=== PATIENT | female | born 1965 | race Caucasian/White ===

== ENCOUNTER 2017-03-22 11:29 | Emergency (ER) | payer SELFPAY ==
[2017-03-22 11:49] VITALS: BP 127/81; PULSE 86; RESP 20; TEMP 36.6; O2SAT 100; BMI 21.9
--- NOTE | 2017-03-22 12:11 | HMH.EDUTC ---
[facility] [place] Clinical Impression: Otitis media Qualifiers: Otitis media type: unspecified Laterality: left Qualified Code(s): H66.92 - Otitis media, unspecified, left ear Disposition: Home, Self-Care Condition on Discharge: Good Instructions: Middle Ear Infection, Ear Infections (Middle Ear) (Alternative Therapy), DI for Ear Pain-Adult Additional Instructions: Take over the counter Motrin and Tylenol as needed for pain and fever Take antibiotic as prescribed Follow up with family doctor if no improvement REturn if needed Prescriptions: Ibuprofen [Ibuprofen 800mg Tab] 800 mg PO Q6HP PRN #20 tab PRN Reason: Moderate Pain Cefdinir [Omnicef 300mg Capsule] 300 mg PO BID #20 cap Time of Disposition: 12:25 Medical Decision Making - Medical Records Medical records reviewed: Yes: I reviewed the patient's medical records. Vital Signs: 03/22/17 11:49 Temperature 97.8 F Temperature Source Temporal Artery Scan Pulse Rate [Right Brachial] 86 Respiratory Rate 20 Blood Pressure [Right Arm] 127/81 Blood Pressure Mean [Right Arm] 96 Blood Pressure Source [Right Arm] Automatic Cuff Blood Pressure Position [Right Arm] Sitting 02 Sat by Pulse Oximetry 100 Oxygen Delivery Method Room Air - Navi Inquiry Pt receiving controlled substance: No Navi was queried for this patient: No - Reevaluation(s) Time: 12:19 ( Patient state that she took Advil this morning at 9am State that she is allergic to Penicillin however able to take Cephasporins without reaction) [facility] [place] - General Stated complaint: left earache Mode of Arrival: Ambulatory Source of Information: Patient Limitations: No Limitations Description of Symptoms (Recalled from Triage Doc. by RN): C/O bilateral ear pain and decreased hearing HEENT Symptoms (Recalled from RN notes): Yes (Bilateral ear pain and decreased hearing) Resp Symptoms (Recalled from RN notes): No Skin Symptoms (Recalled from RN notes): No MS Symptoms (Recalled from RN notes): No Functional Status (Recalled from RN notes): N/A - History of Present Illness Provider Complaint: Patient state that she has been having pain in her left ear that has continued to get worse over the last week State that she saw the doctor last week and was given mucinex and nose spray but her left ear has continued to get worse State that this morning she woke up and was having more pain so she came in to get checked - Related Data Previous Rx's Medication Instructions Recorded Cefdinir [Omnicef 300mg Capsule] 300 mg PO BID #20 cap 03/22/17 Ibuprofen [Ibuprofen 800mg Tab] 800 mg PO Q6HP PRN #20 tab 03/22/17 Allergies Allergy/AdvReac Type Severity Reaction Status Date / Time No Known Allergies Allergy Verified 03/22/17 11:53 - Worker's Comp Is this a Worker's Comp case?: No H History I have reviewed the patient's past medical history: Yes Medical History: Denies:: Cancer, Diabetes Mellitus Type 1, Diabetes Mellitus Type 2, MRSA Laterality Cases: Bilateral: Myringotomy (Ear Tubes) Amputation: No Fractures: No - *Social History Smoking Status: Current every day smoker Tobacco Type: cigarettes Alcohol Intake: never - Psychiatric History Expresses thoughts of harming self/others: None Suicide Plan Description: No Plan ROS Obtained: Yes All systems reviewed & no additional complaints - ENT Ears, Nose, Mouth, and Throat: Reports otalgia Physical Exam - General General appearance: alert, in no apparent distress - Expanded ENT Exam TM/Canal exam: Left TM: erythema, bulging - Respiratory Respiratory exam: Present: normal lung sounds bilaterally. Absent: respiratory distress - Cardiovascular Cardiovascular exam: Present: regular rate, normal rhythm. Absent: JVD - Neurological Exam Neurological exam: Present: alert, oriented X3
--- NOTE | 2017-03-22 12:18 | ED_ITS ---
[facility] – [place] Disposition Clinical Impression: Otitis media Qualifiers: Otitis media type: unspecified Laterality: left Qualified Code(s): H66.92 - Otitis media, unspecified, left ear Disposition: Home, Self-Care Condition on Discharge: Good Instructions: Middle Ear Infection, Ear Infections (Middle Ear) (Alternative Therapy), DI for Ear Pain-Adult Additional Instructions: Take over the counter Motrin and Tylenol as needed for pain and fever Take antibiotic as prescribed Follow up with family doctor if no improvement REturn if needed Prescriptions: Ibuprofen [Ibuprofen 800mg Tab] 800 mg PO Q6HP PRN #20 tab PRN Reason: Moderate Pain Cefdinir [Omnicef 300mg Capsule] 300 mg PO BID #20 cap Time of Disposition: 12:25 Medical Decision Making - Medical Records Medical records reviewed: Yes: I reviewed the patient's medical records. Vital Signs: 03/22/17 11:49 Temperature 97.8 F Temperature Source Temporal Artery Scan Pulse Rate [Right Brachial] 86 Respiratory Rate 20 Blood Pressure [Right Arm] 127/81 Blood Pressure Mean [Right Arm] 96 Blood Pressure Source [Right Arm] Automatic Cuff Blood Pressure Position [Right Arm] Sitting 02 Sat by Pulse Oximetry 100 Oxygen Delivery Method Room Air - Navi Inquiry Pt receiving controlled substance: No Navi was queried for this patient: No - Reevaluation(s) Time: 12:19 ( Patient state that she took Advil this morning at 9am State that she is allergic to Penicillin however able to take Cephasporins without reaction ) [facility] – [place] HPI - General Stated complaint: left earache Mode of Arrival: Ambulatory Source of Information: Patient Limitations: No Limitations Description of Symptoms (Recalled from Triage Doc. by RN): C/O bilateral ear pain and decreased hearing HEENT Symptoms (Recalled from RN notes): Yes (Bilateral ear pain and decreased hearing) Resp Symptoms (Recalled from RN notes): No Skin Symptoms (Recalled from RN notes): No MS Symptoms (Recalled from RN notes): No Functional Status (Recalled from RN notes): N/A - History of Present Illness Provider Complaint: Patient state that she has been having pain in her left ear that has continued to get worse over the last week State that she saw the doctor last week and was given mucinex and nose spray but her left ear has continued to get worse State that this morning she woke up and was having more pain so she came in to get checked - Related Data Previous Rx's Medication Instructions Recorded Cefdinir [Omnicef 300mg Capsule] 300 mg PO BID #20 cap 03/22/17 Ibuprofen [Ibuprofen 800mg Tab] 800 mg PO Q6HP PRN #20 tab 03/22/17 Allergies Allergy/AdvReac Type Severity Reaction Status Date / Time No Known Allergies Allergy Verified 03/22/17 11:53 - Worker's Comp Is this a Worker's Comp case?: No H History I have reviewed the patient's past medical history: Yes Medical History: Denies:: Cancer, Diabetes Mellitus Type 1, Diabetes Mellitus Type 2, MRSA Laterality Cases: Bilateral: Myringotomy (Ear Tubes) Amputation: No Fractures: No - *Social History Smoking Status: Current every day smoker Tobacco Type: cigarettes Alcohol Intake: never - Psychiatric History Expresses thoughts of harming self/others: None Suicide Plan Description: No Plan ROS Obtained: Yes All systems reviewed & no additional complaints - ENT
--- NOTE | 2017-03-22 12:43 | PC.NURSE ---
Pt was wrongly placed on tracker. She appeared twice. The visit with this V# needed to be taken off.
[2017-03-22 13:01] VITALS: BP 127/81; PULSE 86; RESP 20; TEMP 36.6; O2SAT 100
== END 2017-03-22 13:01 | disposition home or self-care (01) ==
PROVIDERS: Emergency Provider Nurse Practitioner
DX: H66.92 Otitis media, unspecified, left ear (principal); F17.210 Nicotine dependence, cigarettes, uncomplicated
CPT/HCPCS: 99202

== ENCOUNTER 2018-01-06 11:05 | Inpatient (IN) ==
--- NOTE | 2018-01-06 11:48 | Emergency Department Note ---
ED Disposition Clinical Impression: Diverticulitis Disposition: Still a Patient Condition on Discharge: Fair Referrals: Provider,Referral, [Primary Care Provider] - - Critical Care Critical Care Time: No Attestation: On 01/06/18, the high probability of a clinically significant, sudden or life threatening deterioration of the following system(s) required my full and direct attention, intervention and personal management. The time I documented below is in addition to time spent performing reported procedures but includes the following listed in this critical care notation. Medical Decision Making - Navi Inquiry Pt receiving controlled substance: Yes Navi was queried for this patient: No Reason not queried -: Emergent pt cond-no time Risks and benefits of using a controlled substance: were not discussed with pt by me Vital Signs: 01/06/18 11:06 01/06/18 11:29 01/06/18 11:42 Temperature 97.9 F 97.9 F 97.9 F Temperature Source Oral Oral Oral Pulse Rate [Left Radial] 104 H 104 H 104 H Respiratory Rate 18 18 18 Blood Pressure [Right Arm] 117/73 117/73 117/73 Blood Pressure Mean [Right Arm] 87 87 87 Blood Pressure Source [Right Arm] Automatic Cuff Automatic Cuff Automatic Cuff Blood Pressure Position [Right Arm] Sitting Sitting Sitting 02 Sat by Pulse Oximetry 95 95 95 Oxygen Delivery Method Room Air Room Air Room Air 01/06/18 12:05 01/06/18 12:30 Temperature Temperature Source Pulse Rate [Left Radial] 87 78 Respiratory Rate 14 14 Blood Pressure [Right Arm] 123/71 123/77 Blood Pressure Mean [Right Arm] 88 92 Blood Pressure Source [Right Arm] Automatic Cuff Automatic Cuff Blood Pressure Position [Right Arm] Sitting Sitting 02 Sat by Pulse Oximetry 98 99 Oxygen Delivery Method Room Air Room Air - Lab Data Lab Results 01/06/18 11:29: Urine Color Yellow, Urine Appearance Clear, Urine pH 6.0, Ur Specific [place] 1.025, Urine Protein Trace, Urine Glucose (UA) Negative, Urine Ketones Negative, Urine Blood Negative, Urine Nitrate Negative, Urine Bilirubin 1+ A, Urine Urobilinogen 0.2, Ur Leukocyte Esterase Negative 01/06/18 11:50: WBC 10.8, RBC 5.52 H, Hgb 12.5, Hct 40.6, MCV 73.5 L, MCH 22.7 L , MCHC 30.9 L, RDW 17.4, Plt Count 490 H, MPV 7.4, Neut % (Auto) 69.9, Lymph % (Auto) 17.2, [place] % (Auto) 6.7, Eos % (Auto) 5.5, Baso % (Auto) 0.7, Neut # (Auto) 7.5, Lymph # (Auto) 1.9, [place] # (Auto) 0.7, Eos # (Auto) 0.6 H, Baso # (Auto) 0.1 01/06/18 11:50: Sodium 136, Potassium 4.0, Chloride 98, Carbon Dioxide 30, Anion Gap 12.0, BUN 13, Creatinine 1.06 H, Estimated Creat Clear 56, Estimated GFR 54 L, Est GFR ( Amer) 66, Glucose 114 H, Calcium 9.6, Total Bilirubin 0.2, AST 21, ALT 17, Alkaline Phosphatase 144 H, Total Protein 8.4 H, Albumin 3.3 L, Globulin 5.1 H, Albumin/Globulin Ratio 0.6 L 01/06/18 11:50: Lipase 85 Result diagrams: 01/06/18 11:50 01/06/18 11:50 Orders (Tests/Meds): ED MEDICATIONS Generic Name Dose Route Start Last Admin Trade Name Freq PRN Reason Stop Dose Admin Metronidazole 100 mls @ 100 mls/hr 01/06/18 14:00 01/06/18 14:02 Flagyl 500mg/100ml Ivpb IV 01/20/18 13:59 100 mls/hr Q8H [place] Administration Protocol Levofloxacin/Dextrose 750 mg in 150 mls @ 100 mls/hr 01/06/18 14:00 Levofloxacin 750mg/150ml Premix IV 01/20/18 13:59 Q24H [place] Protocol Discontinued Medications Generic Name Dose Route Start Last Admin Trade Name Freq PRN Reason Stop Dose Admin Iopamidol 75 ml 01/06/18 13:17 01/06/18 13:18 [id number]; 75ml Vial IV 01/06/18 13:18 75 ml ONCE ONE Administration Protocol Ketorolac Tromethamine 30 mg 01/06/18 11:54 01/06/18 12:12 Toradol 30mg/Ml Vial IV 01/06/18 11:55 30 mg ONCE ONE Administration Morphine Sulfate 4 mg 01/06/18 11:54 01/06/18 12:12 Morphine 4mg/Ml Syringe IV 01/06/18 11:55 4 mg ONCE ONE Administration Ondansetron HCl 4 mg 01/06/18 11:54 01/06/18 12:12 Zofran 4mg/2ml Vial IV 01/06/18 11:55 4 mg ONCE ONE Administration Sodium Chloride 1,000 ml 01/06/18 11:54 01/06/18 12:12 Sod Chlor 0.9% 1000ml Bag IV 01/06/18 11:55 1,000 ml BOLUS ONE Administration Sodium Chloride 10 ml 01/06/18 13:17 01/06/18 13:18 Rad-Saline Flush 10ml Syringe IV 01/06/18 13:18 10 ml ONCE ONE Administration ORDERS Category Date Time Status Urinalysis and Microscopic Stat Lab 01/06/18 11:48 Ordered Urine Culture Stat Micro 01/06/18 11:30 Received - CT Data CT Scan: Abdomen, Pelvis Time Received: 13:[address] Reviewed: Yes: I have viewed the radiologist's interpretation Findings Narrative: IMPRESSION: 1. Focal area of thickening involving the proximal aspect of the transverse colon with surrounding inflammatory changes with an area of isodensity along the lower aspect of this abnormality. This may be due to diverticulitis with a small abscess developing. Neoplasm is also a consideration. Recommend follow-up exam suggested following adequate treatment. 2. No intestinal obstruction or free air. Dictated By: Bhavesh Rodas MD Signed By: <Electronically signed by Bhavesh Rodas MD in OV> 01/06/18 1339 - Physician Consults Physician Consulted: Christopher Time: 14:10 Reason -: Admission Comment/Response: Agrees to admit the patient to the hospital. We discussed the patient's clinical information, including history, exam, laboratory and radiology results and ED course. Per hospital procedure, I will write temporary bridge inpatient orders on the patient. Specific orders requested by the admitting physician: Continue antibiotics, IV fluids, pain medication General Adult HPI - General Chief complaint: PAIN Stated complaint: lower back,fever Time Seen by Provider: 01/06/18 11:48 Mode of Arrival: Family Vehicle Limitations: No Limitations Description of Symptoms (Recalled from ER Triage Doc. by RN): C/O LOWER BACK AND RIGHT SIDE PAIN WITH DYSURIA - History of Present Illness HPI narrative: On Friday, 4 days ago, she developed a right lower quadrant abdominal pain. Over the weekend also developed low back pain. Last night developed a fever. She says it is hard for her to start her urinary stream, but no burning dysuria. Urine is very concentrated. Prior appendectomy and hysterectomy. - Related Data Allergies Allergy/AdvReac Type Severity Reaction Status Date / Time Penicillins Allergy Verified 05/14/17 14:05 [facility] History I have reviewed the patient's past medical history: Yes - Social History Smoking Status: Current every day smoker Tobacco Type: cigarettes Alcohol Intake: current - Psychiatric History Expresses thoughts of harming self/others: None Suicide Plan Description: No Plan ROS Obtained: Yes All systems reviewed & no additional complaints - Constitutional Constitutional: Reports fever(s) - Gastrointestinal Gastrointestingal: Reports: abdominal pain. Denies: diarrhea, vomiting - Genitourinary Female Genitourinary: Reports as per HPI - Musculoskeletal Musculoskeletal: Reports back pain Physical Exam - General General appearance: alert, in no apparent distress - Head Head exam: atraumatic, normocephalic - Eye Eye exam: Present: normal appearance, PERRL, EOMI - ENT ENT exam: Present: normal exam, mucous membranes moist - Neck Neck exam: Present: normal inspection - Chest Chest inspection: Present: normal inspection, symmetric chest wall rise - Respiratory Respiratory exam: Present: normal lung sounds bilaterally. Absent: respiratory distress - Cardiovascular Cardiovascular exam: Present: regular rate, normal rhythm, normal heart sounds - Abdominal Exam Abdominal exam: Present: soft, tenderness, guarding. Absent: distention, rebound Abdominal tenderness: Present: RUQ, RLQ Comment: Most tender in the right lower quadrant. Appendectomy scar. - Back Exam Back exam: Absent: CVA tenderness (R), CVA tenderness (L) - Neurological Exam Neurological exam: Present: alert, oriented X3 - Psychiatric Psychiatric exam: Present: normal affect, normal mood - Skin Skin exam: Present: warm, dry
[2018-01-06 12:00] LABS: Basophils # 0.1 K/mm3 (0-0.2); Basophils % 0.7 % (0.1-2.0); Eosinophils # 0.6 K/mm3 (0.0-0.4); Eosinophils % 5.5 % (0.1-12.0); Hematocrit 40.6 % (37.0-47.0); Hemoglobin 12.5 g/dL (12.2-16.2); Lymphocytes # 1.9 K/mm3 (0.7-4.5); Lymphocytes % 17.2 % (10-50); Mean Corpuscular HGB Conc 30.9 g/dL (31.8-35.4); Mean Corpuscular Hemoglobin 22.7 pg (27.0-31.2); Mean Corpuscular Volume 73.5 fl (81-99); Mean Platelet Volume 7.4 fl (7.4-10.4); Monocytes # 0.7 K/mm3 (0.1-1.0); Monocytes % 6.7 % (1.7-9.3); Neutrophils # 7.5 K/mm3 (1.8-7.8); Neutrophils % 69.9 % (37.0-80.0); Platelet Count 490 K/mm3 (142-424); Red Blood Count 5.52 M/mm3 (4.20-5.40); Red Cell Distribution Width 17.4 % (11.5-17.5); White Blood Count 10.8 K/mm3 (4.8-10.8)
[2018-01-06 12:14] LABS: Albumin Level 3.3 gm/dL (3.4-5.0); Albumin/Globulin Ratio 0.6 (1.1-1.8); Bilirubin,Total 0.2 mg/dL (0.2-1.0); Calcium 9.6 mg/dL (8.5-10.1); Globulin 5.1 gm/dl (1.3-3.2); Total Protein,Serum 8.4 gm/dL (6.4-8.2)
--- NOTE | 2018-01-06 16:33 | History & Physical Report ---
*Admission Date: 01/06/18 <Magdalena Arriaza 01/06/18 16:36> *Chief complaint: right lower abdominal pain <Magdalena Arriaza 01/06/18 16:36> *History of present illness: Ms Green is a 52 year old female, usually healthy, who began having abdominal pain on 01/02/18. The pain is in the right lower quadrant of the abdomen and has progressively worsened. She continued to work but was only able to work 1/2 day yesterday due to the pain. Her brought her to the ER due to the acute pain. She denies nausea and vomiting; Her bowels have not moved in 4 days, but she has not eaten in the past 2 days. She is drinking water and has continued to void. She denies fever. With evaluation in the ER the ABdominal CT revealed diverticulitis. She was started on Levaquin and Flagyl and given Morphine and Ketorlac for the pain, Zofran and a bolus of IVF. She was then admitted for further evauation and treatment. At this time of exam the pain has improved. She is hungry and would like to try liquids. <Magdalena Arriaza 01/06/18 17:21> [facility] History Medical History: Reports:: Asthma, Chronic Obstructive Pulmonary Disease (COPD) Denies:: Coronary Artery Disease <Magdalena Arriaza 01/06/18 17:21> Laterality Cases: Bilateral: Myringotomy (Ear Tubes) <Magdalena Arriaza 01/06/18 17:21> Other Surgeries: Yes: Hysterectomy-Total <Magdalena Arriaza 01/06/18 17:21> - *Social History Smoking Status: Current every day smoker <Magdalena Arriaza 01/06/18 16:36> Tobacco Type: cigarettes <Magdalena Arriaza 01/06/18 16:36> Alcohol Intake: current <ArriazaMagdalena 01/06/18 16:36> - Psychiatric History Expresses thoughts of harming self/others: None <ArriazaMagdalena 01/06/18 16:36> Suicide Plan Description: No Plan <ArriazaMagdalena 01/06/18 16:36> *Family Hx:: Cancer, Coronary Artery Disease <ArsalanMagdalena 01/06/18 17:21> Review of Systems - Constitutional Denies fever(s), Denies headache(s) <Magdalena Arriaza 01/06/18 17:21> - ENT Denies ear pain, Denies sore throat <Magdalena Arriaza 01/06/18 17:21> - *Cardiovascular Denies chest pain <Magdalena Arriaza 01/06/18 17:21> - *Respiratory Denies cough, Denies shortness of breath, Denies shortness of breath with activity <Magdalena Arriaza 01/06/18 17:21> - *Gastrointestinal Reports abdominal pain, Reports change in bowel habits, Reports constipation, Denies belching, Denies nausea, Denies vomiting <Magdalena Arriaza 01/06/18 17:21> - *Genitourinary Denies difficulty urinating <Magdalena Arriaza 01/06/18 17:21> Comments: decrease in UOP <Magdalena Arriaza 01/06/18 17:21> - *Musculoskeletal Denies abnormal walking, Denies joint pain <Magdalena Arriaza 01/06/18 17:21> Meds Home Medications Medication Instructions Recorded Confirmed Type No Known Home Medications 01/06/18 01/06/18 History <Julien White 01/06/18 17:53> Allergies Allergy/AdvReac Type Severity Reaction Status Date / Time Penicillins Allergy Verified 05/14/17 14:05 <Julien White - 01/06/18 17:53> Exam Vital signs and Labs for Last 24 Hours: Temp Pulse Resp BP Pulse Ox 98.1 F 74 18 156/89 H 98 01/06/18 15:24 01/06/18 15:29 01/06/18 15:29 01/06/18 15:29 01/06/18 15:29 Laboratory Results - last 24 hr 01/06/18 11:29: Urine Color Yellow, Urine Appearance Clear, Urine pH 6.0, Ur Specific [place] 1.025, Urine Protein Trace, Urine Glucose (UA) Negative, Urine Ketones Negative, Urine Blood Negative, Urine Nitrate Negative, Urine Bilirubin 1+ A, Urine Urobilinogen 0.2, Ur Leukocyte Esterase Negative 01/06/18 11:50: WBC 10.8, RBC 5.52 H, Hgb 12.5, Hct 40.6, MCV 73.5 L, MCH 22.7 L , MCHC 30.9 L, RDW 17.4, Plt Count 490 H, MPV 7.4, Neut % (Auto) 69.9, Lymph % (Auto) 17.2, [place] % (Auto) 6.7, Eos % (Auto) 5.5, Baso % (Auto) 0.7, Neut # (Auto) 7.5, Lymph # (Auto) 1.9, [place] # (Auto) 0.7, Eos # (Auto) 0.6 H, Baso # (Auto) 0.1 01/06/18 11:50: Sodium 136, Potassium 4.0, Chloride 98, Carbon Dioxide 30, Anion Gap 12.0, BUN 13, Creatinine 1.06 H, Estimated Creat Clear 56, Estimated GFR 54 L, Est GFR ( Amer) 66, Glucose 114 H, Calcium 9.6, Total Bilirubin 0.2, AST 21, ALT 17, Alkaline Phosphatase 144 H, Total Protein 8.4 H, Albumin 3.3 L, Globulin 5.1 H, Albumin/Globulin Ratio 0.6 L 01/06/18 11:50: Lipase 85 <Mccool,Julien - 01/06/18 17:53> Temp Pulse Resp BP Pulse Ox 98.1 F 74 18 156/89 H 98 01/06/18 15:24 01/06/18 15:29 01/06/18 15:29 01/06/18 15:29 01/06/18 15:29 Laboratory Results - last 24 hr 01/06/18 11:29: Urine Color Yellow, Urine Appearance Clear, Urine pH 6.0, Ur Specific [place] 1.025, Urine Protein Trace, Urine Glucose (UA) Negative, Urine Ketones Negative, Urine Blood Negative, Urine Nitrate Negative, Urine Bilirubin 1+ A, Urine Urobilinogen 0.2, Ur Leukocyte Esterase Negative 01/06/18 11:50: WBC 10.8, RBC 5.52 H, Hgb 12.5, Hct 40.6, MCV 73.5 L, MCH 22.7 L , MCHC 30.9 L, RDW 17.4, Plt Count 490 H, MPV 7.4, Neut % (Auto) 69.9, Lymph % (Auto) 17.2, [place] % (Auto) 6.7, Eos % (Auto) 5.5, Baso % (Auto) 0.7, Neut # (Auto) 7.5, Lymph # (Auto) 1.9, [place] # (Auto) 0.7, Eos # (Auto) 0.6 H, Baso # (Auto) 0.1 01/06/18 11:50: Sodium 136, Potassium 4.0, Chloride 98, Carbon Dioxide 30, Anion Gap 12.0, BUN 13, Creatinine 1.06 H, Estimated Creat Clear 56, Estimated GFR 54 L, Est GFR ( Amer) 66, Glucose 114 H, Calcium 9.6, Total Bilirubin 0.2, AST 21, ALT 17, Alkaline Phosphatase 144 H, Total Protein 8.4 H, Albumin 3.3 L, Globulin 5.1 H, Albumin/Globulin Ratio 0.6 L 01/06/18 11:50: Lipase 85 <Magdalena Arriaza - 01/06/18 16:36> I & O for Last 24 hours: Intake & Output 01/04/18 01/05/18 01/06/18 01/07/18 11:59 11:59 11:59 11:59 Weight 126 lb 120 lb 7 oz <Julien White - 01/06/18 17:53> Intake & Output 01/04/18 01/05/18 01/06/18 01/07/18 11:59 11:59 11:59 11:59 Weight 126 lb 120 lb 7 oz <Magdalena Arriaza - 01/06/18 16:36> Radiology Reports for the Last 24 Hours: 01/06/18 CT of abdomen/pelvis MPRESSION: 1. Focal area of thickening involving the proximal aspect of the transverse colon with surrounding inflammatory changes with an area of isodensity along the lower aspect of this abnormality. This may be due to diverticulitis with a small abscess developing. Neoplasm is also a consideration. Recommend follow-up exam suggested following adequate treatment. 2. No intestinal obstruction or free air. <Magdalena Arriaza - 01/06/18 17:21> - Constitutional no acute distress <Magdalena Arriaza 01/06/18 17:21> - *Routine HEENT Exam Head: Present: normocephalic, atraumatic <Magdalena Arriaza 01/06/18 17:21> Eye: Present: PERRL. Absent: conjunctival icterus, scleral injection <[facility] 01/06/18 17:21> ENT: Present: mucous membranes moist, oropharynx clear, nares patent <[facility] 01/06/18 17:21> - *Routine Neck Exam Present: supple. Absent: carotid bruit, lymphadenopathy, thyromegaly <[facility] 01/06/18 17:21> - *Routine Respiratory Exam Present: CTA bilaterally (A&P) <[facility] 01/06/18 17:21> - *Routine Abdominal Exam Present: soft, normoactive bowel sounds, tenderness (RLQ). Absent: distended <[facility] 01/06/18 17:21> - *Routine Extremities Exam Absent: edema, calf tenderness <[facility] 01/06/18 17:21> - *Routine Neurological Exam Present: alert, oriented X3 <[facility] 01/06/18 17:21> Assessment and Plan (1) Diverticulitis Current visit: Yes Status: Acute Category: Medical Code(s): K57.92 - Diverticulitis of intestine, part unspecified, without perforation or abscess without bleeding (2) Renal insufficiency Current visit: Yes Status: Acute Category: Medical Code(s): N28.9 - Disorder of kidney and ureter, unspecified (3) COPD (chronic obstructive pulmonary disease) Current visit: Yes Status: Acute Category: Medical Code(s): J44.9 - Chronic obstructive pulmonary disease, unspecified (4) Tobacco use disorder Current visit: Yes Status: Acute Category: Medical Code(s): F17.200 - Nicotine dependence, unspecified, uncomplicated <MccoolMartinJulien - 01/06/18 17:53> (1) Diverticulitis Current visit: Yes Status: Acute Category: Medical Code(s): K57.92 - Diverticulitis of intestine, part unspecified, without perforation or abscess without bleeding (2) Renal insufficiency Current visit: Yes Status: Acute Category: Medical Code(s): N28.9 - Disorder of kidney and ureter, unspecified <[facility] 01/06/18 17:02> - Assessment and plan all Dx Assessment and Plan for all problems:: Saw patient, agree with above note. OK for clear liquid diet, discussed smoking cessation. <Julien White - 01/06/18 17:53> Celi and Thalia; IVF <Magdalena Arriaza - 01/06/18 17:21>
--- NOTE | 2018-01-07 07:46 | Pharmacy Consult Notes ---
[facility] Pharmacy VTE Monitoring - Patient Demographics Admission date: 01/07/18 Report Date: 01/07/18 Time: 07:45 Allergies/Adverse Reactions: Patient Allergies Penicillins Allergy (Verified 05/14/17 14:05) Height: 1.63 m Weight: 54.63 kg Patient Problems: Current Active Problems Diverticulitis (Acute) Renal insufficiency (Acute) COPD (chronic obstructive pulmonary disease) (Acute) Tobacco use disorder (Acute) - VTE Risk Labs: VTE Related Lab Results Hgb 12.5 g/dL (12.2-16.2) 01/06/18 11:50 Hct 40.6 % (37.0-47.0) 01/06/18 11:50 Plt Count 490 K/mm3 (142-424) H 01/06/18 11:50 BUN 13 mg/dL (7-18) 01/06/18 11:50 Creatinine 1.06 mg/dL (0.55-1.02) H 01/06/18 11:50 Estimated Creat Clear 56 mL/min (50-200) 01/06/18 11:50 Was VTE Risk Assessment Performed: Yes VTE Score: 3 VTE Risk Level: Low Risk Clinical Trial Participant: No - Prophylaxis VTE Prophylaxis Ordered?: Yes Types of VTE Prophylaxis: TEDS Knee High
--- NOTE | 2018-01-07 07:56 | Progress Note ---
<Magdalena Arriaza - Last Filed: 01/07/18 07:53> Internal Medicine - PN: Subj *Date: 01/07/18 *Time: 07:53 Interval history: Patient slept about 3 hours last night. She continues to have abdominal pain acquired pain medicine. She does have a lot of gas. She has had no stools. She is voiding QS. She has had no nausea and no vomiting. She is hungry and would like some food. She denies chest pain and shortness of breath. Exam Vital signs and Labs for Last 24 Hours: Temp Pulse Resp BP Pulse Ox 98.2 F 66 14 117/66 98 01/07/18 04:00 01/07/18 04:00 01/07/18 04:00 01/07/18 04:00 01/07/18 04:00 Laboratory Results - last 24 hr 01/06/18 11:29: Urine Color Yellow, Urine Appearance Clear, Urine pH 6.0, Ur Specific [place] 1.025, Urine Protein Trace, Urine Glucose (UA) Negative, Urine Ketones Negative, Urine Blood Negative, Urine Nitrate Negative, Urine Bilirubin 1+ A, Urine Urobilinogen 0.2, Ur Leukocyte Esterase Negative 01/06/18 11:50: WBC 10.8, RBC 5.52 H, Hgb 12.5, Hct 40.6, MCV 73.5 L, MCH 22.7 L , MCHC 30.9 L, RDW 17.4, Plt Count 490 H, MPV 7.4, Neut % (Auto) 69.9, Lymph % (Auto) 17.2, [place] % (Auto) 6.7, Eos % (Auto) 5.5, Baso % (Auto) 0.7, Neut # (Auto) 7.5, Lymph # (Auto) 1.9, [place] # (Auto) 0.7, Eos # (Auto) 0.6 H, Baso # (Auto) 0.1 01/06/18 11:50: Sodium 136, Potassium 4.0, Chloride 98, Carbon Dioxide 30, Anion Gap 12.0, BUN 13, Creatinine 1.06 H, Estimated Creat Clear 56, Estimated GFR 54 L, Est GFR ( Amer) 66, Glucose 114 H, Calcium 9.6, Total Bilirubin 0.2, AST 21, ALT 17, Alkaline Phosphatase 144 H, Total Protein 8.4 H, Albumin 3.3 L, Globulin 5.1 H, Albumin/Globulin Ratio 0.6 L 01/06/18 11:50: Lipase 85 I & O for Last 24 hours: Intake & Output 01/04/18 01/05/18 01/06/18 01/07/18 11:59 11:59 11:59 11:59 Intake Total 1620 / 1620 Balance 1620 / 1620 Weight 126 lb 120 lb 7 oz Radiology Reports for the Last 24 Hours: 01/06/2018 CT of the abdomen/pelvis IMPRESSION: 1. Focal area of thickening involving the proximal aspect of the transverse colon with surrounding inflammatory changes with an area of isodensity along the lower aspect of this abnormality. This may be due to diverticulitis with a small abscess developing. Neoplasm is also a consideration. Recommend follow-up exam suggested following adequate treatment. 2. No intestinal obstruction or free air. - Constitutional no acute distress - *Routine Respiratory Exam Present: CTA bilaterally (Anteriorly and posteriorly) - *Routine Cardiovascular Exam Present: RRR - *Routine Abdominal Exam Present: soft, normoactive bowel sounds, tenderness (In all right quads) - *Routine Extremities Exam Absent: edema Assessment and Plan (1) Diverticulitis Current visit: Yes Status: Acute Category: Medical Code(s): K57.92 - Diverticulitis of intestine, part unspecified, without perforation or abscess without bleeding (2) Renal insufficiency Current visit: Yes Status: Acute Category: Medical Code(s): N28.9 - Disorder of kidney and ureter, unspecified (3) COPD (chronic obstructive pulmonary disease) Current visit: Yes Status: Acute Category: Medical Code(s): J44.9 - Chronic obstructive pulmonary disease, unspecified (4) Tobacco use disorder Current visit: Yes Status: Acute Category: Medical Code(s): F17.200 - Nicotine dependence, unspecified, uncomplicated - Assessment and plan all Dx Assessment and Plan for all problems:: Continue with IV antibiotics. We will try a bland diet since patient is hungry. <Julien White - Last Filed: 01/07/18 08:22> Exam Vital signs and Labs for Last 24 Hours: Temp Pulse Resp BP Pulse Ox 98.2 F 66 14 117/66 98 01/07/18 04:00 01/07/18 04:00 01/07/18 04:00 01/07/18 04:00 01/07/18 04:00 Laboratory Results - last 24 hr 01/06/18 11:29: Urine Color Yellow, Urine Appearance Clear, Urine pH 6.0, Ur Specific [place] 1.025, Urine Protein Trace, Urine Glucose (UA) Negative, Urine Ketones Negative, Urine Blood Negative, Urine Nitrate Negative, Urine Bilirubin 1+ A, Urine Urobilinogen 0.2, Ur Leukocyte Esterase Negative 01/06/18 11:50: WBC 10.8, RBC 5.52 H, Hgb 12.5, Hct 40.6, MCV 73.5 L, MCH 22.7 L , MCHC 30.9 L, RDW 17.4, Plt Count 490 H, MPV 7.4, Neut % (Auto) 69.9, Lymph % (Auto) 17.2, [place] % (Auto) 6.7, Eos % (Auto) 5.5, Baso % (Auto) 0.7, Neut # (Auto) 7.5, Lymph # (Auto) 1.9, [place] # (Auto) 0.7, Eos # (Auto) 0.6 H, Baso # (Auto) 0.1 01/06/18 11:50: Sodium 136, Potassium 4.0, Chloride 98, Carbon Dioxide 30, Anion Gap 12.0, BUN 13, Creatinine 1.06 H, Estimated Creat Clear 56, Estimated GFR 54 L, Est GFR ( Amer) 66, Glucose 114 H, Calcium 9.6, Total Bilirubin 0.2, AST 21, ALT 17, Alkaline Phosphatase 144 H, Total Protein 8.4 H, Albumin 3.3 L, Globulin 5.1 H, Albumin/Globulin Ratio 0.6 L 01/06/18 11:50: Lipase 85 I & O for Last 24 hours: Intake & Output 01/04/18 01/05/18 01/06/18 01/07/18 11:59 11:59 11:59 11:59 Intake Total 1620 / 1620 Balance 1620 / 1620 Weight 126 lb 120 lb 7 oz Assessment and Plan (1) Diverticulitis Current visit: Yes Status: Acute Category: Medical Code(s): K57.92 - Diverticulitis of intestine, part unspecified, without perforation or abscess without bleeding (2) Renal insufficiency Current visit: Yes Status: Acute Category: Medical Code(s): N28.9 - Disorder of kidney and ureter, unspecified (3) COPD (chronic obstructive pulmonary disease) Current visit: Yes Status: Acute Category: Medical Code(s): J44.9 - Chronic obstructive pulmonary disease, unspecified (4) Tobacco use disorder Current visit: Yes Status: Acute Category: Medical Code(s): F17.200 - Nicotine dependence, unspecified, uncomplicated - Assessment and plan all Dx Assessment and Plan for all problems:: Saw patient, agree with above note.
[2018-01-08 06:15] LABS: Basophils # 0.1 K/mm3 (0-0.2); Basophils % 0.5 % (0.1-2.0); Eosinophils # 0.5 K/mm3 (0.0-0.4); Eosinophils % 5.4 % (0.1-12.0); Hematocrit 33.6 % (37.0-47.0); Hemoglobin 10.2 g/dL (12.2-16.2); Lymphocytes # 1.8 K/mm3 (0.7-4.5); Mean Corpuscular HGB Conc 30.3 g/dL (31.8-35.4); Mean Corpuscular Hemoglobin 22.1 pg (27.0-31.2); Mean Platelet Volume 7.2 fl (7.4-10.4); Monocytes # 0.7 K/mm3 (0.1-1.0); Monocytes % 7.1 % (1.7-9.3); Neutrophils # 6.7 K/mm3 (1.8-7.8); Platelet Count 366 K/mm3 (142-424); Red Blood Count 4.61 M/mm3 (4.20-5.40); Red Cell Distribution Width 17.3 % (11.5-17.5); White Blood Count 9.7 K/mm3 (4.8-10.8)
[2018-01-08 06:18] LABS: Anion Gap 11.1 mEq/L (5-15); Potassium 4.1 mmoL/L (3.5-5.1)
--- NOTE | 2018-01-08 08:14 | Progress Note ---
<Racheal Yin - Last Filed: 01/08/18 08:11> Internal Medicine - PN: Subj *Date: 01/08/18 *Time: 08:11 Interval history: Patient states she is feeling a little bit better today. She is still having right lower quadrant abdominal pain. She has not had a bowel movement. She denies any vomiting or nausea. She is able to rest. Exam Vital signs and Labs for Last 24 Hours: Temp Pulse Resp BP Pulse Ox 98.7 F 64 16 137/79 98 01/08/18 04:00 01/08/18 04:00 01/08/18 04:00 01/08/18 04:00 01/08/18 04:00 Laboratory Results - last 24 hr 01/08/18 06:00: WBC 9.7, RBC 4.61, Hgb 10.2 L, Hct 33.6 L, MCV 73.0 L, MCH 22.1 L, MCHC 30.3 L, RDW 17.3, Plt Count 366 D, MPV 7.2 L, Neut % (Auto) 69.0, Lymph % (Auto) 18.0, [place] % (Auto) 7.1, Eos % (Auto) 5.4, Baso % (Auto) 0.5, Neut # (Auto) 6.7, Lymph # (Auto) 1.8, [place] # (Auto) 0.7, Eos # (Auto) 0.5 H, Baso # (Auto) 0.1 01/08/18 06:00: Sodium 139, Potassium 4.1, Chloride 102, Carbon Dioxide 30, Anion Gap 11.1, BUN 12, Creatinine 0.95, Estimated Creat Clear 60, Estimated GFR 62, Est GFR ( Amer) 75, Glucose 95, Calcium 9.0 I & O for Last 24 hours: Intake & Output 01/05/18 01/06/18 01/07/18 01/08/18 11:59 11:59 11:59 11:59 Intake Total 2079 2935 / 2935 Balance 2079 2935 / 2935 Weight 126 lb 120 lb 7 oz 120 lb 7.016 oz Microbiology Reports for the Last 24 Hours: Microbiology 01/06/18 11:30 Urethra Urine Culture - Final Multiple organisms, suggests contamination. - Constitutional no acute distress - *Routine Respiratory Exam Present: CTA bilaterally - *Routine Cardiovascular Exam Present: RRR - *Routine Abdominal Exam Present: soft, normoactive bowel sounds, tenderness (RLQ) - *Routine Extremities Exam Absent: cyanosis, clubbing, edema Assessment and Plan (1) Diverticulitis Current visit: Yes Status: Acute Category: Medical Code(s): K57.92 - Diverticulitis of intestine, part unspecified, without perforation or abscess without bleeding (2) Renal insufficiency Current visit: Yes Status: Acute Category: Medical Code(s): N28.9 - Disorder of kidney and ureter, unspecified (3) COPD (chronic obstructive pulmonary disease) Current visit: Yes Status: Acute Category: Medical Code(s): J44.9 - Chronic obstructive pulmonary disease, unspecified (4) Tobacco use disorder Current visit: Yes Status: Acute Category: Medical Code(s): F17.200 - Nicotine dependence, unspecified, uncomplicated - Assessment and plan all Dx Assessment and Plan for all problems:: Renal function has normalized. Patient's pain is improving. Will continue antibiotics. <Julien White - Last Filed: 01/08/18 08:29> Exam Vital signs and Labs for Last 24 Hours: Temp Pulse Resp BP Pulse Ox 98.7 F 64 16 137/79 98 01/08/18 04:00 01/08/18 04:00 01/08/18 04:00 01/08/18 04:00 01/08/18 04:00 Laboratory Results - last 24 hr 01/08/18 06:00: WBC 9.7, RBC 4.61, Hgb 10.2 L, Hct 33.6 L, MCV 73.0 L, MCH 22.1 L, MCHC 30.3 L, RDW 17.3, Plt Count 366 D, MPV 7.2 L, Neut % (Auto) 69.0, Lymph % (Auto) 18.0, [place] % (Auto) 7.1, Eos % (Auto) 5.4, Baso % (Auto) 0.5, Neut # (Auto) 6.7, Lymph # (Auto) 1.8, [place] # (Auto) 0.7, Eos # (Auto) 0.5 H, Baso # (Auto) 0.1 01/08/18 06:00: Sodium 139, Potassium 4.1, Chloride 102, Carbon Dioxide 30, Anion Gap 11.1, BUN 12, Creatinine 0.95, Estimated Creat Clear 60, Estimated GFR 62, Est GFR ( Amer) 75, Glucose 95, Calcium 9.0 I & O for Last 24 hours: Intake & Output 01/05/18 01/06/18 01/07/18 01/08/18 11:59 11:59 11:59 11:59 Intake Total 2079 2935 / 2935 Balance 2079 2935 / 2935 Weight 126 lb 120 lb 7 oz 120 lb 7.016 oz Microbiology Reports for the Last 24 Hours: Microbiology 01/06/18 11:30 Urethra Urine Culture - Final Multiple organisms, suggests contamination. Assessment and Plan (1) Diverticulitis Current visit: Yes Status: Acute Category: Medical Code(s): K57.92 - Diverticulitis of intestine, part unspecified, without perforation or abscess without bleeding (2) Renal insufficiency Current visit: Yes Status: Acute Category: Medical Code(s): N28.9 - Disorder of kidney and ureter, unspecified (3) COPD (chronic obstructive pulmonary disease) Current visit: Yes Status: Acute Category: Medical Code(s): J44.9 - Chronic obstructive pulmonary disease, unspecified (4) Tobacco use disorder Current visit: Yes Status: Acute Category: Medical Code(s): F17.200 - Nicotine dependence, unspecified, uncomplicated - Assessment and plan all Dx Assessment and Plan for all problems:: Saw patient, agree with above note.
--- NOTE | 2018-01-08 21:59 | Discharge Summary ---
General - General Admission date:: 01/06/18 Discharge date: 01/08/18 HPI HPI: Ms Green is a 52 year old female, usually healthy, who began having abdominal pain on 01/02/18. The pain is in the right lower quadrant of the abdomen and has progressively worsened. She continued to work but was only able to work 1/2 day yesterday due to the pain. Her brought her to the ER due to the acute pain. She denies nausea and vomiting; Her bowels have not moved in 4 days, but she has not eaten in the past 2 days. She is drinking water and has continued to void. She denies fever. With evaluation in the ER the ABdominal CT revealed diverticulitis. She was started on Levaquin and Flagyl and given Morphine and Ketorlac for the pain, Zofran and a bolus of IVF. She was then admitted for further evauation and treatment. At this time of exam the pain has improved. She is hungry and would like to try liquids. Hospital Course Hospital Course: The patient was continued on IV antibiotics and was started on a clear liquid diet. Her pain improved and her diet was advanced. She was able to tolerate a bland diet. Her renal function normalized and she was stable to be discharged home on oral Levaquin and Flagyl. She will follow-up in the office in 5 days. Objective Vital signs: Temp Pulse Resp BP Pulse Ox 97.6 F 74 18 135/77 96 01/08/18 16:00 01/08/18 16:00 01/08/18 16:00 01/08/18 16:00 01/08/18 16:00 Narrative: - Constitutional no acute distress - *Routine HEENT Exam Head: Present: normocephalic, atraumatic Eye: Present: PERRL. Absent: conjunctival icterus, scleral injection ENT: Present: mucous membranes moist, oropharynx clear, nares patent - *Routine Neck Exam Present: supple. Absent: carotid bruit, lymphadenopathy, thyromegaly - *Routine Respiratory Exam Present: CTA bilaterally (A&P) - *Routine Abdominal Exam Present: soft, normoactive bowel sounds, tenderness (RLQ). Absent: distended - *Routine Extremities Exam Absent: edema, calf tenderness - *Routine Neurological Exam Present: alert, oriented X3 Results Labs on day of discharge: Labs from last 24 hours 01/08/18 01/08/18 06:00 06:00 WBC 9.7 RBC 4.61 Hgb 10.2 L Hct 33.6 L MCV 73.0 L MCH 22.1 L MCHC 30.3 L RDW 17.3 Plt Count 366 D MPV 7.2 L Neut % (Auto) 69.0 Lymph % (Auto) 18.0 [place] % (Auto) 7.1 Eos % (Auto) 5.4 Baso % (Auto) 0.5 Neut # (Auto) 6.7 Lymph # (Auto) 1.8 [place] # (Auto) 0.7 Eos # (Auto) 0.5 H Baso # (Auto) 0.1 Sodium 139 Potassium 4.1 Chloride 102 Carbon Dioxide 30 Anion Gap 11.1 BUN 12 Creatinine 0.95 Estimated Creat Clear 60 Estimated GFR 62 Est GFR ( Amer) 75 Glucose 95 Calcium 9.0 DS: Diagnosis - Discharge Diagnosis (1) Diverticulitis Status: Acute (2) Renal insufficiency Status: Acute (3) COPD (chronic obstructive pulmonary disease) Status: Acute (4) Tobacco use disorder Status: Acute Discharge Plan - Patient Discharge Instructions ACTIVITY: Continue current activity DIET: continue same diet Patient Instructions: DI for Diverticulitis - Follow up Plan Follow up with: Julien White MD [Staff Physician] - 01/13/18 Disposition: Home, Self-Snf Medications: Home Medications Medication Instructions Recorded Confirmed Type No Known Home Medications 01/06/18 01/06/18 History Prescriptions/Medication Reconciliation: New Tramadol HCl [Ultram 50mg tablet] 50 mg PO Q4HP PRN #12 tab PRN Reason: Moderate To Severe Pain metroNIDAZOLE [Flagyl 500mg Tablet] 500 mg PO TID #21 tab levoFLOXacin [Levaquin 750mg tablet] 750 mg PO DAILY #7 tab No Action No Known Home Medications
== END 2018-01-08 19:02 | disposition home or self-care (01) ==
LOC: UTC 11:05 → 2ND 14:12
PROVIDERS: ADMIT Family Medicine; ATTEND Family Medicine
CPT/HCPCS: 36415; 74177; 80048; 80053; 81003; 83690; 85025; 87086; 96365; 96367; 96375; 99284; J1956; J2405; Q9967

== ENCOUNTER 2018-05-12 21:18 | Inpatient (IN) ==
[2018-05-12 21:38] LABS: Microscopic, Urine URINE MICROSCOPIC (MICROSCOPIC)
[2018-05-12 21:48] LABS: Appearance,Urine CLEAR (Clear); Bilirubin,Urine Negative (Negative); Blood, Urine Negative (Negative); Color,Urine YELLOW (Yellow); Glucose,Urine (UA) Negative (Negative); Ketones,Urine Negative (Negative); Leukocyte Esterase,Urine Negative (Negative); PH,Urine 6.5 (5.0-8.5); Protein,Urine Negative (Negative); Specific Gravity, Urine 1.015 (1.005-1.030); Urobilinogen,Urine 0.2 EU/dl (0.2)
[2018-05-12 21:57] LABS: Albumin Level 2.9 gm/dL (3.4-5.0); Albumin/Globulin Ratio 0.6 (1.1-1.8); Anion Gap 11.8 mEq/L (5-15); Bilirubin,Total 0.1 mg/dL (0.2-1.0); Calcium 9.1 mg/dL (8.5-10.1); Globulin 4.7 gm/dl (1.3-3.2); Potassium 3.8 mmoL/L (3.5-5.1); Total Protein,Serum 7.6 gm/dL (6.4-8.2)
[2018-05-12 22:00] LABS: Bacteria,Urine Trace /lpf; WBC,Urine Occasional #/hpf (0-3)
[2018-05-12 22:05] LABS: Basophils # 0.1 K/mm3 (0-0.2); Basophils % 0.9 % (0.1-2.0); Eosinophils % 8.1 % (0.1-12.0); Hematocrit 35.1 % (37.0-47.0); Hemoglobin 10.5 g/dL (12.2-16.2); Lymphocytes % 24.1 % (10-50); Mean Corpuscular HGB Conc 29.8 g/dL (31.8-35.4); Mean Corpuscular Hemoglobin 22.9 pg (27.0-31.2); Mean Corpuscular Volume 76.8 fl (81-99); Mean Platelet Volume 6.8 fl (7.4-10.4); Monocytes # 0.7 K/mm3 (0.1-1.0); Monocytes % 5.3 % (1.7-9.3); Neutrophils # 7.8 K/mm3 (1.8-7.8); Neutrophils % 61.5 % (37.0-80.0); Platelet Count 544 K/mm3 (142-424); Red Blood Count 4.57 M/mm3 (4.20-5.40); Red Cell Distribution Width 14.8 % (11.5-17.5); White Blood Count 12.6 K/mm3 (4.8-10.8)
--- NOTE | 2018-05-12 22:29 | Emergency Department Note ---
ED Disposition Clinical Impression: Diverticulitis Disposition: Admitted As Inpatient Condition on Discharge: Serious Referrals: Julien White MD [Primary Care Provider] - - Critical Care Critical Care Time: No Attestation: On 05/12/18, the high probability of a clinically significant, sudden or life threatening deterioration of the following system(s) required my full and direct attention, intervention and personal management. The time I documented below is in addition to time spent performing reported procedures but includes the following listed in this critical care notation. Medical Decision Making - Medical Records Medical records reviewed: Yes: I reviewed the patient's medical records. - Navi Inquiry Pt receiving controlled substance: No Vital Signs: 05/12/18 21:19 05/12/18 22:49 Temperature 97.7 F Temperature Source Oral Pulse Rate [Right Brachial] 92 H 80 Respiratory Rate 16 16 Blood Pressure [Right Arm] 160/83 H 144/86 H Blood Pressure Mean [Right Arm] 108 105 02 Sat by Pulse Oximetry 96 98 Oxygen Delivery Method Room Air - Lab Data Lab results reviewed: Yes: I reviewed the patient's lab results. Lab Results 05/12/18 21:30: Urine Color Yellow, Urine Appearance Clear, Urine pH 6.5, Ur Specific [place] 1.015, Urine Protein Negative, Urine Glucose (UA) Negative, Urine Ketones Negative, Urine Blood Negative, Urine Nitrate Negative, Urine Bilirubin Negative, Urine Urobilinogen 0.2, Ur Leukocyte Esterase Negative, Urine RBC None, Urine WBC Occasional, Ur Squamous Epith Cells 3-5, Urine Bacteria Trace 05/12/18 21:30: WBC 12.6 H, RBC 4.57, Hgb 10.5 L, Hct 35.1 L, MCV 76.8 L, MCH 22.9 L, MCHC 29.8 L, RDW 14.8, Plt Count 544 H, MPV 6.8 L, Neut % (Auto) 61.5, Lymph % (Auto) 24.1, [place] % (Auto) 5.3, Eos % (Auto) 8.1, Baso % (Auto) 0.9, Neut # (Auto) 7.8, Lymph # (Auto) 3.0, [place] # (Auto) 0.7, Eos # (Auto) 1.0 H, Baso # (Auto) 0.1, ESR 51 H 05/12/18 21:30: Urine HCG, Qual Negative 05/12/18 21:30: Sodium 137, Potassium 3.8, Chloride 99, Carbon Dioxide 30, Anion Gap 11.8, BUN 16, Creatinine 1.06 H, Estimated Creat Clear 53, Estimated GFR 54 L, Est GFR ( Amer) 66, Glucose 116 H, Calcium 9.1, Total Bilirubin 0.1 L, AST 14 L, ALT 18, Alkaline Phosphatase 135 H, C-Reactive Protein 7.0 H, Total Protein 7.6, Albumin 2.9 L, Globulin 4.7 H, Albumin/Globulin Ratio 0.6 L, Amylase 40, Lipase 126 Result diagrams: 05/12/18 21:30 05/12/18 21:30 Orders (Tests/Meds): ED MEDICATIONS Generic Name Dose Route Start Last Admin Trade Name Freq PRN Reason Stop Dose Admin Sodium Chloride 1,000 mls @ 999 mls/hr 05/12/18 21:45 05/12/18 21:45 Sod Chlor 0.9% 1000ml Bag IV 05/12/18 22:45 999 mls/hr .Q1H1M [place] Administration Levofloxacin/Dextrose 750 mg in 150 mls @ 100 mls/hr 05/12/18 23:30 05/12/18 23:20 Levofloxacin 750mg/150ml Premix IV 05/26/18 23:29 100 mls/hr Q24H [place] Administration Protocol Metronidazole 500 mg in 100 mls @ 100 mls/hr 05/12/18 23:30 05/12/18 23:20 Flagyl 500mg/100ml Ivpb IV 05/26/18 23:29 100 mls/hr Q8H [place] Administration Protocol Sodium Chloride 10 ml 05/12/18 21:33 Saline Flush 10ml Syringe IV 06/11/18 21:32 NEEDED PRN Maintain IV Site Discontinued Medications Generic Name Dose Route Start Last Admin Trade Name Freq PRN Reason Stop Dose Admin Hydromorphone HCl 1 mg 05/12/18 23:18 05/12/18 23:19 Dilaudid 2mg/Ml Syringe IV 05/12/18 23:19 1 mg ONCE ONE Administration Ketorolac Tromethamine 30 mg 05/12/18 21:34 05/12/18 21:45 Toradol 30mg/Ml Vial IV 05/12/18 21:35 30 mg ONCE ONE Administration ORDERS Category Date Time Status CT abdomen pelvis w con Stat Cat Scan 05/12/18 21:33 Ordered - CT Data CT Scan: Abdomen, Pelvis Time Received: 23:[address] Reviewed: Yes: I have viewed the radiologist's interpretation Preliminary Findings: Abnormal (see report ) - Physician Consults Physician Consulted: mani Reason -: Admission Nausea/Vomiting/Diarrhea HPI - General Chief complaint: Abdominal Pain Stated complaint: Abd pain Time Seen by Provider: 05/12/18 21:35 Mode of Arrival: Ambulatory Source of Information: Patient, Spouse, Medical Record Limitations: No Limitations Description of Symptoms (Recalled from ER Triage Doc. by RN): Pt having right lower quad pain, thinks it is diverticulitis, she states it feels the same. - History of Present Illness HPI Narrative: pt with 2 day hx of rt sided abd pain with nausea and had prev episode last fall wityh diverticulitis - no recent colonoscopy - MD complaint: nausea, abdominal pain Onset (ago): day(s) Associated Abdominal Pain: Yes Location of pain: RLQ Severity: moderate Associated symptoms: denies other symptoms - Related Data Previous Rx's Medication Instructions Recorded Tramadol HCl [Ultram 50mg 50 mg PO Q4HP PRN #12 tab 01/08/18 tablet] Allergies Allergy/AdvReac Type Severity Reaction Status Date / Time Penicillins Allergy Verified 05/14/17 14:05 [facility] History - Hepatitis A Screen Drug use history?: No High risk sexual behaviors?: No History of sexually transmitted infection?: No Currently employed?: No Childcare worker?: No Do you have indoor plumbing?: Yes Do you have electricity?: Yes Attestation statement:: This patient has been screened for Hepatitis A risk factors. I have reviewed the patient's past medical history: Yes Medical History: Reports:: Asthma, Chronic Obstructive Pulmonary Disease (COPD) Denies:: Cancer, Coronary Artery Disease, Diabetes Mellitus Type 1, Diabetes Mellitus Type 2, MRSA Laterality Cases: Bilateral: Myringotomy (Ear Tubes) Other Surgeries: Yes: Appendectomy, Hysterectomy-Total, Hysterectomy-Partial Amputation: No Fractures: No - Social History Smoking Status: Current every day smoker Tobacco Type: cigarettes # Packs/Day (cigarettes): 1 #Yrs smoked (if former smoker): 30 Alcohol Intake: never Alcohol Intake Frequency:: holidays/special occasions only Occupational Status: employed Housing: house Household Members: spouse - Psychiatric History Expresses thoughts of harming self/others: None Suicide Plan Description: No Plan Family Hx:: Cancer, Coronary Artery Disease ROS Obtained: Yes All systems reviewed & no additional complaints - Constitutional Constitutional: Denies fever(s) - Eyes Eyes: Denies change in vision - ENT Ears, Nose, Mouth, and Throat: Denies sore throat - Cardiovascular Cardiovascular: Denies chest pain - Respiratory Respiratory: No cough - Gastrointestinal Gastrointestingal: Reports: abdominal pain, nausea - Genitourinary Female Genitourinary: Denies hematuria - Musculoskeletal Musculoskeletal: Denies joint swelling - Integumentary/Breasts Skin/Breast: Denies rash - Neurologic Neurologic: Denies headache(s) Physical Exam - General General appearance: alert - Head Head exam: normocephalic - Eye Eye exam: Present: PERRL, EOMI. Absent: scleral icterus - ENT ENT exam: Present: mucous membranes dry - Neck Neck exam: Present: trachea midline - Respiratory Respiratory exam: Present: normal lung sounds bilaterally. Absent: respiratory distress - Cardiovascular Cardiovascular exam: Present: regular rate - Abdominal Exam Abdominal exam: Present: soft, tenderness Abdominal tenderness: Present: RLQ, moderate - Extremities Exam Extremities exam: Present: full ROM - Neurological Exam Neurological exam: Present: alert, oriented X3, CN II-XII intact - Psychiatric Psychiatric exam: Present: normal affect - Skin Skin exam: Absent: rash
[2018-05-12 22:49] LABS: Erythrocyte Sedimentation Rate 51 mm/hr (0-30)
[2018-05-13 06:29] LABS: Basophils % 0.4 % (0.1-2.0); Eosinophils # 0.8 K/mm3 (0.0-0.4); Hematocrit 30.9 % (37.0-47.0); Lymphocytes # 1.9 K/mm3 (0.7-4.5); Lymphocytes % 19.7 % (10-50); Mean Corpuscular HGB Conc 30.2 g/dL (31.8-35.4); Mean Corpuscular Hemoglobin 23.4 pg (27.0-31.2); Mean Corpuscular Volume 77.5 fl (81-99); Mean Platelet Volume 7.2 fl (7.4-10.4); Monocytes # 0.5 K/mm3 (0.1-1.0); Monocytes % 4.9 % (1.7-9.3); Neutrophils # 6.3 K/mm3 (1.8-7.8); Neutrophils % 66.9 % (37.0-80.0); Platelet Count 410 K/mm3 (142-424); Red Blood Count 3.99 M/mm3 (4.20-5.40); Red Cell Distribution Width 14.8 % (11.5-17.5); White Blood Count 9.5 K/mm3 (4.8-10.8)
[2018-05-13 06:32] LABS: Anion Gap 11.8 mEq/L (5-15); Calcium 8.6 mg/dL (8.5-10.1); Potassium 4.8 mmoL/L (3.5-5.1)
[2018-05-13 06:37] LABS: Hemoglobin 9.4 g/dL (12.2-16.2)
--- NOTE | 2018-05-13 07:38 | Pharmacy Consult Notes ---
[facility] Pharmacy VTE Monitoring - Patient Demographics Admission date: 05/12/18 Report Date: 05/13/18 Time: 07:38 Allergies/Adverse Reactions: Patient Allergies Penicillins Allergy (Verified 05/14/17 14:05) Height: 1.63 m Weight: 58.655 kg Patient Problems: Current Active Problems Diverticulitis (Acute) - VTE Risk Labs: VTE Related Lab Results Hgb 9.4 g/dL (12.2-16.2) L D 05/13/18 06:09 Hct 30.9 % (37.0-47.0) L 05/13/18 06:09 Plt Count 410 K/mm3 (142-424) 05/13/18 06:09 BUN 14 mg/dL (7-18) 05/13/18 06:09 Creatinine 0.88 mg/dL (0.55-1.02) 05/13/18 06:09 Estimated Creat Clear 69 mL/min (50-200) 05/13/18 06:09 Was VTE Risk Assessment Performed: Yes VTE Score: 4 VTE Risk Level: Low Risk - Prophylaxis VTE Prophylaxis Ordered?: Yes Types of VTE Prophylaxis: TEDS Knee High Location of Applied Device: Bilateral Lower Extremeties - VTE Diagnosis Confirmed Treatment or plan recommended: Continue Current Treatment
--- NOTE | 2018-05-13 08:20 | History & Physical Report ---
*Admission Date: 05/12/18 <Magdalena Arriaza 05/13/18 08:31> *Chief complaint: Abdominal pain <Magdalena Arriaza 05/13/18 08:31> *History of present illness: Ms. Green is a 52-year-old female with a history of previous diverticulitis, COPD, and asthma who presented to the [facility] emergency room after experiencing progressive worsening abdominal pain for the past week. She has had some nausea but no vomiting. She denies fever and states that her bowels have been moving normally. She denies melena hematochezia hematemesis. With evaluation in the emergency room CT of the abdomen revealed diverticulitis. She was thus admitted with IV fluids, GI rest, and antibiotics. Patient states since last seen in the office of [facility] she lost her job and has no health insurance now. She was supposed to have a colonoscopy but was unable to schedule due to no insurance. She continues to smoke about a half a pack a day. She states she tried to change her eating habits to improve the pain but this did not help. <Magdalena Arriaza 05/13/18 08:31> [facility] History Medical History: Reports:: Asthma, Chronic Obstructive Pulmonary Disease (COPD) Denies:: Cancer, Coronary Artery Disease, Diabetes Mellitus Type 1, Diabetes Mellitus Type 2, MRSA <Magdalena Arriaza 05/13/18 08:31> *Have you ever received a pneumonia vaccine?: Yes <Magdalena Arriaza 05/13/18 08:31> *Have you received a flu vaccine this season?: Yes <Magdalena Arriaza 05/13/18 08:31> Other Medical History: Reports: Anemia <Magdalena Arriaza 05/13/18 08:31> Laterality Cases: Bilateral: Myringotomy (Ear Tubes) <Magdalena Arriaza 05/13/18 08:31> Other Surgeries: Yes: Appendectomy, Colonoscopy, Hysterectomy-Total, Hysterectomy-Partial <Magdalena Arriaza 05/13/18 08:31> Amputation: No <Magdalena Arriaza 05/13/18 08:31> Fractures: No <Magdalena Arriaza 05/13/18 08:31> - *Social History Educational Level: Attended High School <Magdalena Arriaza 05/13/18 08:31> Smoking Status: Current every day smoker <Magdalena Arriaza 05/13/18 08:31> Tobacco Type: cigarettes <Magdalena Arriaza 05/13/18 08:31> # Packs/Day (cigarettes): 1 <Magdalena Arriaza 05/13/18 08:31> #Yrs smoked (if former smoker): 30 <Magdalena Arriaza 05/13/18 08:31> Alcohol Intake: current <ArsalanMagdalena Sanchez 05/13/18 08:31> Alcohol Intake Frequency:: holidays/special occasions only <Magdalena Arriaza 05/13/18 08:31> Housing: house <ArsalanMagdalena 05/13/18 08:31> Household Members: spouse <ArsalanMagdalena Sanchez 05/13/18 08:31> *Travel in the last 8 weeks: None <Arriaza,Magdalena 05/13/18 08:31> - Psychiatric History Expresses thoughts of harming self/others: None <ArsalanMagdalena - 05/13/18 08:31> Suicide Plan Description: No Plan <Magdalena Arriaza 05/13/18 08:31> Family Hx:: Asthma, Cancer, Coronary Artery Disease, Diabetes, Hyperlipidemia, Hypertension <Arriaza,Magdalena Sanchez 05/13/18 08:31> Review of Systems - Constitutional Denies body ache(s), Denies fever(s), Denies weakness <ArsalanMagdalena 05/13/18 08:31> - ENT Denies ear pain, Denies sore throat <Magdalena Arriaza 05/13/18 08:31> - *Cardiovascular Denies chest pain, Denies shortness of breath <Magdalena Arriaza 05/13/18 08:31> - *Respiratory Denies chest congestion, Denies cough, Denies shortness of breath <ArsalanMagdalena 05/13/18 08:31> - *Gastrointestinal Reports abdominal pain, Reports cramping, Reports nausea, Denies belching, Denies bloating, Denies change in bowel habits, Denies change in stools, Denies constipation, Denies loose stools, Denies heartburn, Denies excessive passing of gas, Denies vomiting blood, Denies vomiting <Magdalena Arriaza 05/13/18 08:31> - *Genitourinary Denies difficulty urinating <Magdalena Arriaza - 05/13/18 08:31> - *Musculoskeletal Denies abnormal walking, Denies joint pain <Magdalena Arriaza - 05/13/18 08:31> - *Neurologic Denies dizziness, Denies headache(s), Denies seizure-like activity <Magdalena Arriaza - 05/13/18 08:31> Meds Home Medications Medication Instructions Recorded Confirmed Type Tramadol HCl [Ultram 50mg 50 mg PO Q4HP PRN #12 tab 01/08/18 05/12/18 Rx tablet] Albuterol Sulfate [Albuterol 2.5 mg IH DAILY PRN 05/13/18 05/13/18 History Sulfate 2.5mg/0.5ml Neb] <ChristopherJulien - 05/13/18 08:54> Allergies Allergy/AdvReac Type Severity Reaction Status Date / Time Penicillins Allergy Verified 05/14/17 14:05 <Julien White - 05/13/18 08:54> Exam Vital signs and Labs for Last 24 Hours: Temp Pulse Resp BP Pulse Ox 98.6 F 73 18 120/79 97 05/13/18 08:00 05/13/18 08:00 05/13/18 08:00 05/13/18 08:00 05/13/18 08:00 Laboratory Results - last 24 hr 05/12/18 21:30: Urine Color Yellow, Urine Appearance Clear, Urine pH 6.5, Ur Specific [place] 1.015, Urine Protein Negative, Urine Glucose (UA) Negative, Urine Ketones Negative, Urine Blood Negative, Urine Nitrate Negative, Urine Bilirubin Negative, Urine Urobilinogen 0.2, Ur Leukocyte Esterase Negative, Urine RBC None, Urine WBC Occasional, Ur Squamous Epith Cells 3-5, Urine Bacteria Trace 05/12/18 21:30: WBC 12.6 H, RBC 4.57, Hgb 10.5 L, Hct 35.1 L, MCV 76.8 L, MCH 22.9 L, MCHC 29.8 L, RDW 14.8, Plt Count 544 H, MPV 6.8 L, Neut % (Auto) 61.5, Lymph % (Auto) 24.1, [place] % (Auto) 5.3, Eos % (Auto) 8.1, Baso % (Auto) 0.9, Neut # (Auto) 7.8, Lymph # (Auto) 3.0, [place] # (Auto) 0.7, Eos # (Auto) 1.0 H, Baso # (Auto) 0.1, ESR 51 H 05/12/18 21:30: Urine HCG, Qual Negative 05/12/18 21:30: Sodium 137, Potassium 3.8, Chloride 99, Carbon Dioxide 30, Anion Gap 11.8, BUN 16, Creatinine 1.06 H, Estimated Creat Clear 53, Estimated GFR 54 L, Est GFR ( Amer) 66, Glucose 116 H, Calcium 9.1, Total Bilirubin 0.1 L, AST 14 L, ALT 18, Alkaline Phosphatase 135 H, C-Reactive Protein 7.0 H, Total Protein 7.6, Albumin 2.9 L, Globulin 4.7 H, Albumin/Globulin Ratio 0.6 L, Amylase 40, Lipase 126 05/12/18 23:30: Lactate 0.9 05/13/18 06:09: WBC 9.5, RBC 3.99 L, Hgb 9.4 L D, Hct 30.9 L, MCV 77.5 L, MCH 23.4 L, MCHC 30.2 L, RDW 14.8, Plt Count 410, MPV 7.2 L, Neut % (Auto) 66.9, Lymph % (Auto) 19.7, [place] % (Auto) 4.9, Eos % (Auto) 8.0, Baso % (Auto) 0.4, Neut # (Auto) 6.3, Lymph # (Auto) 1.9, [place] # (Auto) 0.5, Eos # (Auto) 0.8 H, Baso # (Auto) 0.0 05/13/18 06:09: Sodium 139, Potassium 4.8 D, Chloride 105, Carbon Dioxide 27, Anion Gap 11.8, BUN 14, Creatinine 0.88, Estimated Creat Clear 69, Estimated GFR 67, Est GFR ( Amer) 82 D, Glucose 100, Calcium 8.6 <Bartow,Julien - 05/13/18 08:54> Temp Pulse Resp BP Pulse Ox 97.6 F 75 18 132/80 96 05/13/18 04:00 05/13/18 04:00 05/13/18 04:00 05/13/18 04:00 05/13/18 04:00 Laboratory Results - last 24 hr 05/12/18 21:30: Urine Color Yellow, Urine Appearance Clear, Urine pH 6.5, Ur Specific [place] 1.015, Urine Protein Negative, Urine Glucose (UA) Negative, Urine Ketones Negative, Urine Blood Negative, Urine Nitrate Negative, Urine Bilirubin Negative, Urine Urobilinogen 0.2, Ur Leukocyte Esterase Negative, Urine RBC None, Urine WBC Occasional, Ur Squamous Epith Cells 3-5, Urine Bacteria Trace 05/12/18 21:30: WBC 12.6 H, RBC 4.57, Hgb 10.5 L, Hct 35.1 L, MCV 76.8 L, MCH 22.9 L, MCHC 29.8 L, RDW 14.8, Plt Count 544 H, MPV 6.8 L, Neut % (Auto) 61.5, Lymph % (Auto) 24.1, [place] % (Auto) 5.3, Eos % (Auto) 8.1, Baso % (Auto) 0.9, Neut # (Auto) 7.8, Lymph # (Auto) 3.0, [place] # (Auto) 0.7, Eos # (Auto) 1.0 H, Baso # (Auto) 0.1, ESR 51 H 05/12/18 21:30: Urine HCG, Qual Negative 05/12/18 21:30: Sodium 137, Potassium 3.8, Chloride 99, Carbon Dioxide 30, Anion Gap 11.8, BUN 16, Creatinine 1.06 H, Estimated Creat Clear 53, Estimated GFR 54 L, Est GFR ( Amer) 66, Glucose 116 H, Calcium 9.1, Total Bilirubin 0.1 L, AST 14 L, ALT 18, Alkaline Phosphatase 135 H, C-Reactive Protein 7.0 H, Total Protein 7.6, Albumin 2.9 L, Globulin 4.7 H, Albumin/Globulin Ratio 0.6 L, Amylase 40, Lipase 126 05/12/18 23:30: Lactate 0.9 05/13/18 06:09: WBC 9.5, RBC 3.99 L, Hgb 9.4 L D, Hct 30.9 L, MCV 77.5 L, MCH 23.4 L, MCHC 30.2 L, RDW 14.8, Plt Count 410, MPV 7.2 L, Neut % (Auto) 66.9, Lymph % (Auto) 19.7, [place] % (Auto) 4.9, Eos % (Auto) 8.0, Baso % (Auto) 0.4, Neut # (Auto) 6.3, Lymph # (Auto) 1.9, [place] # (Auto) 0.5, Eos # (Auto) 0.8 H, Baso # (Auto) 0.0 05/13/18 06:09: Sodium 139, Potassium 4.8 D, Chloride 105, Carbon Dioxide 27, Anion Gap 11.8, BUN 14, Creatinine 0.88, Estimated Creat Clear 69, Estimated GFR 67, Est GFR ( Amer) 82 D, Glucose 100, Calcium 8.6 <Magdalena Arriaza - 05/13/18 08:31> I & O for Last 24 hours: Intake & Output 05/10/18 05/11/18 05/12/18 05/13/18 23:59 23:59 23:59 23:59 Intake Total 800 / 800 457 / 457 Balance 800 / 800 457 / 457 Weight 120 lb 129 lb 5 oz <Julien White - 05/13/18 08:54> Intake & Output 05/10/18 05/11/18 05/12/18 05/13/18 11:59 11:59 11:59 11:59 Intake Total 1257 / 1257 Balance 1257 / 1257 Weight 129 lb 5 oz <Magdalena Arriaza - 05/13/18 08:31> Radiology Reports for the Last 24 Hours: 05/12/2018 CT of the abdomen and pelvis IMPRESSION: 1. Persistent mucosal thickening involving the proximal transverse colon with mild stranding of the pericolic fat. Ulcerating neoplasm should be excluded. Recurrent or persistent inflammation from diverticulitis/colitis is also considered. Colonoscopy is suggested when acute inflammation resolves. <Magdalena Arriaza - 05/13/18 08:31> - Constitutional no acute distress <Magdalena Arriaza 05/13/18 08:31> - *Routine HEENT Exam Head: Present: normocephalic, atraumatic <Magdalena Arriaza - 05/13/18 08:31> Eye: Present: PERRL. Absent: conjunctival icterus, scleral injection < Magdalena Arriaza 05/13/18 08:31> ENT: Present: mucous membranes moist, oropharynx clear <Magdalena Arriaza 05/13/18 08:31> - *Routine Neck Exam Present: supple, full ROM. Absent: carotid bruit, lymphadenopathy, thyromegaly <Magdalena Arriaza 05/13/18 08:31> - *Routine Respiratory Exam Present: CTA bilaterally (Anteriorly and posteriorly) <Magdalena Arriaza 05/13/18 08:31> - *Routine Cardiovascular Exam Present: RRR <Magdalena Arriaza 05/13/18 08:31> - *Routine Abdominal Exam Present: soft <Magdalena Arriaza 05/13/18 08:31> Comments: Decreased breath sounds with tenderness in the right lower quadrant with guarding <Magdalena Arriaza 05/13/18 08:31> - *Routine Extremities Exam Present: pulses intact. Absent: edema, calf tenderness <Magdalena Arriaza 05/13/18 08:31> - *Routine Neurological Exam Present: alert, oriented X3 <[facility] 05/13/18 08:31> Assessment and Plan (1) Diverticulitis Current visit: Yes Status: Acute Category: Medical Code(s): K57.92 - Diverticulitis of intestine, part unspecified, without perforation or abscess without bleeding (2) COPD (chronic obstructive pulmonary disease) Current visit: No Status: Chronic Category: Medical Code(s): J44.9 - Chronic obstructive pulmonary disease, unspecified (3) Tobacco use disorder Current visit: No Status: Chronic Category: Medical Code(s): F17.200 - Nicotine dependence, unspecified, uncomplicated (4) Anemia Current visit: Yes Status: Acute Category: Medical Code(s): D64.9 - Anemia, unspecified <BartowMartinJulien - 05/13/18 08:54> (1) Diverticulitis Current visit: Yes Status: Acute Category: Medical Code(s): K57.92 - Diverticulitis of intestine, part unspecified, without perforation or abscess without bleeding (2) COPD (chronic obstructive pulmonary disease) Current visit: No Status: Chronic Category: Medical Code(s): J44.9 - Chronic obstructive pulmonary disease, unspecified (3) Tobacco use disorder Current visit: No Status: Chronic Category: Medical Code(s): F17.200 - Nicotine dependence, unspecified, uncomplicated (4) Anemia Current visit: Yes Status: Acute Category: Medical Code(s): D64.9 - Anemia, unspecified <Magdalena Arriaza - 05/13/18 08:52> - Assessment and plan all Dx Assessment and Plan for all problems:: Saw patient, agree with above note. Discussed the importance of having a colonoscopy in the near future for definitive diagnosis of this recurrent problem. <Julien White - 05/13/18 08:54> Continue with Flagyl, Levaquin, IV fluids, and GI rest. Currently she is n.p.o. White blood cell count has returned to normal. Electrolytes and kidney function are normal. CBC reveals anemia and will do stool for occult blood as well as anemia studies. <Magdalena Arriaza - 05/13/18 08:45>
--- NOTE | 2018-05-14 08:28 | Progress Note ---
<Racheal Yin - Last Filed: 05/14/18 08:25> Internal Medicine - PN: Subj *Date: 05/14/18 *Time: 08:26 Interval history: Patient states she is feeling a little bit better this morning. She still has some right lower quadrant pain but denies any nausea or vomiting. She is not having loose stools. She slept well last night. Exam Vital signs and Labs for Last 24 Hours: Temp Pulse Resp BP Pulse Ox 97.9 F 69 16 117/75 96 05/14/18 08:00 05/14/18 08:00 05/14/18 08:00 05/14/18 08:00 05/14/18 08:00 I & O for Last 24 hours: Intake & Output 05/11/18 05/12/18 05/13/18 05/14/18 11:59 11:59 11:59 11:59 Intake Total 1257 / 1257 3871 / 3871 Balance 1257 / 1257 3871 / 3871 Weight 129 lb 5 oz 129 lb 4.994 oz - Constitutional no acute distress - *Routine Respiratory Exam Present: CTA bilaterally - *Routine Cardiovascular Exam Present: RRR - *Routine Abdominal Exam Present: soft, normoactive bowel sounds, tenderness (RLQ) - *Routine Extremities Exam Absent: cyanosis, clubbing, edema Assessment and Plan (1) Diverticulitis Current visit: Yes Status: Acute Category: Medical Code(s): K57.92 - Diverticulitis of intestine, part unspecified, without perforation or abscess without bleeding (2) COPD (chronic obstructive pulmonary disease) Current visit: No Status: Chronic Category: Medical Code(s): J44.9 - Chronic obstructive pulmonary disease, unspecified (3) Tobacco use disorder Current visit: No Status: Chronic Category: Medical Code(s): F17.200 - Nicotine dependence, unspecified, uncomplicated (4) Anemia Current visit: Yes Status: Acute Category: Medical Code(s): D64.9 - Anemia, unspecified - Assessment and plan all Dx Assessment and Plan for all problems:: She is tolerating a clear liquid diet. Will advance diet and possibly discharge if she tolerates this. Will discuss with Dr. White. <Julien White - Last Filed: 05/14/18 11:13> Exam Vital signs and Labs for Last 24 Hours: Temp Pulse Resp BP Pulse Ox 97.9 F 69 16 117/75 96 05/14/18 08:00 05/14/18 08:00 05/14/18 08:00 05/14/18 08:00 05/14/18 08:00 Laboratory Results - last 24 hr 05/13/18 06:09: Vitamin B12 407 05/13/18 06:09: Iron 18 L, TIBC 321, Iron Saturation 6 L, Unsaturated IBC 303, Folate 6.9 I & O for Last 24 hours: Intake & Output 05/11/18 05/12/18 05/13/18 05/14/18 23:59 23:59 23:59 23:59 Intake Total 800 / 800 2838 / 2838 1490 / 1490 Balance 800 / 800 2838 / 2838 1490 / 1490 Weight 120 lb 129 lb 4.994 oz Assessment and Plan (1) Diverticulitis Current visit: Yes Status: Acute Category: Medical Code(s): K57.92 - Diverticulitis of intestine, part unspecified, without perforation or abscess without bleeding (2) COPD (chronic obstructive pulmonary disease) Current visit: No Status: Chronic Category: Medical Code(s): J44.9 - Chronic obstructive pulmonary disease, unspecified (3) Tobacco use disorder Current visit: No Status: Chronic Category: Medical Code(s): F17.200 - Nicotine dependence, unspecified, uncomplicated (4) Anemia Current visit: Yes Status: Acute Category: Medical Code(s): D64.9 - Anemia, unspecified - Assessment and plan all Dx Assessment and Plan for all problems:: Saw patient, agree with above note.
[2018-05-14 08:57] LABS: Folate 6.9 ng/mL (>3.0)
--- NOTE | 2018-05-15 08:27 | Progress Note ---
Internal Medicine - PN: Subj *Date: 05/15/18 *Time: 08:25 Interval history: Patient states she is feeling much better this morning. She tolerated her diet and has minimal pain. She only had one dose of pain medication last night. She is anxious to go home. Exam Vital signs and Labs for Last 24 Hours: Temp Pulse Resp BP Pulse Ox 97.8 F 73 15 128/72 94 L 05/15/18 08:00 05/15/18 08:00 05/15/18 08:00 05/15/18 08:00 05/15/18 08:00 Laboratory Results - last 24 hr 05/13/18 06:09: Vitamin B12 407 05/13/18 06:09: Iron 18 L, TIBC 321, Iron Saturation 6 L, Unsaturated IBC 303, Folate 6.9 I & O for Last 24 hours: Intake & Output 05/12/18 05/13/18 05/14/18 05/15/18 11:59 11:59 11:59 11:59 Intake Total 1257 / 1257 4121 / 4121 3451 / 3451 Balance 1257 / 1257 4121 / 4121 3451 / 3451 Weight 129 lb 5 oz 129 lb 4.994 oz 130 lb 2 oz Microbiology Reports for the Last 24 Hours: Microbiology 05/12/18 23:30 Blood Blood Culture - Preliminary NO GROWTH AFTER 48 HOURS 05/12/18 23:30 Blood Blood Culture - Preliminary NO GROWTH AFTER 48 HOURS - Constitutional no acute distress - *Routine Respiratory Exam Present: CTA bilaterally - *Routine Cardiovascular Exam Present: RRR - *Routine Abdominal Exam Present: soft, normoactive bowel sounds, tenderness (RLQ) - *Routine Extremities Exam Absent: cyanosis, clubbing, edema Assessment and Plan (1) Diverticulitis Current visit: Yes Status: Acute Category: Medical Code(s): K57.92 - Diverticulitis of intestine, part unspecified, without perforation or abscess without bleeding (2) COPD (chronic obstructive pulmonary disease) Current visit: No Status: Chronic Category: Medical Code(s): J44.9 - Chronic obstructive pulmonary disease, unspecified (3) Tobacco use disorder Current visit: No Status: Chronic Category: Medical Code(s): F17.200 - Nicotine dependence, unspecified, uncomplicated (4) Anemia Current visit: Yes Status: Acute Category: Medical Code(s): D64.9 - Anemia, unspecified - Assessment and plan all Dx Assessment and Plan for all problems:: Patient is stable to be discharged home today on Flagyl, Levaquin, and tramadol. She will follow-up with Dr. White in the office in 1 week.
--- NOTE | 2018-05-18 10:58 | Discharge Summary ---
General - General Admission date:: 05/13/18 Discharge date: 05/15/18 HPI HPI: Ms. Green is a 52-year-old female with a history of previous diverticulitis, COPD, and asthma who presented to the [facility] emergency room after experiencing progressive worsening abdominal pain for the past week. She has had some nausea but no vomiting. She denies fever and states that her bowels have been moving normally. She denies melena, hematochezia, and hematemesis. With evaluation in the emergency room, CT of the abdomen revealed diverticulitis. She was thus admitted with IV fluids, GI rest, and antibiotics. Patient states since last seen in the office of [facility] she lost her job and has no health insurance now. She was supposed to have a colonoscopy but was unable to schedule due to no insurance. She continues to smoke about a half a pack a day. She states she tried to change her eating habits to improve the pain but this did not help. Hospital Course Hospital Course: The patient's abdominal CT showed persistent mucosal thickening involving the proximal transverse colon with mild stranding of the pericolic fat. Recurrent or persistent inflammation from diverticulitis/colitis versus a neoplasm was considered. Radiology recommended a colonoscopy once inflammation resolved. The patient was started on Flagyl, Levaquin, IV fluids, and GI rest. She was initially kept n.p.o. Her white blood cell count did normalize. She was anemic and her sed rate was elevated. On anemia studies, her iron was low. Her C- reactive protein was elevated as well. The patient's symptoms did improve. She continued with some right lower quadrant pain but denied any nausea or vomiting. She was able to tolerate a clear liquid diet and this was advanced. She continued to tolerate her advanced diet. Her pain did improve and she was stable to be discharged home on Flagyl, Levaquin, and tramadol. She will follow-up with Dr. White in 1 week. Objective Vital signs: Temp Pulse Resp BP Pulse Ox 97.8 F 73 15 128/72 94 L 05/15/18 08:00 05/15/18 08:00 05/15/18 08:00 05/15/18 08:00 05/15/18 08:00 Narrative: - Constitutional no acute distress - *Routine HEENT Exam Head: Present: normocephalic, atraumatic Eye: Present: PERRL. Absent: conjunctival icterus, scleral injection ENT: Present: mucous membranes moist, oropharynx clear - *Routine Neck Exam Present: supple, full ROM. Absent: carotid bruit, lymphadenopathy, thyromegaly - *Routine Respiratory Exam Present: CTA bilaterally (Anteriorly and posteriorly) - *Routine Cardiovascular Exam Present: RRR - *Routine Abdominal Exam Present: soft Comments: Decreased breath sounds with tenderness in the right lower quadrant with guarding - *Routine Extremities Exam Present: pulses intact. Absent: edema, calf tenderness - *Routine Neurological Exam Present: alert, oriented X3 DS: Diagnosis - Discharge Diagnosis (1) Diverticulitis Status: Acute (2) COPD (chronic obstructive pulmonary disease) Status: Chronic (3) Tobacco use disorder Status: Chronic (4) Anemia Status: Acute Discharge Plan - Patient Discharge Instructions ACTIVITY: Continue current activity DIET: continue same diet Patient Instructions: Diverticulitis, Anemia, DI for Diverticulitis, DI for Abdominal Pain-Adult, DI for Acute Abdomen - Follow up Plan Follow up with: Julien White MD [Primary Care Provider] - 1 week Disposition: Home, Self-Usp Medications: Home Medications Medication Instructions Recorded Confirmed Type Albuterol Sulfate [Albuterol 2.5 mg IH DAILY PRN 05/13/18 05/13/18 History Sulfate 2.5mg/0.5ml Neb] Tramadol HCl [Ultram 50mg 50 mg PO Q4HP PRN #12 tab 05/15/18 Rx tablet] levoFLOXacin [Levaquin 500mg 500 mg PO DAILY #7 tab 05/15/18 Rx tab] metroNIDAZOLE [metroNIDAZOLE 500mg 500 mg PO TID #21 tab 05/15/18 Rx Tablet] Prescriptions/Medication Reconciliation: New metroNIDAZOLE [metroNIDAZOLE 500mg Tablet] 500 mg PO TID #21 tab levoFLOXacin [Levaquin 500mg tab] 500 mg PO DAILY #7 tab Continue Albuterol Sulfate [Albuterol Sulfate 2.5mg/0.5ml Neb] 2.5 mg IH DAILY PRN PRN Reason: Shortness Of Breath Or Wheezing Tramadol HCl [Ultram 50mg tablet] 50 mg PO Q4HP PRN #12 tab PRN Reason: Moderate To Severe Pain
== END 2018-05-15 11:05 | disposition home or self-care (01) | DRG 392 ==
LOC: ER 21:18 → 2ND 23:32
PROVIDERS: ADMIT Family Medicine; ATTEND Family Medicine
CPT/HCPCS: 36415; 74177; 80048; 80053; 81001; 81025; 82150; 82607; 82746; 83540; 83550; 83605; 83690; 85025; 85651; 86140; 87040; 96365; 96367; 96375; 99285; J1956; J2405; Q9967

== ENCOUNTER → 2018-06-24 09:02 | Outpatient (CLI) | payer MEDICAID, SELFPAY ==
--- NOTE | 2018-06-24 09:13 | CT_ITS ---
CT abdomen pelvis wo/w con CLINICAL INDICATION: Diverticulitis, right-sided abdominal pain, constipation, ITS.REASON: DIVERTICULITIS,RT ABD PAIN ORDERING PHYSICIAN: Julien White MD PATIENT AGE: 52 years COMPARISON: None TECHNIQUE: Axial images obtained without and with contrast with sagittal and coronal reformats. All are less than 30-30 matched to indication, i.e. head), or iterative reconstruction technique. PROCEDURE: Oral Contrast: Redicat IV Contrast: 75 mL's Optiray 350. FINDINGS: Lower thorax: No acute finding The liver, spleen, adrenal glands, pancreas, and kidneys have an unremarkable appearance. There is minimal cortical scarring of the upper pole the right kidney. Increasing wall thickening is present within the hepatic flexure and proximal aspect of the transverse colon with stranding of the pericolic fat as previously described. Lobular soft tissue thickening is present along the inferior aspect of the proximal transverse colon. This extends to and involves a loop of the adjacent small bowel. There are low-density changes involving the thickened bowel wall. These findings may represent colon cancer with involvement of the adjacent small bowel and infiltration into the mesenteric fat. Colonoscopy is recommended. Sequela from colitis/diverticulitis included in the differential diagnosis. The findings however are progressing when compared to the previous exam. No bowel obstruction. There are few small lymph nodes in the mesentery is mildly prominent node is present in the right upper quadrant at the x 11 mm. Unremarkable appendix. Small right ovarian cyst is present at centimeters. There are post hysterectomy changes. IMPRESSION: 1. Increasing bowel wall thickness involving the hepatic flexure/proximal transverse colon with lobular masslike thickening inferiorly extending to a loop of jejunum. Neoplasm is considered. Fulminant colitis with phlegmonous change also a consideration. The findings have progressed the previous exam. No abscess or free air. Colonoscopy recommended 2. Mild peritoneal adenopathy
== END ==
PROVIDERS: PCP Family Medicine; Visit Provider Family Medicine
DX: K57.32 Diverticulitis of large intestine without perforation or abscess without bleeding (principal); R10.9 Unspecified abdominal pain
CPT/HCPCS: 74178; Q9967

== ENCOUNTER → 2018-07-05 13:28 | Outpatient (CLI) | payer MEDICAID, SELFPAY ==
[2018-07-05 14:34] LABS: Basophils # 0.1 K/mm3 (0-0.2); Basophils % 0.9 % (0.1-2.0); Eosinophils % 8.9 % (0.1-12.0); Hematocrit 35.6 % (37.0-47.0); Lymphocytes # 1.7 K/mm3 (0.7-4.5); Lymphocytes % 15.4 % (10-50); Mean Corpuscular Hemoglobin 22.5 pg (27.0-31.2); Mean Corpuscular Volume 72.6 fl (81-99); Mean Platelet Volume 7.4 fl (7.4-10.4); Monocytes # 0.5 K/mm3 (0.1-1.0); Monocytes % 4.8 % (1.7-9.3); Neutrophils # 7.9 K/mm3 (1.8-7.8); Platelet Count 491 K/mm3 (142-424); Red Cell Distribution Width 15.6 % (11.5-17.5); White Blood Count 11.3 K/mm3 (4.8-10.8)
[2018-07-05 15:39] LABS: Anion Gap 12.6 mEq/L (5-15); Blood Urea Nitrogen 16 mg/dL (7-18); Calcium 9.5 mg/dL (8.5-10.1); Carbon Dioxide 29 mmol/L (21.0-32.0); Chloride 100 mmol/L (98-107); Creatinine,Serum 1.12 mg/dL (0.55-1.02); Estimated Glomerular Filt Rate 51 ml/min (>60); GFR (African American) 62 ML/MIN (>60); Glucose 85 mg/dL (74-106); Potassium 4.6 mmoL/L (3.5-5.1); Sodium 137 mmol/L (136-145)
== END ==
PROVIDERS: PCP Family Medicine; Visit Provider Surgery
DX: C18.9 Malignant neoplasm of colon, unspecified (principal)
CPT/HCPCS: 36415; 80048; 85025; 86850

== ENCOUNTER 2018-07-06 06:08 | Inpatient (IN) ==
--- NOTE | 2018-07-06 11:03 | Operative Note ---
Date of procedure: 07/06/18 Pre-op Diagnosis:: Colon cancer Post-op Diagnosis:: Same Procedure performed:: Extended right hemicolectomy with ileocolic anastomosis with en bloc resection of small bowel and portion of the abdominal wall Surgeon:: Raffaele Mcrae MD LAB ANIMAL TECHNICIAN:: Mann Romero Anesthesia: GETA Estimated blood loss (mL): 100 Clinical Note:: Patient is a very pleasant 52-year-old white female who underwent colonoscopy last week for work-up of abdominal pain. She was found to have a circumferential lesion consistent with adenocarcinoma in the proximal transverse colon with some necrosis. Pathology revealed adenocarcinoma with necrosis. She did have CT scan performed the week prior which revealed evidence of possible lesion with no obvious distant metastases. She was seen back in the office several days after her colonoscopy to review the pathology results. The options were discussed with the patient and plan was made for resection. Operative findings:: Patient had a large locally advanced adenocarcinoma in the proximal transverse colon which appeared to be invading into the right lower lateral abdominal wall and a portion of small bowel. She had generous palpable mesenteric lymph nodes. There is no obvious liver metastases. Operative note:: Consent was obtained and patient was taken to the operating room. Please note that she had undergone mechanical and antibiotic bowel preparation the day before as an outpatient. She was given preoperative intravenous antibiotics and taken to the operating room. General anesthesia was induced via endotracheal tube. [place] catheter was placed. Abdomen was prepped and draped in the standard surgical fashion. Midline laparotomy incision was made and dissection was carried down through subcutaneous tissues and fascia. Peritoneal cavity was entered. Palpation was carried out which revealed a large palpable mass in the right lower quadrant. Exposure was achieved. The mass appeared to be adherent to and possibly invading the abdominal wall. The posterior fascia was therefore incised with electrocautery resecting a portion of the abdominal wall so as to perform en bloc resection. There was noted to be a portion, small loop, small bowel adherent to the tumor as well. This was divided several centimeters proximally and distally so as to perform en bloc resection such that the small bowel would be included with the specimen. The small bowel mesentery was clamped divided and ligated with Vicryl ties. The greater omentum was then divided with the Enseal device down to the mid transverse colon. The lesser omentum was divided as well with the Enseal device. Mass was in the proximal transverse colon. Right colon was mobilized by incising the peritoneum along the white line of [place]t. Hepatic flexure was taken down using the Enseal device. The terminal ileum was divided just proximal to the ileocecal valve with a ASIA-75 stapling device. Mid transverse colon, a generous distance from the distal margin of the tumor, was divided with a ASIA-75 type stapling device. Wide mesenteric resection was performed dividing the mesentery with the Enseal device. Larger vessels including the ileocolic, right colic, middle colic arteries were multiply clamped, divided, and multiply ligated with 0 Surgilon t ies. She had prominent mesenteric lymph nodes. There was some minor oozing from the anterior pancreaticoduodenal vessel location and a couple of hemoclips were applied. The specimen including right colon, portion of transverse colon, portion of omentum, portion of small bowel, and posterior fascia of the right lower lateral abdominal wall, was sent off as a specimen. Ileocolic anastomosis was performed in a [id number], functional end-to-end anastomosis with a ASIA-75 stapling device. The enterotomy defects were closed with the TX 60 be stapling device. The staple line was oversewn with a Vicryl followed by 3 oh Surgilon seromuscular sutures to ensure integrity and hemostasis. A few 3 oh Surgilon seromuscular sutures were placed at the staple line angle. The mesenteric defect was closed with 2-0 Vicryl. The small bowel anastomosis from the resectesmall bowel was then performed using a ASIA-75 type stapling device creating a [id number], functional end-to-end, anastomosis. Small bowel enterotomy was closed with a TX 60 B stapling device. Several sutures were placed at the confluence of staple lines using 3 oh Surgilon and at the staple line angle. Limited mesenteric defect was closed with 2-0 Vicryl. Both anastomoses appeared widely patent and intact with good integrity and hemostasis. Enteric contents were returned to the abdominal cavity. Palpation was performed for good placement of nasogastric tube. Palpation of the liver was performed which revealed no evidence of any obvious metastases. Peritoneal cavity was thoroughly irrigated with saline. There appeared to be good hemostasis. Fascia was closed with a running #2 Novafil x2. Subcutaneous tissues were irrigated. Skin was closed with mis. Clean dry sterile dressings were applied. Condition: stable Disposition: PACU Specimens:: Extended right colon with portion of small bowel and abdominal wall posterior fascia Complications:: None immediately apparent
--- NOTE | 2018-07-06 11:13 | Progress Note ---
[facility] Anesthesia Checklist - Patient Identification Patient Identification: Arm Band - Structural Data Admitted From: Home Planned Operative Procedure/s: colon resection Consent for Planned Operative Procedure(s) Verified: Yes Verified Documents: Surgical Consent, History and Physical - NPO Status Verified Time NPO: 00:00 - Additional verifications Anesthesia Reactions: No - Airway Assessment C-Spine Mobility Assessed: Yes (mp2) TMJ Mobility Assessed: Yes Dentition: Good Dentition - Neurological Assessment Level of Consciousness: Awake, Alert - Anesthesia Plan Anesthesia Risk discussed: Yes Anesthesia Plan: Verified ASA Class: II Anesthesia Type: General [facility] History I have reviewed the patient's past medical history: Yes Medical History: Reports:: Asthma, Cancer (colon), Chronic Obstructive Pulmonary Disease (COPD), Lung Disease Denies:: Coronary Artery Disease, Diabetes Mellitus Type 1, Diabetes Mellitus Type 2, Internal Pacemaker, MRSA, Seizures *Have you ever received a pneumonia vaccine?: No *Have you received a flu vaccine this season?: Yes Other Medical History: Reports: Anemia. Denies: Blood Transfusion Reaction Laterality Cases: Bilateral: Myringotomy (Ear Tubes), Tonsillectomy Other Surgeries: Yes: Appendectomy, Colonoscopy, Hysterectomy-Total, Hysterectomy-Partial. No: Pacemaker Amputation: No Fractures: No - *Social History Educational Level: Attended High School Smoking Status: Current every day smoker Tobacco Type: cigarettes # Packs/Day (cigarettes): 1 #Yrs smoked (if former smoker): 30 Alcohol Intake: never Alcohol Intake Frequency:: holidays/special occasions only Substance Use Type: denies use *Occupational Status:: employed Housing: house Household Members: spouse *Travel in the last 8 weeks: None - Psychiatric History Expresses thoughts of harming self/others: None Suicide Plan Description: No Plan Family Hx:: Asthma, Cancer, Coronary Artery Disease, Diabetes, Hyperlipidemia, Hypertension
--- NOTE | 2018-07-06 11:15 | Progress Note ---
[facility] Anesthesia Record Part II Discharge Time: 11:25 Destination: 2nd floor PACU nurse assessment reviewed?: Yes Patient Condition:: Good Anesthesia Complications:: None Swallowing reflex intact?: Yes Cyanosis?: No
--- NOTE | 2018-07-06 11:15 | Progress Note ---
[facility] Anesthesia Record Part I Intake, IV Amount: 2,400 Estimated blood loss (mL): 100 Urine output (mL): 150 Blood Pressure: 137/73 SaO2: 95 Pulse Rate: 105 Respiratory Rate: 16 Temperature: 98.9 F Patient is:: Drowsy, Stable Stable to PACU at:: 10:55
--- NOTE | 2018-07-06 15:18 | Progress Note ---
Internal Medicine - PN: Subj *Date: 07/06/18 *Time: 12:45 Interval history: Asked by Dr. Mcrae to see patient after colon cancer surgery for medical management. She has a history of COPD, and uses an albuterol inhaler occasionally. She also has a history of chronic back pain and has been treated with narcotics in the past. 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 Significant other is at the bedside. Exam Vital signs and Labs for Last 24 Hours: Temp Pulse Resp BP Pulse Ox 98.4 F 79 12 140/92 H 100 07/06/18 12:00 07/06/18 14:45 07/06/18 14:45 07/06/18 14:45 07/06/18 14:45 Laboratory Results - last 24 hr 07/06/18 07:40: Urine Color Yellow, Urine Appearance Clear, Urine pH 6.0, Ur Specific [place] 1.020, Urine Protein Negative, Urine Glucose (UA) Negative, Ur ine Ketones Negative, Urine Blood Negative, Urine Nitrate Positive, Urine Bilirubin Negative, Urine Urobilinogen 0.2, Ur Leukocyte Esterase Negative, Urine WBC Occasional, Ur Squamous Epith Cells 3-5, Urine Bacteria 2+ A I & O for Last 24 hours: Intake & Output 07/03/18 07/04/18 07/05/18 07/06/18 23:59 23:59 23:59 23:59 Intake Total 2520 / 2520 Balance 2520 / 2520 Weight 129 lb - Constitutional no acute distress Comments: uncomfortable due to pain, NG tube in place and draining. Assessment and Plan (1) Colon cancer Current visit: Yes Status: Acute Category: Medical Code(s): C18.9 - Malignant neoplasm of colon, unspecified (2) COPD (chronic obstructive pulmonary disease) Current visit: No Status: Chronic Category: Medical Code(s): J44.9 - Chronic obstructive pulmonary disease, unspecified (3) Tobacco use disorder Current visit: No Status: Chronic Category: Medical Code(s): F17.200 - Nicotine dependence, unspecified, uncomplicated - Assessment and plan all Dx Assessment and Plan for all problems:: Will follow patient.
[2018-07-07 06:11] LABS: Anion Gap 9.7 mEq/L (5-15); Potassium 4.7 mmoL/L (3.5-5.1)
[2018-07-07 06:33] LABS: Calcium 8.2 mg/dL (8.5-10.1)
--- NOTE | 2018-07-07 06:58 | Progress Note ---
Subjective Narrative: Patient had a lot of pain post-operatively. Toradol added. Seems more comfortable this morning. Complaint of right eye discomfort. Exam Vital signs and Labs for Last 24 Hours: Temp Pulse Resp BP Pulse Ox 98.3 F 83 17 113/57 L 100 07/06/18 15:45 07/07/18 06:00 07/06/18 20:00 07/07/18 06:00 07/07/18 06:00 Laboratory Results - last 24 hr 07/06/18 07:40: Urine Color Yellow, Urine Appearance Clear, Urine pH 6.0, Ur Specific [place] 1.020, Urine Protein Negative, Urine Glucose (UA) Negative, Urine Ketones Negative, Urine Blood Negative, Urine Nitrate Positive, Urine Bilirubin Negative, Urine Urobilinogen 0.2, Ur Leukocyte Esterase Negative, Urine WBC Occasional, Ur Squamous Epith Cells 3-5, Urine Bacteria 2+ A 07/07/18 05:55: Sodium 138, Potassium 4.7, Chloride 104, Carbon Dioxide 29, Anion Gap 9.7, BUN 13, Creatinine 0.88 D, Estimated Creat Clear 69, Estimated GFR 67, Est GFR ( Amer) 82 D, Glucose 114 H, Calcium 8.2 L D I & O for Last 24 hours: Intake & Output 07/04/18 07/05/18 07/06/18 07/07/18 11:59 11:59 11:59 11:59 Intake Total 2400 / 2400 3112 / 3112 Output Total 950 / 950 Balance 2400 / 2400 2162 / 2162 Weight 129 lb - *Routine Abdominal Exam Present: soft Progress Note: A&P (1) Colon cancer Status: Acute Current Visit: Yes (2) COPD (chronic obstructive pulmonary disease) Status: Chronic Current Visit: No (3) Tobacco use disorder Status: Chronic Current Visit: No Assessment and Plan for All Diagnoses:: LO rosas.
[2018-07-07 07:37] LABS: Eosinophils # 0.1 K/mm3 (0.0-0.4); Eosinophils % 0.7 % (0.1-12.0); Hematocrit 25.5 % (37.0-47.0); Lymphocytes # 1.2 K/mm3 (0.7-4.5); Lymphocytes % 6.9 % (10-50); Mean Corpuscular HGB Conc 30.3 g/dL (31.8-35.4); Mean Corpuscular Hemoglobin 21.9 pg (27.0-31.2); Mean Corpuscular Volume 72.3 fl (81-99); Mean Platelet Volume 7.1 fl (7.4-10.4); Monocytes # 0.6 K/mm3 (0.1-1.0); Monocytes % 3.5 % (1.7-9.3); Neutrophils # 15.4 K/mm3 (1.8-7.8); Neutrophils % 88.9 % (37.0-80.0); Platelet Count 402 K/mm3 (142-424); Red Blood Count 3.53 M/mm3 (4.20-5.40); Red Cell Distribution Width 15.7 % (11.5-17.5); White Blood Count 17.3 K/mm3 (4.8-10.8)
[2018-07-07 07:51] LABS: Hemoglobin 7.7 g/dL (12.2-16.2)
--- NOTE | 2018-07-07 08:06 | Pharmacy Consult Notes ---
[facility] Pharmacy VTE Monitoring - Patient Demographics Admission date: 07/07/18 Report Date: 07/07/18 Time: 08:06 Allergies/Adverse Reactions: Patient Allergies Penicillins Allergy (Verified 07/03/18 14:34) Height: 1.63 m Weight: 56.654 kg Patient Problems: Current Active Problems (Updated 07/06/18 @ 15:19 by Julien White MD) Colon cancer (Acute) - VTE Risk Labs: VTE Related Lab Results Hgb 7.7 g/dL (12.2-16.2) L* 07/07/18 07:27 Hct 25.5 % (37.0-47.0) L 07/07/18 07:27 Plt Count 402 K/mm3 (142-424) 07/07/18 07:27 BUN 13 mg/dL (7-18) 07/07/18 05:55 Creatinine 0.88 mg/dL (0.55-1.02) D 07/07/18 05:55 Estimated Creat Clear 69 mL/min (50-200) 07/07/18 05:55 Was VTE Risk Assessment Performed: Yes VTE Score: 6 VTE Risk Level: Low Risk Clinical Trial Participant: No - Prophylaxis VTE Prophylaxis Ordered?: Yes Types of VTE Prophylaxis: IPCS Knee High Location of Applied Device: Bilateral Lower Extremeties
[2018-07-07 08:28] LABS: Lymphocytes % 3 % (10-50); Monocytes % 8 % (2-9); Neutrophils % 89 % (42-76); Total Cells Counted 100
[2018-07-07 08:29] LABS: Hypochromasia 2+
--- NOTE | 2018-07-07 09:02 | Progress Note ---
Internal Medicine - PN: Noe *Date: 07/07/18 *Time: 08:59 Interval history: Pt has had a lot of abd pain overnight, she has discomfort in her eye, some drops have been ordered. Exam Vital signs and Labs for Last 24 Hours: Temp Pulse Resp BP Pulse Ox 98.1 F 82 20 105/55 L 100 07/07/18 08:00 07/07/18 08:28 07/07/18 08:28 07/07/18 08:00 07/07/18 08:28 Laboratory Results - last 24 hr 07/06/18 07:40: Urine Color Yellow, Urine Appearance Clear, Urine pH 6.0, Ur Specific [place] 1.020, Urine Protein Negative, Urine Glucose (UA) Negative, Urine Ketones Negative, Urine Blood Negative, Urine Nitrate Positive, Urine Bilirubin Negative, Urine Urobilinogen 0.2, Ur Leukocyte Esterase Negative, Urine WBC Occasional, Ur Squamous Epith Cells 3-5, Urine Bacteria 2+ A 07/07/18 05:55: Sodium 138, Potassium 4.7, Chloride 104, Carbon Dioxide 29, Anion Gap 9.7, BUN 13, Creatinine 0.88 D, Estimated Creat Clear 69, Estimated GFR 67, Est GFR ( Amer) 82 D, Glucose 114 H, Calcium 8.2 L D 07/07/18 07:27: WBC 17.3 H D, RBC 3.53 L D, Hgb 7.7 L*, Hct 25.5 L, MCV 72.3 L, MCH 21.9 L, MCHC 30.3 L, RDW 15.7, Plt Count 402, MPV 7.1 L, Neut % (Auto) 88.9 H, Lymph % (Auto) 6.9 L, [place] % (Auto) 3.5, Eos % (Auto) 0.7, Baso % (Auto) 0.0 L, Neut # (Auto) 15.4 H, Lymph # (Auto) 1.2, [place] # (Auto) 0.6, Eos # (Auto) 0.1, Baso # (Auto) 0.0, Total Counted 100, Neutrophils % (Manual) 89 H, Lymphocytes % (Manual) 3 L, Monocytes % (Manual) 8, Platelet Estimate Normal, Hypochromasia 2+ Vital Signs - 24 hr 07/06/18 10:55 07/06/18 11:05 07/06/18 11:14 Temperature 98.9 F 98.7 F 98.9 F Pulse Rate 105 H Pulse Rate [Apical] Pulse Rate [Right Brachial] 105 H 103 H Pulse Rate [Right Radial] Respiratory Rate 16 24 16 Blood Pressure 137/73 Blood Pressure [Left Arm] 137/73 137/68 02 Sat by Pulse Oximetry 95 98 07/06/18 11:15 07/06/18 11:21 07/06/18 11:26 Temperature 98.5 F 98.5 F 98.3 F Pulse Rate Pulse Rate [Apical] Pulse Rate [Right Brachial] 107 H 100 H 102 H Pulse Rate [Right Radial] Respiratory Rate 25 H 26 H 21 Blood Pressure Blood Pressure [Left Arm] 131/70 146/79 H 139/83 02 Sat by Pulse Oximetry 100 100 100 07/06/18 11:28 07/06/18 11:31 07/06/18 11:36 Temperature 98.3 F 98.1 F Pulse Rate Pulse Rate [Apical] Pulse Rate [Right Brachial] 104 H 104 H Pulse Rate [Right Radial] Respiratory Rate 16 14 28 H Blood Pressure Blood Pressure [Left Arm] 140/70 129/73 02 Sat by Pulse Oximetry 100 100 07/06/18 11:45 07/06/18 11:51 07/06/18 12:00 Temperature 97.9 F 97.9 F 98.4 F Pulse Rate Pulse Rate [Apical] Pulse Rate [Right Brachial] 104 H 104 H 100 H Pulse Rate [Right Radial] Respiratory Rate 14 16 14 Blood Pressure Blood Pressure [Left Arm] 122/70 132/76 141/60 H 02 Sat by Pulse Oximetry 100 100 100 07/06/18 12:15 07/06/18 12:30 07/06/18 12:35 Temperature Pulse Rate Pulse Rate [Apical] Pulse Rate [Right Brachial] 96 H 94 H Pulse Rate [Right Radial] Respiratory Rate 15 14 Blood Pressure Blood Pressure [Left Arm] 132/74 129/77 02 Sat by Pulse Oximetry 100 100 100 07/06/18 12:45 07/06/18 13:15 07/06/18 13:45 Temperature Pulse Rate Pulse Rate [Apical] Pulse Rate [Right Brachial] 90 81 83 Pulse Rate [Right Radial] Respiratory Rate 13 14 12 Blood Pressure Blood Pressure [Left Arm] 152/81 H 148/89 H 147/86 H 02 Sat by Pulse Oximetry 100 100 100 07/06/18 14:15 07/06/18 14:45 07/06/18 15:45 Temperature 98.3 F Pulse Rate Pulse Rate [Apical] Pulse Rate [Right Brachial] 82 79 77 Pulse Rate [Right Radial] Respiratory Rate 14 12 16 Blood Pressure Blood Pressure [Left Arm] 151/69 H 140/92 H 136/87 02 Sat by Pulse Oximetry 100 100 100 07/06/18 16:00 07/06/18 16:45 07/06/18 17:45 Temperature Pulse Rate 74 Pulse Rate [Apical] Pulse Rate [Right Brachial] Pulse Rate [Right Radial] 78 78 Respiratory Rate 14 18 Blood Pressure Blood Pressure [Left Arm] 135/68 140/80 02 Sat by Pulse Oximetry 100 100 07/06/18 18:45 07/06/18 18:50 07/06/18 20:00 Temperature Pulse Rate 80 Pulse Rate [Apical] Pulse Rate [Right Brachial] Pulse Rate [Right Radial] 82 88 Respiratory Rate 14 12 17 Blood Pressure Blood Pressure [Left Arm] 149/76 H 146/88 H 02 Sat by Pulse Oximetry 100 100 07/06/18 20:42 07/06/18 22:00 07/07/18 00:00 Temperature Pulse Rate 70 Pulse Rate [Apical] Pulse Rate [Right Brachial] Pulse Rate [Right Radial] 79 74 Respiratory Rate Blood Pressure Blood Pressure [Left Arm] 127/69 122/68 02 Sat by Pulse Oximetry 100 100 100 07/07/18 02:00 07/07/18 04:00 07/07/18 06:00 Temperature Pulse Rate 80 Pulse Rate [Apical] Pulse Rate [Right Brachial] Pulse Rate [Right Radial] 75 84 83 Respiratory Rate Blood Pressure Blood Pressure [Left Arm] 134/78 104/62 L 113/57 L 02 Sat by Pulse Oximetry 100 99 100 07/07/18 08:00 07/07/18 08:28 Temperature 98.1 F Pulse Rate Pulse Rate [Apical] 85 82 Pulse Rate [Right Brachial] Pulse Rate [Right Radial] Respiratory Rate 20 20 Blood Pressure Blood Pressure [Left Arm] 105/55 L 02 Sat by Pulse Oximetry 100 100 I & O for Last 24 hours: Intake & Output 07/04/18 07/05/18 07/06/18 07/07/18 23:59 23:59 23:59 23:59 Intake Total 4092 / 4092 1420 / 1420 Output Total 950 / 950 1200 / 1200 Balance 3142 / 3142 220 / 220 Weight 129 lb 124 lb 14.4 oz - Constitutional no acute distress - *Routine HEENT Exam Head: Present: normocephalic Eye: Present: EOMI ENT: Present: mucous membranes moist - *Routine Neck Exam Present: supple. Absent: lymphadenopathy - *Routine Respiratory Exam Present: CTA bilaterally - *Routine Cardiovascular Exam Present: RRR - *Routine Extremities Exam Absent: cyanosis, clubbing, edema - *Routine Skin Exam Present: warm. Absent: rash - *Routine Neurological Exam Present: alert Assessment and Plan (1) Colon cancer Current visit: Yes Status: Acute Category: Medical Code(s): C18.9 - Malignant neoplasm of colon, unspecified (2) COPD (chronic obstructive pulmonary disease) Current visit: No Status: Chronic Category: Medical Code(s): J44.9 - Chronic obstructive pulmonary disease, unspecified (3) Tobacco use disorder Current visit: No Status: Chronic Category: Medical Code(s): F17.200 - Nicotine dependence, unspecified, uncomplicated (4) Anemia Current visit: No Status: Acute Category: Medical Code(s): D64.9 - Anemia, unspecified - Assessment and plan all Dx Assessment and Plan for all problems:: POD #1, patient will need a transfusion of PRBC's today. Dr. Mcrae notified.
[2018-07-07 13:02] LABS: Hemoglobin 8.1 g/dL (12.2-16.2)
[2018-07-08 06:05] LABS: Anion Gap 8.6 mEq/L (5-15); Calcium 8.2 mg/dL (8.5-10.1); Potassium 3.6 mmoL/L (3.5-5.1)
[2018-07-08 06:07] LABS: Basophils % 0.3 % (0.1-2.0); Eosinophils # 0.1 K/mm3 (0.0-0.4); Eosinophils % 0.5 % (0.1-12.0); Hematocrit 25.9 % (37.0-47.0); Lymphocytes # 2.2 K/mm3 (0.7-4.5); Lymphocytes % 17.7 % (10-50); Mean Corpuscular HGB Conc 29.8 g/dL (31.8-35.4); Mean Corpuscular Hemoglobin 22.1 pg (27.0-31.2); Mean Platelet Volume 6.9 fl (7.4-10.4); Monocytes # 0.6 K/mm3 (0.1-1.0); Monocytes % 4.9 % (1.7-9.3); Neutrophils # 9.5 K/mm3 (1.8-7.8); Neutrophils % 76.7 % (37.0-80.0); Platelet Count 398 K/mm3 (142-424); Red Blood Count 3.51 M/mm3 (4.20-5.40); Red Cell Distribution Width 15.8 % (11.5-17.5); White Blood Count 12.4 K/mm3 (4.8-10.8)
[2018-07-08 06:13] LABS: Hemoglobin 7.7 g/dL (12.2-16.2)
--- NOTE | 2018-07-08 06:50 | Progress Note ---
Subjective Patient reports: feels better Narrative: Feels much better. Passing gas and had liquid bowel movement. Had to have NG replaced since it became inadvertently fell out. Functioning well. Exam Vital signs and Labs for Last 24 Hours: Temp Pulse Resp BP Pulse Ox 98 F 83 16 127/65 94 L 07/08/18 04:00 07/08/18 06:00 07/08/18 06:00 07/08/18 06:00 07/08/18 06:00 Laboratory Results - last 24 hr 07/07/18 07:27: WBC 17.3 H D, RBC 3.53 L D, Hgb 7.7 L*, Hct 25.5 L, MCV 72.3 L, MCH 21.9 L, MCHC 30.3 L, RDW 15.7, Plt Count 402, MPV 7.1 L, Neut % (Auto) 88.9 H, Lymph % (Auto) 6.9 L, [place] % (Auto) 3.5, Eos % (Auto) 0.7, Baso % (Auto) 0.0 L, Neut # (Auto) 15.4 H, Lymph # (Auto) 1.2, [place] # (Auto) 0.6, Eos # (Auto) 0.1, Baso # (Auto) 0.0, Total Counted 100, Neutrophils % (Manual) 89 H, Lymphocytes % (Manual) 3 L, Monocytes % (Manual) 8, Platelet Estimate Normal, Hypochromasia 2+ 07/07/18 12:48: Hgb 8.1 L, Hct 26.0 L 07/08/18 05:42: WBC 12.4 H D, RBC 3.51 L, Hgb 7.7 L*, Hct 25.9 L, MCV 74.0 L, MCH 22.1 L, MCHC 29.8 L, RDW 15.8, Plt Count 398, MPV 6.9 L, Neut % (Auto) 76.7, Lymph % (Auto) 17.7, [place] % (Auto) 4.9, Eos % (Auto) 0.5, Baso % (Auto) 0.3, Neut # (Auto) 9.5 H, Lymph # (Auto) 2.2, [place] # (Auto) 0.6, Eos # (Auto) 0.1, Baso # (Auto) 0.0 07/08/18 05:42: Sodium 139, Potassium 3.6 D, Chloride 103, Carbon Dioxide 31, Anion Gap 8.6, BUN 14, Creatinine 0.99, Estimated Creat Clear 59, Estimated GFR 59, Est GFR ( Amer) 71, Glucose 77 D, Calcium 8.2 L I & O for Last 24 hours: Intake & Output 07/05/18 07/06/18 07/07/18 07/08/18 11:59 11:59 11:59 11:59 Intake Total 2400 / 2400 3112 / 3112 2958 / 2958 Output Total 2150 / 2150 850 / 850 Balance 2400 / 2400 962 / 962 2108 / 2108 Weight 129 lb 124 lb 14.4 oz 124 lb 6.4 oz Microbiology Reports for the Last 24 Hours: Microbiology 07/06/18 07:40 Urine,[place] Urine Culture - Preliminary NO GROWTH AFTER 24 HOURS - *Routine Abdominal Exam Present: soft Progress Note: A&P (1) Colon cancer Status: Acute Current Visit: Yes (2) COPD (chronic obstructive pulmonary disease) Status: Chronic Current Visit: No (3) Tobacco use disorder Status: Chronic Current Visit: No (4) Anemia Status: Acute Current Visit: No Assessment and Plan for All Diagnoses:: Continue nasogastric tube decompression due to small bowel as well as ileocolic anastomoses. If continues with current bowel function may be reasonable to discontinue tomorrow. Encourage ambulation and gum chewing. Hemoglobin/hematocrit stable, continue to monitor.
--- NOTE | 2018-07-08 10:21 | Progress Note ---
Internal Medicine - PN: Subj *Date: 07/08/18 *Time: 10:18 Interval history: Patient states she feels better today, had NG tube replaced overnight, had 2 bowel movements overnight. Exam Vital signs and Labs for Last 24 Hours: Temp Pulse Resp BP Pulse Ox 98.0 F 79 17 116/67 98 07/08/18 09:38 07/08/18 09:38 07/08/18 09:38 07/08/18 09:38 07/08/18 09:38 Laboratory Results - last 24 hr 07/07/18 12:48: Hgb 8.1 L, Hct 26.0 L 07/08/18 05:42: WBC 12.4 H D, RBC 3.51 L, Hgb 7.7 L*, Hct 25.9 L, MCV 74.0 L, MCH 22.1 L, MCHC 29.8 L, RDW 15.8, Plt Count 398, MPV 6.9 L, Neut % (Auto) 76.7, Lymph % (Auto) 17.7, [place] % (Auto) 4.9, Eos % (Auto) 0.5, Baso % (Auto) 0.3, Neut # (Auto) 9.5 H, Lymph # (Auto) 2.2, [place] # (Auto) 0.6, Eos # (Auto) 0.1, Baso # (Auto) 0.0 07/08/18 05:42: Sodium 139, Potassium 3.6 D, Chloride 103, Carbon Dioxide 31, Anion Gap 8.6, BUN 14, Creatinine 0.99, Estimated Creat Clear 59, Estimated GFR 59, Est GFR ( Amer) 71, Glucose 77 D, Calcium 8.2 L I & O for Last 24 hours: Intake & Output 07/05/18 07/06/18 07/07/18 07/08/18 23:59 23:59 23:59 23:59 Intake Total 4092 / 4092 3131 / 3131 1247 / 1247 Output Total 950 / 950 1550 / 1550 500 / 500 Balance 3142 / 3142 1581 / 1581 747 / 747 Weight 129 lb 124 lb 14.4 oz 124 lb 6.4 oz Microbiology Reports for the Last 24 Hours: Microbiology 07/06/18 07:40 Urine,[place] Urine Culture - Preliminary NO GROWTH AFTER 24 HOURS - Constitutional no acute distress - *Routine HEENT Exam Head: Present: normocephalic Eye: Present: EOMI ENT: Present: mucous membranes moist, nares patent (NG tube in place) - *Routine Neck Exam Present: supple. Absent: lymphadenopathy - *Routine Respiratory Exam Present: CTA bilaterally - *Routine Cardiovascular Exam Present: RRR - *Routine Extremities Exam Absent: cyanosis, clubbing, edema - *Routine Skin Exam Present: warm. Absent: rash - *Routine Neurological Exam Present: alert, oriented X3 Assessment and Plan (1) Colon cancer Current visit: Yes Status: Acute Category: Medical Code(s): C18.9 - Malignant neoplasm of colon, unspecified (2) COPD (chronic obstructive pulmonary disease) Current visit: No Status: Chronic Category: Medical Code(s): J44.9 - Chronic obstructive pulmonary disease, unspecified (3) Tobacco use disorder Current visit: No Status: Chronic Category: Medical Code(s): F17.200 - Nicotine dependence, unspecified, uncomplicated (4) Anemia Current visit: No Status: Acute Category: Medical Code(s): D64.9 - Anemia, unspecified - Assessment and plan all Dx Assessment and Plan for all problems:: POD#2 and patient is doing well, continue routine post op care. H/H is unchanged.
--- NOTE | 2018-07-09 08:03 | Progress Note ---
Subjective Patient reports: feels better Narrative: Patient feels very well. She has been passing gas and has had several bowel movements. She is taking a large amount of ice chips. She states that she feels better than she has in weeks. Exam Vital signs and Labs for Last 24 Hours: Temp Pulse Resp BP Pulse Ox 97.9 F 75 18 133/68 97 07/09/18 06:00 07/09/18 06:00 07/09/18 06:00 07/09/18 06:00 07/09/18 06:00 I & O for Last 24 hours: Intake & Output 07/06/18 07/07/18 07/08/18 07/09/18 11:59 11:59 11:59 11:59 Intake Total 2400 / 2400 3112 / 3112 2958 / 2958 3189 / 3189 Output Total 2150 / 2150 850 / 850 2400 / 2400 Balance 2400 / 2400 962 / 962 2108 / 2108 789 / 789 Weight 129 lb 124 lb 14.4 oz 124 lb 6.4 oz 110 lb 7 oz Microbiology Reports for the Last 24 Hours: Microbiology 07/06/18 07:40 Urine,[place] Urine Culture - Final NO GROWTH AFTER 48 HOURS - *Routine Abdominal Exam Present: soft, normoactive bowel sounds Progress Note: A&P (1) Colon cancer Status: Acute Current Visit: Yes (2) COPD (chronic obstructive pulmonary disease) Status: Chronic Current Visit: No (3) Tobacco use disorder Status: Chronic Current Visit: No (4) Anemia Status: Acute Current Visit: No Assessment and Plan for All Diagnoses:: Discontinue nasogastric tube today. However continue n.p.o. except for ice chips. Check hemoglobin and hematocrit
--- NOTE | 2018-07-09 08:45 | Progress Note ---
Internal Medicine - PN: Subj *Date: 07/09/18 *Time: 08:43 Interval history: Pt is doing well, NG tube to be removed today. Exam Vital signs and Labs for Last 24 Hours: Temp Pulse Resp BP Pulse Ox 97.7 F 75 17 133/69 96 07/09/18 08:00 07/09/18 08:00 07/09/18 08:00 07/09/18 08:00 07/09/18 08:00 Vital Signs - 24 hr 07/08/18 09:38 07/08/18 11:23 07/08/18 12:00 Temperature 98.0 F 98.6 F Pulse Rate 70 Pulse Rate [Apical] 79 85 Pulse Rate [Right Radial] Respiratory Rate 17 16 Blood Pressure [Left Arm] 116/67 130/70 02 Sat by Pulse Oximetry 98 99 07/08/18 13:36 07/08/18 15:42 07/08/18 16:00 Temperature 98.6 F 97.7 F Pulse Rate 70 Pulse Rate [Apical] 82 76 Pulse Rate [Right Radial] Respiratory Rate 18 17 Blood Pressure [Left Arm] 132/68 110/64 02 Sat by Pulse Oximetry 99 98 07/08/18 17:27 07/08/18 20:00 07/09/18 00:00 Temperature 97.7 F 97.9 F 98.1 F Pulse Rate 74 85 Pulse Rate [Apical] 78 Pulse Rate [Right Radial] 78 72 Respiratory Rate 17 16 14 Blood Pressure [Left Arm] 108/70 L 114/60 124/81 02 Sat by Pulse Oximetry 98 98 97 07/09/18 02:00 07/09/18 04:00 07/09/18 06:00 Temperature 98.3 F 97.9 F Pulse Rate 70 Pulse Rate [Apical] Pulse Rate [Right Radial] 86 75 75 Respiratory Rate 16 17 18 Blood Pressure [Left Arm] 131/64 135/51 L 133/68 02 Sat by Pulse Oximetry 95 96 97 07/09/18 08:00 Temperature 97.7 F Pulse Rate Pulse Rate [Apical] 75 Pulse Rate [Right Radial] Respiratory Rate 17 Blood Pressure [Left Arm] 133/69 02 Sat by Pulse Oximetry 96 I & O for Last 24 hours: Intake & Output 07/06/18 07/07/18 07/08/18 07/09/18 23:59 23:59 23:59 23:59 Intake Total 4092 / 4092 3131 / 3131 1247 / 1247 3189 / 3189 Output Total 950 / 950 1550 / 1550 1800 / 1800 1100 / 1100 Balance 3142 / 3142 1581 / 1581 -553 / -553 2088 / 2088 Weight 129 lb 124 lb 14.4 oz 124 lb 6.404 oz 110 lb 7 oz Microbiology Reports for the Last 24 Hours: Microbiology 07/06/18 07:40 Urine,[place] Urine Culture - Final NO GROWTH AFTER 48 HOURS - Constitutional no acute distress Assessment and Plan (1) Colon cancer Current visit: Yes Status: Acute Category: Medical Code(s): C18.9 - Malignant neoplasm of colon, unspecified (2) COPD (chronic obstructive pulmonary disease) Current visit: No Status: Chronic Category: Medical Code(s): J44.9 - 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
[2018-07-09 09:40] LABS: Basophils % 0.4 % (0.1-2.0); Eosinophils # 0.3 K/mm3 (0.0-0.4); Eosinophils % 3.3 % (0.1-12.0); Hematocrit 25.1 % (37.0-47.0); Lymphocytes # 1.3 K/mm3 (0.7-4.5); Lymphocytes % 13.5 % (10-50); Mean Corpuscular HGB Conc 30.4 g/dL (31.8-35.4); Mean Corpuscular Hemoglobin 22.1 pg (27.0-31.2); Mean Corpuscular Volume 72.6 fl (81-99); Mean Platelet Volume 6.8 fl (7.4-10.4); Monocytes # 0.4 K/mm3 (0.1-1.0); Monocytes % 4.5 % (1.7-9.3); Neutrophils # 7.3 K/mm3 (1.8-7.8); Neutrophils % 78.3 % (37.0-80.0); Platelet Count 406 K/mm3 (142-424); Red Blood Count 3.46 M/mm3 (4.20-5.40); Red Cell Distribution Width 15.7 % (11.5-17.5); White Blood Count 9.3 K/mm3 (4.8-10.8)
[2018-07-09 10:05] LABS: Hemoglobin 7.6 g/dL (12.2-16.2)
--- NOTE | 2018-07-10 07:03 | Progress Note ---
Subjective Patient reports: feels better Narrative: Patient has tolerated NG tube out. No nausea. Still with some small bowel movements. Exam Vital signs and Labs for Last 24 Hours: Temp Pulse Resp BP Pulse Ox 98.3 F 81 16 118/72 98 07/10/18 04:00 07/10/18 04:00 07/10/18 04:00 07/10/18 04:00 07/10/18 04:00 Laboratory Results - last 24 hr 07/09/18 09:31: WBC 9.3, RBC 3.46 L, Hgb 7.6 L*, Hct 25.1 L, MCV 72.6 L, MCH 22.1 L, MCHC 30.4 L, RDW 15.7, Plt Count 406, MPV 6.8 L, Neut % (Auto) 78.3, Lymph % (Auto) 13.5, [place] % (Auto) 4.5, Eos % (Auto) 3.3, Baso % (Auto) 0.4, Neut # (Auto) 7.3, Lymph # (Auto) 1.3, [place] # (Auto) 0.4, Eos # (Auto) 0.3, Baso # (Auto) 0.0 I & O for Last 24 hours: Intake & Output 07/07/18 07/08/18 07/09/18 07/10/18 11:59 11:59 11:59 11:59 Intake Total 3112 / 3112 2958 / 2958 3189 / 3189 2941 / 2941 Output Total 2150 / 2150 850 / 850 2400 / 2400 Balance 962 / 962 2108 / 2108 789 / 789 2941 / 2941 Weight 124 lb 14.4 oz 124 lb 6.4 oz 110 lb 7 oz 111 lb 2 oz - *Routine Abdominal Exam Present: soft - *Routine Rectal Exam Patient deferred: visual exam Progress Note: A&P (1) Colon cancer Status: Acute Current Visit: Yes (2) COPD (chronic obstructive pulmonary disease) Status: Chronic Current Visit: No (3) Tobacco use disorder Status: Chronic Current Visit: No (4) Anemia Status: Acute Current Visit: No Assessment and Plan for All Diagnoses:: Clear liquid diet. [employer].
--- NOTE | 2018-07-10 08:34 | Progress Note ---
Internal Medicine - PN: Subj *Date: 07/10/18 *Time: 08:34 Interval history: Pt feels better today, had clear liquids for breakfast. Nurse reports patient needs a stool softener. Exam Vital signs and Labs for Last 24 Hours: Temp Pulse Resp BP Pulse Ox 98.0 F 79 18 150/76 H 95 07/10/18 07:34 07/10/18 07:34 07/10/18 07:34 07/10/18 07:34 07/10/18 07:34 Laboratory Results - last 24 hr 07/09/18 09:31: WBC 9.3, RBC 3.46 L, Hgb 7.6 L*, Hct 25.1 L, MCV 72.6 L, MCH 22.1 L, MCHC 30.4 L, RDW 15.7, Plt Count 406, MPV 6.8 L, Neut % (Auto) 78.3, Lymph % (Auto) 13.5, [place] % (Auto) 4.5, Eos % (Auto) 3.3, Baso % (Auto) 0.4, Neut # (Auto) 7.3, Lymph # (Auto) 1.3, [place] # (Auto) 0.4, Eos # (Auto) 0.3, Baso # (Auto) 0.0 Vital Signs - 24 hr 07/09/18 09:23 07/09/18 11:23 07/09/18 13:24 Temperature 97.8 F 97.9 F 97.8 F Pulse Rate [Apical] 75 78 75 Pulse Rate [Right Radial] Respiratory Rate 18 17 17 Blood Pressure [Left Arm] 128/66 128/72 130/76 02 Sat by Pulse Oximetry 96 100 100 07/09/18 16:00 07/09/18 18:00 07/09/18 20:00 Temperature 98.1 F 98.0 F 98.5 F Pulse Rate [Apical] 87 78 83 Pulse Rate [Right Radial] Respiratory Rate 16 18 18 Blood Pressure [Left Arm] 132/66 127/60 125/65 02 Sat by Pulse Oximetry 95 96 99 07/09/18 22:00 07/10/18 00:00 07/10/18 02:00 Temperature 98.2 F 98.0 F 98.2 F Pulse Rate [Apical] Pulse Rate [Right Radial] 80 69 70 Respiratory Rate 17 17 16 Blood Pressure [Left Arm] 110/59 L 121/62 132/84 02 Sat by Pulse Oximetry 99 98 96 07/10/18 04:00 07/10/18 07:34 Temperature 98.3 F 98.0 F Pulse Rate [Apical] Pulse Rate [Right Radial] 81 79 Respiratory Rate 16 18 Blood Pressure [Left Arm] 118/72 150/76 H 02 Sat by Pulse Oximetry 98 95 I & O for Last 24 hours: Intake & Output 07/07/18 07/08/18 07/09/18 07/10/18 23:59 23:59 23:59 23:59 Intake Total 3131 / 3131 1247 / 1247 4826 / 4826 1304 / 1304 Output Total 1550 / 1550 1800 / 1800 1100 / 1100 Balance 1581 / 1581 -553 / -553 3726 / 3726 1304 / 1304 Weight 124 lb 14.4 oz 124 lb 6.404 oz 110 lb 7 oz 111 lb 2 oz - Constitutional no acute distress (conversant) Assessment and Plan (1) Colon cancer Current visit: Yes Status: Acute Category: Medical Code(s): C18.9 - Malignant neoplasm of colon, unspecified (2) COPD (chronic obstructive pulmonary disease) Current visit: No Status: Chronic Category: Medical Code(s): J44.9 - Chronic obstructive pulmonary disease, unspecified (3) Tobacco use disorder Current visit: No Status: Chronic Category: Medical Code(s): F17.200 - Nicotine dependence, unspecified, uncomplicated (4) Anemia Current visit: No Status: Acute Category: Medical Code(s): D64.9 - Anemia, unspecified - Assessment and plan all Dx Assessment and Plan for all problems:: POD #4, doing well, continue routine care.
--- NOTE | 2018-07-10 16:03 | Progress Note ---
Subjective Patient reports: feels better Narrative: Patient has taken clear liquids today without any difficulty. She states that she is hungry. She still moving her bowels. She has not had much lower pain medicine requirements. Exam Vital signs and Labs for Last 24 Hours: Temp Pulse Resp BP Pulse Ox 97.8 F 81 16 137/61 98 07/10/18 15:44 07/10/18 15:44 07/10/18 15:44 07/10/18 15:44 07/10/18 15:44 I & O for Last 24 hours: Intake & Output 07/08/18 07/09/18 07/10/18 07/11/18 11:59 11:59 11:59 11:59 Intake Total 2958 / 2958 3189 / 3189 2941 / 2941 360 / 360 Output Total 850 / 850 2400 / 2400 Balance 2108 / 2108 789 / 789 2941 / 2941 360 / 360 Weight 124 lb 6.4 oz 110 lb 7 oz 111 lb 2 oz - *Routine Abdominal Exam Present: soft Progress Note: A&P (1) Colon cancer Status: Acute Current Visit: Yes (2) COPD (chronic obstructive pulmonary disease) Status: Chronic Current Visit: No (3) Tobacco use disorder Status: Chronic Current Visit: No (4) Anemia Status: Acute Current Visit: No Assessment and Plan for All Diagnoses:: Advance to full liquid diet. Anticipate discharge home in a day or 2. Recheck labs tomorrow morning.
[2018-07-11 05:55] LABS: Basophils % 0.3 % (0.1-2.0); Eosinophils # 0.8 K/mm3 (0.0-0.4); Eosinophils % 11.1 % (0.1-12.0); Lymphocytes # 1.5 K/mm3 (0.7-4.5); Lymphocytes % 20.4 % (10-50); Mean Corpuscular HGB Conc 32.8 g/dL (31.8-35.4); Mean Corpuscular Hemoglobin 23.2 pg (27.0-31.2); Mean Corpuscular Volume 70.8 fl (81-99); Mean Platelet Volume 7.3 fl (7.4-10.4); Monocytes # 0.4 K/mm3 (0.1-1.0); Monocytes % 5.1 % (1.7-9.3); Neutrophils # 4.7 K/mm3 (1.8-7.8); Neutrophils % 63.1 % (37.0-80.0); Platelet Count 412 K/mm3 (142-424); Red Blood Count 3.26 M/mm3 (4.20-5.40); Red Cell Distribution Width 15.9 % (11.5-17.5); White Blood Count 7.5 K/mm3 (4.8-10.8)
[2018-07-11 06:00] LABS: Hematocrit 23.1 % (37.0-47.0); Hemoglobin 7.6 g/dL (12.2-16.2)
[2018-07-11 06:14] LABS: Anion Gap 12.9 mEq/L (5-15); Calcium 8.2 mg/dL (8.5-10.1); Potassium 3.9 mmoL/L (3.5-5.1)
--- NOTE | 2018-07-11 08:37 | Progress Note ---
Internal Medicine - PN: Subj *Date: 07/11/18 *Time: 08:35 Interval history: Patient feels well, tolerating diet, has had some vivid dreams since using nicotine patches. Exam Vital signs and Labs for Last 24 Hours: Temp Pulse Resp BP Pulse Ox 98.4 F 82 16 124/68 97 07/11/18 07:34 07/11/18 07:34 07/11/18 07:34 07/11/18 07:34 07/11/18 07:34 Laboratory Results - last 24 hr 07/11/18 05:15: WBC 7.5, RBC 3.26 L, Hgb 7.6 L*, Hct 23.1 L*, MCV 70.8 L, MCH 23.2 L, MCHC 32.8, RDW 15.9, Plt Count 412, MPV 7.3 L, Neut % (Auto) 63.1, Lymph % (Auto) 20.4, [place] % (Auto) 5.1, Eos % (Auto) 11.1, Baso % (Auto) 0.3, Neut # (Auto) 4.7, Lymph # (Auto) 1.5, [place] # (Auto) 0.4, Eos # (Auto) 0.8 H, Baso # (Auto) 0.0 07/11/18 05:15: Sodium 140, Potassium 3.9, Chloride 104, Carbon Dioxide 27, Anion Gap 12.9, BUN 4 L D, Creatinine 0.81, Estimated Creat Clear 65, Estimated GFR 74, Est GFR ( Amer) 90 D, Glucose 91, Calcium 8.2 L I & O for Last 24 hours: Intake & Output 07/08/18 07/09/18 07/10/18 07/11/18 23:59 23:59 23:59 23:59 Intake Total 1247 / 1247 4826 / 4826 4498 / 4498 500 / 500 Output Total 1800 / 1800 1100 / 1100 Balance -553 / -553 3726 / 3726 4498 / 4498 500 / 500 Weight 124 lb 6.404 oz 110 lb 7 oz 111 lb 2 oz 111 lb 2 oz - Constitutional no acute distress (conversant) - *Routine HEENT Exam Head: Present: normocephalic Eye: Present: EOMI ENT: Present: mucous membranes moist Assessment and Plan (1) Colon cancer Current visit: Yes Status: Acute Category: Medical Code(s): C18.9 - Malignant neoplasm of colon, unspecified (2) COPD (chronic obstructive pulmonary disease) Current visit: No Status: Chronic Category: Medical Code(s): J44.9 - Chronic obstructive pulmonary disease, unspecified (3) Tobacco use disorder Current visit: No Status: Chronic Category: Medical Code(s): F17.200 - Nicotine dependence, unspecified, uncomplicated (4) Anemia Current visit: No Status: Acute Category: Medical Code(s): D64.9 - Anemia, unspecified - Assessment and plan all Dx Assessment and Plan for all problems:: POD #5, doing well, continue routine post op care.
--- NOTE | 2018-07-11 14:49 | Progress Note ---
Subjective Patient reports: no new complaints Narrative: Ms. Green is a 52-year-old female status post stent to right colectomy for locally advanced colon cancer. En bloc resection with small bowel and anterior abdominal wall. Today is postoperative day 5. Tolerating a diet. Pain well controlled. Flatus and bowel movement over the past 24 hours. Ready for discharge. Exam Vital signs and Labs for Last 24 Hours: Temp Pulse Resp BP Pulse Ox 97.8 F 65 16 152/78 H 98 07/11/18 12:00 07/11/18 12:00 07/11/18 12:00 07/11/18 12:00 07/11/18 12:00 Laboratory Results - last 24 hr 07/11/18 05:15: WBC 7.5, RBC 3.26 L, Hgb 7.6 L*, Hct 23.1 L*, MCV 70.8 L, MCH 23.2 L, MCHC 32.8, RDW 15.9, Plt Count 412, MPV 7.3 L, Neut % (Auto) 63.1, Lymph % (Auto) 20.4, [place] % (Auto) 5.1, Eos % (Auto) 11.1, Baso % (Auto) 0.3, Neut # (Auto) 4.7, Lymph # (Auto) 1.5, [place] # (Auto) 0.4, Eos # (Auto) 0.8 H, Baso # (Auto) 0.0 07/11/18 05:15: Sodium 140, Potassium 3.9, Chloride 104, Carbon Dioxide 27, Anion Gap 12.9, BUN 4 L D, Creatinine 0.81, Estimated Creat Clear 65, Estimated GFR 74, Est GFR ( Amer) 90 D, Glucose 91, Calcium 8.2 L I & O for Last 24 hours: Intake & Output 07/09/18 07/10/18 07/11/18 07/12/18 11:59 11:59 11:59 11:59 Intake Total 3189 / 3189 2941 / 2941 3694 / 3694 480 / 480 Output Total 2400 / 2400 Balance 789 / 789 2941 / 2941 3694 / 3694 480 / 480 Weight 50.094 kg 50.405 kg 50.405 kg - *Routine Abdominal Exam Present: soft Comments: Soft. Nondistended. Minimally tender. Appropriate. Progress Note: A&P (1) Colon cancer Status: Acute Current Visit: Yes (2) COPD (chronic obstructive pulmonary disease) Status: Chronic Current Visit: No (3) Tobacco use disorder Status: Chronic Current Visit: No (4) Anemia Status: Acute Current Visit: No Assessment and Plan for All Diagnoses:: Right colon cancer. Status post right colectomy. Bowel function has returned. Pain well controlled. Tolerating diet. Ready for discharge. Discharge today with subsequent follow-up with Dr. Mcrae.
--- NOTE | 2018-07-11 14:51 | Discharge Summary ---
General - General Admission date:: 07/06/18 Discharge date: 07/11/18 HPI HPI: Ms. Green is a 52-year-old female with right colon cancer. Status post extended right colectomy. En bloc resection performed. Postoperative course remarkable for quick recovery of bowel function. Pain adequately controlled. At the time of discharge patient noted that she was tolerating diet well with bowel function. Hospital Course Hospital Course: Uncomplicated postoperative course. Objective Vital signs: Temp Pulse Resp BP Pulse Ox 97.8 F 65 16 152/78 H 98 07/11/18 12:00 07/11/18 12:00 07/11/18 12:00 07/11/18 12:00 07/11/18 12:00 - *Routine Respiratory Exam Present: CTA bilaterally - *Routine Cardiovascular Exam Present: RRR - *Routine Abdominal Exam Present: soft Results Labs on day of discharge: Labs from last 24 hours 07/11/18 07/11/18 05:15 05:15 WBC 7.5 RBC 3.26 L Hgb 7.6 L* Hct 23.1 L* MCV 70.8 L MCH 23.2 L MCHC 32.8 RDW 15.9 Plt Count 412 MPV 7.3 L Neut % (Auto) 63.1 Lymph % (Auto) 20.4 [place] % (Auto) 5.1 Eos % (Auto) 11.1 Baso % (Auto) 0.3 Neut # (Auto) 4.7 Lymph # (Auto) 1.5 [place] # (Auto) 0.4 Eos # (Auto) 0.8 H Baso # (Auto) 0.0 Sodium 140 Potassium 3.9 Chloride 104 Carbon Dioxide 27 Anion Gap 12.9 BUN 4 L D Creatinine 0.81 Estimated Creat Clear 65 Estimated GFR 74 Est GFR ( Amer) 90 D Glucose 91 Calcium 8.2 L DS: Diagnosis - Discharge Diagnosis (1) Colon cancer Status: Acute (2) COPD (chronic obstructive pulmonary disease) Status: Chronic (3) Tobacco use disorder Status: Chronic (4) Anemia Status: Acute Discharge Plan - Patient Discharge Instructions ACTIVITY: No heavy lifting DIET: advance to your usual diet Patient Instructions: Colon Cancer, DI for Colorectal Cancer, DI for Surgical Site Infection - Follow up Plan Follow up with: Raffaele Mcrae MD [Staff Physician] - Disposition: Home, Self-Custodial Medications: Home Medications Medication Instructions Recorded Confirmed Type Albuterol Sulfate [Albuterol 2.5 mg IH DAILY PRN 05/13/18 07/06/18 History Sulfate 2.5mg/0.5ml Neb] Buprenorphine HCl/Naloxone HCl 1 each SL DAILY 07/07/18 07/07/18 History [Suboxone 8 mg-2 mg Sl Film] Hydrocod/Acet 5/325 mg [Exline 1 - 2 tab PO Q6HP PRN #21 tab 07/10/18 Rx 5/325mg tablet] Prescriptions/Medication Reconciliation: New Hydrocod/Acet 5/325 mg [Exline 5/325mg tablet] 1 - 2 tab PO Q6HP PRN #21 tab PRN Reason: Moderate Pain Continued Albuterol Sulfate [Albuterol Sulfate 2.5mg/0.5ml Neb] 2.5 mg IH DAILY PRN PRN Reason: Shortness Of Breath Or Wheezing Buprenorphine HCl/Naloxone HCl [Suboxone 8 mg-2 mg Sl Film] 1 each SL DAILY
== END 2018-07-11 16:20 | disposition home or self-care (01) | DRG 330 ==
LOC: OR 06:08 → 2ND 10:59
PROVIDERS: ADMIT Surgery; ATTEND Surgery
CPT/HCPCS: 36415; 80048; 81001; 85007; 85014; 85018; 85025; 86850; 87086; 93005; 94761; 96374; J0131; J1335; J2405; J2710

== ENCOUNTER → 2018-07-31 10:51 | Outpatient (CLI) | payer MEDICAID, SELFPAY ==
[2018-07-31 11:28] LABS: Basophils # 0.1 K/mm3 (0-0.2); Basophils % 1.2 % (0.1-2.0); Eosinophils # 0.8 K/mm3 (0.0-0.4); Eosinophils % 10.3 % (0.1-12.0); Hematocrit 30.8 % (37.0-47.0); Hemoglobin 8.7 g/dL (12.2-16.2); Lymphocytes # 1.9 K/mm3 (0.7-4.5); Lymphocytes % 23.6 % (10-50); Mean Corpuscular HGB Conc 28.4 g/dL (31.8-35.4); Mean Corpuscular Hemoglobin 20.7 pg (27.0-31.2); Mean Platelet Volume 7.4 fl (7.4-10.4); Monocytes # 0.4 K/mm3 (0.1-1.0); Neutrophils # 4.7 K/mm3 (1.8-7.8); Platelet Count 607 K/mm3 (142-424); Red Blood Count 4.22 M/mm3 (4.20-5.40); Red Cell Distribution Width 15.9 % (11.5-17.5); White Blood Count 7.8 K/mm3 (4.8-10.8)
[2018-07-31 16:25] LABS: Alanine Aminotransferase 27 U/L (12-78); Albumin Level 3.2 gm/dL (3.4-5.0); Alkaline Phosphatase 105 U/L (46-116); Anion Gap 16.6 mEq/L (5-15); Aspartate Amino Transferase 27 U/L (15-37); Bilirubin,Total 0.2 mg/dL (0.2-1.0); Blood Urea Nitrogen 14 mg/dL (7-18); Calcium 8.9 mg/dL (8.5-10.1); Carbon Dioxide 26 mmol/L (21.0-32.0); Chloride 103 mmol/L (98-107); Creatinine,Serum 0.89 mg/dL (0.55-1.02); Estimated Glomerular Filt Rate 67 ml/min (>60); Ferritin 10 ng/mL (8-388); GFR (African American) 81 ML/MIN (>60); Globulin 3.3 gm/dl (1.3-3.2); Glucose 106 mg/dL (74-106); Potassium 4.6 mmoL/L (3.5-5.1); Sodium 141 mmol/L (136-145); Total Protein,Serum 6.5 gm/dL (6.4-8.2)
[2018-08-01 08:19] LABS: Iron 15 ug/dL (27-159); Iron Saturation 4 % (15-55); UIBC 402 ug/dL (131-425)
[2018-08-01 20:51] LABS: CEA 4.6 ng/mL (0.0-4.7)
== END ==
PROVIDERS: Visit Provider Internal Medicine Medical Oncology
DX: C18.9 Malignant neoplasm of colon, unspecified (principal)
CPT/HCPCS: 36415; 80053; 82378; 82728; 83540; 83550; 85025

== ENCOUNTER → 2018-08-05 09:31 | Outpatient (CLI) | payer MEDICAID, SELFPAY ==
--- NOTE | 2018-08-05 | CT_ITS ---
CT chest w con HISTORY: Colon cancer, evaluate for metastatic disease, smoker ITS.REASON: COLON CA ORDERING PHYSICIAN: Lisette Hudson MD PATIENT AGE: 52 years COMPARISON: None TECHNIQUE: Axial images obtained following the administration of 75 mL of Optiray 350 . Sagittal, and coronal reformatted images are also generated and reviewed. All CT scans at the facility use one or more dose reduction, viz: automated exposure control, ma/kV adjustment per patient size (including targeted exams where dose is matched to indication, i.e. head), or iterative reconstruction technique. FINDINGS: No mediastinal or hilar mass or adenopathy. There is mild biapical fibrotic change with a subpleural opacity in the right apex posteriorly at 3 mm. A small parenchymal opacity is present in the left apex at 4 mm. There is mild coarsening of the bronchovascular markings with mild hyperinflation consistent with COPD. There is some patchy groundglass density in the right upper lobe medially nonspecific. Calcified granuloma is present in the left upper lobe posteriorly and medially. No effusions. No lobar consolidation. No central obstructing lesion. No evidence of aortic aneurysm, dissection, or central pulmonary embolus. IMPRESSION: 1. No convincing evidence of metastatic disease. 2. There is a 3 mm nodular opacity in the right apex on a 4 mm nodular opacity in the left apex. These are nonspecific to small to categorize. 36 month follow-up is suggested to confirm stability. 3. COPD
--- NOTE | 2018-08-05 09:36 | CT_ITS ---
CT abdomen pelvis w con CLINICAL INDICATION: Follow-up colon cancer ITS.REASON: COLON CA ORDERING PHYSICIAN: Lisette Hudson MD PATIENT AGE: 52 years COMPARISON: 06/24/2018 TECHNIQUE: Axial images obtained with sagittal and coronal reformats. All CT scans at the facility use one or more dose reduction, viz: automated exposure control, ma/kV adjustment per patient size (including targeted exams where dose is matched to indication, i.e. head), or iterative reconstruction technique. PROCEDURE: Oral Contrast: Redicat IV Contrast: 75 mL's Optiray 350 performed in conjunction with chest CT. FINDINGS: There is a subtle area of decreased attenuation in the right hepatic lobe posteriorly at 4 mm.. This may have been present on previous studies is somewhat less apparent which may be due to the scanning technique. There is an additional subtle area of decreased attenuation in the right hepatic lobe posteriorly more superiorly on image #26. This is at the level of the right portal vein not related. On the previous study. This measures approximately 5 mm and is of questionable significance. A small metastatic lesion is not excluded. Follow-up recommended. There is decreased attenuation in the left hepatic lobe at the falciform ligament consistent with focal fatty liver replacement. Spleen, adrenal glands, pancreas, and kidneys have an unremarkable appearance aside from some cortical renal scarring on the right superiorly. There has been interval resection of the ascending and proximal transverse colon. There is some minimal stranding of the fat in the right upper quadrant consistent with postsurgical change. No residual soft tissue mass evident. There are surgical clips in the right upper quadrant anterior to the descending portion of the duodenum. There are few small lymph nodes in this region. The nodes are present along the mesenteric axis measuring up to 17 x 9 mm. Postsurgical changes are present involving the anterior abdominal wall. There has been a prior hysterectomy. There is a small amount of fluid in the pelvis. There is a 3 cm right ovarian cyst. No acute bony anomalies are apparent. IMPRESSION: 1. There are 2 small isodensity's of the liver in the right hepatic lobe. These are too small to categorize. One cannot exclude the possibility of very early metastatic foci. Continued follow-up is recommended. 2. Interval resection of colonic mass in right upper quadrant with no residual soft tissue mass apparent. There are few small lymph nodes in the mid abdominal region which are nonspecific. 3. 3 cm right ovarian cyst with small amount of fluid in the pelvis
== END ==
PROVIDERS: PCP Family Medicine; Visit Provider Internal Medicine Medical Oncology
DX: C18.9 Malignant neoplasm of colon, unspecified (principal)
CPT/HCPCS: 71260; 74177; Q9967

== ENCOUNTER 2018-08-25 10:38 | Outpatient (CLI) | payer MEDICAID, SELFPAY ==
[2018-08-25] VITALS (8 sets, daily range): BP systolic 114–136; BP diastolic 74; PULSE 68–84; RESP 20; TEMP 36.9; O2SAT 95; BMI 21.1
[2018-08-25 11:16] LABS: Basophils # 0.1 K/mm3 (0-0.2); Basophils % 0.9 % (0.1-2.0); Eosinophils # 0.8 K/mm3 (0.0-0.4); Hematocrit 29.8 % (37.0-47.0); Hemoglobin 8.4 g/dL (12.2-16.2); Lymphocytes # 1.9 K/mm3 (0.7-4.5); Lymphocytes % 24.2 % (10-50); Mean Corpuscular Hemoglobin 19.8 pg (27.0-31.2); Mean Corpuscular Volume 70.8 fl (81-99); Mean Platelet Volume 7.7 fl (7.4-10.4); Monocytes # 0.3 K/mm3 (0.1-1.0); Monocytes % 4.1 % (1.7-9.3); Neutrophils # 4.8 K/mm3 (1.8-7.8); Neutrophils % 60.7 % (37.0-80.0); Platelet Count 366 K/mm3 (142-424); Red Blood Count 4.22 M/mm3 (4.20-5.40); Red Cell Distribution Width 16.9 % (11.5-17.5); White Blood Count 7.9 K/mm3 (4.8-10.8)
[2018-08-25 11:18] LABS: Alanine Aminotransferase 43 U/L (12-78); Albumin Level 3.1 gm/dL (3.4-5.0); Albumin/Globulin Ratio 0.8 (1.1-1.8); Alkaline Phosphatase 139 U/L (46-116); Anion Gap 12.5 mEq/L (5-15); Aspartate Amino Transferase 28 U/L (15-37); Bilirubin,Total 0.2 mg/dL (0.2-1.0); Blood Urea Nitrogen 16 mg/dL (7-18); Calcium 8.7 mg/dL (8.5-10.1); Carbon Dioxide 28 mmol/L (21.0-32.0); Chloride 102 mmol/L (98-107); Creatinine Clearance Estimated 57 mL/min (50-200); Creatinine,Serum 1.01 mg/dL (0.55-1.02); Estimated Glomerular Filt Rate 58 ml/min (>60); GFR (African American) 70 ML/MIN (>60); Globulin 3.7 gm/dl (1.3-3.2); Glucose 141 mg/dL (74-106); Potassium 3.5 mmoL/L (3.5-5.1); Sodium 139 mmol/L (136-145); Total Protein,Serum 6.8 gm/dL (6.4-8.2)
== END 2018-08-25 15:45 | disposition home or self-care (01) ==
LOC: INF 10:38
PROVIDERS: Visit Provider Internal Medicine Medical Oncology
DX: Z51.11 Encounter for antineoplastic chemotherapy (principal); C18.9 Malignant neoplasm of colon, unspecified; D50.9 Iron deficiency anemia, unspecified
CPT/HCPCS: 80053; 85025; 96367; 96413; 96415; J1439; J1642; J7060; J9263; Q0166

== ENCOUNTER 2018-09-02 14:30 | Inpatient (IN) ==
--- NOTE | 2018-09-02 15:03 | Emergency Department Note ---
ED Disposition Clinical Impression: Vomiting and diarrhea, Chemotherapy adverse reaction, Hypokalemia Disposition: Admitted as Observation Condition on Discharge: Fair Referrals: Julien White MD [Primary Care Provider] - Time of Disposition: 16:05 - Critical Care Critical Care Time: No Attestation: On , the high probability of a clinically significant, sudden or life thre atening deterioration of the following system(s) required my full and direct attention, intervention and personal management. The time I documented below is in addition to time spent performing reported procedures but includes the following listed in this critical care notation. Medical Decision Making - Medical Records Medical records reviewed: Yes: I reviewed the patient's medical records. - Navi Inquiry Pt receiving controlled substance: No Navi was queried for this patient: No Vital Signs: 09/02/18 14:42 09/02/18 15:56 Temperature 98.2 F Temperature Source Oral Pulse Rate [Left Radial] 101 H 90 Respiratory Rate 20 Blood Pressure [Right Arm] 118/96 H 97/73 L Blood Pressure Mean [Right Arm] 103 81 Blood Pressure Source [Right Arm] Automatic Cuff Automatic Cuff Blood Pressure Position [Right Arm] Sitting 02 Sat by Pulse Oximetry 98 99 Oxygen Delivery Method Room Air Room Air - Lab Data Lab results reviewed: Yes: I reviewed the patient's lab results. Lab Results 09/02/18 15:25: WBC 6.4, RBC 5.05, Hgb 10.4 L, Hct 34.7 L, MCV 68.6 L, MCH 20.6 L, MCHC 30.1 L, RDW 17.9 H, Plt Count 377, MPV 8.2, Neut % (Auto) 60.5, Lymph % (Auto) 23.2, [place] % (Auto) 15.2 H, Eos % (Auto) 0.6, Baso % (Auto) 0.7, Neut # (Auto) 3.9, Lymph # (Auto) 1.5, [place] # (Auto) 1.0, Eos # (Auto) 0.0, Baso # (Auto) 0.0 09/02/18 15:25: Sodium 130 L, Potassium 2.8 L*, Chloride 92 L, Carbon Dioxide 24, Anion Gap 16.8 H, BUN 21 H, Creatinine 1.18 H, Estimated Creat Clear 48, Estimated GFR 48 L, Est GFR ( Amer) 58 L, Glucose 113 H, Calcium 9.2, Tot al Bilirubin 0.5, AST 21, ALT 28, Alkaline Phosphatase 106, Total Protein 7.1, Albumin 3.1 L, Globulin 4.0 H, Albumin/Globulin Ratio 0.8 L 09/02/18 15:25: Lactate 1.4 Result diagrams: 09/02/18 15:25 09/02/18 15:25 Orders (Tests/Meds): ED MEDICATIONS Generic Name Dose Route Start Last Admin Trade Name Freq PRN Reason Stop Dose Admin Sodium Chloride 1,000 mls @ 999 mls/hr 09/02/18 15:00 09/02/18 15:52 Sod Chlor 0.9% 1000ml Bag IV 09/02/18 17:00 999 mls/hr .[id number] [place] Administration Discontinued Medications Generic Name Dose Route Start Last Admin Trade Name Freq PRN Reason Stop Dose Admin Diphenoxylate HCl/Atropine 5 mg 09/02/18 14:48 09/02/18 15:51 Lomotil 2.5mg Tablet PO 09/02/18 14:49 5 mg ONCE ONE Administration Ondansetron HCl 4 mg 09/02/18 14:47 09/02/18 15:51 Zofran 4mg/2ml Vial IV 09/02/18 14:48 4 mg ONCE ONE Administration ORDERS Category Date Time Status UA [Urinalysis and Microscopic] Stat Lab 09/02/18 14:47 Ordered - Physician Consults Physician Consulted: franki Time: 16:04 Reason -: Admission, Pt condition Comment/Response: consult Dr. Hudson to see General Adult HPI - General Stated complaint: vomiting,diarrhea,CA patient Time Seen by Provider: 09/02/18 15:03 Source of Information: Patient, Spouse Limitations: No Limitations - History of Present Illness HPI narrative: patient of specialty clinic, Dr. Hudson, of oncology. On chemo, diagnosed with colon CA with resection here by Dr. Mcrae one month ago. All her docs are based out of [facility]. Patient non-compliant with oral chemo secondary to n/v/watery diarrhea - Related Data Home Medications Medication Instructions Recorded Confirmed Albuterol Sulfate [Albuterol 2.5 mg IH DAILY PRN 05/13/18 08/20/18 Sulfate 2.5mg/0.5ml Neb] Buprenorphine HCl/Naloxone HCl 1 each SL DAILY 07/07/18 08/20/18 [Suboxone 8 mg-2 mg Sl Film] Allergies Allergy/AdvReac Type Severity Reaction Status Date / Time Penicillins Allergy Verified 08/20/18 09:34 [facility] History - Hepatitis A Screen Attestation statement:: This patient has been screened for Hepatitis A risk factors. I have reviewed the patient's past medical history: Yes Medical History: Reports:: Asthma, Cancer, Chronic Obstructive Pulmonary Disease (COPD), Hyperlipidemia, Hypertension, Lung Disease, MRSA, Myocardial Infarction Denies:: Coronary Artery Disease, Diabetes Mellitus Type 1, Diabetes Mellitus Type 2, Internal Pacemaker, Seizures Other Medical History: Reports: Anemia. Denies: Blood Transfusion Reaction Laterality Cases: Other Surgeries: Yes: Appendectomy, Cancer Surgery, Colonoscopy, Colon Resection, Hysterectomy-Total, Hysterectomy-Partial, Other. No: Pacemaker Amputation: No Fractures: No - Social History Smoking Status: Current every day smoker Tobacco Type: cigarettes # Packs/Day (cigarettes): 1 #Yrs smoked (if former smoker): 30 Alcohol Intake: never Alcohol Intake Frequency:: other Substance Use Type: painkillers Occupational Status: unemployed Housing: house Household Members: spouse Family Hx:: Asthma, Cancer, Coronary Artery Disease, Diabetes, Hyperlipidemia, Hypertension ROS Obtained: Yes All systems reviewed & no additional complaints - Constitutional Constitutional: Denies fever(s), Reports lethargy, Reports weakness - Eyes Eyes: Denies blurry vision, Denies change in vision - ENT Ears, Nose, Mouth, and Throat: Denies throat swelling - Cardiovascular Cardiovascular: Denies chest pain, Denies chest pain at rest - Respiratory Respiratory: No chest congestion, No cough - Gastrointestinal Gastrointestingal: Reports: abdominal pain, diarrhea, nausea, vomiting - Genitourinary Female Genitourinary: Denies flank pain - Musculoskeletal Musculoskeletal: Denies joint swelling, Denies limited range of motion - Integumentary/Breasts Skin/Breast: Denies rash, Denies skin pain - Neurologic Neurologic: Denies headache(s) - Hematologic/Lymphatic Henatologic/Lymphatic: Denies easy bleeding, Denies easy bruising Physical Exam - General General appearance: alert, in distress, other (appears nauseated) - Head Head exam: atraumatic, normocephalic, normal inspection - Eye Eye exam: Present: normal appearance, PERRL, EOMI - Neck Neck exam: Present: normal inspection, full ROM, trachea midline. Absent: meningismus, lymphadenopathy - Chest Chest inspection: Present: normal inspection, symmetric chest wall rise. Abs ent: tenderness - Respiratory Respiratory exam: Present: normal lung sounds bilaterally. Absent: respiratory distress - Cardiovascular Cardiovascular exam: Present: regular rate, normal rhythm. Absent: JVD - Abdominal Exam Abdominal exam: Present: soft, tenderness. Absent: guarding, rebound Abdominal tenderness: Present: LLQ, mild - Extremities Exam Extremities exam: Present: normal inspection, full ROM, normal capillary refill. Absent: calf tenderness - Neurological Exam Neurological exam: Present: alert, oriented X3 - Skin Skin exam: Present: warm, dry, intact, normal color - Lymphatic Lymphatic Findings: no adenopathy
[2018-09-02 15:41] LABS: Basophils % 0.7 % (0.1-2.0); Eosinophils % 0.6 % (0.1-12.0); Hematocrit 34.7 % (37.0-47.0); Hemoglobin 10.4 g/dL (12.2-16.2); Lymphocytes # 1.5 K/mm3 (0.7-4.5); Lymphocytes % 23.2 % (10-50); Mean Corpuscular HGB Conc 30.1 g/dL (31.8-35.4); Mean Corpuscular Volume 68.6 fl (81-99); Mean Platelet Volume 8.2 fl (7.4-10.4); Monocytes % 15.2 % (1.7-9.3); Neutrophils # 3.9 K/mm3 (1.8-7.8); Neutrophils % 60.5 % (37.0-80.0); Platelet Count 377 K/mm3 (142-424); Red Blood Count 5.05 M/mm3 (4.20-5.40); Red Cell Distribution Width 17.9 % (11.5-17.5); White Blood Count 6.4 K/mm3 (4.8-10.8)
[2018-09-02 15:50] LABS: Albumin Level 3.1 gm/dL (3.4-5.0); Albumin/Globulin Ratio 0.8 (1.1-1.8); Anion Gap 16.8 mEq/L (5-15); Bilirubin,Total 0.5 mg/dL (0.2-1.0); Calcium 9.2 mg/dL (8.5-10.1); Total Protein,Serum 7.1 gm/dL (6.4-8.2)
--- NOTE | 2018-09-02 17:17 | Progress Note ---
Internal Medicine - PN: Subj *Date: 09/02/18 *Time: 17:14 Interval history: Pt came to ER today with a 1 week history of N/V/D. Symptoms began after patient started her chemotherapy oral treatment. Exam Vital signs and Labs for Last 24 Hours: Temp Pulse Resp BP Pulse Ox 98.2 F 90 20 97/73 L 100 09/02/18 16:39 09/02/18 16:39 09/02/18 16:39 09/02/18 16:39 09/02/18 16:19 Laboratory Results - last 24 hr 09/02/18 15:25: WBC 6.4, RBC 5.05, Hgb 10.4 L, Hct 34.7 L, MCV 68.6 L, MCH 20.6 L, MCHC 30.1 L, RDW 17.9 H, Plt Count 377, MPV 8.2, Neut % (Auto) 60.5, Lymph % (Auto) 23.2, [place] % (Auto) 15.2 H, Eos % (Auto) 0.6, Baso % (Auto) 0.7, Neut # (Auto) 3.9, Lymph # (Auto) 1.5, [place] # (Auto) 1.0, Eos # (Auto) 0.0, Baso # (Auto) 0.0 09/02/18 15:25: Sodium 130 L, Potassium 2.8 L*, Chloride 92 L, Carbon Dioxide 24, Anion Gap 16.8 H, BUN 21 H, Creatinine 1.18 H, Estimated Creat Clear 48, Estimated GFR 48 L, Est GFR ( Amer) 58 L, Glucose 113 H, Calcium 9.2, Total Bilirubin 0.5, AST 21, ALT 28, Alkaline Phosphatase 106, Total Protein 7.1, Albumin 3.1 L, Globulin 4.0 H, Albumin/Globulin Ratio 0.8 L 09/02/18 15:25: Lactate 1.4 I & O for Last 24 hours: Intake & Output 08/30/18 08/31/18 09/01/18 09/02/18 23:59 23:59 23:59 23:59 Weight 124 lb 4 oz - Constitutional no acute distress - *Routine HEENT Exam Head: Present: normocephalic Eye: Present: EOMI, PERRL ENT: Present: mucous membranes moist - *Routine Neck Exam Present: supple. Absent: lymphadenopathy - *Routine Respiratory Exam Present: CTA bilaterally - *Routine Cardiovascular Exam Present: RRR - *Routine Abdominal Exam Present: soft, normoactive bowel sounds, tenderness (periumbilical) - *Routine Extremities Exam Absent: cyanosis, clubbing, edema - *Routine Skin Exam Present: warm. Absent: rash - *Routine Neurological Exam Present: alert, oriented X3 Assessment and Plan (1) Chemotherapy adverse reaction Current visit: Yes Status: Acute Category: Medical Code(s): T45.1X5A - Adverse effect of antineoplastic and immunosuppressive drugs, initial encounter (2) Hypokalemia Current visit: Yes Status: Acute Category: Medical Code(s): E87.6 - Hypokalemia (3) Vomiting and diarrhea Current visit: Yes Status: Acute Category: Medical Code(s): R11.10 - Vomiting, unspecified; R19.7 - Diarrhea, unspecified - Assessment and plan all Dx Assessment and Plan for all problems:: Pt needs bowel rest, stool studies, IVF and potassium replacement.
--- NOTE | 2018-09-02 17:18 | History & Physical Report ---
*Admission Date: 09/02/18 <Magdalena Arriaza 09/02/18 17:18> *Chief complaint: nausea, vomiting, diarrhea <Magdalena Arriaza 09/02/18 17:18> *History of present illness: Ms. Hilario is a 52-year-old female who recently had a colonoscopy which showed colon cancer. She then had a colon resection by Dr. Clementina berg 1 month ago. She has been seeing Dr. Hudson and was started on a chemotherapy pill. She states every time she takes the pill it makes her sick. She presented to the emergency room today with a one-week history of nausea, vomiting, and diarrhea. The symptoms began after taking her chemotherapy oral treatment. She was evaluated in the emergency room and felt to be dehydrated and hypokalemic. She was admitted for antiemetics and IV fluids as well as potassium supplementation. <Magdalena Arriaza 09/02/18 17:25> [facility] History I have reviewed the patient's past medical history: Yes <Magdalena Arriaza 09/02/18 17:18> Medical History: Reports:: Asthma, Cancer (colon), Chronic Obstructive Pulmonary Disease (COPD), Hyperlipidemia, Hypertension, Lung Disease, MRSA, Myocardial Infarction Denies:: Coronary Artery Disease, Diabetes Mellitus Type 1, Diabetes Mellitus Type 2, Internal Pacemaker, Seizures <Magdalena Arriaza 09/02/18 17:18> *Have you ever received a pneumonia vaccine?: No <Magdalena Arriaza 09/02/18 17:18> *Have you received a flu vaccine this season?: No <Magdalena Arriaza 09/02/18 17:18> Other Medical History: Reports: Anemia, Other (Diverticulitis, Chronic back pain). Denies: Blood Transfusion Reaction <Magdalena Arriaza 09/02/18 17:18> Laterality Cases: Bilateral: Myringotomy (Ear Tubes), Tonsillectomy <Magdalena Arriaza 09/02/18 17:18> Other Surgeries: Yes: Appendectomy, Cancer Surgery, Colonoscopy, Colon Resection, Hysterectomy-Total, Hysterectomy-Partial, Other. No: Pacemaker <Magdalena Arriaza 09/02/18 17:18> Amputation: No <Magdalena Arriaza 09/02/18 17:18> Fractures: No <Magdalena Arriaza 09/02/18 17:18> - *Social History Smoking Status: Current every day smoker <ArsalanMagdalena 09/02/18 17:18> Tobacco Type: cigarettes <ArsalanMagdalena 09/02/18 17:18> # Packs/Day (cigarettes): 1 <ArsalanMagdalena 09/02/18 17:18> #Yrs smoked (if former smoker): 30 <ArriazaMagdalena 09/02/18 17:18> Alcohol Intake: never <ArsalanMagdalena 09/02/18 17:18> Alcohol Intake Frequency:: other <ArriazaMagdalena 09/02/18 17:18> Substance Use Type: painkillers <ArriazaMagdalena 09/02/18 17:18> *Occupational Status:: unemployed <ArriazaMagdalena 09/02/18 17:18> Housing: house <ArriazaMagdalena 09/02/18 17:18> Household Members: spouse <ArriazaMagdalena 09/02/18 17:18> *Travel in the last 8 weeks: None <ArriazaMagdalena 09/02/18 17:18> Family Hx:: Asthma, Cancer, Coronary Artery Disease, Diabetes, Hyperlipidemia, Hypertension <ArriazaMagdalena 09/02/18 17:18> Review of Systems - Constitutional Reports weakness, Denies headache(s) <ArriazaMagdalena 09/02/18 17:33> - Eyes Denies change in vision <ArsalanMagdalena 09/02/18 17:33> - ENT Reports dizziness, Reports ringing in the ears, Denies ear pain, Denies sore throat <Arriaza,Magdalena 09/02/18 17:33> - *Cardiovascular Denies chest pain, Denies shortness of breath <ArsalanMagdalena 09/02/18 17:33> - *Respiratory Denies cough, Denies shortness of breath <Arriaza,Magdalena 09/02/18 17:33> - *Gastrointestinal Reports nausea, Reports vomiting, Denies vomiting blood, Denies bright, red blood in stools <Magdalena Arriaza 09/02/18 17:33> Comments: frequent watery stools <Magdalena Arriaza 09/02/18 17:33> - *Genitourinary Denies difficulty urinating <Magdalena Arriaza - 09/02/18 17:33> - *Musculoskeletal Reports muscle weakness <Magdalena Arriaza - 09/02/18 17:33> - *Neurologic Reports dizziness, Reports weakness, Denies headache(s) <Magdalena Arriaza - 09/02/18 17:33> Meds Home Medications Medication Instructions Recorded Confirmed Type Albuterol Sulfate [Albuterol 2.5 mg IH DAILY PRN 05/13/18 09/02/18 History Sulfate 2.5mg/0.5ml Neb] Buprenorphine HCl/Naloxone HCl 1 each SL DAILY 07/07/18 09/02/18 History [Suboxone 8 mg-2 mg Sl Film] Capecitabine 1,500 mg PO BID 09/02/18 09/02/18 History Prochlorperazine Maleate 10 mg PO DAILY 09/02/18 09/02/18 History <Julien White - 09/03/18 08:10> Allergies Allergy/AdvReac Type Severity Reaction Status Date / Time Penicillins Allergy Verified 08/20/18 09:34 <Julien White - 09/03/18 08:10> Exam Vital signs and Labs for Last 24 Hours: Temp Pulse Resp BP Pulse Ox 97.3 F L 79 18 124/68 100 09/03/18 08:00 09/03/18 08:00 09/03/18 08:00 09/03/18 08:00 09/03/18 08:00 Laboratory Results - last 24 hr 09/02/18 15:25: WBC 6.4, RBC 5.05, Hgb 10.4 L, Hct 34.7 L, MCV 68.6 L, MCH 20.6 L, MCHC 30.1 L, RDW 17.9 H, Plt Count 377, MPV 8.2, Neut % (Auto) 60.5, Lymph % (Auto) 23.2, [place] % (Auto) 15.2 H, Eos % (Auto) 0.6, Baso % (Auto) 0.7, Neut # (Auto) 3.9, Lymph # (Auto) 1.5, [place] # (Auto) 1.0, Eos # (Auto) 0.0, Baso # (Auto) 0.0 09/02/18 15:25: Sodium 130 L, Potassium 2.8 L*, Chloride 92 L, Carbon Dioxide 24, Anion Gap 16.8 H, BUN 21 H, Creatinine 1.18 H, Estimated Creat Clear 48, Estimated GFR 48 L, Est GFR ( Amer) 58 L, Glucose 113 H, Calcium 9.2, Total Bilirubin 0.5, AST 21, ALT 28, Alkaline Phosphatase 106, Total Protein 7.1, Albumin 3.1 L, Globulin 4.0 H, Albumin/Globulin Ratio 0.8 L 09/02/18 15:25: Lactate 1.4 09/02/18 20:10: Stl Aeromonas (PCR) Not detected, Stl C. cayetanensis PCR Not detected, Stool Rotavirus (PCR) Not detected, Stl Adenov F 40/41 PCR Not detected, Stool Astrovirus (PCR) Not detected, Stool Campylobacter PCR Not detected, Stl C.difficile Tox PCR Not detected, Stool Cryptosporidium PCR Not detected, Stl E.coli Shiga Tox PCR Not detected, Stool E coli O157 PCR Not detected, Stl Enterotoxigenic E PCR Not detected, Stool EPEC (PCR) Not detected, Stool EAEC (PCR) Not detected, Stl E. histolytica PCR Not detected, Stool Giardia Lamblia PCR Not detected, Stool Salmonella PCR Not detected, Stool Sapovirus (PCR) Not detected, Stl P. shigelloides PCR Not detected, Stl Shigella/EIEC PCR Not detected, St Y.enterocolitica PCR Not detected, Stool Vibrio (PCR) Not detected, Stl Vibrio cholerae PCR Not detected, Stl Norovirus GI/GII PCR Not detected 09/03/18 03:52: Urine Color Yellow, Urine Appearance Clear, Urine pH 6.5, Ur Specific [place] <= 1.005, Urine Protein Negative, Urine Glucose (UA) Negative, Urine Ketones Negative, Urine Blood Negative, Urine Nitrate Negative, Urine Bilirubin Negative, Urine Urobilinogen 0.2, Ur Leukocyte Esterase Negative, Urine WBC Occasional, Urine Bacteria Trace 09/03/18 06:10: Sodium 135 L, Potassium 2.7 L*, Chloride 101, Carbon Dioxide 26, Anion Gap 10.7, BUN 14 D, Creatinine 0.86 D, Estimated Creat Clear 70, Estimated GFR 69, Est GFR ( Amer) 84 D, Glucose 82 D, Calcium 8.6 <Julien White - 09/03/18 08:10> Temp Pulse Resp BP Pulse Ox 98.2 F 90 20 97/73 L 100 09/02/18 16:39 09/02/18 16:39 09/02/18 16:39 09/02/18 16:39 09/02/18 16:19 Laboratory Results - last 24 hr 09/02/18 15:25: WBC 6.4, RBC 5.05, Hgb 10.4 L, Hct 34.7 L, MCV 68.6 L, MCH 20.6 L, MCHC 30.1 L, RDW 17.9 H, Plt Count 377, MPV 8.2, Neut % (Auto) 60.5, Lymph % (Auto) 23.2, [place] % (Auto) 15.2 H, Eos % (Auto) 0.6, Baso % (Auto) 0.7, Neut # (Auto) 3.9, Lymph # (Auto) 1.5, [place] # (Auto) 1.0, Eos # (Auto) 0.0, Baso # (Auto) 0.0 09/02/18 15:25: Sodium 130 L, Potassium 2.8 L*, Chloride 92 L, Carbon Dioxide 24, Anion Gap 16.8 H, BUN 21 H, Creatinine 1.18 H, Estimated Creat Clear 48, Estimated GFR 48 L, Est GFR ( Amer) 58 L, Glucose 113 H, Calcium 9.2, Total Bilirubin 0.5, AST 21, ALT 28, Alkaline Phosphatase 106, Total Protein 7.1, Albumin 3.1 L, Globulin 4.0 H, Albumin/Globulin Ratio 0.8 L 09/02/18 15:25: Lactate 1.4 <ArsalanMagdalena - 09/02/18 17:25> I & O for Last 24 hours: Intake & Output 08/31/18 09/01/18 09/02/18 09/03/18 23:59 23:59 23:59 23:59 Intake Total 2437 243 Balance 2437 / 2437 Weight 124 lb 4 oz 127 lb 7 oz <Julien White - 09/03/18 08:10> Intake & Output 08/31/18 09/01/18 09/02/18 09/03/18 11:59 11:59 11:59 11:59 Weight 124 lb 4 oz <Magdalena Arriaza 09/02/18 17:18> Radiology Reports for the Last 24 Hours: 09/02/18 CXR IMPRESSION: No change with no acute finding <Magdalena Arriaza 09/02/18 17:33> - Constitutional no acute distress <Magdalena Arriaza 09/02/18 17:25> - *Routine HEENT Exam Head: Present: normocephalic <Magdalena Arriaza 09/02/18 17:25> Eye: Present: EOMI, PERRL <Magdalena Arriaza 09/02/18 17:25> ENT: Present: mucous membranes moist <Magdalena Arriaza 09/02/18 17:25> - *Routine Neck Exam Present: supple. Absent: lymphadenopathy <Magdalena Arriaza 09/02/18 17:25> - *Routine Respiratory Exam Present: CTA bilaterally <Magdalena Arriaza 09/02/18 17:25> Comments: A&P <Magdalena Arriaza 09/02/18 17:33> - *Routine Cardiovascular Exam Present: RRR <[facility]ie [facility] 09/02/18 17:25> - *Routine Abdominal Exam Present: soft, normoactive bowel sounds, tenderness (periumbilical) <Magdalena Arriaza 09/02/18 17:25> - *Routine Extremities Exam Absent: cyanosis, clubbing, edema, calf tenderness <Magdalena Arriaza 09/02/18 17:33> - *Routine Skin Exam Present: warm. Absent: rash <Magdalena Arriaza 09/02/18 17:25> - *Routine Neurological Exam Present: alert, oriented X3 <Catie [facility] 09/02/18 17:25> H&P: Result - Impressions CXR - No change with no acute finding <Magdalena Arriaza 09/02/18 17:18> Assessment and Plan (1) Chemotherapy adverse reaction Current visit: Yes Status: Acute Category: Medical Code(s): T45.1X5A - Adverse effect of antineoplastic and immunosuppressive drugs, initial encounter (2) Hypokalemia Current visit: Yes Status: Acute Category: Medical Code(s): E87.6 - Hypokalemia (3) Vomiting and diarrhea Current visit: Yes Status: Acute Category: Medical Code(s): R11.10 - Vomiting, unspecified; R19.7 - Diarrhea, unspecified (4) Colon cancer Current visit: No Status: Chronic Category: Medical Code(s): C18.9 - Malignant neoplasm of colon, unspecified (5) Renal insufficiency Current visit: Yes Status: Acute Category: Medical Code(s): N28.9 - Disorder of kidney and ureter, unspecified (6) Renal insufficiency Current visit: No Status: Acute Category: Medical Code(s): N28.9 - Disorder of kidney and ureter, unspecified <Julien White - 09/03/18 08:10> (1) Chemotherapy adverse reaction Current visit: Yes Status: Acute Category: Medical Code(s): T45.1X5A - Adverse effect of antineoplastic and immunosuppressive drugs, initial encounter (2) Hypokalemia Current visit: Yes Status: Acute Category: Medical Code(s): E87.6 - Hypokalemia (3) Vomiting and diarrhea Current visit: Yes Status: Acute Category: Medical Code(s): R11.10 - Vomiting, unspecified; R19.7 - Diarrhea, unspecified (4) Colon cancer Current visit: No Status: Chronic Category: Medical Code(s): C18.9 - Malignant neoplasm of colon, unspecified (5) Renal insufficiency Current visit: Yes Status: Acute Category: Medical Code(s): N28.9 - Disorder of kidney and ureter, unspecified (6) Renal insufficiency Current visit: No Status: Acute Category: Medical Code(s): N28.9 - Disorder of kidney and ureter, unspecified <Magdalena Arriaza - 09/02/18 17:29> - Assessment and plan all Dx Assessment and Plan for all problems:: Saw patient, agree with above note. <Julien White - 09/03/18 08:10> Pt needs bowel rest, stool studies, IVF and potassium replacement. Dr. Hudson will see her in consultation tomorrow. <Magdalena Arriaza - 09/02/18 17:33>
[2018-09-03 03:59] LABS: Microscopic, Urine URINE MICROSCOPIC (MICROSCOPIC)
[2018-09-03 04:01] LABS: Appearance,Urine CLEAR (Clear); Bilirubin,Urine Negative (Negative); Blood, Urine Negative (Negative); Color,Urine YELLOW (Yellow); Glucose,Urine (UA) Negative (Negative); Ketones,Urine Negative (Negative); Leukocyte Esterase,Urine Negative (Negative); PH,Urine 6.5 (5.0-8.5); Protein,Urine Negative (Negative); Specific Gravity, Urine <= 1.005 (1.005-1.030); Urobilinogen,Urine 0.2 EU/dl (0.2)
[2018-09-03 04:11] LABS: Bacteria,Urine Trace /lpf; WBC,Urine Occasional #/hpf (0-3)
[2018-09-03 07:01] LABS: Anion Gap 10.7 mEq/L (5-15); Calcium 8.6 mg/dL (8.5-10.1)
[2018-09-03 08:12] LABS: Basophils % 0.5 % (0.1-2.0); Eosinophils # 0.2 K/mm3 (0.0-0.4); Eosinophils % 4.6 % (0.1-12.0); Lymphocytes # 1.6 K/mm3 (0.7-4.5); Lymphocytes % 32.8 % (10-50); Mean Corpuscular HGB Conc 29.7 g/dL (31.8-35.4); Mean Corpuscular Volume 69.2 fl (81-99); Mean Platelet Volume 8.3 fl (7.4-10.4); Monocytes # 0.6 K/mm3 (0.1-1.0); Monocytes % 11.3 % (1.7-9.3); Neutrophils # 2.5 K/mm3 (1.8-7.8); Neutrophils % 50.8 % (37.0-80.0); Platelet Count 288 K/mm3 (142-424); Red Blood Count 4.05 M/mm3 (4.20-5.40); Red Cell Distribution Width 18.7 % (11.5-17.5)
--- NOTE | 2018-09-03 08:13 | Progress Note ---
<Racheal Yin - Last Filed: 09/03/18 08:11> Internal Medicine - PN: Subj *Date: 09/03/18 *Time: 08:11 Interval history: Patient states her vomiting has subsided but she is still having abdominal pain and diarrhea. She has been unable to tolerate a clear liquid diet. She is requesting a bland diet today. She did not rest well last night due to the nausea and diarrhea. Exam Vital signs and Labs for Last 24 Hours: Temp Pulse Resp BP Pulse Ox 97.3 F L 79 18 124/68 100 09/03/18 08:00 09/03/18 08:00 09/03/18 08:00 09/03/18 08:00 09/03/18 08:00 Laboratory Results - last 24 hr 09/02/18 15:25: WBC 6.4, RBC 5.05, Hgb 10.4 L, Hct 34.7 L, MCV 68.6 L, MCH 20.6 L, MCHC 30.1 L, RDW 17.9 H, Plt Count 377, MPV 8.2, Neut % (Auto) 60.5, Lymph % (Auto) 23.2, [place] % (Auto) 15.2 H, Eos % (Auto) 0.6, Baso % (Auto) 0.7, Neut # (Auto) 3.9, Lymph # (Auto) 1.5, [place] # (Auto) 1.0, Eos # (Auto) 0.0, Baso # (Auto) 0.0 09/02/18 15:25: Sodium 130 L, Potassium 2.8 L*, Chloride 92 L, Carbon Dioxide 24, Anion Gap 16.8 H, BUN 21 H, Creatinine 1.18 H, Estimated Creat Clear 48, Estimated GFR 48 L, Est GFR ( Amer) 58 L, Glucose 113 H, Calcium 9.2, Total Bilirubin 0.5, AST 21, ALT 28, Alkaline Phosphatase 106, Total Protein 7.1, Albumin 3.1 L, Globulin 4.0 H, Albumin/Globulin Ratio 0.8 L 09/02/18 15:25: Lactate 1.4 09/02/18 20:10: Stl Aeromonas (PCR) Not detected, Stl C. cayetanensis PCR Not detected, Stool Rotavirus (PCR) Not detected, Stl Adenov F 40/41 PCR Not detected, Stool Astrovirus (PCR) Not detected, Stool Campylobacter PCR Not detected, Stl C.difficile Tox PCR Not detected, Stool Cryptosporidium PCR Not detected, Stl E.coli Shiga Tox PCR Not detected, Stool E coli O157 PCR Not detected, Stl Enterotoxigenic E PCR Not detected, Stool EPEC (PCR) Not detected, Stool EAEC (PCR) Not detected, Stl E. histolytica PCR Not detected, Stool Giardia Lamblia PCR Not detected, Stool Salmonella PCR Not detected, Stool Sapovirus (PCR) Not detected, Stl P. shigelloides PCR Not detected, Stl Shigella/EIEC PCR Not detected, St Y.enterocolitica PCR Not detected, Stool Vibrio (PCR) Not detected, Stl Vibrio cholerae PCR Not detected, Stl Norovirus GI/GII PCR Not detected 09/03/18 03:52: Urine Color Yellow, Urine Appearance Clear, Urine pH 6.5, Ur Specific [place] <= 1.005, Urine Protein Negative, Urine Glucose (UA) Negative, Urine Ketones Negative, Urine Blood Negative, Urine Nitrate Negative, Urine Bilirubin Negative, Urine Urobilinogen 0.2, Ur Leukocyte Esterase Negative, Urine WBC Occasional, Urine Bacteria Trace 09/03/18 06:10: Sodium 135 L, Potassium 2.7 L*, Chloride 101, Carbon Dioxide 26, Anion Gap 10.7, BUN 14 D, Creatinine 0.86 D, Estimated Creat Clear 70, Estimated GFR 69, Est GFR ( Amer) 84 D, Glucose 82 D, Calcium 8.6 I & O for Last 24 hours: Intake & Output 08/31/18 09/01/18 09/02/18 09/03/18 11:59 11:59 11:59 11:59 Intake Total 2438 / 2438 Balance 2438 / 2438 Weight 127 lb 7 oz - Constitutional no acute distress - *Routine Respiratory Exam Present: CTA bilaterally - *Routine Cardiovascular Exam Present: RRR - *Routine Abdominal Exam Present: soft, normoactive bowel sounds, tenderness (diffusely ttp, worse in the epigastric area) - *Routine Extremities Exam Absent: cyanosis, clubbing, edema - *Routine Skin Exam Present: warm. Absent: rash - *Routine Neurological Exam Present: alert, oriented X3 Assessment and Plan (1) Chemotherapy adverse reaction Current visit: Yes Status: Acute Category: Medical Code(s): T45.1X5A - Adverse effect of antineoplastic and immunosuppressive drugs, initial encounter (2) Hypokalemia Current visit: Yes Status: Acute Category: Medical Code(s): E87.6 - Hypokalemia (3) Vomiting and diarrhea Current visit: Yes Status: Acute Category: Medical Code(s): R11.10 - Vomiting, unspecified; R19.7 - Diarrhea, unspecified (4) Colon cancer Current visit: No Status: Chronic Category: Medical Code(s): C18.9 - Malignant neoplasm of colon, unspecified (5) Renal insufficiency Current visit: Yes Status: Acute Category: Medical Code(s): N28.9 - Disord er of kidney and ureter, unspecified (6) Renal insufficiency Current visit: No Status: Acute Category: Medical Code(s): N28.9 - Disorder of kidney and ureter, unspecified - Assessment and plan all Dx Assessment and Plan for all problems:: Renal function has improved but potassium is still low. We will give more runs of potassium today. Diarrhea panel is negative. <Julien White - Last Filed: 09/03/18 08:19> Internal Medicine - PN: Subj *Date: 09/03/18 *Time: 08:18 Exam Vital signs and Labs for Last 24 Hours: Temp Pulse Resp BP Pulse Ox 97.3 F L 79 18 124/68 100 09/03/18 08:00 09/03/18 08:00 09/03/18 08:00 09/03/18 08:00 09/03/18 08:00 Laboratory Results - last 24 hr 09/02/18 15:25: WBC 6.4, RBC 5.05, Hgb 10.4 L, Hct 34.7 L, MCV 68.6 L, MCH 20.6 L, MCHC 30.1 L, RDW 17.9 H, Plt Count 377, MPV 8.2, Neut % (Auto) 60.5, Lymph % (Auto) 23.2, [place] % (Auto) 15.2 H, Eos % (Auto) 0.6, Baso % (Auto) 0.7, Neut # (Auto) 3.9, Lymph # (Auto) 1.5, [place] # (Auto) 1.0, Eos # (Auto) 0.0, Baso # (Auto) 0.0 09/02/18 15:25: Sodium 130 L, Potassium 2.8 L*, Chloride 92 L, Carbon Dioxide 24, Anion Gap 16.8 H, BUN 21 H, Creatinine 1.18 H, Estimated Creat Clear 48, Estimated GFR 48 L, Est GFR ( Amer) 58 L, Glucose 113 H, Calcium 9.2, Total Bilirubin 0.5, AST 21, ALT 28, Alkaline Phosphatase 106, Total Protein 7.1, Albumin 3.1 L, Globulin 4.0 H, Albumin/Globulin Ratio 0.8 L 09/02/18 15:25: Lactate 1.4 09/02/18 20:10: Stl Aeromonas (PCR) Not detected, Stl C. cayetanensis PCR Not detected, Stool Rotavirus (PCR) Not detected, Stl Adenov F 40/41 PCR Not detected, Stool Astrovirus (PCR) Not detected, Stool Campylobacter PCR Not detected, Stl C.difficile Tox PCR Not detected, Stool Cryptosporidium PCR Not detected, Stl E.coli Shiga Tox PCR Not detected, Stool E coli O157 PCR Not detected, Stl Enterotoxigenic E PCR Not detected, Stool EPEC (PCR) Not detected, Stool EAEC (PCR) Not detected, Stl E. histolytica PCR Not detected, Stool Giardia Lamblia PCR Not detected, Stool Salmonella PCR Not detected, Stool Sapovirus (PCR) Not detected, Stl P. shigelloides PCR Not detected, Stl Shigella/EIEC PCR Not detected, St Y.enterocolitica PCR Not detected, Stool Vibrio (PCR) Not detected, Stl Vibrio cholerae PCR Not detected, Stl Norovirus GI/GII PCR Not detected 09/03/18 03:52: Urine Color Yellow, Urine Appearance Clear, Urine pH 6.5, Ur Specific [place] <= 1.005, Urine Protein Negative, Urine Glucose (UA) Negative, Urine Ketones Negative, Urine Blood Negative, Urine Nitrate Negative, Urine Bilirubin Negative, Urine Urobilinogen 0.2, Ur Leukocyte Esterase Negative, Urine WBC Occasional, Urine Bacteria Trace 09/03/18 06:10: WBC 5.0, RBC 4.05 L, Hgb 8.2 L D, Hct 28.0 L, MCV 69.2 L, MCH 20.5 L, MCHC 29.7 L, RDW 18.7 H, Plt Count 288, MPV 8.3, Neut % (Auto) 50.8, Lymph % (Auto) 32.8, [place] % (Auto) 11.3 H, Eos % (Auto) 4.6, Baso % (Auto) 0.5, Neut # (Auto) 2.5, Lymph # (Auto) 1.6, [place] # (Auto) 0.6, Eos # (Auto) 0.2, Baso # (Auto) 0.0 09/03/18 06:10: Sodium 135 L, Potassium 2.7 L*, Chloride 101, Carbon Dioxide 26, Anion Gap 10.7, BUN 14 D, Creatinine 0.86 D, Estimated Creat Clear 70, Estimated GFR 69, Est GFR ( Amer) 84 D, Glucose 82 D, Calcium 8.6 I & O for Last 24 hours: Intake & Output 08/31/18 09/01/18 09/02/18 09/03/18 23:59 23:59 23:59 23:59 Intake Total 3038 / 3038 Balance 3038 / 3038 Weight 124 lb 4 oz 127 lb 7 oz Assessment and Plan (1) Chemotherapy adverse reaction Current visit: Yes Status: Acute Category: Medical Code(s): T45.1X5A - Adverse effect of antineoplastic and immunosuppressive drugs, initial encounter (2) Hypokalemia Current visit: Yes Status: Acute Category: Medical Code(s): E87.6 - Hypokalemia (3) Vomiting and diarrhea Current visit: Yes Status: Acute Category: Medical Code(s): R11.10 - Vomiting, unspecified; R19.7 - Diarrhea, unspecified (4) Colon cancer Current visit: No Status: Chronic Category: Medical Code(s): C18.9 - Malignant neoplasm of colon, unspecified (5) Renal insufficiency Current visit: Yes Status: Acute Category: Medical Code(s): N28.9 - Disorder of kidney and ureter, unspecified (6) Renal insufficiency Current visit: No Status: Acute Category: Medical Code(s): N28.9 - Disorder of kidney and ureter, unspecified - Assessment and plan all Dx Assessment and Plan for all problems:: Saw patient, agree with above note. Heme/Onc consult today.
[2018-09-03 08:16] LABS: Hemoglobin 8.2 g/dL (12.2-16.2)
--- NOTE | 2018-09-03 08:40 | Pharmacy Consult Notes ---
[facility] Pharmacy VTE Monitoring - Patient Demographics Admission date: 09/02/18 Report Date: 09/03/18 Time: 08:40 Allergies/Adverse Reactions: Patient Allergies Penicillins Allergy (Verified 08/20/18 09:34) Height: 1.63 m Weight: 57.805 kg Patient Problems: Current Active Problems (Updated 09/02/18 @ 17:33 by Magdalena Arriaza APRN) Vomiting and diarrhea (Acute) Chemotherapy adverse reaction (Acute) Hypokalemia (Acute) Renal insufficiency (Acute) - VTE Risk Labs: VTE Related Lab Results Hgb 8.2 g/dL (12.2-16.2) L D 09/03/18 06:10 Hct 28.0 % (37.0-47.0) L 09/03/18 06:10 Plt Count 288 K/mm3 (142-424) 09/03/18 06:10 BUN 14 mg/dL (7-18) D 09/03/18 06:10 Creatinine 0.86 mg/dL (0.55-1.02) D 09/03/18 06:10 Estimated Creat Clear 70 mL/min (50-200) 09/03/18 06:10 Was VTE Risk Assessment Performed: Yes VTE Score: 4 VTE Risk Level: Low Risk Clinical Trial Participant: No - Prophylaxis VTE Prophylaxis Ordered?: Yes Types of VTE Prophylaxis: TEDS Knee High Location of Applied Device: Refused
--- NOTE | 2018-09-03 17:10 | Consult Report ---
*Admission Date: 09/02/18 *Reason for consult:: chemo induced n/v/diarrhea *History of present illness: 52 yo with recent dx of high risk stage II colon cancer. she is s/p resection and received her first cycle of adjuvant chemo xelox on august 25. she had reaction immediately after chemo that affected her vision and mouth. a few days later she started having diarrhea, n/v. seen in ed and noted to be dehydrated and to have low potassium. c diff reported as negative. she states today she feels some better and starting to eat a little. vomitting has subsided. she is still having diarrhea and has not received immodium yet. [facility] History Medical History: Reports:: Asthma, Cancer (colon), Chronic Obstructive Pulmonary Disease (COPD), Hyperlipidemia, Hypertension, Lung Disease, MRSA, Myocardial Infarction Denies:: Coronary Artery Disease, Diabetes Mellitus Type 1, Diabetes Mellitus Type 2, Internal Pacemaker, Seizures *Have you ever received a pneumonia vaccine?: Yes *Have you received a flu vaccine this season?: Yes Other Medical History: Reports: Anemia, Other (Diverticulitis, Chronic back pain). Denies: Blood Transfusion Reaction Laterality Cases: Bilateral: Myringotomy (Ear Tubes), Tonsillectomy Other Surgeries: Yes: Appendectomy, Cancer Surgery, Colonoscopy, Colon Resection, Hysterectomy-Total, Hysterectomy-Partial, Other. No: Pacemaker Amputation: No Fractures: No - *Social History Smoking Status: Current every day smoker Tobacco Type: cigarettes # Packs/Day (cigarettes): 1 #Yrs smoked (if former smoker): 30 Alcohol Intake: never Alcohol Intake Frequency:: other Substance Use Type: painkillers *Occupational Status:: unemployed Housing: house Household Members: spouse *Travel in the last 8 weeks: None Family Hx:: No significant family history Review of Systems - Review of Systems Review of systems:: unable to obtain - Constitutional Reports fatigue, Reports lack of energy - *Gastrointestinal Reports abdominal pain, Reports loose stools, Reports vomiting - *Neurologic Reports dizziness, Reports weakness, Denies headache(s) - Endocrine Reports cold intolerance Meds Home Medications Medication Instructions Recorded Confirmed Type Albuterol Sulfate [Albuterol 2.5 mg IH DAILY PRN 05/13/18 09/02/18 History Sulfate 2.5mg/0.5ml Neb] Buprenorphine HCl/Naloxone HCl 1 each SL DAILY 07/07/18 09/02/18 History [Suboxone 8 mg-2 mg Sl Film] Capecitabine 1,500 mg PO BID 09/02/18 09/03/18 History Prochlorperazine Maleate 10 mg PO Q8HP PRN 09/02/18 09/03/18 History Allergies Allergy/AdvReac Type Severity Reaction Status Date / Time Penicillins Allergy Verified 08/20/18 09:34 Exam Vital signs and Labs for Last 24 Hours: Temp Pulse Resp BP Pulse Ox 98.0 F 84 16 125/63 100 09/03/18 15:51 09/03/18 15:51 09/03/18 15:51 09/03/18 15:51 09/03/18 15:51 Laboratory Results - last 24 hr 09/02/18 20:10: Stl Aeromonas (PCR) Not detected, Stl C. cayetanensis PCR Not detected, Stool Rotavirus (PCR) Not detected, Stl Adenov F 40/41 PCR Not detected, Stool Astrovirus (PCR) Not detected, Stool Campylobacter PCR Not detected, Stl C.difficile Tox PCR Not detected, Stool Cryptosporidium PCR Not detected, Stl E.coli Shiga Tox PCR Not detected, Stool E coli O157 PCR Not detected, Stl Enterotoxigenic E PCR Not detected, Stool EPEC (PCR) Not detected, Stool EAEC (PCR) Not detected, Stl E. histolytica PCR Not detected, Stool Giardia Lamblia PCR Not detected, Stool Salmonella PCR Not detected, Stool Sapovirus (PCR) Not detected, Stl P. shigelloides PCR Not detected, Stl Shigella/EIEC PCR Not detected, St Y.enterocolitica PCR Not detected, Stool Vibrio (PCR) Not detected, Stl Vibrio cholerae PCR Not detected, Stl Norovirus GI/GII PCR Not detected 09/03/18 03:52: Urine Color Yellow, Urine Appearance Clear, Urine pH 6.5, Ur Specific [place] <= 1.005, Urine Protein Negative, Urine Glucose (UA) Negative, Urine Ketones Negative, Urine Blood Negative, Urine Nitrate Negative, Urine Bilirubin Negative, Urine Urobilinogen 0.2, Ur Leukocyte Esterase Negative, Ur ine WBC Occasional, Urine Bacteria Trace 09/03/18 06:10: WBC 5.0, RBC 4.05 L, Hgb 8.2 L D, Hct 28.0 L, MCV 69.2 L, MCH 20.5 L, MCHC 29.7 L, RDW 18.7 H, Plt Count 288, MPV 8.3, Neut % (Auto) 50.8, Lymph % (Auto) 32.8, [place] % (Auto) 11.3 H, Eos % (Auto) 4.6, Baso % (Auto) 0.5, Neut # (Auto) 2.5, Lymph # (Auto) 1.6, [place] # (Auto) 0.6, Eos # (Auto) 0.2, Baso # (Auto) 0.0 09/03/18 06:10: Sodium 135 L, Potassium 2.7 L*, Chloride 101, Carbon Dioxide 26, Anion Gap 10.7, BUN 14 D, Creatinine 0.86 D, Estimated Creat Clear 70, Estimated GFR 69, Est GFR ( Amer) 84 D, Glucose 82 D, Calcium 8.6 I & O for Last 24 hours: Intake & Output 09/01/18 09/02/18 09/03/18 09/04/18 11:59 11:59 11:59 11:59 Intake Total 3712 / 3712 562 / 562 Balance 3712 / 3712 562 / 562 Weight 127 lb 7 oz Internal Medicine - CN: Reslt - Labs CBC & Chem 7: 09/03/18 06:10 09/03/18 06:10 Labs: Short CBC 09/03/18 Range/Units 06:10 WBC 5.0 (4.8-10.8) K/mm3 Hgb 8.2 L D (12.2-16.2) g/dL Hct 28.0 L (37.0-47.0) % Plt Count 288 (142-424) K/mm3 BMP 09/03/18 06:10 Sodium 135 L Potassium 2.7 L* Chloride 101 Carbon Dioxide 26 BUN 14 D Creatinine 0.86 D Glucose 82 D Calcium 8.6 Urine 09/03/18 Range/Units 03:52 Urine Color Yellow (Yellow) Urine Appearance Clear (Clear) Urine pH 6.5 (5.0-8.5) Ur Specific [place] <= 1.005 (1.005-1.030) Urine Protein Negative (Negative) Urine Glucose (UA) Negative (Negative) Assessment and Plan (1) Chemotherapy adverse reaction Current visit: Yes Status: Acute Category: Medical Code(s): T45.1X5A - Adverse effect of antineoplastic and immunosuppressive drugs, initial encounter (2) Hypokalemia Current visit: Yes Status: Acute Category: Medical Code(s): E87.6 - Hypokalemia (3) Vomiting and diarrhea Current visit: Yes Status: Acute Category: Medical Code(s): R11.10 - Vomiting, unspecified; R19.7 - Diarrhea, unspecified (4) Colon cancer Current visit: No Status: Chronic Category: Medical Code(s): C18.9 - Malignant neoplasm of colon, unspecified (5) Renal insufficiency Current visit: Yes Status: Acute Category: Medical Code(s): N28.9 - Disorder of kidney and ureter, unspecified (6) Renal insufficiency Current visit: No Status: Acute Category: Medical Code(s): N28.9 - Disorder of kidney and ureter, unspecified - Assessment and plan all Dx Assessment and Plan for all problems:: pt admitted for chemo induced n/v/diarrhea. n/v improving. recommned immodium prn for diarrhea. agree with fluids and potassium replacement. also recommend stopping xeloda pills until she follows up with me in the clinic in 2-3 weeks. she is agreeable.
[2018-09-04 07:55] LABS: Basophils % 0.3 % (0.1-2.0); Eosinophils # 0.2 K/mm3 (0.0-0.4); Eosinophils % 3.3 % (0.1-12.0); Lymphocytes # 1.9 K/mm3 (0.7-4.5); Lymphocytes % 33.2 % (10-50); Mean Corpuscular HGB Conc 28.1 g/dL (31.8-35.4); Mean Corpuscular Volume 70.3 fl (81-99); Mean Platelet Volume 7.4 fl (7.4-10.4); Neutrophils # 2.6 K/mm3 (1.8-7.8); Neutrophils % 46.3 % (37.0-80.0); Platelet Count 309 K/mm3 (142-424); Red Blood Count 3.83 M/mm3 (4.20-5.40); Red Cell Distribution Width 21.1 % (11.5-17.5); White Blood Count 5.6 K/mm3 (4.8-10.8)
[2018-09-04 07:56] LABS: Anion Gap 11.4 mEq/L (5-15); Calcium 8.5 mg/dL (8.5-10.1)
[2018-09-04 08:11] LABS: Hematocrit 26.7 % (37.0-47.0)
[2018-09-04 08:13] LABS: Hemoglobin 7.5 g/dL (12.2-16.2)
--- NOTE | 2018-09-04 08:13 | Progress Note ---
<Racheal Yin - Last Filed: 09/04/18 08:10> Internal Medicine - PN: Subj *Date: 09/04/18 *Time: 08:10 Interval history: Patient states she does not feel well this morning. She continues with nausea but no further vomiting. She still has diffuse abdominal pain and diarrhea, however her stools are starting to form slightly. She is only able to eat small amounts at a time. She is concerned with getting her home Suboxone as she has an appointment at the Suboxone clinic today and she states the person who sees her is only there once a month. Exam Vital signs and Labs for Last 24 Hours: Temp Pulse Resp BP Pulse Ox 98.3 F 80 16 110/67 99 09/04/18 04:16 09/04/18 04:16 09/04/18 04:16 09/04/18 04:16 09/04/18 04:16 Laboratory Results - last 24 hr 09/03/18 06:10: WBC 5.0, RBC 4.05 L, Hgb 8.2 L D, Hct 28.0 L, MCV 69.2 L, MCH 20.5 L, MCHC 29.7 L, RDW 18.7 H, Plt Count 288, MPV 8.3, Neut % (Auto) 50.8, Lymph % (Auto) 32.8, [place] % (Auto) 11.3 H, Eos % (Auto) 4.6, Baso % (Auto) 0.5, Neut # (Auto) 2.5, Lymph # (Auto) 1.6, [place] # (Auto) 0.6, Eos # (Auto) 0.2, Baso # (Auto) 0.0 I & O for Last 24 hours: Intake & Output 09/01/18 09/02/18 09/03/18 09/04/18 11:59 11:59 11:59 11:59 Intake Total 3712 / 3712 3281 / 3281 Balance 3712 / 3712 3281 / 3281 Weight 127 lb 7 oz 130 lb 8 oz - Constitutional no acute distress - *Routine Respiratory Exam Present: CTA bilaterally - *Routine Cardiovascular Exam Present: RRR - *Routine Abdominal Exam Present: soft, normoactive bowel sounds, tenderness (diffuse) - *Routine Extremities Exam Absent: cyanosis, clubbing, edema - *Routine Skin Exam Present: warm. Absent: rash - *Routine Neurological Exam Present: alert, oriented X3 Assessment and Plan (1) Chemotherapy adverse reaction Current visit: Yes Status: Acute Category: Medical Code(s): T45.1X5A - Adverse effect of antineoplastic and immunosuppressive drugs, initial encounter (2) Hypokalemia Current visit: Yes Status: Acute Category: Medical Code(s): E87.6 - Hypokalemia (3) Vomiting and diarrhea Current visit: Yes Status: Acute Category: Medical Code(s): R11.10 - Vomiting, unspecified; R19.7 - Diarrhea, unspecified (4) Colon cancer Current visit: No Status: Chronic Category: Medical Code(s): C18.9 - Malignant neoplasm of colon, unspecified (5) Renal insufficiency Current visit: Yes Status: Acute Category: Medical Code(s): N28.9 - Disorder of kidney and ureter, unspecified (6) Renal insufficiency Current visit: No Status: Acute Category: Medical Code(s): N28.9 - Disorder of kidney and ureter, unspecified - Assessment and plan all Dx Assessment and Plan for all problems:: Awaiting labs this morning. Will discuss Suboxone with Dr. White. <Julien White - Last Filed: 09/04/18 08:45> Internal Medicine - PN: Subj *Date: 09/04/18 *Time: 08:41 Exam Vital signs and Labs for Last 24 Hours: Temp Pulse Resp BP Pulse Ox 98.9 F 77 15 111/58 L 98 09/04/18 08:00 09/04/18 08:00 09/04/18 08:00 09/04/18 08:00 09/04/18 08:00 Laboratory Results - last 24 hr 09/04/18 06:45: WBC 5.6, RBC 3.83 L, Hgb 7.5 L*, Hct 26.7 L, MCV 70.3 L, MCH 19.8 L, MCHC 28.1 L, RDW 21.1 H, Plt Count 309, MPV 7.4, Neut % (Auto) 46.3, Lymph % (Auto) 33.2, [place] % (Auto) 17.0 H, Eos % (Auto) 3.3, Baso % (Auto) 0.3, Neut # (Auto) 2.6, Lymph # (Auto) 1.9, [place] # (Auto) 1.0, Eos # (Auto) 0.2, Baso # (Auto) 0.0 09/04/18 06:45: Sodium 136, Potassium 3.4 L D, Chloride 105, Carbon Dioxide 23, BUN 5 L D, Creatinine 0.71, Estimated Creat Clear 87, Estimated GFR 86, Est GFR ( Amer) 105 D, Glucose 90, Calcium 8.5 I & O for Last 24 hours: Intake & Output 09/01/18 09/02/18 09/03/18 09/04/18 23:59 23:59 23:59 23:59 Intake Total 6002 / 6002 991 / 991 Balance 6002 / 6002 991 / 991 Weight 124 lb 4 oz 127 lb 7 oz 130 lb 8 oz Assessment and Plan (1) Chemotherapy adverse reaction Current visit: Yes Status: Acute Category: Medical Code(s): T45.1X5A - Adverse effect of antineoplastic and immunosuppressive drugs, initial encounter (2) Hypokalemia Current visit: Yes Status: Acute Category: Medical Code(s): E87.6 - Hypokalemia (3) Vomiting and diarrhea Current visit: Yes Status: Acute Category: Medical Code(s): R11.10 - Vomiting, unspecified; R19.7 - Diarrhea, unspecified (4) Colon cancer Current visit: No Status: Chronic Category: Medical Code(s): C18.9 - Malignant neoplasm of colon, unspecified (5) Renal insufficiency Current visit: Yes Status: Acute Category: Medical Code(s): N28.9 - Disorder of kidney and ureter, unspecified (6) Anemia Current visit: No Status: Acute Category: Medical Code(s): D64.9 - Anemia, unspecified (7) Opiate dependence Current visit: Yes Status: Acute Category: Medical Code(s): F11.20 - Opioid dependence, uncomplicated - Assessment and plan all Dx Assessment and Plan for all problems:: Plan transfusion of 1 unit of PRBC today. Pt will need to coordinate suboxone prescription with her MAT provider. Continue Imodium for diarrhea.
[2018-09-04 18:21] LABS: Hematocrit 31.3 % (37.0-47.0)
[2018-09-04 18:28] LABS: Hemoglobin 9.2 g/dL (12.2-16.2)
[2018-09-05 06:35] LABS: Basophils % 0.3 % (0.1-2.0); Eosinophils # 0.1 K/mm3 (0.0-0.4); Eosinophils % 1.6 % (0.1-12.0); Hematocrit 31.2 % (37.0-47.0); Hemoglobin 9.2 g/dL (12.2-16.2); Lymphocytes # 1.4 K/mm3 (0.7-4.5); Lymphocytes % 21.1 % (10-50); Mean Corpuscular HGB Conc 29.5 g/dL (31.8-35.4); Mean Corpuscular Volume 73.5 fl (81-99); Mean Platelet Volume 7.4 fl (7.4-10.4); Monocytes % 14.4 % (1.7-9.3); Neutrophils # 4.2 K/mm3 (1.8-7.8); Neutrophils % 62.5 % (37.0-80.0); Platelet Count 282 K/mm3 (142-424); Red Blood Count 4.25 M/mm3 (4.20-5.40); Red Cell Distribution Width 22.7 % (11.5-17.5); White Blood Count 6.6 K/mm3 (4.8-10.8)
[2018-09-05 06:36] LABS: Anion Gap 15.1 mEq/L (5-15); Calcium 8.2 mg/dL (8.5-10.1)
--- NOTE | 2018-09-05 08:36 | Progress Note ---
Internal Medicine - PN: Subj *Date: 09/05/18 *Time: 08:30 Interval history: She is still not feeling well. He persists with nausea although has been able to eat a little bit. The diarrhea has slowed with the Imodium but still has a lot of low abdominal cramping. She did have a temperature to 103 during the night but is down now. Denies cough, congestion, or urinary complaints. Exam Vital signs and Labs for Last 24 Hours: Temp Pulse Resp BP Pulse Ox 98.0 F 98 H 16 124/80 99 09/05/18 07:40 09/05/18 07:40 09/05/18 07:40 09/05/18 07:40 09/05/18 07:40 Laboratory Results - last 24 hr 09/04/18 06:45: Anion Gap 11.4 09/04/18 09:32: Blood Type O Positive, Antibody Screen Negative, Crossmatch (AHG) See Detail 09/04/18 17:50: Hgb 9.2 L D, Hct 31.3 L 09/05/18 06:23: WBC 6.6, RBC 4.25, Hgb 9.2 L, Hct 31.2 L, MCV 73.5 L, MCH 21.7 L , MCHC 29.5 L, RDW 22.7 H, Plt Count 282, MPV 7.4, Neut % (Auto) 62.5, Lymph % (Auto) 21.1, [place] % (Auto) 14.4 H, Eos % (Auto) 1.6, Baso % (Auto) 0.3, Neut # (Auto) 4.2, Lymph # (Auto) 1.4, [place] # (Auto) 1.0, Eos # (Auto) 0.1, Baso # (Auto) 0.0 09/05/18 06:23: Sodium 134 L, Potassium 3.1 L, Chloride 102, Carbon Dioxide 20 L , Anion Gap 15.1 H, BUN 4 L, Creatinine 0.86 D, Estimated Creat Clear 72, Estimated GFR 69, Est GFR ( Amer) 84, Glucose 106, Calcium 8.2 L I & O for Last 24 hours: Intake & Output 09/02/18 09/03/18 09/04/18 09/05/18 11:59 11:59 11:59 11:59 Intake Total 3712 / 3712 3641 / 3641 234 / 2342 Output Total 300 / 300 Balance 3712 / 3712 3341 / 3341 234 / 2341 Weight 127 lb 7 oz 130 lb 8 oz 130 lb 8.007 oz Microbiology Reports for the Last 24 Hours: Microbiology 09/02/18 15:25 Blood Blood Culture - Preliminary NO GROWTH AFTER 48 HOURS 09/02/18 15:25 Blood Blood Culture - Preliminary NO GROWTH AFTER 48 HOURS Narrative: She is awakened from sleep. She appears not to feel well but no acute distress. Color is normal. Lungs are clear to auscultation. Heart is regular. Abdomen is slightly distended with mild diffuse abdominal tenderness. Bowel sounds are hyperactive. Assessment and Plan (1) Chemotherapy adverse reaction Current visit: Yes Status: Acute Category: Medical Code(s): T45.1X5A - Adverse effect of antineoplastic and immunosuppressive drugs, initial encounter (2) Hypokalemia Current visit: Yes Status: Acute Category: Medical Code(s): E87.6 - Hypokalemia (3) Vomiting and diarrhea Current visit: Yes Status: Acute Category: Medical Code(s): R11.10 - Vomiting, unspecified; R19.7 - Diarrhea, unspecified (4) Colon cancer Current visit: No Status: Chronic Category: Medical Code(s): C18.9 - Malignant neoplasm of colon, unspecified (5) Renal insufficiency Current visit: Yes Status: Acute Category: Medical Code(s): N28.9 - Disorder of kidney and ureter, unspecified (6) Anemia Current visit: No Status: Acute Category: Medical Code(s): D64.9 - Anemia, unspecified (7) Opiate dependence Current visit: Yes Status: Acute Category: Medical Code(s): F11.20 - Opioid dependence, uncomplicated - Assessment and plan all Dx Assessment and Plan for all problems:: Check urinalysis because of her fever. Review of labs shows her potassium down to 3.1. We will add oral supplement. Continue symptomatic treatment of nausea and diarrhea. Continue IV fluids.
[2018-09-05 09:05] LABS: Microscopic, Urine URINE MICROSCOPIC (MICROSCOPIC)
[2018-09-05 14:05] LABS: Appearance,Urine CLEAR (Clear); Bilirubin,Urine Negative (Negative); Blood, Urine Negative (Negative); Color,Urine YELLOW (Yellow); Glucose,Urine (UA) Negative (Negative); Ketones,Urine Negative (Negative); Leukocyte Esterase,Urine Negative (Negative); Protein,Urine Negative (Negative); Urobilinogen,Urine 0.2 EU/dl (0.2)
[2018-09-05 14:10] LABS: Bacteria,Urine Trace /lpf; Squamous Epithelial Cell,Urine Occasional #/hpf (0-5); WBC,Urine Occasional #/hpf (0-3)
[2018-09-06 07:46] LABS: Basophils % 0.3 % (0.1-2.0); Eosinophils # 0.2 K/mm3 (0.0-0.4); Eosinophils % 2.7 % (0.1-12.0); Hematocrit 31.9 % (37.0-47.0); Hemoglobin 9.4 g/dL (12.2-16.2); Lymphocytes % 26.9 % (10-50); Mean Corpuscular HGB Conc 29.4 g/dL (31.8-35.4); Mean Corpuscular Volume 73.7 fl (81-99); Mean Platelet Volume 7.9 fl (7.4-10.4); Monocytes # 0.9 K/mm3 (0.1-1.0); Neutrophils # 4.3 K/mm3 (1.8-7.8); Neutrophils % 58.2 % (37.0-80.0); Platelet Count 280 K/mm3 (142-424); Red Blood Count 4.34 M/mm3 (4.20-5.40); White Blood Count 7.4 K/mm3 (4.8-10.8)
[2018-09-06 07:57] LABS: Calcium 8.6 mg/dL (8.5-10.1)
--- NOTE | 2018-09-06 08:21 | Progress Note ---
Internal Medicine - PN: Subj *Date: 09/06/18 *Time: 08:21 Interval history: Continues to complain of watery diarrhea and stomach cramping. She persists with nausea but no vomiting. Appetite remains poor. Fever was only low-grade through the night. Exam Vital signs and Labs for Last 24 Hours: Temp Pulse Resp BP Pulse Ox 97.4 F L 83 16 122/66 100 09/06/18 08:00 09/06/18 08:00 09/06/18 08:00 09/06/18 08:00 09/06/18 08:00 Laboratory Results - last 24 hr 09/05/18 12:21: Urine Color Yellow, Urine Appearance Clear, Urine pH 6.0, Ur Specific [place] 1.020, Urine Protein Negative, Urine Glucose (UA) Negative, Urine Ketones Negative, Urine Blood Negative, Urine Nitrate Negative, Urine Bilirubin Negative, Urine Urobilinogen 0.2, Ur Leukocyte Esterase Negative, Urine WBC Occasional, Ur Squamous Epith Cells Occasional, Urine Bacteria Trace 09/06/18 06:55: WBC 7.4, RBC 4.34, Hgb 9.4 L, Hct 31.9 L, MCV 73.7 L, MCH 21.7 L , MCHC 29.4 L, RDW 23.0 H, Plt Count 280, MPV 7.9, Neut % (Auto) 58.2, Lymph % (Auto) 26.9, [place] % (Auto) 12.0 H, Eos % (Auto) 2.7, Baso % (Auto) 0.3, Neut # (Auto) 4.3, Lymph # (Auto) 2.0, [place] # (Auto) 0.9, Eos # (Auto) 0.2, Baso # (Auto) 0.0 09/06/18 06:55: Sodium 135 L, Potassium 4.0 D, Chloride 102, Carbon Dioxide 24, Anion Gap 13.0, BUN 5 L, Creatinine 0.93, Estimated Creat Clear 63, Estimated GFR 63, Est GFR ( Amer) 77, Glucose 91, Calcium 8.6 I & O for Last 24 hours: Intake & Output 09/03/18 09/04/18 09/05/18 09/06/18 11:59 11:59 11:59 11:59 Intake Total 3712 / 3712 3641 / 3641 2342 / 2342 2379 / 2379 Output Total 300 / 300 Balance 3712 / 3712 3341 / 3341 2341 / 2341 237 / 237 Weight 127 lb 7 oz 130 lb 8 oz 130 lb 8.007 oz 124 lb 1 oz Narrative: She appears in no distress. Color is normal. Lungs are clear. Heart is regular. Abdomen soft and slightly distended. Mild diffuse tenderness. Bowel sounds are present. No rebound or guarding. Assessment and Plan (1) Chemotherapy adverse reaction Current visit: Yes Status: Acute Category: Medical Code(s): T45.1X5A - Adverse effect of antineoplastic and immunosuppressive drugs, initial encounter (2) Hypokalemia Current visit: Yes Status: Acute Category: Medical Code(s): E87.6 - Hypokalemia (3) Vomiting and diarrhea Current visit: Yes Status: Acute Category: Medical Code(s): R11.10 - Vomiting, unspecified; R19.7 - Diarrhea, unspecified (4) Colon cancer Current visit: No Status: Chronic Category: Medical Code(s): C18.9 - Malignant neoplasm of colon, unspecified (5) Renal insufficiency Current visit: Yes Status: Acute Category: Medical Code(s): N28.9 - Disorder of kidney and ureter, unspecified (6) Anemia Current visit: No Status: Acute Category: Medical Code(s): D64.9 - Anemia, unspecified (7) Opiate dependence Current visit: Yes Status: Acute Category: Medical Code(s): F11.20 - Opioid dependence, uncomplicated - Assessment and plan all Dx Assessment and Plan for all problems:: Hypokalemia has resolved. Oral intake remains poor. She needs continued IV fluids and symptomatic treatment.
--- NOTE | 2018-09-07 08:31 | Progress Note ---
<Radha Carballo - Last Filed: 09/07/18 08:28> Internal Medicine - PN: Subj *Date: 09/07/18 *Time: 07:45 Interval history: Pt is resting quietly in bed. She continues with watery diarrhea and crampy abdominal pain. She reports her nausea is well-controlled with phenergan, h owever, she has not yet eaten breakfast. She denies any SOB or CP, notes she rested well overnight. Exam Vital signs and Labs for Last 24 Hours: Temp Pulse Resp BP Pulse Ox 99.3 F 92 H 16 115/70 98 09/07/18 07:45 09/07/18 07:45 09/07/18 07:45 09/07/18 07:45 09/07/18 07:45 I & O for Last 24 hours: Intake & Output 09/04/18 09/05/18 09/06/18 09/07/18 11:59 11:59 11:59 11:59 Intake Total 3641 / 3641 2342 / 2342 2379 / 2379 2115 / 2115 Output Total 300 / 300 3 / Balance 3341 / 3341 2341 / 2341 2379 / 2379 2112 / 2112 Weight 130 lb 8 oz 130 lb 8.007 oz 124 lb 1 oz 125 lb 8 oz - Constitutional no acute distress - *Routine HEENT Exam Head: Present: normocephalic ENT: Present: mucous membranes moist - *Routine Respiratory Exam Comments: CTAB A&P - *Routine Cardiovascular Exam Present: RRR - *Routine Abdominal Exam Comments: BS x 4, soft, not distended, mildly and diffusely ttp throughout - *Routine Extremities Exam Present: full ROM, pulses intact. Absent: edema, calf tenderness - *Routine Neurological Exam Present: alert, oriented X3, moving all extremities, normal speech Assessment and Plan (1) Chemotherapy adverse reaction Current visit: Yes Status: Acute Category: Medical Code(s): T45.1X5A - Adverse effect of antineoplastic and immunosuppressive drugs, initial encounter (2) Hypokalemia Current visit: Yes Status: Acute Category: Medical Code(s): E87.6 - Hypokalemia (3) Vomiting and diarrhea Current visit: Yes Status: Acute Category: Medical Code(s): R11.10 - Vomiting, unspecified; R19.7 - Diarrhea, unspecified (4) Colon cancer Current visit: No Status: Chronic Category: Medical Code(s): C18.9 - Malignant neoplasm of colon, unspecified (5) Renal insufficiency Current visit: Yes Status: Acute Category: Medical Code(s): N28.9 - Disorder of kidney and ureter, unspecified (6) Anemia Current visit: No Status: Acute Category: Medical Code(s): D64.9 - Anemia, unspecified (7) Opiate dependence Current visit: Yes Status: Acute Category: Medical Code(s): F11.20 - Opioid dependence, uncomplicated - Assessment and plan all Dx Assessment and Plan for all problems:: Continue current care. Further per Dr. White and Dr. Hudson. <Julien White - Last Filed: 09/07/18 08:55> Internal Medicine - PN: Subj *Date: 09/07/18 *Time: 08:54 Exam Vital signs and Labs for Last 24 Hours: Temp Pulse Resp BP Pulse Ox 99.3 F 92 H 16 115/70 98 09/07/18 07:45 09/07/18 07:45 09/07/18 07:45 09/07/18 07:45 09/07/18 08:00 I & O for Last 24 hours: Intake & Output 09/04/18 09/05/18 09/06/18 09/07/18 23:59 23:59 23:59 23:59 Intake Total 1591 / 1591 2342 / 2342 2379 / 2379 187 / 1876 Output Total 301 / 301 3 / 3 Balance 1290 / 1290 2342 / 2342 2376 / 2376 187 / 1876 Weight 130 lb 8.007 oz 130 lb 8.007 oz 124 lb 1 oz 125 lb 8 oz Assessment and Plan (1) Chemotherapy adverse reaction Current visit: Yes Status: Acute Category: Medical Code(s): T45.1X5A - Adverse effect of antineoplastic and immunosuppressive drugs, initial encounter (2) Hypokalemia Current visit: Yes Status: Acute Category: Medical Code(s): E87.6 - Hypokalemia (3) Vomiting and diarrhea Current visit: Yes Status: Acute Category: Medical Code(s): R11.10 - Vomiting, unspecified; R19.7 - Diarrhea, unspecified (4) Colon cancer Current visit: No Status: Chronic Category: Medical Code(s): C18.9 - Malignant neoplasm of colon, unspecified (5) Renal insufficiency Current visit: Yes Status: Acute Category: Medical Code(s): N28.9 - Disorder of kidney and ureter, unspecified (6) Anemia Current visit: No Status: Acute Category: Medical Code(s): D64.9 - Anemia, unspecified (7) Opiate dependence Current visit: Yes Status: Acute Category: Medical Code(s): F11.20 - Opioid dependence, uncomplicated - Assessment and plan all Dx Assessment and Plan for all problems:: Saw patient, agree with above note. Plan to increase Imodium dosing to every 4 hours today.
--- NOTE | 2018-09-08 08:26 | Progress Note ---
<Radha Carballo - Last Filed: 09/08/18 08:28> Internal Medicine - PN: Subj *Date: 09/08/18 *Time: 08:28 Interval history: Pt is feeling much better this morning. She describes her abdominal pain as less frequent and she was able to eat some breakfast without nausea, although she is still experiencing nausea intermittently. Exam Vital signs and Labs for Last 24 Hours: Temp Pulse Resp BP Pulse Ox 98.7 F 91 H 19 112/66 100 09/08/18 07:30 09/08/18 07:30 09/08/18 07:30 09/08/18 07:30 09/08/18 07:30 I & O for Last 24 hours: Intake & Output 09/05/18 09/06/18 09/07/18 09/08/18 11:59 11:59 11:59 11:59 Intake Total 2342 / 2342 2379 / 2379 211 / 6 214 / 214 Output Total Balance 2341 / 2341 2379 / 2379 211 / 2112 2144 / 2144 Weight 130 lb 8.007 oz 124 lb 1 oz 125 lb 8 oz 125 lb 2 oz Microbiology Reports for the Last 24 Hours: Microbiology 09/02/18 15:25 Blood Blood Culture - Final NO GROWTH AFTER 5 DAYS 09/02/18 15:25 Blood Blood Culture - Final NO GROWTH AFTER 5 DAYS - Constitutional no acute distress - *Routine HEENT Exam Head: Present: normocephalic ENT: Present: mucous membranes moist - *Routine Respiratory Exam Present: CTA bilaterally - *Routine Cardiovascular Exam Present: RRR - *Routine Abdominal Exam Comments: BS present x 4, soft, not distended, ttp bilateral lower quads without guarding or rigidity - *Routine Extremities Exam Present: full ROM, pulses intact. Absent: edema, calf tenderness - *Routine Neurological Exam Present: alert, oriented X3, moving all extremities, normal speech Assessment and Plan (1) Chemotherapy adverse reaction Current visit: Yes Status: Acute Category: Medical Code(s): T45.1X5A - Adverse effect of antineoplastic and immunosuppressive drugs, initial encounter (2) Hypokalemia Current visit: Yes Status: Acute Category: Medical Code(s): E87.6 - Hypokalemia (3) Vomiting and diarrhea Current visit: Yes Status: Acute Category: Medical Code(s): R11.10 - Vomiting, unspecified; R19.7 - Diarrhea, unspecified (4) Colon cancer Current visit: No Status: Chronic Category: Medical Code(s): C18.9 - Malignant neoplasm of colon, unspecified (5) Renal insufficiency Current visit: Yes Status: Acute Category: Medical Code(s): N28.9 - Disorder of kidney and ureter, unspecified (6) Anemia Current visit: No Status: Acute Category: Medical Code(s): D64.9 - Anemia, unspecified (7) Opiate dependence Current visit: Yes Status: Acute Category: Medical Code(s): F11.20 - Opioid dependence, uncomplicated - Assessment and plan all Dx Assessment and Plan for all problems:: Pt with some improvement today. Continue current care. Further per Dr. White. <Julien White - Last Filed: 09/08/18 08:31> Internal Medicine - PN: Subj *Date: 09/08/18 *Time: 08:30 Exam Vital signs and Labs for Last 24 Hours: Temp Pulse Resp BP Pulse Ox 98.7 F 91 H 19 112/66 100 09/08/18 07:30 09/08/18 07:30 09/08/18 07:30 09/08/18 07:30 09/08/18 07:30 I & O for Last 24 hours: Intake & Output 09/05/18 09/06/18 09/07/18 09/08/18 23:59 23:59 23:59 23:59 Intake Total 2342 / 2342 2379 / 2379 3661 / 3661 360 / 360 Output Total Balance 2342 / 2342 2376 / 2376 3660 / 3660 360 / 360 Weight 130 lb 8.007 oz 124 lb 1 oz 125 lb 8 oz 125 lb 2 oz Microbiology Reports for the Last 24 Hours: Microbiology 09/02/18 15:25 Blood Blood Culture - Final NO GROWTH AFTER 5 DAYS 09/02/18 15:25 Blood Blood Culture - Final NO GROWTH AFTER 5 DAYS Assessment and Plan (1) Chemotherapy adverse reaction Current visit: Yes Status: Acute Category: Medical Code(s): T45.1X5A - Adverse effect of antineoplastic and immunosuppressive drugs, initial encounter (2) Hypokalemia Current visit: Yes Status: Acute Category: Medical Code(s): E87.6 - Hypokalemia (3) Vomiting and diarrhea Current visit: Yes Status: Acute Category: Medical Code(s): R11.10 - Vomiting, unspecified; R19.7 - Diarrhea, unspecified (4) Colon cancer Current visit: No Status: Chronic Category: Medical Code(s): C18.9 - Malignant neoplasm of colon, unspecified (5) Renal insufficiency Current visit: Yes Status: Acute Category: Medical Code(s): N28.9 - Disorder of kidney and ureter, unspecified (6) Anemia Current visit: No Status: Acute Category: Medical Code(s): D64.9 - Anemia, unspecified (7) Opiate dependence Current visit: Yes Status: Acute Category: Medical Code(s): F11.20 - Opioid dependence, uncomplicated - Assessment and plan all Dx Assessment and Plan for all problems:: Saw patient, agree with above note. OK for discharge today.
--- NOTE | 2018-09-09 22:51 | Discharge Summary ---
General - General Admission date:: 09/02/18 Discharge date: 09/08/18 HPI HPI: Ms. Hilario is a 52-year-old female who recently had a colonoscopy which showed colon cancer. She then had a colon resection by Dr. Mcrae approx 1 month ago. She has been seeing Dr. Hudson and was started on a chemotherapy pill. She states every time she takes the pill it makes her sick. She presented to the emergency room today with a one-week history of nausea, vomiting, and diarrhea. The symptoms began after taking her chemotherapy oral treatment. She was evaluated in the emergency room and felt to be dehydrated and hypokalemic. She was admitted for antiemetics and IV fluids as well as potassium supplementation. Hospital Course Hospital Course: The patient's chest x-ray showed nothing acute. It was felt she was having symptoms related to her chemotherapy, therefore she was started on bowel rest, stool studies were ordered, IV fluids were ordered as was potassium replacement due to hypokalemia. Dr. Hudson was consulted to see the patient. She continued with the abdominal pain and diarrhea. Her diarrhea panel was negative. Her potassium remained low, therefore she was given IV potassium. Her renal function did improve with hydration. She was seen by Dr. Hudson who recommended Imodium as needed for her diarrhea. She did feel she would need continued fluids and potassium replacement. She also recommended stopping the Xeloda pills until she follows up in her office in 2 to 3 weeks. Her H&H did decrease and she was given 1 unit of packed red blood cells. The patient's diarrhea slowed with Imodium but she began having abdominal cramping. She also began running a fever. Her blood culture did show no growth. A urinalysis was therefore ordered due to fever. Her fever did improve and her urinalysis was relatively unremarkable. Her potassium normalized. Her nausea was controlled with Phenergan, however she continued with watery diarrhea and crampy abdominal pain. Her Imodium dose was increased. By 09/08/2018, she was feeling much better. Her abdominal pain was less frequent and she was able to tolerate some breakfast without nausea. She was stable to be discharged home and will follow up with Dr. White and Dr. Hudson. Objective Vital signs: Temp Pulse Resp BP Pulse Ox 98.7 F 91 H 19 112/66 100 09/08/18 07:30 09/08/18 07:30 07/16/19 07:30 09/08/18 07:30 09/08/18 07:30 Narrative: - Constitutional no acute distress - *Routine HEENT Exam Head: Present: normocephalic Eye: Present: EOMI, PERRL ENT: Present: mucous membranes moist - *Routine Neck Exam Present: supple. Absent: lymphadenopathy - *Routine Respiratory Exam Present: CTA bilaterally Comments: A&P - *Routine Cardiovascular Exam Present: RRR - *Routine Abdominal Exam Present: soft, normoactive bowel sounds, tenderness (periumbilical) - *Routine Extremities Exam Absent: cyanosis, clubbing, edema, calf tenderness - *Routine Skin Exam Present: warm. Absent: rash - *Routine Neurological Exam Present: alert, oriented X3 DS: Diagnosis - Discharge Diagnosis (1) Chemotherapy adverse reaction Status: Acute (2) Hypokalemia Status: Acute (3) Vomiting and diarrhea Status: Acute (4) Colon cancer Status: Chronic (5) Renal insufficiency Status: Acute (6) Anemia Status: Acute (7) Opiate dependence Status: Acute Discharge Plan - Patient Discharge Instructions ACTIVITY: Continue current activity DIET: continue same diet Patient Instructions: Diarrhea, DI for Hypokalemia, Nausea and Vomiting-Adult - Follow up Plan Follow up with: Julien White MD [Primary Care Provider] - 09/15/18 11:15 am Lisette Hudson MD [Staff Physician] - 09/17/18 10:30 am Disposition: Home, Self-Half-Way Medications: Home Medications Medication Instructions Recorded Confirmed Type Albuterol Sulfate [Albuterol 2.5 mg IH DAILY PRN 05/13/18 09/02/18 History Sulfate 2.5mg/0.5ml Neb] Buprenorphine HCl/Naloxone HCl 1 each SL DAILY 07/07/18 09/02/18 History [Suboxone 8 mg-2 mg Sl Film] Prochlorperazine Maleate 10 mg PO Q8HP PRN 09/02/18 09/03/18 History Hyoscyamine Sulfate [Levsin] 0.125 mg PO Q6HP PRN #30 tab 09/08/18 Rx Loperamide HCl [Imodium 2 mg 2 mg PO Q4HP PRN #30 cap 09/08/18 Rx capsule] Promethazine HCl [Phenergan 25mg 25 mg PO Q6H PRN #20 tab 09/08/18 Rx tab] Prescriptions/Medication Reconciliation: New Loperamide HCl [Imodium 2 mg capsule] 2 mg PO Q4HP PRN #30 cap PRN Reason: Diarrhea Hyoscyamine Sulfate [Levsin] 0.125 mg PO Q6HP PRN #30 tab PRN Reason: Cramping Promethazine HCl [Phenergan 25mg tab] 25 mg PO Q6H PRN #20 tab PRN Reason: Nausea And Vomiting Continued Albuterol Sulfate [Albuterol Sulfate 2.5mg/0.5ml Neb] 2.5 mg IH DAILY PRN PRN Reason: Shortness Of Breath Or Wheezing Buprenorphine HCl/Naloxone HCl [Suboxone 8 mg-2 mg Sl Film] 1 each SL DAILY Prochlorperazine Maleate 10 mg PO Q8HP PRN PRN Reason: Nausea And Vomiting Discontinued Capecitabine 1,500 mg PO BID
== END 2018-09-08 09:55 | disposition home or self-care (01) | DRG 641 ==
LOC: ER 14:30 → 2ND 14:30 → OBSVTOIN 16:39 → 2ND 16:41
PROVIDERS: ADMIT Family Medicine; ATTEND Family Medicine
CPT/HCPCS: 71010; 71045; 80048; 80053; 81001; 83605; 85014; 85018; 85025; 86850; 87040; 87507; 96365; 96375; 99284; J0571; J2405; P9016

== ENCOUNTER 2018-09-24 11:17 | Outpatient (CLI) | payer MEDICAID, SELFPAY ==
[2018-09-24 11:35] VITALS: BMI 21.1
[2018-09-24 11:50] LABS: Basophils # 0.1 K/mm3 (0-0.2); Basophils % 1.5 % (0.1-2.0); Eosinophils # 0.5 K/mm3 (0.0-0.4); Eosinophils % 7.8 % (0.1-12.0); Hematocrit 42.4 % (37.0-47.0); Hemoglobin 12.5 g/dL (12.2-16.2); Lymphocytes # 1.6 K/mm3 (0.7-4.5); Lymphocytes % 27.6 % (10-50); Mean Corpuscular HGB Conc 29.5 g/dL (31.8-35.4); Mean Corpuscular Volume 81.2 fl (81-99); Mean Platelet Volume 7.9 fl (7.4-10.4); Monocytes # 0.5 K/mm3 (0.1-1.0); Monocytes % 7.8 % (1.7-9.3); Neutrophils # 3.2 K/mm3 (1.8-7.8); Neutrophils % 55.3 % (37.0-80.0); Platelet Count 266 K/mm3 (142-424); Red Blood Count 5.23 M/mm3 (4.20-5.40); White Blood Count 5.7 K/mm3 (4.8-10.8)
[2018-09-24 11:58] LABS: Alanine Aminotransferase 37 U/L (12-78); Albumin Level 3.1 gm/dL (3.4-5.0); Albumin/Globulin Ratio 0.8 (1.1-1.8); Alkaline Phosphatase 133 U/L (46-116); Aspartate Amino Transferase 21 U/L (15-37); Bilirubin,Total 0.3 mg/dL (0.2-1.0); Blood Urea Nitrogen 16 mg/dL (7-18); Calcium 9.5 mg/dL (8.5-10.1); Carbon Dioxide 28 mmol/L (21.0-32.0); Chloride 102 mmol/L (98-107); Creatinine Clearance Estimated 68 mL/min (50-200); Creatinine,Serum 0.85 mg/dL (0.55-1.02); Estimated Glomerular Filt Rate 70 ml/min (>60); GFR (African American) 85 ML/MIN (>60); Globulin 4.1 gm/dl (1.3-3.2); Glucose 101 mg/dL (74-106); Sodium 140 mmol/L (136-145); Total Protein,Serum 7.2 gm/dL (6.4-8.2)
== END 2018-09-24 11:40 | disposition home or self-care (01) ==
LOC: INF 11:18
PROVIDERS: Visit Provider Internal Medicine Medical Oncology
DX: C18.9 Malignant neoplasm of colon, unspecified (principal); T45.1X5A Adverse effect of antineoplastic and immunosuppressive drugs, initial encounter
CPT/HCPCS: 80053; 85025; J1642

== ENCOUNTER 2018-10-08 13:12 | Outpatient (CLI) | payer MEDICAID, SELFPAY ==
[2018-10-08 13:12] VITALS: BMI 21.1
[2018-10-08 13:31] LABS: Basophils # 0.1 K/mm3 (0-0.2); Eosinophils # 0.4 K/mm3 (0.0-0.4); Eosinophils % 6.4 % (0.1-12.0); Hematocrit 43.9 % (37.0-47.0); Hemoglobin 13.5 g/dL (12.2-16.2); Lymphocytes # 2.3 K/mm3 (0.7-4.5); Mean Corpuscular HGB Conc 30.7 g/dL (31.8-35.4); Mean Corpuscular Hemoglobin 25.4 pg (27.0-31.2); Mean Corpuscular Volume 82.6 fl (81-99); Mean Platelet Volume 7.1 fl (7.4-10.4); Monocytes # 0.4 K/mm3 (0.1-1.0); Monocytes % 6.1 % (1.7-9.3); Neutrophils # 2.9 K/mm3 (1.8-7.8); Neutrophils % 48.5 % (37.0-80.0); Platelet Count 423 K/mm3 (142-424); Red Blood Count 5.32 M/mm3 (4.20-5.40)
[2018-10-08 13:55] LABS: Alanine Aminotransferase 27 U/L (12-78); Albumin Level 3.6 gm/dL (3.4-5.0); Albumin/Globulin Ratio 0.9 (1.1-1.8); Alkaline Phosphatase 107 U/L (46-116); Anion Gap 13.8 mEq/L (5-15); Aspartate Amino Transferase 17 U/L (15-37); Bilirubin,Total 0.3 mg/dL (0.2-1.0); Blood Urea Nitrogen 14 mg/dL (7-18); Calcium 9.7 mg/dL (8.5-10.1); Carbon Dioxide 28 mmol/L (21.0-32.0); Chloride 102 mmol/L (98-107); Creatinine Clearance Estimated 55 mL/min (50-200); Creatinine,Serum 1.06 mg/dL (0.55-1.02); Estimated Glomerular Filt Rate 54 ml/min (>60); GFR (African American) 66 ML/MIN (>60); Globulin 3.9 gm/dl (1.3-3.2); Glucose 93 mg/dL (74-106); Potassium 3.8 mmoL/L (3.5-5.1); Sodium 140 mmol/L (136-145); Total Protein,Serum 7.5 gm/dL (6.4-8.2)
[2018-10-08 14:02] LABS: Red Cell Distribution Width 25.1 % (11.5-17.5)
== END 2018-10-08 13:20 | disposition home or self-care (01) ==
LOC: INF 13:12
PROVIDERS: Visit Provider Internal Medicine Medical Oncology
DX: Z45.2 Encounter for adjustment and management of vascular access device (principal); C18.9 Malignant neoplasm of colon, unspecified
CPT/HCPCS: 80053; 85025; J1642

== ENCOUNTER 2018-11-05 13:39 | Outpatient (CLI) | payer MEDICAID, SELFPAY ==
[2018-11-05 13:41] VITALS: BMI 21.2
[2018-11-05 14:00] LABS: Basophils # 0.1 K/mm3 (0-0.2); Basophils % 0.9 % (0.1-2.0); Eosinophils # 0.8 K/mm3 (0.0-0.4); Eosinophils % 10.8 % (0.1-12.0); Hematocrit 41.7 % (37.0-47.0); Hemoglobin 13.4 g/dL (12.2-16.2); Lymphocytes # 2.1 K/mm3 (0.7-4.5); Lymphocytes % 27.7 % (10-50); Mean Corpuscular HGB Conc 32.1 g/dL (31.8-35.4); Mean Corpuscular Hemoglobin 27.9 pg (27.0-31.2); Mean Platelet Volume 7.2 fl (7.4-10.4); Monocytes # 0.5 K/mm3 (0.1-1.0); Monocytes % 6.7 % (1.7-9.3); Platelet Count 263 K/mm3 (142-424); White Blood Count 7.4 K/mm3 (4.8-10.8)
[2018-11-05 14:02] LABS: Red Cell Distribution Width 26.2 % (11.5-17.5)
[2018-11-05 15:07] LABS: Alanine Aminotransferase 47 U/L (12-78); Albumin Level 3.7 gm/dL (3.4-5.0); Alkaline Phosphatase 118 U/L (46-116); Aspartate Amino Transferase 31 U/L (15-37); Bilirubin,Total 0.5 mg/dL (0.2-1.0); Blood Urea Nitrogen 21 mg/dL (7-18); Calcium 9.9 mg/dL (8.5-10.1); Carbon Dioxide 28 mmol/L (21.0-32.0); Chloride 101 mmol/L (98-107); Creatinine Clearance Estimated 58 mL/min (50-200); Estimated Glomerular Filt Rate 58 ml/min (>60); GFR (African American) 70 ML/MIN (>60); Globulin 3.7 gm/dl (1.3-3.2); Glucose 110 mg/dL (74-106); Sodium 139 mmol/L (136-145); Total Protein,Serum 7.4 gm/dL (6.4-8.2)
== END 2018-11-05 13:50 | disposition home or self-care (01) ==
LOC: INF 13:39
PROVIDERS: Visit Provider Internal Medicine Medical Oncology
DX: C18.9 Malignant neoplasm of colon, unspecified (principal)
CPT/HCPCS: 80053; 85025; J1642

== ENCOUNTER 2018-11-16 16:43 | Outpatient (CLI) | payer MEDICAID, SELFPAY ==
[2018-11-16 16:46] VITALS: BMI 22.1
[2018-11-16 16:55] LABS: Basophils % 0.7 % (0.1-2.0); Eosinophils # 0.6 K/mm3 (0.0-0.4); Eosinophils % 9.2 % (0.1-12.0); Hematocrit 43.2 % (37.0-47.0); Hemoglobin 13.7 g/dL (12.2-16.2); Lymphocytes # 1.5 K/mm3 (0.7-4.5); Lymphocytes % 23.5 % (10-50); Mean Corpuscular HGB Conc 31.8 g/dL (31.8-35.4); Mean Corpuscular Hemoglobin 27.7 pg (27.0-31.2); Mean Corpuscular Volume 87.3 fl (81-99); Mean Platelet Volume 7.3 fl (7.4-10.4); Monocytes # 0.9 K/mm3 (0.1-1.0); Monocytes % 13.8 % (1.7-9.3); Neutrophils # 3.5 K/mm3 (1.8-7.8); Neutrophils % 52.9 % (37.0-80.0); Platelet Count 278 K/mm3 (142-424); Red Blood Count 4.95 M/mm3 (4.20-5.40); White Blood Count 6.6 K/mm3 (4.8-10.8)
[2018-11-16 17:03] LABS: Red Cell Distribution Width 25.1 % (11.5-17.5)
[2018-11-16 17:06] LABS: Alanine Aminotransferase 28 U/L (12-78); Albumin Level 3.5 gm/dL (3.4-5.0); Alkaline Phosphatase 111 U/L (46-116); Aspartate Amino Transferase 23 U/L (15-37); Bilirubin,Total 0.3 mg/dL (0.2-1.0); Blood Urea Nitrogen 11 mg/dL (7-18); Calcium 9.4 mg/dL (8.5-10.1); Carbon Dioxide 27 mmol/L (21.0-32.0); Chloride 98 mmol/L (98-107); Creatinine Clearance Estimated 57 mL/min (50-200); Creatinine,Serum 1.06 mg/dL (0.55-1.02); Estimated Glomerular Filt Rate 54 ml/min (>60); GFR (African American) 66 ML/MIN (>60); Globulin 3.6 gm/dl (1.3-3.2); Glucose 103 mg/dL (74-106); Sodium 136 mmol/L (136-145); Total Protein,Serum 7.1 gm/dL (6.4-8.2)
[2018-11-16 17:25] VITALS: BP 112/74; PULSE 68; RESP 20; TEMP 36.9
== END 2018-11-16 17:25 | disposition home or self-care (01) ==
LOC: INF 16:43
PROVIDERS: Visit Provider Internal Medicine Medical Oncology
DX: C18.9 Malignant neoplasm of colon, unspecified (principal); R11.0 Nausea; R19.7 Diarrhea, unspecified; Z45.2 Encounter for adjustment and management of vascular access device
CPT/HCPCS: 80053; 85025; J1642

== ENCOUNTER 2018-12-18 13:15 | Outpatient (CLI) | payer OTHER, SELFPAY ==
[2018-12-18 13:32] VITALS: BMI 22.3
[2018-12-18 13:59] LABS: Basophils # 0.1 K/mm3 (0-0.2); Basophils % 1.6 % (0.1-2.0); Eosinophils # 0.6 K/mm3 (0.0-0.4); Eosinophils % 11.3 % (0.1-12.0); Hematocrit 42.7 % (37.0-47.0); Hemoglobin 13.6 g/dL (12.2-16.2); Lymphocytes # 1.9 K/mm3 (0.7-4.5); Lymphocytes % 35.9 % (10-50); Mean Corpuscular HGB Conc 31.9 g/dL (31.8-35.4); Mean Corpuscular Hemoglobin 30.8 pg (27.0-31.2); Mean Corpuscular Volume 96.6 fl (81-99); Monocytes # 0.4 K/mm3 (0.1-1.0); Monocytes % 8.1 % (1.7-9.3); Neutrophils # 2.2 K/mm3 (1.8-7.8); Platelet Count 214 K/mm3 (142-424); Red Blood Count 4.43 M/mm3 (4.20-5.40); Red Cell Distribution Width 20.6 % (11.5-17.5); White Blood Count 5.2 K/mm3 (4.8-10.8)
[2018-12-18 14:14] LABS: Alanine Aminotransferase 33 U/L (12-78); Albumin Level 3.5 gm/dL (3.4-5.0); Alkaline Phosphatase 102 U/L (46-116); Anion Gap 9.2 mEq/L (5-15); Aspartate Amino Transferase 21 U/L (15-37); Bilirubin,Total 0.3 mg/dL (0.2-1.0); Blood Urea Nitrogen 12 mg/dL (7-18); Calcium 9.6 mg/dL (8.5-10.1); Carbon Dioxide 29 mmol/L (21.0-32.0); Chloride 104 mmol/L (98-107); Creatinine Clearance Estimated 71 mL/min (50-200); Creatinine,Serum 0.85 mg/dL (0.55-1.02); Estimated Glomerular Filt Rate 70 ml/min (>60); GFR (African American) 85 ML/MIN (>60); Globulin 3.4 gm/dl (1.3-3.2); Glucose 98 mg/dL (74-106); Potassium 4.2 mmoL/L (3.5-5.1); Sodium 138 mmol/L (136-145); Total Protein,Serum 6.9 gm/dL (6.4-8.2)
== END 2018-12-18 13:45 | disposition home or self-care (01) ==
PROVIDERS: Visit Provider Internal Medicine Medical Oncology
DX: C18.9 Malignant neoplasm of colon, unspecified (principal)
CPT/HCPCS: 80053; 85025; J1642

== ENCOUNTER 2019-02-22 11:25 | Outpatient (CLI) | payer OTHER, SELFPAY ==
[2019-02-22 11:42] VITALS: BMI 25.3
--- NOTE | 2019-02-22 11:49 | CT_ITS ---
PROCEDURE: CT ABDOMEN PELVIS WO/W CON CLINICAL INDICATION: COLON CA follow[facility] TECHNIQUE: IV Contrast: 75ML OPTIRAY 350 Oral Contrast 20ml Gastroview Axial images obtained with sagittal and coronal reformats. All CT scans at the facility use one or more dose reduction, viz: automated exposure control, ma/kV adjustment per patient size (including targeted exams where dose is matched to indication, i.e. head), or iterative reconstruction technique. Precontrast scans were performed through the abdomen and pelvis followed by repeat scans after injection of IV contrast, oral contrast was given previously. FINDINGS: Lower thorax: No acute finding, there are no suspicious pulmonary nodules and there is no pleural fluid. ABDOMEN: Liver: No masses or biliary dilatation. Gallbladder: Nondistended. No radio opaque stones. Pancreas: No masses or peripancreatic fluid collections. Spleen: unremarkable Adrenals: unremarkable Kidneys/ureters: The kidneys are normal size and show symmetrical function both appearing normal. ABDOMEN & PELVIS: Stomach bowel: The stomach is moderately distended with ingested food particles and fluid and oral contrast and appears grossly normal. The duodenal sweep and small bowel appear normal. There has been a previous appendectomy. There has been previous resection of the ascending and proximal transverse colon. There is an ileocolic anastomosis in the proximal transverse colon with surgical sutures seen and no evidence of local tumor recurrence. There is a large amount stool in the distal transverse colon splenic flexure and descending and sigmoid colon and upper rectum. Peritoneum: No abnormal fluid collections. No obvious inflammatory changes. No free air. Lymph nodes: No enlarged lymph nodes apparent. Vasculature: No evidence of abdominal aortic aneurysm. No retroperitoneal hemorrhage evident. Bones: No acute fracture PELVIS: Reproductive: Post hysterectomy, there is a stable right ovarian cyst Bladder: The bladder is partially decompressed. Appendix: Post appendectomy IMPRESSION: Findings consistent with constipation, grossly normal appearing ileocolic anastomosis with no evidence of local tumor recurrence. There is no definite evidence of metastatic disease in the abdomen or pelvis Dictated by: Dr. Dio Bright MD 02/22/2019 13:[address] Dio Bright MD in [place] 02/22/2019 13:26
--- NOTE | 2019-02-22 11:49 | CT_ITS ---
PROCEDURE: CT CHEST WO/W CON CLINCAL INDICATION: COLON CA COMPARISON: CHESTW CT chest w con from 08/05/2018 TECHNIQUE: IV Contrast: 75ml Optiray 350 Axial images obtained with sagittal and coronal reformats. All CT scans at the facility use one or more dose reduction, viz: automated exposure control, ma/kV adjustment per patient size (including targeted exams where dose is matched to indication, i.e. head), or iterative reconstruction technique. Precontrast scans with obtained through the chest followed by repeat scanned after injection of IV contrast. FINDINGS: HEART,AORTA,PULMONARY ARTERIES Unremarkable except from mild arteriosclerotic calcification of the aortic arch. There is a left subclavian central line noted with the tip in the SVC above the right atrium. MEDIASTINAL AND HILAR STRUCTURES: No mediastinal or hilar mass evident. No dominant adenopathy. LUNGS: Minimal apical pleural scarring seen bilaterally. There is a stable subpleural noncalcified 3 mm nodule right apex posteriorly. There is a calcified granuloma left upper lobe. There are no other pulmonary nodules. There is no pneumonic infiltrate. PLEURAL SPACES: No significant effusion. No evidence of pneumothorax. BONY STRUCTURES: No acute bony abnormalities apparent. No lytic or blastic lesions are seen in the bony thorax. LYMPH NODES: No enlarged lymph nodes evident. UPPER ABDOMEN: Unremarkable. ADDITIONAL FINDINGS: No other significant abnormalities. IMPRESSION: Mild bilateral apical pleural scarring, stable tiny noncalcified subpleural nodule right apex, no definite evidence of metastatic disease Dictated by: Dr. Dio Bright MD 02/22/2019 13:[address] Dio Bright MD in [place] 02/22/2019 13:48
[2019-02-22 11:51] LABS: Basophils # 0.1 K/mm3 (0-0.2); Eosinophils # 0.7 K/mm3 (0.0-0.4); Eosinophils % 8.7 % (0.1-12.0); Hematocrit 44.2 % (37.0-47.0); Hemoglobin 13.6 g/dL (12.2-16.2); Lymphocytes # 1.9 K/mm3 (0.7-4.5); Mean Corpuscular HGB Conc 30.8 g/dL (31.8-35.4); Mean Corpuscular Volume 103.9 fl (81-99); Mean Platelet Volume 8.3 fl (7.4-10.4); Monocytes # 0.7 K/mm3 (0.1-1.0); Monocytes % 8.6 % (1.7-9.3); Neutrophils # 4.3 K/mm3 (1.8-7.8); Neutrophils % 56.7 % (37.0-80.0); Platelet Count 219 K/mm3 (142-424); Red Blood Count 4.26 M/mm3 (4.20-5.40); Red Cell Distribution Width 19.3 % (11.5-17.5); White Blood Count 7.6 K/mm3 (4.8-10.8)
[2019-02-22 11:58] LABS: Alanine Aminotransferase 44 U/L (12-78); Albumin Level 3.6 gm/dL (3.4-5.0); Albumin/Globulin Ratio 1.1 (1.1-1.8); Alkaline Phosphatase 121 U/L (46-116); Anion Gap 11.8 mEq/L (5-15); Aspartate Amino Transferase 28 U/L (15-37); Bilirubin,Total 0.3 mg/dL (0.2-1.0); Blood Urea Nitrogen 17 mg/dL (7-18); Carbon Dioxide 28 mmol/L (21.0-32.0); Chloride 101 mmol/L (98-107); Creatinine Clearance Estimated 77 mL/min (50-200); Creatinine,Serum 0.86 mg/dL (0.55-1.02); Estimated Glomerular Filt Rate 69 ml/min (>60); GFR (African American) 84 ML/MIN (>60); Globulin 3.4 gm/dl (1.3-3.2); Glucose 84 mg/dL (74-106); Potassium 3.8 mmoL/L (3.5-5.1); Sodium 137 mmol/L (136-145)
== END 2019-02-22 13:08 | disposition home or self-care (01) ==
LOC: RAD 11:25
PROVIDERS: PCP Family Medicine; Visit Provider Internal Medicine Medical Oncology
DX: C18.9 Malignant neoplasm of colon, unspecified (principal)
CPT/HCPCS: 71270; 74178; 80053; 85025; J1642; Q9967

== ENCOUNTER 2019-04-01 13:59 | Outpatient (CLI) | payer OTHER, SELFPAY ==
[2019-04-01 14:01] VITALS: BMI 26.0
[2019-04-01 14:23] LABS: Basophils # 0.1 K/mm3 (0-0.2); Basophils % 0.7 % (0.1-2.0); Eosinophils # 0.4 K/mm3 (0.0-0.4); Eosinophils % 4.9 % (0.1-12.0); Hematocrit 41.5 % (37.0-47.0); Hemoglobin 13.8 g/dL (12.2-16.2); Lymphocytes # 1.4 K/mm3 (0.7-4.5); Lymphocytes % 15.9 % (10-50); Mean Corpuscular HGB Conc 33.3 g/dL (31.8-35.4); Mean Corpuscular Hemoglobin 33.4 pg (27.0-31.2); Mean Corpuscular Volume 100.3 fl (81-99); Mean Platelet Volume 7.7 fl (7.4-10.4); Monocytes # 0.3 K/mm3 (0.1-1.0); Neutrophils # 6.7 K/mm3 (1.8-7.8); Neutrophils % 75.5 % (37.0-80.0); Platelet Count 186 K/mm3 (142-424); Red Blood Count 4.14 M/mm3 (4.20-5.40); Red Cell Distribution Width 16.5 % (11.5-17.5); White Blood Count 8.9 K/mm3 (4.8-10.8)
[2019-04-01 14:43] LABS: Alanine Aminotransferase 32 U/L (12-78); Albumin Level 3.6 gm/dL (3.4-5.0); Albumin/Globulin Ratio 1.1 (1.1-1.8); Alkaline Phosphatase 121 U/L (46-116); Anion Gap 13.7 mEq/L (5-15); Aspartate Amino Transferase 19 U/L (15-37); Bilirubin,Total 0.4 mg/dL (0.2-1.0); Blood Urea Nitrogen 17 mg/dL (7-18); Carbon Dioxide 26 mmol/L (21.0-32.0); Chloride 103 mmol/L (98-107); Creatinine Clearance Estimated 66 mL/min (50-200); Creatinine,Serum 1.03 mg/dL (0.55-1.02); Estimated Glomerular Filt Rate 56 ml/min (>60); GFR (African American) 68 ML/MIN (>60); Globulin 3.4 gm/dl (1.3-3.2); Glucose 139 mg/dL (74-106); Potassium 3.7 mmoL/L (3.5-5.1); Sodium 139 mmol/L (136-145)
== END 2019-04-01 14:25 | disposition home or self-care (01) ==
LOC: INF 13:59
PROVIDERS: Visit Provider Internal Medicine Medical Oncology
DX: C18.9 Malignant neoplasm of colon, unspecified (principal); Z45.2 Encounter for adjustment and management of vascular access device
CPT/HCPCS: 80053; 85025; J1642

== ENCOUNTER 2019-07-08 08:00 | Outpatient (CLI) | payer OTHER, SELFPAY ==
[2019-07-08 08:12] VITALS: BMI 28.1
[2019-07-08 08:35] LABS: Basophils # 0.1 K/mm3 (0-0.2); Basophils % 1.7 % (0.1-2.0); Eosinophils # 0.7 K/mm3 (0.0-0.4); Eosinophils % 10.6 % (0.1-12.0); Hematocrit 41.2 % (37.0-47.0); Hemoglobin 13.4 g/dL (12.2-16.2); Lymphocytes # 2.1 K/mm3 (0.7-4.5); Lymphocytes % 33.2 % (10-50); Mean Corpuscular HGB Conc 32.4 g/dL (31.8-35.4); Mean Corpuscular Hemoglobin 29.3 pg (27.0-31.2); Mean Corpuscular Volume 90.3 fl (81-99); Mean Platelet Volume 7.9 fl (7.4-10.4); Monocytes # 0.5 K/mm3 (0.1-1.0); Monocytes % 7.7 % (1.7-9.3); Neutrophils % 46.8 % (37.0-80.0); Platelet Count 260 K/mm3 (142-424); Red Blood Count 4.56 M/mm3 (4.20-5.40); Red Cell Distribution Width 13.9 % (11.5-17.5); White Blood Count 6.3 K/mm3 (4.8-10.8)
[2019-07-08 08:41] LABS: Alanine Aminotransferase 32 U/L (12-78); Albumin Level 4.4 g/dl (3.5-5.0); Albumin/Globulin Ratio 1.5 (1.1-1.8); Alkaline Phosphatase 90 U/L (38-126); Anion Gap 8.5 mEq/L (5-15); Aspartate Amino Transferase 33 U/L (14-36); Bilirubin,Total 0.2 mg/dl (0.2-1.3); Blood Urea Nitrogen 14 mg/dl (7-17); Calcium 9.4 mg/dl (8.4-10.2); Carbon Dioxide 30 mmol/L (22.0-30.0); Chloride 102 mmol/L (98-107); Creatinine Clearance Estimated 96 mL/min (50-200); Estimated Glomerular Filt Rate 75 ml/min (>60); GFR (African American) 91 ML/MIN (>60); Glucose 100 mg/dl (74-100); Potassium 3.5 mmoL/L (3.5-5.1); Sodium 137 mmol/L (136-145); Total Protein,Serum 7.4 g/dl (6.3-8.2)
== END 2019-07-08 08:25 | disposition home or self-care (01) ==
PROVIDERS: Visit Provider Internal Medicine Medical Oncology
DX: Z45.2 Encounter for adjustment and management of vascular access device (principal); C18.9 Malignant neoplasm of colon, unspecified
CPT/HCPCS: 80053; 85025; J1642

== ENCOUNTER → 2019-07-26 09:01 | Outpatient (CLI) | payer OTHER, SELFPAY ==
--- NOTE | 2019-07-26 09:08 | CT_ITS ---
PROCEDURE: CT ABDOMEN PELVIS W CON CLINICAL INDICATION: MALIGNANT NEOPLASM OF COLON Follow-up colon cancer COMPARISON: ABDPELW CT abdomen pelvis w con from 01/06/2018 CT ABDOMEN PELVIS WO/W CON from 02/22/2019 TECHNIQUE: IV Contrast: 75ML OPTIRAY 350 Oral Contrast 20ml Gastroview Axial images obtained with sagittal and coronal reformats. All CT scans at the facility use one or more dose reduction, viz: automated exposure control, ma/kV adjustment per patient size (including targeted exams where dose is matched to indication, i.e. head), or iterative reconstruction technique. FINDINGS: LOWER THORAX: No acute finding ABDOMEN & PELVIS: There is a small area of ill-defined contrast enhancement noted in the right hepatic lobe laterally image number 37 at approximately 1 cm with an additional area of enhancement in the right hepatic lobe posterior laterally image number 33 at approximately 1.5 cm. These areas are nonspecific and not readily apparent on the previous exam. No hypodense lesions are evident. The gallbladder is contracted. The spleen, adrenal glands, and pancreas are unremarkable. Surgical clips are present along the head of the pancreas. There is some cortical scarring of the upper pole of the right kidney. No renal mass, renal or ureteral calculus, or hydronephrosis is evident. There is a small umbilical hernia which contains fat. There is a cystic lesion in the right adnexa which measures 4.7 x 3.4 cm containing a septation consistent with an ovarian cyst and may be slightly larger compared to the previous exam. There are post hysterectomy changes. There has been prior right-sided colectomy with enterocolonic anastomosis in the right mid abdominal region. There is a small node in the mid abdominal region not significantly changed measuring approximately 1.5 cm. No acute bony findings are evident. IMPRESSION: 1. There are 2 small areas of ill-defined contrast enhancement in the right hepatic lobe. These are of questionable clinical significance and could even be related to differential perfusion. Continued follow-up is suggested. On the next follow-up exam, would recommend performing without and with contrast with hemangioma protocol 2. Cystic adnexal lesion on the right at 4.7 x 3.4 cm containing a central septation. Ultrasound may provide further evaluation. 3. Otherwise negative Dictated by: Bhavesh Rodas MD 07/27/2019 11:25 Electronically signed by Bhavesh Rodas MD in [facility] 07/27/2019 11:25
--- NOTE | 2019-07-26 09:08 | CT_ITS ---
PROCEDURE: CT CHEST W CON CLINCAL INDICATION: MALIGNANT NEOPLASM OF COLON Colon cancer, lung nodule follow-up COMPARISON: CT CHEST WO/W CON from 02/22/2019 CT ABDOMEN PELVIS W CON from 07/26/2019 TECHNIQUE: IV Contrast: 75ml Optiray 350 Axial images obtained with sagittal and coronal reformats. All CT scans at the facility use one or more dose reduction, viz: automated exposure control, ma/kV adjustment per patient size (including targeted exams where dose is matched to indication, i.e. head), or iterative reconstruction technique. FINDINGS: HEART AND MEDIASTINAL STRUCTURES: The LUNGS AND PLEURAL SPACES: Biapical scarring once again noted. Small subpleural nodular opacity right apex posteriorly and laterally unchanged. Calcified granuloma left upper lobe posteriorly. No new nodules evident. BONY STRUCTURES: No acute bony abnormalities apparent. UPPER ABDOMEN: Please see abdomen report of the same day ADDITIONAL FINDINGS: MediPort catheter is present from left subclavian approach IMPRESSION: No change. No convincing evidence of malignancy Dictated by: Bhavesh Rodas MD 07/27/2019 10:57 Electronically signed by Bhavesh Rodas MD in [place] 07/27/2019 10:57
[2019-07-26 12:19] LABS: Coronavirus 19 IgG Antibody Positive (Negative); Coronavirus 19 IgM Antibody Negative (Negative)
== END ==
PROVIDERS: PCP Family Medicine; Visit Provider Internal Medicine Medical Oncology
DX: Z01.818 Encounter for other preprocedural examination (principal); C18.9 Malignant neoplasm of colon, unspecified
CPT/HCPCS: 36415; 71260; 74177; 86328; Q9967

== ENCOUNTER 2019-07-27 09:23 | Day surgery (SDC) | payer OTHER, SELFPAY ==
--- NOTE | 2019-07-23 14:43 | SUR.PREOP ---
07/23/2019 @ 6153--PHONE CALL MADE TO PATIENT. PATIENT UNDERSTANDS THAT LAB WORK AND COVID TESTING NEEDS TO BE COMPLETED @ 12PM ON 07/26/2019. PATIENT UNDERSTANDS IF LAB WORK AND COVID-19 TESTS ARE NOT COMPLETED BY 12PM ON THAT DATE, THE SURGERY SCHEDULED WILL BE CANCELLED AND RESCHEDULED FOR ANOTHER TIME.
[2019-07-27 09:47] VITALS: BP 111/64; PULSE 78; RESP 18; TEMP 36.3; O2SAT 95; BMI 27.3
--- NOTE | 2019-07-27 10:12 | HMH.GSHP ---
HPI HPI: Patient had been seen the office regarding concerns for rectal bleeding. She is a very pleasant 53-year-old female whom I had performed extended right hemicolectomy with en bloc resection of small bowel and abdominal wall on 07/06/2018. 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 She did have a port placed. She had adverse reaction to chemotherapy, cycle 1, and had significant diarrhea and facial numbness. She has been on Xeloda. She is cared for by Dr. Lisette Hudson. Plan was for a follow-up colonoscopy 1 year after her surgery. However, the patient states that last week she had noticed some gross blood in the stool. She states that it started out fresh and then she noted blood within the stool itself. She has had some left lower quadrant discomfort. She was scheduled for colonoscopy. However this had to be postponed due to COVID-19 outbreak. [facility] History I have reviewed the patient's past medical history: Yes Medical History: Reports:: Asthma, Cancer (colon), Chronic Obstructive Pulmonary Disease (COPD), Hyperlipidemia, Hypertension, Lung Disease, Myocardial Infarction Denies:: Coronary Artery Disease, Diabetes Mellitus Type 1, Diabetes Mellitus Type 2, Internal Pacemaker, MRSA, Seizures *Have you ever received a pneumonia vaccine?: No *Have you received a flu vaccine this season?: No Other Medical History: Reports: Anemia, Other. Denies: Blood Transfusion Reaction Laterality Cases: Bilateral: Myringotomy (Ear Tubes), Tonsillectomy Other Surgeries: Yes: Appendectomy, Cancer Surgery, Colonoscopy, Colon Resection, Hysterectomy-Total, Hysterectomy-Partial, Other. No: Pacemaker Amputation: No Fractures: No - *Social History Smoking Status: Current every day smoker Tobacco Type: cigarettes # Packs/Day (cigarettes): 1 #Yrs smoked (if former smoker): 30 Alcohol Intake: never Alcohol Intake Frequency:: other Substance Use Type: painkillers *Occupational Status:: unemployed Housing: house Household Members: spouse *Travel in the last 8 weeks: None Family Hx:: No significant family history Review of Systems - Review of Systems Review of systems:: pertinent systems reviewed and negative unless documented below Meds Home Medications Medication Instructions Recorded Confirmed Type Albuterol Sulfate [Albuterol 2.5 mg IH DAILY PRN 05/13/18 07/27/19 History Sulfate 2.5mg/0.5ml Neb] Buprenorphine HCl/Naloxone HCl 1 each SL DAILY 07/07/18 07/27/19 History [Suboxone 8 mg-2 mg Sl Film] Allergies Allergy/AdvReac Type Severity Reaction Status Date / Time Penicillins Allergy Verified 07/15/19 08:52 Exam Vital signs and Labs for Last 24 Hours: Temp Pulse Resp BP Pulse Ox 97.4 F L 78 18 111/64 95 07/27/19 09:47 07/27/19 09:47 07/27/19 09:47 07/27/19 09:47 07/27/19 09:47 I & O for Last 24 hours: Intake & Output 07/24/19 07/25/19 07/26/19 07/27/19 11:59 11:59 11:59 11:59 Weight 154 lb - *Routine HEENT Exam Head: Present: normocephalic Eye: Present: EOMI, PERRL ENT: Present: mucous membranes moist - *Routine Neck Exam Present: supple. Absent: lymphadenopathy - *Routine Respiratory Exam Present: CTA bilaterally - *Routine Cardiovascular Exam Present: RRR - *Routine Abdominal Exam Present: soft, normoactive bowel sounds. Absent: tenderness - *Routine Extremities Exam Absent: cyanosis, clubbing, edema - *Routine Skin Exam Present: warm. Absent: rash - *Routine Neurological Exam Present: alert, oriented X3 Assessment and Plan - Assessment and plan all Dx Assessment and Plan for all problems:: Proceed with colonoscopy
--- NOTE | 2019-07-27 10:15 | HMH.ANESCL ---
[facility] Anesthesia Checklist - Patient Identification Patient Identification: Arm Band - Structural Data Admitted From: Home Planned Operative Procedure/s: colonoscopy Consent for Planned Operative Procedure(s) Verified: Yes Verified Documents: Surgical Consent, History and Physical - NPO Status Verified Time NPO: 00:00 - Additional verifications Anesthesia Reactions: No Hx Blood Transfusions: No Blood Transfusion Reaction: No - Airway Assessment C-Spine Mobility Assessed: Yes (mp2) TMJ Mobility Assessed: Yes Dentition: Good Dentition - Neurological Assessment Level of Consciousness: Awake, Alert - Anesthesia Plan Anesthesia Risk discussed: Yes Anesthesia Plan: Verified ASA Class: III Anesthesia Type: [facility] History I have reviewed the patient's past medical history: Yes Medical History: Reports:: Asthma, Cancer (colon), Chronic Obstructive Pulmonary Disease (COPD), Lung Disease, Myocardial Infarction Denies:: Coronary Artery Disease, Diabetes Mellitus Type 1, Diabetes Mellitus Type 2, Internal Pacemaker, MRSA, Seizures *Have you ever received a pneumonia vaccine?: No *Have you received a flu vaccine this season?: No Other Medical History: Reports: Anemia, Other. Denies: Blood Transfusion Reaction Anesthesia experience/problems:: nac Laterality Cases: Bilateral: Myringotomy (Ear Tubes), Tonsillectomy Other Surgeries: Yes: Appendectomy, Cancer Surgery, Colonoscopy, Colon Resection, Hysterectomy-Total, Hysterectomy-Partial, Other. No: Pacemaker Amputation: No Fractures: No - *Social History Smoking Status: Current every day smoker Tobacco Type: cigarettes # Packs/Day (cigarettes): 1 #Yrs smoked (if former smoker): 30 Alcohol Intake: never Alcohol Intake Frequency:: other Substance Use Type: painkillers *Occupational Status:: unemployed Housing: house Household Members: spouse *Travel in the last 8 weeks: None Family Hx:: No significant family history
[2019-07-27 10:25] VITALS: O2SAT 95
[2019-07-27 11:20] VITALS: BP 105/56; PULSE 71; RESP 18; TEMP 36.5; O2SAT 93
--- NOTE | 2019-07-27 11:21 | HMH.SCOPE ---
- Procedure: Date: 07/27/19 Procedure Performed:: Total colonoscopy with biopsies Indications:: Patient had recently contacted the office regarding concerns for rectal bleeding. She is a very pleasant 53-year-old female whom I had performed extended right hemicolectomy with en bloc resection of small bowel and abdominal wall on 07/06/2018. 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 She did have a port placed. She had adverse reaction to chemotherapy, cycle 1, and had significant diarrhea and facial numbness. She has been on Xeloda. She is cared for by Dr. Lisette Hudson. Plan was for a follow-up colonoscopy 1 year after her surgery. However, the patient states that last week she had noticed some gross blood in the stool. She states that it started out fresh and then she noted blood within the stool itself. She has had some left lower quadrant discomfort. Performing Provider:: Raffaele Mcrae MD Referring Provider:: Julien White MD Sedation:: Propofol Procedure:: Patient was taken to endoscopy procedure room. She was positioned in a lateral decubitus position. Adequate intravenous sedation was achieved with anesthesia titration of propofol. Variable stiffness Olympus colonoscope was inserted via the anus. With some minimal difficulty due to floppiness and redundancy of the sigmoid colon it was advanced to the ileocecal colonic anastomosis. Anastomosis was widely patent with no mass lesion. Within the terminal ileum limb of the anastomosis there were a few punctate ulcerations consistent with mild ileitis. Biopsies were obtained. Biopsy was obtained of the anastomosis. Colonoscope was withdrawn through the colon with careful surveillance. Colonic preparation was poor as there was chalky liquid stool throughout the colon. She also had some atonic nature of the colon which made insufflation difficult. Overall visualization was fair to poor. There was a possible polyp in the descending colon and biopsy was obtained of that this appeared to be more consistent with mucosal fold. Colonoscope was withdrawn to the rectum. Retroflexion was performed which revealed no evidence of any pathologic internal hemorrhoids. Colonoscope was withdrawn. Findings:: Poor colonic preparation Ileitis Possible descending colon polyp Recommendations:: Pending the pathology tentatively plan for a repeat colonoscopy in approximately 6 months given the difficulty with visualization due to poor preparation with more aggressive bowel regimen. Complications:: None immediately apparent Estimated blood obtained (mL): 3
[2019-07-27 11:30] VITALS: BP 119/72; PULSE 74; RESP 18; O2SAT 93
[2019-07-27 11:40] VITALS: BP 117/69; PULSE 70; RESP 18; O2SAT 94
[2019-07-27 11:50] VITALS: BP 116/82; PULSE 79; RESP 18; O2SAT 95
== END 2019-07-27 11:50 | disposition home or self-care (01) ==
LOC: OUTP 09:24
PROVIDERS: PCP Family Medicine; Visit Provider Surgery
PROC: 0DJD8ZZ Inspection of Lower Intestinal Tract, Via Natural or Artificial Opening Endoscopic (ICD-10-PCS; CPT 45380; principal; 2019-07-27 10:30)
DX: K92.1 Melena (principal); K52.9 Noninfective gastroenteritis and colitis, unspecified; K63.89 Other specified diseases of intestine; Z85.038 Personal history of other malignant neoplasm of large intestine; I25.2 Old myocardial infarction; J44.9 Chronic obstructive pulmonary disease, unspecified; J45.909 Unspecified asthma, uncomplicated; I10 Essential (primary) hypertension; E78.5 Hyperlipidemia, unspecified; D64.9 Anemia, unspecified; Z90.89 Acquired absence of other organs; Z79.899 Other long term (current) drug therapy
CPT/HCPCS: 45380

== ENCOUNTER → 2019-08-20 14:28 | Outpatient (CLI) | payer OTHER, SELFPAY ==
--- NOTE | 2019-08-20 14:48 | US_ITS ---
PROCEDURE: US TRANSVAGINAL CLINICAL INDICATION: RT OVARIAN CYST COMPARISON: No exams were available for comparison FINDINGS: UTERUS: Status post hysterectomy LEFT OVARY: Surgically resected RIGHT OVARY: 5cmx [id number] with a volume of 43.7ml. Septated left ovarian cystic lesion measuring 45 millimeters x 20 millimeters X 30 millimeters. There is no free fluid. IMPRESSION: Status posthysterectomy and left oophorectomy, septated right ovarian cyst Dictated by: Raphael Hernandez 08/20/2019 16:18 Electronically signed by Raphael Hernandez in [place] 08/20/2019 16:18
== END ==
PROVIDERS: PCP Family Medicine; Visit Provider Internal Medicine Medical Oncology
DX: N83.201 Unspecified ovarian cyst, right side (principal)
CPT/HCPCS: 76830

== ENCOUNTER 2019-09-11 15:35 | Emergency (ER) | payer OTHER, SELFPAY ==
[2019-09-11 16:04] VITALS: BP 105/72; PULSE 86; RESP 20; TEMP 36.8; O2SAT 95; BMI 28.1
--- NOTE | 2019-09-11 16:15 | HMH.EDUTC ---
[facility] [place] Impression: Viral syndrome, Bronchitis Disposition: Home, Self-Care Condition on Discharge: Good Instructions: DI for Viral Syndrome Additional Instructions: Drink plenty of fluids. Take tylenol or ibuprofen for pain or fever. Take the medications as directed. Follow up with your regular doctor. GO TO THE ER FOR ANY WORSENING SYMPTOMS FOLLOW THE DIRECTIONS ON THE COVID-19 HAND OUT THAT WE GAVE YOU REGARDING SELF-ISOLATION UNTIL YOU KNOW YOUR COVID-19 RESULTS Prescriptions: Benzonatate [Tessalon Perle 100mg Cap] 100 mg PO TIDP PRN #30 cap PRN Reason: Cough Transmission Status: Received by [facility] # Azithromycin [Z-Nolberto 250mg Tab*] 250 mg PO UD DOSE PK #6 tab Transmission Status: Received by [facility] # Referrals: Julien White MD [Primary Care Provider] - Time of Disposition: 16:33 Medical Decision Making - Medical Records Medical records reviewed: No: I reviewed the patient's medical records. - Navi Inquiry Pt receiving controlled substance: No Vital Signs: 09/11/19 16:04 09/11/19 16:37 Temperature 98.3 F 98.3 F Temperature Source Oral Pulse Rate 86 Pulse Rate [Right Brachial] 86 Respiratory Rate 20 20 Blood Pressure 105/72 L Blood Pressure [Left Arm] 105/72 L Blood Pressure Mean [Left Arm] 83 Blood Pressure Source [Left Arm] Automatic Cuff Blood Pressure Position [Left Arm] Sitting 02 Sat by Pulse Oximetry 95 Oxygen Delivery Method Room Air - Lab Data Lab results reviewed: Yes: I reviewed the patient's lab results. Lab Results 09/11/19 16:08: Influenza Type A Ag Negative, Influenza Type B Ag Negative 09/11/19 16:08: Strep Scn Rapid Clinic Negative Orders (Tests/Meds): ORDERS Category Date Time Status SARS-CoV-2, JULEE ([place]) Stat Lab 09/11/19 16:25 Received Strep Screen Confirmation Stat Micro 09/11/19 16:08 [place] [facility] [place] - General Stated complaint: Wants COVI test Time Seen by Provider: 09/11/19 16:15 Mode of Arrival: Ambulatory Source of Information: Patient Limitations: No Limitations Description of Symptoms (Recalled from Triage Doc. by RN): PATIENT C/O HEADACHE, FEVER (103 AT HOME), AND BODY ACHES SINCE YESTERDAY HEENT Symptoms (Recalled from RN notes): Yes Resp Symptoms (Recalled from RN notes): No Skin Symptoms (Recalled from RN notes): No MS Symptoms (Recalled from RN notes): Yes Functional Status (Recalled from RN notes): WNL - History of Present Illness Provider Complaint: She c/o body aches, chilling and fever up to 101.4 since yesterday. She denies any known contact with anyone with COVID-19. She also c/o a dry cough. - Related Data Home Medications Medication Instructions Recorded Confirmed Albuterol Sulfate [Albuterol 2.5 mg IH DAILY PRN 05/13/18 08/20/19 Sulfate 2.5mg/0.5ml Neb] Buprenorphine HCl/Naloxone HCl 1 each SL DAILY 07/07/18 08/20/19 [Suboxone 8 mg-2 mg Sl Film] Previous Rx's Medication Instructions Recorded Azithromycin [Z-Nolberto 250mg Tab*] 250 mg PO UD DOSE PK #6 tab 09/11/19 Benzonatate [Tessalon Perle 100mg 100 mg PO TIDP PRN #30 cap 09/11/19 Cap] Allergies Allergy/AdvReac Type Severity Reaction Status Date / Time Penicillins Allergy Verified 08/20/19 14:03 - Worker's Comp Is this a Worker's Comp case?: No [facility] History - Hepatitis A Screen Drug use history?: No High risk sexual behaviors?: No History of sexually transmitted infection?: No Currently employed?: No Childcare worker?: No Do you have indoor plumbing?: Yes Do you have electricity?: Yes Attestation statement:: This patient has been screened for Hepatitis A risk factors. I have reviewed the patient's past medical history: Yes Medical History: Reports:: Asthma, Cancer, Chronic Obstructive Pulmonary Disease (COPD), Hyperlipidemia, Hypertension, Lung Disease, Myocardial Infarction Denies:: Coronary Artery Disease, Diabetes Mellitus Type 1, Diabetes
[2019-09-11 16:37] VITALS: BP 105/72; PULSE 86; RESP 20; TEMP 36.8; O2SAT 95
[2019-09-11 16:41] LABS: UTC Influenza A Antigen Negative (Negative); UTC Strep Screen (Rapid) Negative (Negative)
[2019-09-11 16:42] LABS: UTC Influenza B Antigen Negative (Negative)
[2019-09-13 08:28] LABS: Covid-19 Nasal PCR Sendout UK NOT DETECTED
== END 2019-09-11 16:43 | disposition home or self-care (01) ==
PROVIDERS: Emergency Provider Nurse Practitioner Family; PCP Family Medicine
DX: B34.9 Viral infection, unspecified (principal); J20.9 Acute bronchitis, unspecified; Z03.818 Encounter for observation for suspected exposure to other biological agents ruled out; J44.9 Chronic obstructive pulmonary disease, unspecified; E78.5 Hyperlipidemia, unspecified; I10 Essential (primary) hypertension; I25.2 Old myocardial infarction; F17.210 Nicotine dependence, cigarettes, uncomplicated; Z88.0 Allergy status to penicillin; Z79.899 Other long term (current) drug therapy
CPT/HCPCS: 87804; 87880; 99202; U0003

== ENCOUNTER → 2019-10-25 12:44 | Outpatient (CLI) | payer OTHER, SELFPAY ==
--- NOTE | 2019-10-25 12:49 | US_ITS ---
PROCEDURE: US TRANSVAGINAL CLINICAL INDICATION: Follow up to Rt. ovarian cyst COMPARISON: CT CT ABDOMEN PELVIS W CON from 07/26/2019 US US TRANSVAGINAL from 08/20/2019 FINDINGS: Prior hysterectomy. Complex right ovarian cyst once again noted measuring 5 x 3 cm not significantly changed. The cyst does contain some internal septations. What appears to represent a left ovary is also noted measuring 3.6 x 2 cm. The right ovary measures 5 4 cm. No cul-de-sac fluid. IMPRESSION: Overall no change in the complex right ovarian cyst at 5 x 3 cm Dictated by: Bhavesh Rodas MD 10/26/2019 13:17 Bhavesh Rodas MD in [place] 10/26/2019 13:17
== END ==
PROVIDERS: PCP Family Medicine; Visit Provider Nurse Practitioner Obstetrics & Gynecology
DX: N83.209 Unspecified ovarian cyst, unspecified side (principal)
CPT/HCPCS: 76830

== ENCOUNTER 2019-10-28 09:20 | Outpatient (CLI) | payer OTHER, SELFPAY ==
--- NOTE | 2019-10-28 | CT_ITS ---
PROCEDURE: CT CHEST WO/W CON CLINCAL INDICATION: COLON CANCER FOLLOW UP, COLON CA LUNG NODULE RLQ PAIN RIGHT OVARIAN CYST SEEN ON US, 10/25/19 NO TREATMENTS AT THIS TIME 75ML OPTIRAY 350, REDICAT PRIOR 07/26/19 COMPARISON: CT CT CHEST W CON from 07/26/2019 TECHNIQUE: IV Contrast: 75ml Optiray 350 Axial images obtained with sagittal and coronal reformats. All CT scans at the facility use one or more dose reduction, viz: automated exposure control, ma/kV adjustment per patient size (including targeted exams where dose is matched to indication, i.e. head), or iterative reconstruction technique. FINDINGS: HEART AND MEDIASTINAL STRUCTURES: Or catheter is present from left subclavian approach. No mediastinal or hilar mass or adenopathy. LUNGS AND PLEURAL SPACES: No suspicious pulmonary nodules are evident. There is evidence of old granulomatous disease BONY STRUCTURES: No acute bony abnormalities apparent. UPPER ABDOMEN: Unremarkable. ADDITIONAL FINDINGS: No other significant abnormalities. IMPRESSION: Stable CT appearance of the chest. No convincing evidence of metastatic disease. Dictated by: Bhavesh Rodas MD 10/29/2019 08:28 Bhavesh Rodas MD in [place] 10/29/2019 08:28
--- NOTE | 2019-10-28 | CT_ITS ---
PROCEDURE: CT ABDOMEN PELVIS WO/W CON CLINICAL INDICATION: COLON CANCER FOLLOW UP, COLON CA LUNG NODULE RLQ PAIN RIGHT OVARIAN CYST SEEN ON US, 10/25/19 NO TREATMENTS AT THIS TIME 75ML OPTIRAY 350, REDICAT PRIOR 07/26/19 COMPARISON: CT ABDPELW CT abdomen pelvis w con from 01/06/[address] abdomen pelvis w con from 08/05/[address] CHEST WO/W CON from 02/22/[address] ABDOMEN PELVIS W CON from 07/26/[address] CHEST WO/W CON from 10/28/2019 TECHNIQUE: IV Contrast: 75ML OPTIRAY 350 Oral Contrast None Axial images obtained with sagittal and coronal reformats. All CT scans at the facility use one or more dose reduction, viz: automated exposure control, ma/kV adjustment per patient size (including targeted exams where dose is matched to indication, i.e. head), or iterative reconstruction technique. FINDINGS: LOWER THORAX: No acute finding ABDOMEN & PELVIS: Fatty liver noted. There are 2 small areas of nonspecific enhancement in the right hepatic lobe in segment 6 not significantly changed. These are of questionable clinical significance. The spleen, adrenal glands, pancreas, and kidneys have an unremarkable appearance. Unremarkable appearing gallbladder. There is a moderate amount of retained colonic feces. There has been a prior right hemicolectomy with patent anastomosis. There are few scattered small mesenteric lymph nodes. A septated cystic mass is present in the right adnexa unchanged at 4.6 cm. There has been a prior hysterectomy. No acute bony findings. There is a small sclerotic focus in the proximal femoral shaft on the left. There is a small umbilical hernia containing fat. IMPRESSION: 1. Stable CT appearance of the abdomen and pelvis. 2. No change 2 small areas of ill-defined contrast enhancement in segment 6 right hepatic lobe. Continued follow-up suggested. 3. No change complex cystic right adnexal mass Dictated by: Bhavesh Rodas MD 10/29/2019 08:45 Bhavesh Rodas MD in [facility] 10/29/2019 08:45
[2019-10-28 09:43] VITALS: BMI 27.8
== END 2019-10-28 12:40 | disposition home or self-care (01) ==
LOC: RAD 09:21 → INF 09:32
PROVIDERS: PCP Family Medicine; Visit Provider Internal Medicine Medical Oncology
DX: C18.9 Malignant neoplasm of colon, unspecified (principal); R06.02 Shortness of breath
CPT/HCPCS: 71270; 74178; 96374; J1642; Q9967

== ENCOUNTER 2019-12-13 11:25 | Outpatient (CLI) | payer OTHER, SELFPAY | END 2019-12-13 11:50 | disposition home or self-care (01) | LOC: INF 11:36 | PROVIDERS: PCP Family Medicine; Visit Provider Surgery | DX: C18.9 Malignant neoplasm of colon, unspecified (principal); Z45.2 Encounter for adjustment and management of vascular access device | CPT/HCPCS: J1642 ==

== ENCOUNTER 2019-12-14 08:35 | Day surgery (SDC) | payer OTHER, SELFPAY ==
[2019-12-13 10:06] VITALS: BMI 27.6
[2019-12-14 08:54] VITALS: BP 143/85; PULSE 82; RESP 16; TEMP 36.1; O2SAT 100
--- NOTE | 2019-12-14 08:57 | HMH.ANESCL ---
[facility] Anesthesia Checklist - Patient Identification Patient Identification: Arm Band, Verbal (Name & ) - Structural Data Admitted From: Home Planned Operative Procedure/s: colon Consent for Planned Operative Procedure(s) Verified: Yes Verified Documents: History and Physical - NPO Status Verified Time NPO: 00:00 - Additional verifications Patient : No Anesthesia Reactions: No Hx Blood Transfusions: No Blood Transfusion Reaction: No Cephalosporin Allergy: No Previous Colonoscopy: No - Cardiovascular Assessment Heart Sounds: S1 & S2 Pulse Strength: Baseline Pulse Rhythm: Regular Peripheral Edema: No - Airway Assessment C-Spine Mobility Assessed: Yes TMJ Mobility Assessed: Yes Dentition: Good Dentition - Neurological Assessment Level of Consciousness: Awake, Alert, Appropriate Hx Seizures: No Numbness or tingling in extremities: No - Anesthesia Plan Anesthesia Risk discussed: Yes Anesthesia Plan: Verified ASA Class: III Anesthesia Type: MAC [facility] History I have reviewed the patient's past medical history: Yes Medical History: Reports:: Asthma, Cancer (colon), Chronic Obstructive Pulmonary Disease (COPD), Hyperlipidemia, Hypertension, Lung Disease, MRSA, Myocardial Infarction Denies:: Coronary Artery Disease, Diabetes Mellitus Type 1, Diabetes Mellitus Type 2, Internal Pacemaker, Seizures *Have you ever received a pneumonia vaccine?: No *Have you received a flu vaccine this season?: No Other Medical History: Reports: Anemia, Other. Denies: Blood Transfusion Reaction Anesthesia experience/problems:: none Laterality Cases: Bilateral: Myringotomy (Ear Tubes), Tonsillectomy Other Surgeries: Yes: Appendectomy, Cancer Surgery, Colonoscopy, Colon Resection, Hysterectomy-Total, Hysterectomy-Partial, Other. No: Pacemaker Amputation: No Fractures: No - *Social History Last grade of school completed: 11th or 12th Smoking Status: Former smoker Tobacco Type: cigarettes # Packs/Day (cigarettes): 1 #Yrs smoked (if former smoker): 30 Alcohol Intake: never Alcohol Intake Frequency:: other Substance Use Type: painkillers *Occupational Status:: unemployed Housing: house Household Members: spouse, family *Travel in the last 8 weeks: None Family Hx:: No significant family history
[2019-12-14 09:05] VITALS: O2SAT 100
--- NOTE | 2019-12-14 09:52 | HMH.SCOPE ---
- Procedure: Date: 12/14/19 Patient Date of :: 1965 Procedure Performed:: Total colonoscopy with biopsies and polypectomy Indications:: Presents for follow-up colonoscopy. She is a very pleasant 53-year-old female whom I had performed extended right hemicolectomy with en bloc resection of small bowel and abdominal wall on 07/06/2018. 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 She did have a port placed. She had adverse reaction to chemotherapy, cycle 1, and had significant diarrhea and facial numbness. She has been on Xeloda. She is cared for by Dr. Lisette Hudson. Plan was for a follow-up colonoscopy 1 year after her surgery. However, the patient states that she had noticed some gross blood in the stool. She states that it started out fresh and then she noted blood within the stool itself. She has had some left lower quadrant discomfort. Therefore plan was for expedited colonoscopy although this had to be delayed for the COVID pandemic. Colonoscopy was performed 07/27/19 and there were no obvious masses or lesions but she had a very poor preparation. It turns out that she had a CT scan of the chest abdomen and pelvis the day before with oral contrast and was told that this would be acceptable to do the day before her bowel prep and colonoscopy. I therefore recommended repeat colonoscopy in several months. She denies any rectal bleeding. Does state that she has had nausea. She does have chronic constipation and is on Suboxone. Performing Provider:: Raffaele Mcrae MD Referring Provider:: Julien White MD Sedation:: MAC sedation Procedure:: Patient was taken to endoscopy procedure room. She was positioned in lateral decubitus position. Adequate intravenous sedation was achieved. Digital examination was performed which revealed normal sphincter tone. Variable stiffness Olympus colonoscope was inserted via the anus. She was found to have very poor colonic preparation. Colonoscope was ultimately able to be advanced to the ileocolic anastomosis. Colonic preparation was poor to fair. There is some minor inflamed mucosa at the anastomosis and this was biopsied with cold biopsy forceps. There was a focal area of prominent mucosa in the ileum and this was biopsied with cold biopsy forceps. Colonoscope was withdrawn through the colon. Thorough irrigation and suctioning was performed which allowed for fair visualization. Within the rectum there was a hyperplastic appearing polyp. This was removed with cold biopsy forceps. Colonoscope was withdrawn. Findings:: Fair to poor colonic preparation Minimal inflammation at the anastomosis Focal area of prominent mucosa in the ileum Probable hyperplastic rectal polyp Recommendations:: Repeat colonoscopy 1 year given the markedly suboptimal colonic preparation Complications:: None immediately apparent Estimated blood obtained (mL): 2
[2019-12-14 09:55] VITALS: BP 110/54; PULSE 75; RESP 16; TEMP 36.2; O2SAT 97
[2019-12-14 10:05] VITALS: BP 132/94; PULSE 73; RESP 16; TEMP 36.2; O2SAT 97
[2019-12-14 10:15] VITALS: BP 134/79; PULSE 64; RESP 18; TEMP 36.2; O2SAT 97
[2019-12-14 10:32] VITALS: BP 121/82; PULSE 66; RESP 18; TEMP 36.2; O2SAT 97
== END 2019-12-14 10:32 | disposition home or self-care (01) ==
LOC: OUTP 08:36
PROVIDERS: PCP Family Medicine; Visit Provider Surgery
PROC: 0DJD8ZZ Inspection of Lower Intestinal Tract, Via Natural or Artificial Opening Endoscopic (ICD-10-PCS; CPT 45380; principal; 2019-12-14 09:30)
DX: Z12.11 Encounter for screening for malignant neoplasm of colon (principal); K63.89 Other specified diseases of intestine; Z90.49 Acquired absence of other specified parts of digestive tract; Z85.038 Personal history of other malignant neoplasm of large intestine; J44.9 Chronic obstructive pulmonary disease, unspecified; E78.5 Hyperlipidemia, unspecified; I10 Essential (primary) hypertension; I25.2 Old myocardial infarction; Z86.14 Personal history of Methicillin resistant Staphylococcus aureus infection; D64.9 Anemia, unspecified; Z90.89 Acquired absence of other organs; Z96.22 Myringotomy tube(s) status
CPT/HCPCS: 45380; J1642

== ENCOUNTER → 2020-01-07 10:18 | Outpatient (CLI) | payer OTHER, SELFPAY ==
[2020-01-07 11:46] LABS: Basophils # 0.1 K/mm3 (0-0.2); Basophils % 1.1 % (0.1-2.0); Eosinophils # 0.6 K/mm3 (0.0-0.4); Hematocrit 44.3 % (37.0-47.0); Hemoglobin 14.5 g/dL (12.2-16.2); Lymphocytes # 1.9 K/mm3 (0.7-4.5); Lymphocytes % 27.2 % (10-50); Mean Corpuscular HGB Conc 32.6 g/dL (31.8-35.4); Mean Corpuscular Volume 88.9 fl (81-99); Mean Platelet Volume 8.2 fl (7.4-10.4); Monocytes # 0.5 K/mm3 (0.1-1.0); Monocytes % 7.5 % (1.7-9.3); Neutrophils # 3.9 K/mm3 (1.8-7.8); Neutrophils % 56.2 % (37.0-80.0); Platelet Count 267 K/mm3 (142-424); Red Blood Count 4.99 M/mm3 (4.20-5.40); Red Cell Distribution Width 13.7 % (11.5-17.5)
[2020-01-07 14:41] LABS: Alanine Aminotransferase 27 U/L (12-78); Albumin Level 4.2 g/dl (3.5-5.0); Albumin/Globulin Ratio 1.4 (1.1-1.8); Alkaline Phosphatase 126 U/L (38-126); Anion Gap 12.6 mEq/L (5-15); Aspartate Amino Transferase 35 U/L (14-36); Bilirubin,Total 0.3 mg/dl (0.2-1.3); Blood Urea Nitrogen 15 mg/dl (7-17); Calcium 9.8 mg/dl (8.4-10.2); Carbon Dioxide 29 mmol/L (22.0-30.0); Chloride 99 mmol/L (98-107); Estimated Glomerular Filt Rate 58 ml/min (>60); GFR (African American) 70 ML/MIN (>60); Globulin 3.1 g/dL (1.3-3.2); Glucose 82 mg/dl (74-100); Potassium 4.6 mmoL/L (3.5-5.1); Sodium 136 mmol/L (136-145); Total Protein,Serum 7.3 g/dl (6.3-8.2)
== END ==
PROVIDERS: Visit Provider Family Medicine
DX: C18.9 Malignant neoplasm of colon, unspecified (principal)
CPT/HCPCS: 36415; 80053; 85025

== ENCOUNTER → 2020-03-06 13:02 | Outpatient (CLI) | payer OTHER, SELFPAY | PROVIDERS: PCP Family Medicine; Visit Provider Nurse Practitioner Obstetrics & Gynecology | DX: N83.209 Unspecified ovarian cyst, unspecified side (principal) ==

== ENCOUNTER → 2020-04-21 14:43 | Outpatient (CLI) | payer OTHER, SELFPAY ==
--- NOTE | 2020-04-21 14:43 | US_ITS ---
PROCEDURE: US TRANSVAGINAL CLINICAL INDICATION: pelvic pain Follow-up ovarian cyst COMPARISON: US US TRANSVAGINAL from 10/25/2019 FINDINGS: There has been a prior hysterectomy. There is a complex septated right ovarian cyst which measures 5.3 by 3.2 cm. This is not significantly changed. No pelvic fluid. The left ovary is not identified. IMPRESSION: No change 5 x 3 cm complex right ovarian cyst. Dictated by: Bhavesh Rodas MD 04/21/2020 17:39 Bhavesh Rodas MD in [facility] 04/21/2020 17:39
== END ==
PROVIDERS: PCP Family Medicine; Visit Provider Nurse Practitioner Obstetrics & Gynecology
DX: R10.2 Pelvic and perineal pain (principal)
CPT/HCPCS: 76830

== ENCOUNTER 2023-10-11 18:18 | Emergency (ER) | payer OTHER, SELFPAY ==
[2023-10-11] VITALS (10 sets, daily range): BP systolic 129–163; BP diastolic 69–99; PULSE 75–105; RESP 19–20; TEMP 36.6–36.7; O2SAT 84–100; BMI 25.7
--- NOTE | 2023-10-11 19:01 | CT_ITS ---
PROCEDURE INFORMATION: Exam: CT Abdomen And Pelvis With Contrast Exam date and time: 10/11/2023 8:31 PM Age: 57 years old Clinical indication: Abdominal pain; Additional info: Llq pain, prev colon cancer resected, tender TECHNIQUE: Imaging protocol: Computed tomography of the abdomen and pelvis with contrast. Radiation optimization: All CT scans at this facility use at least one of these dose optimization techniques: automated exposure control; mA and/or kV adjustment per patient size (includes targeted exams where dose is matched to clinical indication); or iterative reconstruction. Contrast material: ISOVUE; Contrast volume: 75 ml; Contrast route: IV; COMPARISON: CT ABDOMEN PELVIS WO/W CON 10/28/2019 10:28 AM FINDINGS: Lungs: Minor dependent change of the left lung base. No airspace disease. Pleural spaces: No pleural fluid or pneumothorax. Heart: Heart size is normal. Liver: Normal configuration. Homogeneous parenchyma. Gallbladder and biliary ducts: No regional inflammation. No calcified stones. No ductal dilation. Pancreas: Normal. No ductal dilation. Spleen: Normal. No splenomegaly. Adrenal glands: Normal configuration. Kidneys and ureters: Intrarenal calculus right kidney. No evidence of pyelonephritis, solid mass, or obstruction. Stomach and bowel: Prior ascending colectomy with patent ileocolic anastomosis. Fluid-filled stomach. Normal caliber small bowel. Appendix: Appendix is surgically absent. Intraperitoneal space: No free air. No significant fluid collection. Vasculature: Normal caliber abdominal aorta with mild to moderate calcific plaque. Lymph nodes: No enlarged lymph nodes. Urinary bladder: Unremarkable as visualized. Reproductive: Prior hysterectomy. Cystic mass in the right adnexa measures 8.7 x 3.7 x 3.9 cm, increased when compared to prior exam in 2019. There is a new mixed cystic and solid mass centered in the left adnexa with heterogeneous calcifications and multiple loculations. Overall mass measures 10.2 x 9.2 x 9.1 cm are noted contiguous with the gonadal vessels. Bones/joints: No destructive bony lesions. Soft tissues: Unremarkable. IMPRESSION: There has been interval development of a malignant-appearing mass arising from the left adnexa measuring 10.2 cm maximal diameter. There has also been enlargement a simple appearing cystic mass in the right adnexa. No visible metastatic disease. In particular, there is no regional adenopathy, ascites, or visible peritoneal implants.
--- NOTE | 2023-10-11 19:01 | ECG_ITS ---
APPROVED REPORT Exam: Resting ECG HR:88 bpm ECG Measurements Heart Rate 88 AXES SC 151 P 69 QRSd 85 QRS 73 QT 335 T 64 QTc 380 Conclusion SINUS RHYTHM NORMAL ECG Electronically signed by : PB FONG, 10/12/2023 03:41:35
--- NOTE | 2023-10-11 19:04 | ED_ITS ---
Discharge Plan Disposition Patient Disposition: Home, Self-Care Condition: Good Prescriptions Prescriptions: New oxycodone 5 mg tablet 5 mg PO Q8H PRN (Reason: pain) Qty: 9 0RF oxycodone 5 mg tablet 5 mg PO Q6H PRN (Reason: pain) Qty: 10 0RF No Action black bird xt-dong quai xt 75-50 mg capsule 1 cap PO DAILY albuterol sulfate 90 mcg/actuation HFA aerosol inhaler 1 inh INHALATION QID PRN (Reason: shortness of breath or wheezing) Qty: 6.7 2RF estradiol 1 mg tablet See Rx Instructions .ROUTE .COMPLEX Qty: 30 2RF Dose Instruction: TAKE ONE TABLET BY MOUTH EVERY DAY Rx Instructions: TAKE ONE TABLET BY MOUTH EVERY DAY peg 3350-electrolytes 4,000 ML recon soln 240 ml PO Q10M Rx Instructions: until fecal effluent is clear; do not exceed a total volume [id number] mL budesonide-formoterol 10.2 GM HFA aerosol inhaler 2 puff INHALATION BID sodium,potassium,mag sulfates 177 ML recon soln 480 ml PO .COMPLEX Rx Instructions: 480 mL PO; buprenorphine-naloxone 1 EACH film 1 each SL DAILY Patient Comments: CONFIRMED WITH [facility] Rx Instructions: CONFIRMED WITH [facility] Referrals Follow up/Referrals: Julien White MD [Primary Care Provider] - See instructions Taran Serrano MD [Staff Physician] - See instructions (adnexal mass, has seen you previously) Antonette Ritter DO [Staff Physician] - See instructions (malignant-appearing mass arising from the left adnexa measuring 10.2 cm maximal diameter) Arturo Gutierres MD [Staff Physician] - See instructions (Likely reoccurrence of cancer, adnexal mass) Activity Restrictions/Add. Instructions Additional Instructions/Restrictions: You were evaluated in the ER and are appropriate for discharge at this time. Take Tylenol, ibuprofen at home if needed for pain. If these do not control your symptoms, then take the oxycodone. Only take the oxycodone for severe, breakthrough pain. This medication may make you constipated, take a stool softener or laxative if needed. Do not drive or operate machinery after taking this medication as it may make you sleepy. Follow-up with [facility] and with oncology as soon as possible for reevaluation and to continue evaluating this mass. Also follow-up with your primary care doctor. Return to the ER with new, worsening, or otherwise concerning symptoms. Clinical Impressions Clinical Impression: Abdominal pain, Adnexal mass Print Language Print Language: Tanzanian Discharge ED Provider: Andrey Jordan General Adult HPI <Artemio Taylor MD - Last Filed: 10/11/23 19:11> General Chief complaint: PAIN Stated complaint: Pain in left side,nausea Time Seen by Provider: 10/11/23 18:44 Mode of Arrival: Ambulatory Source of Information: Patient Limitations: No Limitations Description of Symptoms (Recalled from ER Triage Doc. by RN): pt presents to ED with c/o left sided pelvic pain. pt reports symptoms ongoing for the past month, but for the past 3-4 days pain has gotten worse. History of Present Illness HPI narrative: Patient is a 57-year-old female with past medical history of colon cancer status postresection, previous hysterectomy right-sided oopherectomy who presents emergency department for evaluation of left lower quadrant abdominal pain. Onset was acute, few weeks ago. Patient was lifting a trailer when she felt a pop in her left lower quadrant with associated pain that has waxed and waned however has crescendoed over the last 3 days causing her to present here for continued evaluation. No dysuria, normal stooling, no vomiting. Pain is tender. No back pain throughout the course. She has had a previous report of having a cyst on her left ovary which was undergoing observation as they were of the opinion that it was not malignant with relation to her previous cancer history. No other acute complaints at this time. Related Data Home Medications ?Medication ?Instructions ?Recorded ?Confirmed buprenorphine 8 mg-naloxone 2 mg 1 each SL DAILY ADDICTION 07/07/18 12/13/19 sublingual film black cohosh xt-dong quai xt 75 1 cap PO DAILY Supplement 10/04/19 12/13/19 mg-50 mg capsule budesonide-formoterol HFA 160 2 puff inhalation BID COPD 12/08/19 12/13/19 mcg-4.5 mcg/actuation aerosol inhaler peg 3350 240 gram-electrolytes 240 ml PO Q10M bowel prep 12/08/19 12/13/19 22.72 gram-6.72 g-5.84 g powdr for soln sodium,potassium,mag sulfates 17.5 480 ml PO .COMPLEX bowel prep 12/08/19 12/13/19 gram-3.13 gram-1.6 gram oral soln Previous Rx's ?Medication ?Instructions ?Recorded albuterol sulfate 90 mcg/actuation 1 inh inhalation QID PRN shortness 11/12/19 aerosol inhaler of breath or wheezing #6.7 grams estradiol 1 mg tablet See Rx Instructions .Route 05/29/20 .COMPLEX #30 tabs oxycodone 5 mg tablet 5 mg PO Q6H PRN pain #10 tabs 10/11/23 oxycodone 5 mg tablet 5 mg PO Q8H PRN pain #9 tabs 10/11/23 Allergies Allergy/AdvReac Type Severity Reaction Status Date / Time Penicillins Allergy Verified 12/14/19 08:53 PFS <Artemio Taylor MD - Last Filed: 10/11/23 19:11> [facility] Disclaimer: The information contained in this section may have been updated after the patient was seen, as this information can be updated by other users. 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 [employer] current occupational exposures/hazards: No caffeine: Yes <Artemio Taylor MD - Last Filed: 10/11/23 19:11> ROS Obtained: Yes Systems reviewed as appropriate & no additional complaints except as documented Physical Exam <Artemio Taylor MD - Last Filed: 10/11/23 19:11> General General appearance: alert and in no apparent distress Head Head exam: atraumatic and normocephalic Eye Eye exam: Present PERRL and EOMI ENT ENT exam: Present mucous membranes moist Neck Neck exam: Present normal inspection Chest Chest inspection: Present normal inspection and symmetric chest wall rise Respiratory Respiratory exam: Present normal lung sounds bilaterally; Absent respiratory distress Cardiovascular Cardiovascular exam: Present regular rate and normal rhythm Abdominal Exam Abdominal exam: Present soft, distention (Palpable fullness left lower quadrant compared to the right lower quadrant), tenderness (Left lower quadrant) and guarding (Voluntary); Absent rebound or rigidity Extremities Exam Extremities exam: Present normal inspection Neurological Exam Neurological exam: Present alert Psychiatric Psychiatric exam: Present normal affect Skin Skin exam: Present warm and dry Medical Decision Making <Artemio Taylor MD - Last Filed: 10/11/23 19:11> Navi Inquiry Pt receiving controlled substance: No Vital Signs: 10/11/23 18:20 10/11/23 18:32 10/11/23 19:00 Temperature 98.1 F Temperature Source Oral Pulse Rate 104 H 89 Pulse Rate [Left Radial] 105 H Respiratory Rate 19 Blood Pressure 145/96 H 155/90 H Blood Pressure [Right Arm] 145/96 H Blood Pressure Mean 101 Blood Pressure Mean [Right Arm] 112 Blood Pressure Source Blood Pressure Position 02 Sat by Pulse Oximetry 100 100 100 Oxygen Delivery Method Room Air 10/11/23 19:31 10/11/23 19:36 10/11/23 20:00 Temperature Temperature Source Pulse Rate 82 87 80 Pulse Rate [Left Radial] Respiratory Rate 20 Blood Pressure 154/90 H 154/90 H 149/91 H Blood Pressure [Right Arm] Blood Pressure Mean 102 105 Blood Pressure Mean [Right Arm] Blood Pressure Source Automatic Cuff Blood Pressure Position Supine 02 Sat by Pulse Oximetry 100 100 84 L Oxygen Delivery Method Room Air 10/11/23 21:00 10/11/23 21:30 10/11/23 22:00 Temperature Temperature Source Pulse Rate 85 76 85 Pulse Rate [Left Radial] Respiratory Rate Blood Pressure 145/84 H 129/69 163/99 H Blood Pressure [Right Arm] Blood Pressure Mean Blood Pressure Mean [Right Arm] Blood Pressure Source Blood Pressure Position 02 Sat by Pulse Oximetry 100 99 97 Oxygen Delivery Method Room Air Room Air Room Air 10/11/23 22:48 Temperature 98 F Temperature Source Oral Pulse Rate 75 Pulse Rate [Left Radial] Respiratory Rate 20 Blood Pressure 145/84 H Blood Pressure [Right Arm] Blood Pressure Mean Blood Pressure Mean [Right Arm] Blood Pressure Source Automatic Cuff Blood Pressure Position Sitting 02 Sat by Pulse Oximetry Oxygen Delivery Method Room Air Lab Data Lab Results 10/11/23 18:39: WBC 9.5, RBC 5.16, Hgb 13.7, Hct 43.5, MCV 84.2, MCH 26.6 L, M CHC 31.6 L, RDW 14.7, Plt Count 370, MPV 7.5, Neut % (Auto) 71.5, Lymph % (Auto) 19.2, [place] % (Auto) 4.6, Eos % (Auto) 4.1, Baso % (Auto) 0.7, Neut # (Auto) 6.8, Lymph # (Auto) 1.8, [place] # (Auto) 0.4, Eos # (Auto) 0.4, Baso # (Auto) 0.1, Sodium 137, Potassium 3.9, Chloride 103, Carbon Dioxide 28, Anion Gap 9.9, BUN 19 H, Creatinine 1.00, Estimated Creat Clear 67, Estimated GFR 57 L, Est GFR ( Amer) 69, Glucose 120 H, Calcium 9.5, Total Bilirubin 0.5, AST 34, ALT 27, Alkaline Phosphatase 129 H, Total Protein 8.1, Albumin 4.3, Globulin 3.8 H, Albumin/Globulin Ratio 1.1, Lipase 114 10/11/23 19:03: Urine Color Yellow, Urine Appearance Clear, Urine pH 6.0, Ur Specific [place] >= 1.030, Urine Protein Negative, Urine Glucose (UA) Negative, Urine Ketones Negative, Urine Blood Negative, Urine Nitrate Negative, Urine Bilirubin Negative, Urine Urobilinogen 0.2, Ur Leukocyte Esterase Negative, Urine RBC None, Urine WBC 3-5, Ur Squamous Epith Cells 5-10, Urine Bacteria 1+ 10/11/23 18:39 10/11/23 18:39 Orders (Tests/Meds): ED MEDICATIONS Discontinued Medications Generic Name Dose Route Start Last Admin Trade Name Freq PRN Reason Stop Dose Admin Acetaminophen 1,000 mg 10/11/23 19:01 10/11/23 19:08 Acetaminophen 1,000mg/100ml Vial IV 10/11/23 19:02 1,000 mg ONCE ONE Administration Lactated Ringer's 1,000 mls @ 999 mls/hr 10/11/23 19:03 10/11/23 19:09 Lactated Ringer's 1000 Ml Bag IV 10/11/23 20:03 999 mls/hr .Q1H1M ONE Administration Iopamidol 75 ml 10/11/23 20:31 10/11/23 20:32 Iopamidol-370 (76%);100ml Bottle IV 10/11/23 20:32 75 ml ONCE ONE Administration Ketorolac Tromethamine 30 mg 10/11/23 19:01 10/11/23 19:08 Ketorolac 30mg/Ml Vial IV 10/11/23 19:02 30 mg ONCE ONE Administration Morphine Sulfate 4 mg 10/11/23 19:01 10/11/23 19:08 Morphine 4mg/Ml Syringe IV 10/11/23 19:02 4 mg ONCE ONE Administration Ondansetron HCl 4 mg 10/11/23 19:01 10/11/23 19:08 Ondansetron 4mg/2ml Vial IV 10/11/23 19:02 4 mg ONCE ONE Administration Sodium Chloride 10 ml 10/11/23 20:31 10/11/23 20:32 Sodium Chloride 0.9% 10ml Syr (Rad Only) IV 10/11/23 20:32 10 ml ONCE ONE Administration ORDERS Category Date Time Status CT abdomen pelvis w con Stat Cat Scan 10/11/23 19:01 Completed CBC w/Auto Diff [Complete Blood Count Auto Diff] Stat Lab 10/11/23 18:39 Completed CMP [Comprehensive Metabolic Panel] Stat Lab 10/11/23 18:39 Completed Lipase Stat Lab 10/11/23 18:39 Completed UA [Urinalysis and Microscopic] Stat Lab 10/11/23 19:03 Completed EKG Request [ECG Request] Stat Y 10/11/23 19:01 Ordered ECG Data Tracing #1: Independently interpreted by me rate is 88, rhythm is regular, axis is normal, no ST elevation in anatomical contiguous leads, QTc 380, sinus tachycardia Medical Decision Narrative: In summary patient is a 57-year-old female past medical history described above who presents emergency department for evaluation of abdominal pain in the setting of previous colon cancer status post resection, polycystic ovary status post hysterectomy and right-sided oophrectomy. Patient is hemodynamically stable nontoxic-appearing upon arrival, slight tachycardia, afebrile. Patient is tender left lower quadrant with palpable fullness. Differential diagnosis includes diverticulitis, malignancy, abscess, among others. Workup will be conducted with hematologic labs, urinalysis, CT abdomen pelvis with IV contrast. Initial interventions include crystalloid bolus, Tylenol, Toradol, morphine, Zofran. Workup and imaging was pending at time of transfer of care to the oncoming physician, Dr. Jordan. <Andrey Jordan, - Last Filed: 10/11/23 23:19> Medical Records Medical records reviewed: Yes I reviewed the patient's medical records. Vital Signs: 10/11/23 18:20 10/11/23 18:32 10/11/23 19:00 Temperature 98.1 F Temperature Source Oral Pulse Rate 104 H 89 Pulse Rate [Left Radial] 105 H Respiratory Rate 19 Blood Pressure 145/96 H 155/90 H Blood Pressure [Right Arm] 145/96 H Blood Pressure Mean 101 Blood Pressure Mean [Right Arm] 112 Blood Pressure Source Blood Pressure Position 02 Sat by Pulse Oximetry 100 100 100 Oxygen Delivery Method Room Air 10/11/23 19:31 10/11/23 19:36 10/11/23 20:00 Temperature Temperature Source Pulse Rate 82 87 80 Pulse Rate [Left Radial] Respiratory Rate 20 Blood Pressure 154/90 H 154/90 H 149/91 H Blood Pressure [Right Arm] Blood Pressure Mean 102 105 Blood Pressure Mean [Right Arm] Blood Pressure Source Automatic Cuff Blood Pressure Position Supine 02 Sat by Pulse Oximetry 100 100 84 L Oxygen Delivery Method Room Air 10/11/23 21:00 10/11/23 21:30 10/11/23 22:00 Temperature Temperature Source Pulse Rate 85 76 85 Pulse Rate [Left Radial] Respiratory Rate Blood Pressure 145/84 H 129/69 163/99 H Blood Pressure [Right Arm] Blood Pressure Mean Blood Pressure Mean [Right Arm] Blood Pressure Source Blood Pressure Position 02 Sat by Pulse Oximetry 100 99 97 Oxygen Delivery Method Room Air Room Air Room Air 10/11/23 22:48 Temperature 98 F Temperature Source Oral Pulse Rate 75 Pulse Rate [Left Radial] Respiratory Rate 20 Blood Pressure 145/84 H Blood Pressure [Right Arm] Blood Pressure Mean Blood Pressure Mean [Right Arm] Blood Pressure Source Automatic Cuff Blood Pressure Position Sitting 02 Sat by Pulse Oximetry Oxygen Delivery Method Room Air Lab Data Lab Results 10/11/23 18:39: WBC 9.5, RBC 5.16, Hgb 13.7, Hct 43.5, MCV 84.2, MCH 26.6 L, M CHC 31.6 L, RDW 14.7, Plt Count 370, MPV 7.5, Neut % (Auto) 71.5, Lymph % (Auto) 19.2, [place] % (Auto) 4.6, Eos % (Auto) 4.1, Baso % (Auto) 0.7, Neut # (Auto) 6.8, Lymph # (Auto) 1.8, [place] # (Auto) 0.4, Eos # (Auto) 0.4, Baso # (Auto) 0.1, Sodium 137, Potassium 3.9, Chloride 103, Carbon Dioxide 28, Anion Gap 9.9, BUN 19 H, Creatinine 1.00, Estimated Creat Clear 67, Estimated GFR 57 L, Est GFR ( Amer) 69, Glucose 120 H, Calcium 9.5, Total Bilirubin 0.5, AST 34, ALT 27, Alkaline Phosphatase 129 H, Total Protein 8.1, Albumin 4.3, Globulin 3.8 H, Albumin/Globulin Ratio 1.1, Lipase 114 10/11/23 19:03: Urine Color Yellow, Urine Appearance Clear, Urine pH 6.0, Ur Specific [place] >= 1.030, Urine Protein Negative, Urine Glucose (UA) Negative, Urine Ketones Negative, Urine Blood Negative, Urine Nitrate Negative, Urine Bilirubin Negative, Urine Urobilinogen 0.2, Ur Leukocyte Esterase Negative, Urine RBC None, Urine WBC 3-5, Ur Squamous Epith Cells 5-10, Urine Bacteria 1+ Orders (Tests/Meds): ED MEDICATIONS Discontinued Medications Generic Name Dose Route Start Last Admin Trade Name Freq PRN Reason Stop Dose Admin Acetaminophen 1,000 mg 10/11/23 19:01 10/11/23 19:08 Acetaminophen 1,000mg/100ml Vial IV 10/11/23 19:02 1,000 mg ONCE ONE Administration Lactated Ringer's 1,000 mls @ 999 mls/hr 10/11/23 19:03 10/11/23 19:09 Lactated Ringer's 1000 Ml Bag IV 10/11/23 20:03 999 mls/hr .Q1H1M ONE Administration Iopamidol 75 ml 10/11/23 20:31 10/11/23 20:32 Iopamidol-370 (76%);100ml Bottle IV 10/11/23 20:32 75 ml ONCE ONE Administration Ketorolac Tromethamine 30 mg 10/11/23 19:01 10/11/23 19:08 Ketorolac 30mg/Ml Vial IV 10/11/23 19:02 30 mg ONCE ONE Administration Morphine Sulfate 4 mg 10/11/23 19:01 10/11/23 19:08 Morphine 4mg/Ml Syringe IV 10/11/23 19:02 4 mg ONCE ONE Administration Ondansetron HCl 4 mg 10/11/23 19:01 10/11/23 19:08 Ondansetron 4mg/2ml Vial IV 10/11/23 19:02 4 mg ONCE ONE Administration Sodium Chloride 10 ml 10/11/23 20:31 10/11/23 20:32 Sodium Chloride 0.9% 10ml Syr (Rad Only) IV 10/11/23 20:32 10 ml ONCE ONE Administration ORDERS Category Date Time Status CT abdomen pelvis w con Stat Cat Scan 10/11/23 19:01 Completed CBC w/Auto Diff [Complete Blood Count Auto Diff] Stat Lab 10/11/23 18:39 Completed CMP [Comprehensive Metabolic Panel] Stat Lab 10/11/23 18:39 Completed Lipase Stat Lab 10/11/23 18:39 Completed UA [Urinalysis and Microscopic] Stat Lab 10/11/23 19:03 Completed EKG Request [ECG Request] Stat Y 10/11/23 19:01 Ordered Medical Decision Narrative: In summary patient is a 57-year-old female past medical history described above who presents emergency department for evaluation of abdominal pain in the setting of previous colon cancer status post resection, polycystic ovary status post hysterectomy and right-sided oophrectomy. Patient is hemodynamically stable nontoxic-appearing upon arrival, slight tachycardia, afebrile. Patient is tender left lower quadrant with palpable fullness. Differential diagnosis includes diverticulitis, malignancy, abscess, among others. Workup will be conducted with hematologic labs, urinalysis, CT abdomen pelvis with IV contrast. Initial interventions include crystalloid bolus, Tylenol, Toradol, morphine, Zofran. Workup and imaging was pending at time of transfer of care to the oncoming physician, Dr. Jordan. I assumed care this patient following Dr. Taylor. CT imaging and laboratory workup was pending. Laboratory workup and radiographic imaging independently reviewed and interpreted by myself. Laboratory workup grossly nonactionable. CT abdomen pelvis with contrast significant for mass concerning for malignancy of left adnexa, measuring 10.2 cm. No noted metastatic disease process per my review. This was discussed with patient who states that years ago she was seen by [facility] and told that she had a small spot on left ovary that was likely not cancer and they elected to survey at. Last time imaging was obtained was sometime in 2019. Shared decision making occurred and patient will follow-up with [facility], referral has been made. Patient to return to ED if symptoms worsen. Patient continued to have some pain. Patient care was signed over to oncoming physician, Dr. Pena, pending reassessment and final disposition. <Ashleigh Pena MD - Last Filed: 10/11/23 23:39> Navi Inquiry Pt receiving controlled substance: Yes Navi was queried for this patient: Yes Reference #:: [id number] Risks and benefits of using a controlled substance: were discussed with pt by me Vital Signs: 10/11/23 18:20 10/11/23 18:32 10/11/23 19:00 Temperature 98.1 F Temperature Source Oral Pulse Rate 104 H 89 Pulse Rate [Left Radial] 105 H Respiratory Rate 19 Blood Pressure 145/96 H 155/90 H Blood Pressure [Right Arm] 145/96 H Blood Pressure Mean 101 Blood Pressure Mean [Right Arm] 112 Blood Pressure Source Blood Pressure Position 02 Sat by Pulse Oximetry 100 100 100 Oxygen Delivery Method Room Air 10/11/23 19:31 10/11/23 19:36 10/11/23 20:00 Temperature Temperature Source Pulse Rate 82 87 80 Pulse Rate [Left Radial] Respiratory Rate 20 Blood Pressure 154/90 H 154/90 H 149/91 H Blood Pressure [Right Arm] Blood Pressure Mean 102 105 Blood Pressure Mean [Right Arm] Blood Pressure Source Automatic Cuff Blood Pressure Position Supine 02 Sat by Pulse Oximetry 100 100 84 L Oxygen Delivery Method Room Air 10/11/23 21:00 10/11/23 21:30 10/11/23 22:00 Temperature Temperature Source Pulse Rate 85 76 85 Pulse Rate [Left Radial] Respiratory Rate Blood Pressure 145/84 H 129/69 163/99 H Blood Pressure [Right Arm] Blood Pressure Mean Blood Pressure Mean [Right Arm] Blood Pressure Source Blood Pressure Position 02 Sat by Pulse Oximetry 100 99 97 Oxygen Delivery Method Room Air Room Air Room Air 10/11/23 22:48 Temperature 98 F Temperature Source Oral Pulse Rate 75 Pulse Rate [Left Radial] Respiratory Rate 20 Blood Pressure 145/84 H Blood Pressure [Right Arm] Blood Pressure Mean Blood Pressure Mean [Right Arm] Blood Pressure Source Automatic Cuff Blood Pressure Position Sitting 02 Sat by Pulse Oximetry Oxygen Delivery Method Room Air Lab Data Lab Results 10/11/23 18:39: WBC 9.5, RBC 5.16, Hgb 13.7, Hct 43.5, MCV 84.2, MCH 26.6 L, M CHC 31.6 L, RDW 14.7, Plt Count 370, MPV 7.5, Neut % (Auto) 71.5, Lymph % (Auto) 19.2, [place] % (Auto) 4.6, Eos % (Auto) 4.1, Baso % (Auto) 0.7, Neut # (Auto) 6.8, Lymph # (Auto) 1.8, [place] # (Auto) 0.4, Eos # (Auto) 0.4, Baso # (Auto) 0.1, Sodium 137, Potassium 3.9, Chloride 103, Carbon Dioxide 28, Anion Gap 9.9, BUN 19 H, Creatinine 1.00, Estimated Creat Clear 67, Estimated GFR 57 L, Est GFR ( Amer) 69, Glucose 120 H, Calcium 9.5, Total Bilirubin 0.5, AST 34, ALT 27, Alkaline Phosphatase 129 H, Total Protein 8.1, Albumin 4.3, Globulin 3.8 H, Albumin/Globulin Ratio 1.1, Lipase 114 10/11/23 19:03: Urine Color Yellow, Urine Appearance Clear, Urine pH 6.0, Ur Specific [place] >= 1.030, Urine Protein Negative, Urine Glucose (UA) Negative, Urine Ketones Negative, Urine Blood Negative, Urine Nitrate Negative, Urine Bilirubin Negative, Urine Urobilinogen 0.2, Ur Leukocyte Esterase Negative, Urine RBC None, Urine WBC 3-5, Ur Squamous Epith Cells 5-10, Urine Bacteria 1+ Orders (Tests/Meds): ED MEDICATIONS Discontinued Medications Generic Name Dose Route Start Last Admin Trade Name Freq PRN Reason Stop Dose Admin Acetaminophen 1,000 mg 10/11/23 19:01 10/11/23 19:08 Acetaminophen 1,000mg/100ml Vial IV 10/11/23 19:02 1,000 mg ONCE ONE Administration Lactated Ringer's 1,000 mls @ 999 mls/hr 10/11/23 19:03 10/11/23 19:09 Lactated Ringer's 1000 Ml Bag IV 10/11/23 20:03 999 mls/hr .Q1H1M ONE Administration Iopamidol 75 ml 10/11/23 20:31 10/11/23 20:32 Iopamidol-370 (76%);100ml Bottle IV 10/11/23 20:32 75 ml ONCE ONE Administration Ketorolac Tromethamine 30 mg 10/11/23 19:01 10/11/23 19:08 Ketorolac 30mg/Ml Vial IV 10/11/23 19:02 30 mg ONCE ONE Administration Morphine Sulfate 4 mg 10/11/23 19:01 10/11/23 19:08 Morphine 4mg/Ml Syringe IV 10/11/23 19:02 4 mg ONCE ONE Administration Ondansetron HCl 4 mg 10/11/23 19:01 10/11/23 19:08 Ondansetron 4mg/2ml Vial IV 10/11/23 19:02 4 mg ONCE ONE Administration Sodium Chloride 10 ml 10/11/23 20:31 10/11/23 20:32 Sodium Chloride 0.9% 10ml Syr (Rad Only) IV 10/11/23 20:32 10 ml ONCE ONE Administration ORDERS Category Date Time Status CT abdomen pelvis w con Stat Cat Scan 10/11/23 19:01 Completed CBC w/Auto Diff [Complete Blood Count Auto Diff] Stat Lab 10/11/23 18:39 Completed CMP [Comprehensive Metabolic Panel] Stat Lab 10/11/23 18:39 Completed Lipase Stat Lab 10/11/23 18:39 Completed UA [Urinalysis and Microscopic] Stat Lab 10/11/23 19:03 Completed EKG Request [ECG Request] Stat Y 10/11/23 19:01 Ordered Medical Decision Narrative: In summary patient is a 57-year-old female past medical history described above who presents emergency department for evaluation of abdominal pain in the setting of previous colon cancer status post resection, polycystic ovary status post hysterectomy and right-sided oophrectomy. Patient is hemodynamically stable nontoxic-appearing upon arrival, slight tachycardia, afebrile. Patient is tender left lower quadrant with palpable fullness. Differential diagnosis includes diverticulitis, malignancy, abscess, among others. Workup will be conducted with hematologic labs, urinalysis, CT abdomen pelvis with IV contrast. Initial interventions include crystalloid bolus, Tylenol, Toradol, morphine, Zofran. Workup and imaging was pending at time of transfer of care to the oncoming physician, Dr. Jordan. I assumed care this patient following Dr. Taylor. CT imaging and laboratory workup was pending. Laboratory workup and radiographic imaging independently reviewed and interpreted by myself. Laboratory workup grossly nonactionable. CT abdomen pelvis with contrast significant for mass concerning for malignancy of left adnexa, measuring 10.2 cm. No noted metastatic disease process per my review. This was discussed with patient who states that years ago she was seen by [facility] and told that she had a small spot on left ovary that was likely not cancer and they elected to survey at. Last time imaging was obtained was sometime in 2019. Shared decision making occurred and patient will follow-up with [facility], referral has been made. Patient to return to ED if symptoms worsen. Patient continued to have some pain. Patient care was signed over to oncoming physician, Dr. Pena, pending reassessment and final disposition. Pena: Upon my assumption of care patient is stable, she is now resting comfortably. Patient states her pain is tolerable and she would like to be discharged. She has previously seen Dr. Ayers and also followed with oncology here. I placed referrals back to [facility] [employer] and oncology at [facility]. I also told her she could pursue follow-up at gynecologic oncology if needed through her primary care doctor. On exam I do not have concerns for torsion or other abnormalities. She is well- appearing at this time. I reviewed labs and imaging and labs performed by the previous providers and agree with the assessment and plan including the goal for discharge. I reviewed patient's Navi. She states she does not take Suboxone anymore. Navi is negative. I prescribed oxycodone for severe, breakthrough pain but recommended conservative management to be her primary source of pain control if at all possible. I discussed risks and benefits of narcotic medication. These include risks of sedation, constipation, overuse, dependence. She understands. This medication was prescribed for her. Patient was given instructions on symptomatic management, follow up instructions, and return precautions for the emergency department. Patient indicated understanding and was discharged in stable condition. Critical Care <Artemio Taylor MD - Last Filed: 10/11/23 19:11> Critical Care Time Critical Care Time: No
[2023-10-11 19:06] LABS: Microscopic, Urine URINE MICROSCOPIC (MICROSCOPIC)
[2023-10-11] MEDS: ONDANSETRON 4MG/2ML VIAL 4 MG IV (19:08)
[2023-10-11] MEDS: KETOROLAC 30MG/ML VIAL 30 MG IV (19:08)
[2023-10-11] MEDS: MORPHINE 4MG/ML SYRINGE 4 MG IV (19:08)
[2023-10-11] MEDS: ACETAMINOPHEN 1,000MG/100ML VIAL 1000 MG IV (19:08)
[2023-10-11 19:09] LABS: Basophils # 0.1 K/mm3 (0-0.2); Basophils % 0.7 % (0.1-2.0); Eosinophils # 0.4 K/mm3 (0.0-0.4); Eosinophils % 4.1 % (0.1-12.0); Hematocrit 43.5 % (37.0-47.0); Hemoglobin 13.7 g/dL (12.2-16.2); Lymphocytes # 1.8 K/mm3 (0.7-4.5); Lymphocytes % 19.2 % (10-50); Mean Corpuscular HGB Conc 31.6 g/dL (31.8-35.4); Mean Corpuscular Hemoglobin 26.6 pg (27.0-31.2); Mean Corpuscular Volume 84.2 fl (81-99); Mean Platelet Volume 7.5 fl (7.4-10.4); Monocytes # 0.4 K/mm3 (0.1-1.0); Monocytes % 4.6 % (1.7-9.3); Neutrophils # 6.8 K/mm3 (1.8-7.8); Neutrophils % 71.5 % (37.0-80.0); Platelet Count 370 K/mm3 (142-424); Red Blood Count 5.16 M/mm3 (4.20-5.40); Red Cell Distribution Width 14.7 % (11.5-17.5); White Blood Count 9.5 K/mm3 (4.8-10.8)
[2023-10-11] MEDS: LACTATED RINGERS 1000ML 1,000 ML 999 ML IV (19:09)
[2023-10-11 19:11] LABS: Albumin Level 4.3 g/dl (3.5-5.0); Chloride 103 mmol/L (98-107); Potassium 3.9 mmoL/L (3.5-5.1); Sodium 137 mmol/L (136-145)
[2023-10-11 19:14] LABS: Alanine Aminotransferase 27 U/L (12-78); Albumin/Globulin Ratio 1.1 (1.1-1.8); Alkaline Phosphatase 129 U/L (38-126); Anion Gap 9.9 mEq/L (5-15); Aspartate Amino Transferase 34 U/L (14-36); Bilirubin,Total 0.5 mg/dl (0.2-1.3); Blood Urea Nitrogen 19 mg/dl (7-17); Calcium 9.5 mg/dl (8.4-10.2); Carbon Dioxide 28 mmol/L (22.0-30.0); Creatinine Clearance Estimated 67 mL/min (50-200); Estimated Glomerular Filt Rate 57 ml/min (>60); GFR (African American) 69 ML/MIN (>60); Globulin 3.8 g/dL (1.3-3.2); Glucose 120 mg/dl (74-100); Lipase 114 U/L (23-300); Total Protein,Serum 8.1 g/dl (6.3-8.2)
[2023-10-11 19:27] LABS: Appearance,Urine CLEAR (Clear); Bilirubin,Urine Negative (Negative); Blood, Urine Negative (Negative); Color,Urine YELLOW (Yellow); Glucose,Urine (UA) Negative (Negative); Ketones,Urine Negative (Negative); Leukocyte Esterase,Urine Negative (Negative); Nitrate,Urine Negative (Negative); Protein,Urine Negative (Negative); Specific Gravity, Urine >= 1.030 (1.005-1.030); Urobilinogen,Urine 0.2 EU/dl (0.2)
[2023-10-11 20:21] LABS: Bacteria,Urine 1+ /lpf
[2023-10-11] MEDS: SODIUM CHLORIDE 0.9% 10ML SYR (RAD ONLY) 10 ML IV (20:32)
[2023-10-11] MEDS: IOPAMIDOL-370 (76%);100ML BOTTLE 75 ML IV (20:32)
--- NOTE | 2023-10-11 22:28 | PC.NURSE ---
Dr. Jordan at bedside
== END 2023-10-11 23:36 | disposition home or self-care (01) ==
PROVIDERS: Emergency Medicine; Emergency Provider Student in an Organized Health Care Education/Training Program; PCP Family Medicine
DX: R10.32 Left lower quadrant pain (principal); N83.8 Other noninflammatory disorders of ovary, fallopian tube and broad ligament; J44.9 Chronic obstructive pulmonary disease, unspecified; F17.210 Nicotine dependence, cigarettes, uncomplicated; Z85.038 Personal history of other malignant neoplasm of large intestine; Z90.49 Acquired absence of other specified parts of digestive tract
CPT/HCPCS: 74177; 80053; 81001; 83690; 85025; 93005; 96361; 96374; 96375; 99285; J0131; J1885; J2270; J2405; J7120; Q9967

== ENCOUNTER 2023-11-10 20:02 | Emergency (ER) | payer BC, SELFPAY ==
[2023-11-10 20:04] VITALS: BP 135/76; PULSE 89; RESP 20; TEMP 36.5; O2SAT 99; BMI 25.7
--- NOTE | 2023-11-10 21:41 | ED_ITS ---
Discharge Plan Disposition Patient Disposition: Home, Self-Care Prescriptions Prescriptions: New sulfamethoxazole-trimethoprim 800-160 mg tablet 1 tab PO BID 7 Days Qty: 14 0RF No Action black cohosh xt-dong quai xt 75-50 mg capsule 1 cap PO DAILY albuterol sulfate 90 mcg/actuation HFA aerosol inhaler 1 inh INHALATION QID PRN (Reason: shortness of breath or wheezing) Qty: 6.7 2RF oxycodone 5 mg tablet 5 mg PO Q8H PRN (Reason: pain) Qty: 20 0RF budesonide-formoterol 10.2 GM HFA aerosol inhaler 2 puff INHALATION BID oxycodone 5 mg tablet 5 mg PO Q8H PRN (Reason: pain) Qty: 9 0RF Referrals Follow up/Referrals: Elizabeth Lockhart APRN [Primary Care Provider] - See instructions Activity Restrictions/Add. Instructions Additional Instructions/Restrictions: Please take antibiotics as prescribed. Please follow-up with your primary care provider and Urogynaecologist onc team. Please return to the emergency department if you develop any new or worsening symptoms or become concerned for your health. Clinical Impressions Clinical Impression: Hoyt catheter problem, UTI (urinary tract infection) Instructions Patient Instructions: DI for Urinary Tract Infection (UTI), DI for Urinary Tract Infection in Children Print Language Print Language: Kazakh Discharge ED Provider: Cole Malhotra General Adult HPI <JAMILA Tam - Last Filed: 11/10/23 23:15> General Chief complaint: Urogenital-Female Stated complaint: post op 10/30, abd and bladder pain Time Seen by Provider: 11/10/23 21:41 Mode of Arrival: Ambulatory Source of Information: Patient Limitations: No Limitations Description of Symptoms (Recalled from ER Triage Doc. by RN): Pt. presented to the ED with c/o urinary catheter not working properly. Pt. had surgery on 10/31/23. tumor removed froom bladder band haad a hole in the bladder it was stiched up and pt. sent home with in dwelling catheter. History of Present Illness HPI narrative: Patient presents for evaluation of postoperative complication. Patient had surgery by gynecology oncology at the [facility] on 10/31/2023 for complex ovarian cancer. During excision she had a cystostomy inadvertently created an excision of her cancer. It was repaired primarily and the patient was discharged ultimately with a Hoyt catheter to be removed 7 days postoperatively. Patient was at the [facility] for follow-up and cystoscopy urogram prior to Hoyt cath the discontinuation however she was told by the radiology [place] that since it would not work properly it could not be done. The on-call gynecologic oncologic surgeon was contacted however was never reached and patient ultimately tired of waiting and went home. She presented here for evaluation. Patient reports that she has to manipulate the catheter in order to get urine out and it is very uncomfortable. She denies fever chills hemoptysis hematochezia melena nausea vomit diarrhea. Related Data Home Medications ?Medication ?Instructions ?Recorded ?Confirmed black cohosh xt-dong quai xt 75 1 cap PO DAILY Supplement 10/04/19 10/16/23 mg-50 mg capsule budesonide-formoterol HFA 160 2 puff inhalation BID COPD 12/08/19 10/16/23 mcg-4.5 mcg/actuation aerosol inhaler Previous Rx's ?Medication ?Instructions ?Recorded albuterol sulfate 90 mcg/actuation 1 inh inhalation QID PRN shortness 11/12/19 aerosol inhaler of breath or wheezing #6.7 grams oxycodone 5 mg tablet 5 mg PO Q8H PRN pain #9 tabs 10/11/23 oxycodone 5 mg tablet 5 mg PO Q8H PRN pain #20 tabs 10/16/23 sulfamethoxazole 800 1 tab PO BID 7 days #14 tabs 11/11/23 mg-trimethoprim 160 mg tablet Allergies Allergy/AdvReac Type Severity Reaction Status Date / Time Penicillins Allergy Verified 10/16/23 14:09 [facility] <JAMILA Tam - Last Filed: 11/10/23 23:15> [facility] Disclaimer: The information contained in this section may have been updated after the patient was seen, as this information can be updated by other users. Medical History (Updated 11/11/23 @ 01:54 by Cole Malhotra MD) Left ovarian cyst Colon cancer Surgical History (Updated 10/16/23 @ 14:15 by GAURAV Chase) History of appendectomy History of partial surgical removal of colon History of partial hysterectomy Family History (Updated 10/16/23 @ 14:16 by GAURAV Chase) Mother Cancer Other Coronary artery disease Hypertension Kidney disease Social History (Updated 10/16/23 @ 14:17 by GAURAV Chase) Smoking Status: Never smoker second hand exposure: No alcohol intake: never substance use type: painkillers current occupational status: unemployed Travel in the last 8 weeks: None household members: spouse and family housing: house 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 [employer] current occupational exposures/hazards: No caffeine: Yes <JAMILA Tam - Last Filed: 11/10/23 23:15> ROS Obtained: Yes Systems reviewed as appropriate & no additional complaints except as documented Physical Exam <JAMILA Tam - Last Filed: 11/10/23 23:15> General General appearance: alert and in no apparent distress Respiratory Respiratory exam: Present normal lung sounds bilaterally and accessory muscle use Cardiovascular Cardiovascular exam: Present regular rate Neurological Exam Neurological exam: Present alert and oriented X3 Medical Decision Making <JAMILA Tam - Last Filed: 11/10/23 23:15> Navi Inquiry Pt receiving controlled substance: No Vital Signs: 11/10/23 20:04 11/10/23 21:45 11/10/23 22:30 Temperature 97.7 F Temperature Source Oral Pulse Rate 74 75 Pulse Rate [Right] 89 Respiratory Rate 20 Blood Pressure 161/89 H 132/87 Blood Pressure [Right Arm] 135/76 Blood Pressure Mean [Right Arm] 95 Blood Pressure Source [Right Arm] Automatic Cuff 02 Sat by Pulse Oximetry 99 96 96 Oxygen Delivery Method Room Air Lab Data Lab Results 11/11/23 00:55: Urine Color Yellow, Urine Appearance Clear, Urine pH 6.0, Ur Specific [place] >= 1.030, Urine Protein 2+ A, Urine Glucose (UA) Negative, Urine Ketones Negative, Urine Blood 3+ A, Urine Nitrate Positive, Urine Bilirubin Negative, Urine Urobilinogen 0.2, Ur Leukocyte Esterase Trace, Urine RBC 10-20, Urine WBC 3-5, Ur Squamous Epith Cells Occasional, Urine Bacteria 1+, Urine Mucus 1+ Orders (Tests/Meds): ED MEDICATIONS Generic Name Dose Route Start Last Admin Trade Name Freq PRN Reason Stop Dose Admin Trimethoprim/Sulfamethoxazole 1 each 11/11/23 01:54 11/11/23 01:59 Sulfa/Trimethoprim 1 Tablet PO 11/11/23 01:55 1 each ONCE ONE Administration Discontinued Medications Generic Name Dose Route Start Last Admin Trade Name Amy PRN Reason Stop Dose Admin Acetaminophen 1,000 mg 11/10/23 23:08 11/10/23 23:15 Acetaminophen 500mg Tab PO 11/10/23 23:09 1,000 mg ONCE ONE Administration Oxycodone HCl 5 mg 11/10/23 23:08 11/10/23 23:15 Oxycodone 5mg Immediate Release Tablet PO 11/10/23 23:09 5 mg ONCE ONE Administration ORDERS Category Date Time Status UA [Urinalysis and Microscopic] Stat Lab 11/11/23 00:55 Completed Medical Decision Narrative: In summary patient is 57-year-old female who presents to the emergency department for evaluation of postoperative complication. Patient is hemodynamically stable upon arrival, afebrile. Physical exam is remarkable for a well-healing surgical scar, Hoyt catheter shows clear urine and abdomen is uncomfortable but soft with normal bowel sounds. Differential diagnosis includes Hoyt catheter dysfunction versus Hoyt migration. Initial workup will be conducted with bladder scan and POCUS. Initial interventions include Tylenol and opiate analgesia. Initial workup reviewed by me shows bladder is decompressed with only 45 cc of urine and POCUS shows no acute findings and Hoyt appropriately and a collapsed bladder. Given this we have reached out to the [facility] transfer center for consultation with gynecological oncology surgery regarding Hoyt management. Plan is Hoyt discontinuation if they allow it Hoyt exchange if they request that or transfer to the [facility] at the request for any further advanced Hoyt exchange procedures. Will gather a urinalysis after Hoyt exchange if done. This is pending at the time of handoff to Dr. Malhotra at [id number]. <Cole Malhotra MD - Last Filed: 11/11/23 02:01> Medical Records Medical records reviewed: Yes I reviewed the patient's medical records. Vital Signs: 11/10/23 20:04 11/10/23 21:45 11/10/23 22:30 Temperature 97.7 F Temperature Source Oral Pulse Rate 74 75 Pulse Rate [Right] 89 Respiratory Rate 20 Blood Pressure 161/89 H 132/87 Blood Pressure [Right Arm] 135/76 Blood Pressure Mean [Right Arm] 95 Blood Pressure Source [Right Arm] Automatic Cuff 02 Sat by Pulse Oximetry 99 96 96 Oxygen Delivery Method Room Air Lab Data Lab Results 11/11/23 00:55: Urine Color Yellow, Urine Appearance Clear, Urine pH 6.0, Ur Specific [place] >= 1.030, Urine Protein 2+ A, Urine Glucose (UA) Negative, Urine Ketones Negative, Urine Blood 3+ A, Urine Nitrate Positive, Urine Bilirubin Negative, Urine Urobilinogen 0.2, Ur Leukocyte Esterase Trace, Urine RBC 10-20, Urine WBC 3-5, Ur Squamous Epith Cells Occasional, Urine Bacteria 1+, Urine Mucus 1+ Orders (Tests/Meds): ED MEDICATIONS Generic Name Dose Route Start Last Admin Trade Name Freq PRN Reason Stop Dose Admin Trimethoprim/Sulfamethoxazole 1 each 11/11/23 01:54 11/11/23 01:59 Sulfa/Trimethoprim 1 Tablet PO 11/11/23 01:55 1 each ONCE ONE Administration Discontinued Medications Generic Name Dose Route Start Last Admin Trade Name Freq PRN Reason Stop Dose Admin Acetaminophen 1,000 mg 11/10/23 23:08 11/10/23 23:15 Acetaminophen 500mg Tab PO 11/10/23 23:09 1,000 mg ONCE ONE Administration Oxycodone HCl 5 mg 11/10/23 23:08 11/10/23 23:15 Oxycodone 5mg Immediate Release Tablet PO 11/10/23 23:09 5 mg ONCE ONE Administration ORDERS Category Date Time Status UA [Urinalysis and Microscopic] Stat Lab 11/11/23 00:55 Completed Medical Decision Narrative: In summary patient is 57-year-old female who presents to the emergency department for evaluation of postoperative complication. Patient is hemodynamically stable upon arrival, afebrile. Physical exam is remarkable for a well-healing surgical scar, Hoyt catheter shows clear urine and abdomen is uncomfortable but soft with normal bowel sounds. Differential diagnosis includes Hoyt catheter dysfunction versus Hoyt migration. Initial workup will be conducted with bladder scan and POCUS. Initial interventions include Tylenol and opiate analgesia. Initial workup reviewed by me shows bladder is decompressed with only 45 cc of urine and POCUS shows no acute findings and Hoyt appropriately and a collapsed bladder. Given this we have reached out to the [facility] for consultation with gynecological oncology surgery regarding Hoyt management. Plan is Hoyt discontinuation if they allow it Hoyt exchange if they request that or transfer to the [facility] at the request for any further advanced Hoyt exchange procedures. Will gather a urinalysis after Hoyt exchange if done. This is pending at the time of handoff to Dr. Malhotra at 1927. Roscoe GILL: I assumed care of the patient at the time of handoff from the prior provider. I spoke with gynecologic oncology at and they were agreeable with the plan of Hoyt exchange. When the nurse removed the prior Hoyt, she reports that the balloon was full but the catheter did not seem to be very far into the urethra at all. Placement of the second Hoyt was uncomplicated and patient had significant improvement in pain. The patient's urine shows possible UTI, we will treat with Bactrim. Patient was ultimately discharged in stable condition and will follow-up with her team as previously arranged. Critical Care <JAMILA Tam - Last Filed: 11/10/23 23:15> Critical Care Time Critical Care Time: No
[2023-11-10 21:45] VITALS: BP 161/89; PULSE 74; O2SAT 96
[2023-11-10 22:30] VITALS: BP 132/87; PULSE 75; RESP 20; O2SAT 96
--- NOTE | 2023-11-10 22:48 | PC.NURSE ---
PC to [facility] re consult with Senior Medical Writer/Onc
[2023-11-10] MEDS: ACETAMINOPHEN 500MG TAB 1000 MG PO (23:15)
[2023-11-10] MEDS: OXYCODONE 5MG IMMEDIATE RELEASE TABLET 5 MG PO (23:15)
--- NOTE | 2023-11-11 00:06 | PC.NURSE ---
call to [facility] to check on status, they are backed up and they will call us back as soon as possible
--- NOTE | 2023-11-11 00:15 | PC.NURSE ---
ED doctor on phone with [facility]/ONC
[2023-11-11 01:39] LABS: Microscopic, Urine URINE MICROSCOPIC (MICROSCOPIC)
[2023-11-11 01:42] LABS: Appearance,Urine CLEAR (Clear); Bilirubin,Urine Negative (Negative); Blood, Urine 3+ (Negative); Color,Urine YELLOW (Yellow); Glucose,Urine (UA) Negative (Negative); Ketones,Urine Negative (Negative); Leukocyte Esterase,Urine TRACE (Negative); Nitrate,Urine POSITIVE (Negative); Protein,Urine 2+ (Negative); Specific Gravity, Urine >= 1.030 (1.005-1.030); Urobilinogen,Urine 0.2 EU/dl (0.2)
[2023-11-11 01:43] LABS: Bacteria,Urine 1+ /lpf; Mucus,Urine 1+ /lpf; Squamous Epithelial Cell,Urine Occasional #/hpf (0-5)
[2023-11-11] MEDS: SULFA/TRIMETHOPRIM 1 TABLET 1 EACH PO (01:59)
[2023-11-11 02:11] VITALS: BP 129/66; PULSE 65; RESP 20; TEMP 36.9; O2SAT 97
== END 2023-11-11 02:15 | disposition home or self-care (01) ==
PROVIDERS: Emergency Provider Emergency Medicine; PCP Nurse Practitioner Family
DX: T83.091A Other mechanical complication of indwelling urethral catheter, initial encounter (principal); N39.0 Urinary tract infection, site not specified; Z85.43 Personal history of malignant neoplasm of ovary
CPT/HCPCS: 51702; 81001; 99283

== ENCOUNTER 2024-03-29 15:20 | Inpatient (IN) | payer OTHER, SELFPAY ==
[2024-03-29] VITALS (11 sets, daily range): BP systolic 111–139; BP diastolic 61–99; PULSE 77–101; RESP 13–26; TEMP 36.5–36.9; O2SAT 84–99; BMI 24.7
--- NOTE | 2024-03-29 15:36 | XR_ITS ---
FINAL REPORT CLINICAL HISTORY: dyspnea COMPARISON: None FINDINGS: CHEST: A port catheter is present with its tip in the superior vena cava. The heart size is within normal limits. There are dense bilateral airspace opacities noted, that may represent pneumonia. No definite pleural fluid is seen. IMPRESSION: Dense bilateral airspace opacities noted, that may represent pneumonia. Reviewed, Interpreted and Dictated by Baljit Strong MD Transcribed by Jing Hernández Authenticated and [facility]
--- NOTE | 2024-03-29 15:37 | HMH.EDGENADL ---
Discharge Plan Disposition Patient Disposition: Admitted Chief Complaint: Shortness of Breath/Dyspnea Prescriptions Prescriptions: No Action black cohosh xt-dong quai xt 75-50 mg capsule 1 cap PO DAILY albuterol sulfate 90 mcg/actuation HFA aerosol inhaler 1 inh INHALATION QID PRN (Reason: shortness of breath or wheezing) Qty: 6.7 2RF oxycodone 5 mg tablet 5 mg PO Q8H PRN (Reason: pain) Qty: 20 0RF budesonide-formoterol 10.2 GM HFA aerosol inhaler 2 puff INHALATION BID oxycodone 5 mg tablet 5 mg PO Q8H PRN (Reason: pain) Qty: 9 0RF sulfamethoxazole-trimethoprim 800-160 mg tablet 1 tab PO BID 7 Days Qty: 14 0RF Referrals Follow up/Referrals: Elizabeth Lockhart APRN [Primary Care Provider] - See instructions Clinical Impressions Clinical Impression: Acute hypoxic respiratory failure, Severe sepsis, Multifocal pneumonia, Immunosuppression Print Language Print Language: Slovak Discharge ED Provider: Fadia Nugent General Adult HPI General Chief complaint: Shortness of Breath/Dyspnea Stated complaint: soa and nausea and fever Time Seen by Provider: 03/29/24 15:29 History of Present Illness HPI narrative: Patient is a 58-year-old female who is currently undergoing chemotherapy for colon cancer presents today with increased fever and shortness of breath after recent diagnosis with pneumonia and [facility] emergency department 2 weeks ago. States she completed a 2 antibiotic course and has only worsened since that time including the above symptoms. She was found to have oxygen saturations of 84% on room air in triage. She denies any chronic oxygen use. Related Data Home Medications ?Medication ?Instructions ?Recorded ?Confirmed black santoshosh xt-dong quai xt 75 1 cap PO DAILY Supplement 10/04/19 10/16/23 mg-50 mg capsule budesonide-formoterol HFA 160 2 puff inhalation BID COPD 12/08/19 10/16/23 mcg-4.5 mcg/actuation aerosol inhaler Previous Rx's ?Medication ?Instructions ?Recorded albuterol sulfate 90 mcg/actuation 1 inh inhalation QID PRN shortness 11/12/19 aerosol inhaler of breath or wheezing #6.7 grams oxycodone 5 mg tablet 5 mg PO Q8H PRN pain #9 tabs 10/11/23 oxycodone 5 mg tablet 5 mg PO Q8H PRN pain #20 tabs 10/16/23 sulfamethoxazole 800 1 tab PO BID 7 days #14 tabs 11/11/23 mg-trimethoprim 160 mg tablet Allergies Allergy/AdvReac Type Severity Reaction Status Date / Time Penicillins Allergy Hives Verified 03/29/24 16:42 [facility] Disclaimer: The information contained in this section may have been updated after the patient was seen, as this information can be updated by other users. Medical History (Updated 03/29/24 @ 16:43 by Fadia Nugent MD) Left ovarian cyst Colon cancer Surgical History (Updated 10/16/23 @ 14:15 by GAURAV Chase) History of appendectomy History of partial surgical removal of colon History of partial hysterectomy Family History (Updated 10/16/23 @ 14:16 by GAURAV Chase) Mother Cancer Other Coronary artery disease Hypertension Kidney disease Social History (Updated 10/16/23 @ 14:17 by GAURAV Chase) Smoking Status: Former smoker tobacco type: e-cigarettes second hand exposure: No alcohol intake: never substance use type: painkillers current occupational status: unemployed Travel in the last 8 weeks: None household members: spouse and family housing: house 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[employer] current occupational exposures/hazards: No caffeine: Yes Have you lived/traveled outside [place] in past 30 days?: No Contact w/someone who lives/traveled outside US past 30 days?: No Exposure to someone with infectious disease in past 14 days?: No Do you have a fever (greater than 100.4 F or 38 C)?: No Have you tested positive for COVID-19: No Exposed to someone with COVID-19 in past 14 days?: No Do you have a sore throat?: No Do you have a cough?: No Do you have any weakness?: No Do you have any diarrhea?: No Are you experiencing any unusual bleeding?: No Do you have any muscle aches/pain?: No Do you have any abdominal pain?: No Are you experiencing loss of taste or smell?: No Other Medical History Have you received the Flu Vaccine for this season: No Have you received the Pneumonia Vaccine: No ROS Obtained: Yes All systems reviewed & no additional complaints except as documented Physical Exam General General appearance: alert and other (In mild respiratory distress oxygen saturations in the upper 80s on 5 L nasal cannula) Respiratory Respiratory exam: Present normal lung sounds bilaterally; Absent respiratory distress Cardiovascular Cardiovascular exam: Present tachycardia Neurological Exam Neurological exam: Present alert and oriented X3 Medical Decision Making Medical Records Screening: Per USPSTF and CDC recommendations, given the prevalence of disease in our region, it is our hospital?s policy to screen for HIV and viral Hepatitis for all patients aged 18 and over and those with ongoing risk factors. Navi Inquiry Pt receiving controlled substance: No Vital Signs: 03/29/24 15:23 03/29/24 16:01 Temperature 97.7 F Temperature Source Oral Pulse Rate 80 Pulse Rate [Right] 101 H Respiratory Rate 26 H 15 Blood Pressure 119/67 Blood Pressure [Right Arm] 123/78 Blood Pressure Mean [Right Arm] 93 Blood Pressure Source [Right Arm] Automatic Cuff 02 Sat by Pulse Oximetry 84 L 90 L Oxygen Delivery Method Room Air Nasal Cannula Lab Data Lab results reviewed: Yes I reviewed the patient's lab results. Lab Results 03/29/24 15:37: VBG pH 7.41, VBG pCO2 39.2, VBG pO2 36.9, VBG HCO3 24.5, VBG Total CO2 25.7, VBG O2 Saturation 69.3, VBG Base Excess -0.1, VBG Lactic Acid 1.2 03/29/24 15:54: WBC 12.2 H, RBC 4.89, Hgb 11.3 L, Hct 35.8 L, MCV 73.2 L, MCH 23.1 L, MCHC 31.6 L, RDW 15.6, Plt Count 512 H, MPV 9.3, Neut % (Auto) 73.7, Lymph % (Auto) 11.3, Grand % (Auto) 10.0 H, Eos % (Auto) 3.8, Baso % (Auto) 0.6, Neut # (Auto) 9.0 H, Lymph # (Auto) 1.4, Grand # (Auto) 1.2 H, Eos # (Auto) 0.5 H, Baso # (Auto) 0.1, D-Dimer 1.19 H, Sodium 133 L, Potassium 4.3, Chloride 96 L, Carbon Dioxide 27, Anion Gap 14.3, BUN 12, Creatinine 0.80, Estimated Creat Clear 79, Estimated GFR 74, Est GFR ( Amer) 89, Glucose 98, Calcium 9.3, Total Bilirubin 0.4, AST 26, ALT 17, Alkaline Phosphatase 200 H, Total Protein 7.3, Albumin 3.9, Globulin 3.4 H, Albumin/Globulin Ratio 1.1 03/29/24 15:54 03/29/24 15:54 Orders (Tests/Meds): ED MEDICATIONS Generic Name Dose Route Start Last Admin Trade Name Freq PRN Reason Stop Dose Admin Lactated Ringer's 1,000 mls @ 999 mls/hr 03/29/24 15:45 Lactated Ringer's 1000 Ml Bag IV 03/29/24 16:45 .Q1H1M [facility] Vancomycin/PEG/NADA/Lysine/Water 1.25 gm in 250 mls @ 125 mls/hr 03/29/24 16:15 Vancomycin 1.25gm/250ml (Peg) Premix IV 03/29/24 18:14 ONCE ONE Miscellaneous 1 each 03/29/24 16:00 Vancomycin Consult Request NOTAPPLIC 04/28/24 15:59 CONSULT PHARMACY [facility] Discontinued Medications Generic Name Dose Route Start Last Admin Trade Name Freq PRN Reason Stop Dose Admin Cefepime HCl 2 gm/ Sodium 100 mls @ 200 mls/hr 03/29/24 15:55 Chloride IV 03/29/24 16:24 ONCE ONE Azithromycin 500 mg/ Sodium 250 mls @ 250 mls/hr 03/29/24 15:55 Chloride IV 03/29/24 15:56 ONCE ONE ORDERS Category Date Time Status CXR --portable [XR chest portable] Stat Exams 03/29/24 15:36 Taken BNP [NT Pro Brain Natriuretic Pep.] Stat Lab 03/29/24 15:54 Results CBC w/Auto Diff [Complete Blood Count Auto Diff] Stat Lab 03/29/24 15:54 Completed CMP [Comprehensive Metabolic Panel] Stat Lab 03/29/24 15:54 Results D-Dimer Stat Lab 03/29/24 15:54 Completed HIV Combo Stat Lab 03/29/24 15:54 Received Hepatitis C Ab Qual. W/ RFX Stat Lab 03/29/24 15:54 Received Lactate Venous Stat Lab 03/29/24 15:37 Ordered Rapid PCR Covid and Flu A/B Stat Lab 03/29/24 15:37 Ordered Trop I [Troponin I] Stat Lab 03/29/24 15:54 Results Troponin I Q3H Lab 03/29/24 18:45 Ordered Troponin I Q3H Lab 03/29/24 21:45 Ordered Blood Culture Stat Micro 03/29/24 15:54 Received Venous Blood Gas Stat RT 03/29/24 15:37 Completed Tissue Perfus/Sepsis Re-Eval Sepsis Re-Evaluation Performed: Yes Date Performed: 03/29/24 Time Performed: 16:40 Medical Decision Narrative: 58-year-old with above history and physical most likely with worsening pneumonia in the setting of being immunosuppressed and failed outpatient therapy requiring oxygen. But other things in the differential would be metastatic disease to the lungs pulmonary embolism pneumothorax etc. Will get a plain film blood cultures initiate workup and reassess. Reassessment I was able to look up patient's records from [facility] and she has a history of stage IV metastatic colon cancer status post right hemicolectomy with ovarian mets and bilateral salpingo-oophorectomy and recent treatment of UTI in [facility] on Levaquin. I was able to review her chest x-ray there to she had multifocal pneumonia but appeared well and was discharged on outpatient antibiotics. They sent her home on cefuroxime and azithromycin which she completed. Additionally she per oncology notes and pharmacy notes receives dostarilamab every 21 days x 4 then every 42 days. This is from a note from January of this past year. I spoke with our steel wool machine operator after reviewing her chest x-ray today I personally interpreted this which shows worsening multifocal pneumonia. Additionally [facility] she had a CT scan with a similar appearing chest x-ray because there is a concern for pulmonary mets the read was multifocal bilateral subpleural peripheral consolidative opacities differential includes atypical infection versus organizing pneumonia. Chest x-ray today is worse in comparison without x-ray. Therefore she was started on vancomycin and cefepime and azithromycin. I subsequently spoke with hospital medicine who agreed to admit the patient for further evaluation. Patient was tachypneic and has a leukocytosis and has an obvious source of infection and hypoxic respiratory failure this is consistent with severe sepsis. Bolus of fluids has been initiated. Critical Care Critical Care Time Critical Care Time: Yes Attestation: On 03/29/24, the high probability of a clinically significant, sudden or life threatening deterioration of the following system(s) required my full and direct attention, intervention and personal management. The time I documented below is in addition to time spent performing reported procedures but includes the following listed in this critical care notation. Total Time Total Critical Care Time: 65
--- NOTE | 2024-03-29 15:38 | ECG_ITS ---
APPROVED REPORT Exam: Resting ECG HR:74 bpm ECG Measurements Heart Rate 74 AXES DC 145 P 66 QRSd 84 QRS 66 QT 362 T 54 QTc 389 Conclusion SINUS RHYTHM NORMAL ECG UNCONFIRMED REPORT Electronically signed by : Solitario Nugent, 03/29/2024 23:27:39
[2024-03-29 15:48] LABS: Coronavirus 19, PCR Not Detected (NotDetected); Influenza A, PCR Not Detected (NotDetected); Influenza B, PCR Not Detected (NotDetected)
[2024-03-29 16:04] LABS: Lactate Venous 1.2 mmol/L (0.4-2.0); VBG Base Excess -0.1 mmol/L (-2.4-2.3); VBG HCO3 24.5 mmol/L (23-30); VBG Oxygen Saturation 69.3 % (50-70); VBG PCO2 39.2 mmol/L (35-51); VBG PH 7.41 mmol/L (7.31-7.41); VBG PO2 36.9 mmol/L (28-40); VBG Total CO2 25.7 mmol/L (23-27)
[2024-03-29 16:07] LABS: Basophils # 0.1 K/mm3 (0-0.2); Basophils % 0.6 % (0.1-2.0); Eosinophils # 0.5 K/mm3 (0.0-0.4); Eosinophils % 3.8 % (0.1-12.0); Hematocrit 35.8 % (37.0-47.0); Hemoglobin 11.3 g/dL (12.2-16.2); Lymphocytes # 1.4 K/mm3 (0.7-4.5); Lymphocytes % 11.3 % (10-50); Mean Corpuscular HGB Conc 31.6 g/dL (31.8-35.4); Mean Corpuscular Hemoglobin 23.1 pg (27.0-31.2); Mean Corpuscular Volume 73.2 fl (81-99); Mean Platelet Volume 9.3 fl (7.4-10.4); Monocytes # 1.2 K/mm3 (0.1-1.0); Neutrophils % 73.7 % (37.0-80.0); Platelet Count 512 K/mm3 (142-424); Red Blood Count 4.89 M/mm3 (4.20-5.40); Red Cell Distribution Width 15.6 % (11.5-17.5); White Blood Count 12.2 K/mm3 (4.8-10.8)
[2024-03-29 16:26] LABS: Alanine Aminotransferase 17 U/L (12-78); Albumin Level 3.9 g/dl (3.5-5.0); Albumin/Globulin Ratio 1.1 (1.1-1.8); Alkaline Phosphatase 200 U/L (38-126); Anion Gap 14.3 mEq/L (5-15); Aspartate Amino Transferase 26 U/L (14-36); Bilirubin,Total 0.4 mg/dl (0.2-1.3); Blood Urea Nitrogen 12 mg/dl (7-17); Calcium 9.3 mg/dl (8.4-10.2); Carbon Dioxide 27 mmol/L (22.0-30.0); Chloride 96 mmol/L (98-107); Creatinine Clearance Estimated 79 mL/min (50-200); Estimated Glomerular Filt Rate 74 ml/min (>60); GFR (African American) 89 ML/MIN (>60); Globulin 3.4 g/dL (1.3-3.2); Glucose 98 mg/dl (74-100); Potassium 4.3 mmoL/L (3.5-5.1); Sodium 133 mmol/L (136-145); Total Protein,Serum 7.3 g/dl (6.3-8.2)
[2024-03-29 16:30] LABS: D-Dimer 1.19 ug/mL (0.0-0.5)
[2024-03-29] MEDS: CEFEPIME HCL 2 GM in 0.9 % SODIUM CHLORIDE 100 ML IV ×2 (16:31→22:52)
[2024-03-29] MEDS: LACTATED RINGERS 1000ML 1,640 ML 820 ML IV ×2 (16:31→18:35)
[2024-03-29 16:39] LABS: Troponin I < 0.01 ng/ml (0.00-0.034)
[2024-03-29] MEDS: AZITHROMYCIN 500 MG in 0.9 % SODIUM CHLORIDE 250 ML 250 MG IV (16:39)
--- NOTE | 2024-03-29 16:39 | PC.NURSE ---
PRODUCTION SOLDERER NOTIFIED OF ADMISSION
--- NOTE | 2024-03-29 16:50 | CT_ITS ---
PROCEDURE INFORMATION: Exam: CTA Chest With Contrast Exam date and time: 03/29/2024 5:37 PM Age: 58 years old Clinical indication: Cough; Additional info: Colon cancer, multifocal pneumonia, elevated d-dim TECHNIQUE: Imaging protocol: Computed tomographic angiography of the chest with contrast. Exam focused on the arteries. 3D rendering (Not supervised by radiologist): MIP and/or 3D reconstructed images were created by the technologist. Radiation optimization: All CT scans at this facility use at least one of these dose optimization techniques: automated exposure control; mA and/or kV adjustment per patient size (includes targeted exams where dose is matched to clinical indication); or iterative reconstruction. Contrast material: ISOVUE; Contrast volume: 70 ml; Contrast route: INTRAVENOUS (IV); COMPARISON: 1. CR XR CHEST PORTABLE 03/29/2024 3:[address] CHEST WO/W CON 10/28/2019 10:[address] CHEST W CON 07/26/2019 9:26 AM FINDINGS: Tubes, catheters and devices: There is a left chest implanted port, catheter tip projects over the region of the cavoatrial junction. Pulmonary arteries: There is fair opacification of the pulmonary arterial tree. No central pulmonary arterial filling defect is seen. Aorta: Unremarkable. No aortic aneurysm. No aortic dissection. Other arteries: Subsegmental vessels are not well evaluated due to technical factors. Lungs: There are extensive consolidative changes throughout the lungs which could reflect infection but advanced pulmonary malignancy can have a similar appearance and correlation with symptoms would be recommended. Pleural spaces: Unremarkable. No pneumothorax. No pleural effusion. Heart: Unremarkable. No cardiomegaly. No pericardial effusion. Lymph nodes: There are calcified mediastinal lymph nodes likely reflecting prior granulomatous disease. Bones/joints: Unremarkable. No acute fracture. Soft tissues: Unremarkable. IMPRESSION: 1. There are extensive consolidative changes throughout the lungs which could reflect infection but advanced pulmonary malignancy can have a similar appearance and correlation with symptoms would be recommended. 2. No central pulmonary arterial filling defect is seen. Subsegmental vessels are not well evaluated due to technical factors.
[2024-03-29 17:32] LABS: HIV Combo NEGATIVE (Negative)
[2024-03-29] MEDS: 0.9 % SODIUM CHLORIDE 50 ML VIAL IV (17:36)
[2024-03-29] MEDS: IOPAMIDOL-370 (76%);100ML BOTTLE 70 ML IV (17:36)
[2024-03-29] MEDS: SODIUM CHLORIDE 0.9% 10ML SYR (RAD ONLY) 10 ML IV (17:37)
--- NOTE | 2024-03-29 17:38 | PC.NURSE ---
Called Report to Kristina ABDUL in SCU
[2024-03-29 17:40] LABS: Hepatitis C Ab Qual. W/ RFX NEGATIVE (Negative)
--- NOTE | 2024-03-29 17:43 | PC.NURSE ---
PT ARRIVED BACK TO ROOM FROM CT
[2024-03-29] MEDS: VANCOMYCIN/WATER FOR INJ (PEG) 1.25 GM/250 ML PIGGYBACK IV (18:28)
[2024-03-29 19:40] LABS: Troponin I < 0.01 ng/ml (0.00-0.034)
[2024-03-29] MEDS: OXYCODONE 5MG IMMEDIATE RELEASE TABLET 10 MG PO (21:18)
[2024-03-29] MEDS: IPRATROPIUM/ALBUTEROL 3 ML NEB IH (22:52)
[2024-03-29] MEDS: SODIUM CHLORIDE 3% 15ML NEB 3 ML IH (22:52)
[2024-03-29 23:07] LABS: Troponin I < 0.01 ng/ml (0.00-0.034)
[2024-03-30] VITALS (56 sets, daily range): BP systolic 95–137; BP diastolic 49–85; PULSE 65–105; RESP 15–83; TEMP 36.6–37.9; O2SAT 86–100; BMI 25.2
--- NOTE | 2024-03-30 01:40 | PC.NURSE ---
pt began to go into a coughing spell, during this pts o2 was noted to be dropping. O2 dropped to 80%, the nurse placed the pt in high fowlers, slowly titrated the pts oxygen from 3L nc to 6L nc and instructed the pt to take deep breaths in through the nose-out through mouth. pt was then put on a non-rebreather after O2 failed to raise above 85%. Provider was notified promptly, see MAR for new orders. After new orders were completed the pt was able to be switched back to 6L nc at this time. O2 sat at 96%.
[2024-03-30] MEDS: IPRATROPIUM/ALBUTEROL 3 ML NEB IH ×6 (01:45→23:19)
--- NOTE | 2024-03-30 01:47 | P.HP_ITS ---
History of Present Illness *Admission Date: 03/29/24 *Reason for visit:: Hypoxia *History of present illness: The patient is a 58-year-old female with stage IV metastatic colon cancer (status post right hemicolectomy, ovarian metastases, and bilateral salpingo- oophorectomy), currently on dostarlimab therapy. She presents with a two-week history of progressive fever and shortness of breath after being diagnosed with multifocal pneumonia at the [facility] emergency department. She completed outpatient antibiotics (cefuroxime and azithromycin) but has experienced worsening respiratory symptoms. She reports no chronic oxygen use. On arrival, her oxygen saturation was 84% on room air. Her recent labs show a white blood cell count of 12.2 (with neutrophil predominance), mild anemia (hemoglobin 11.3), thrombocytosis (platelets 512), and elevated alkaline phosphatase at 200. D-dimer is also elevated (1.19). Venous blood gas reveals a pH of 7.41, pCO2 of 39.2, and low oxygen saturation of 69.3%. Lactic acid is normal at 1.2. Review of outside records notes a concerning CT scan for multifocal bilateral subpleural peripheral consolidative opacities, possibly representing an atypical infection or organizing pneumonia versus metastatic disease. A chest x-ray today confirms worsening changes compared to prior imaging. She has been started on empiric broad-spectrum antibiotics (vancomycin, cefepime, and azithromycin) given her immunocompromised status and concern for resistant or atypical pathogens. Pulmonology was contacted, and Hospital Medicine has agreed to admit her for further evaluation and management[facility]: The information contained in this section may have been updated after the patient was seen, as this information can be updated by other users. 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[employer] current occupational exposures/hazards: No caffeine: Yes Have you lived/traveled outside [place] in past 30 days?: No Contact w/someone who lives/traveled outside US past 30 days?: No Exposure to someone with infectious disease in past 14 days?: No Do you have a fever (greater than 100.4 F or 38 C)?: No Have you tested positive for COVID-19: No Exposed to someone with COVID-19 in past 14 days?: No Do you have a sore throat?: No Do you have a cough?: No Do you have any weakness?: No Are you experiencing any nausea/vomitting?: No Do you have any diarrhea?: No Are you experiencing any unusual bleeding?: No Do you have any muscle aches/pain?: No Do you have any abdominal pain?: No Are you experiencing loss of taste or smell?: No Other Medical History Have you received the Flu Vaccine for this season: No Have you received the Pneumonia Vaccine: No Review of Systems Review of Systems Review of systems (narrative): 13 point review of systems negative outside HPI Meds Home Medications and Allergies Home Medications ?Medication ?Instructions ?Recorded ?Confirmed ?Type albuterol sulfate 90 mcg/actuation 1 inh inhalation QID PRN shortness 11/12/19 03/29/24 Rx aerosol inhaler of breath or wheezing #6.7 grams oxycodone 10 mg tablet 10 mg PO QID 03/29/24 03/29/24 History prochlorperazine maleate 10 mg 10 mg PO DAILYP PRN Nausea 03/29/24 03/29/24 History tablet sennosides 8.6 mg tablet (senna) 8.6 mg PO DAILY 03/29/24 03/29/24 History New Prescriptions to Start Prescriptions: Allergies Allergy/AdvReac Type Severity Reaction Status Date / Time Penicillins Allergy Hives Verified 03/29/24 16:42 Exam Data for Last 24 hours Vital signs and Labs for Last 24 Hours: Temp Pulse Resp BP Pulse Ox O2 Del Method O2 Flow Rate 98.3 F 77 24 133/66 92 L Nasal Cannula 2 03/29/24 20:00 03/30/24 01:45 03/30/24 00:00 03/30/24 00:01 03/30/24 00:00 03/30/24 00:00 03/30/24 00:00 Laboratory Results - last 24 hr 03/29/24 15:30: SARS-CoV-2 (PCR) Not detected, Influenza A Untype (PCR) Not detected, Influenza Type B (PCR) Not detected 03/29/24 15:37: VBG pH 7.41, VBG pCO2 39.2, VBG pO2 36.9, VBG HCO3 24.5, VBG Total CO2 25.7, VBG O2 Saturation 69.3, VBG Base Excess -0.1, VBG Lactic Acid 1.2 03/29/24 15:54: WBC 12.2 H, RBC 4.89, Hgb 11.3 L, Hct 35.8 L, MCV 73.2 L, MCH 23.1 L, MCHC 31.6 L, RDW 15.6, Plt Count 512 H, MPV 9.3, Neut % (Auto) 73.7, Lymph % (Auto) 11.3, [place] % (Auto) 10.0 H, Eos % (Auto) 3.8, Baso % (Auto) 0.6, Neut # (Auto) 9.0 H, Lymph # (Auto) 1.4, [place] # (Auto) 1.2 H, Eos # (Auto) 0.5 H , Baso # (Auto) 0.1, D-Dimer 1.19 H, Sodium 133 L, Potassium 4.3, Chloride 96 L, Carbon Dioxide 27, Anion Gap 14.3, BUN 12, Creatinine 0.80, Estimated Creat Clear 79, Estimated GFR 74, Est GFR ( Amer) 89, Glucose 98, Calcium 9.3, Total Bilirubin 0.4, AST 26, ALT 17, Alkaline Phosphatase 200 H, Troponin I < 0.01, NT-Pro-B Natriuret Pep 90.0, Total Protein 7.3, Albumin 3.9, Globulin 3.4 H, Albumin/Globulin Ratio 1.1, HCV Ab LU w/Rflx PCR Qn Negative, HIV Ag/Ab Combo Qual Negative 03/29/24 18:44: Troponin I < 0.01 03/29/24 22:04: Troponin I < 0.01 I & O for Last 24 hours: Intake & Output 03/27/24 03/28/24 03/29/24 03/30/24 23:59 23:59 23:59 23:59 Intake Total 90 / 90 Output Total 0 / 0 0 / 0 Balance 0 / 90 90 / 90 Weight 65.317 kg Constitutional Constitutional: no acute distress *Routine HEENT Exam Head: Present normocephalic Eye: Present EOMI and PERRL ENT: Present mucous membranes moist *Routine Neck Exam Neck: Present supple; Absent lymphadenopathy *Routine Respiratory Exam Respiratory: Present CTA bilaterally *Routine Cardiovascular Exam Cardiovascular: Present RRR *Routine Abdominal Exam Abdominal: Present soft and normoactive bowel sounds; Absent tenderness *Routine Rectal Exam Rectal:: deferred *Routine Genitalia Exam Genitalia:: deferred *Routine Extremities Exam Extremities: Absent cyanosis, clubbing or edema *Routine Skin Exam Skin: Present warm; Absent rash *Routine Neurological Exam Neurological: Present alert and oriented X3 Assessment and Plan *Assessment and plan (1) Multifocal pneumonia: Status: Acute Category: Medical Code(s): J18.9 - Pneumonia, unspecified organism (2) Acute hypoxic respiratory failure: Status: Acute Category: Medical Code(s): J96.01 - Acute respiratory failure with hypoxia (3) Anemia: Status: Acute Category: Medical Code(s): D64.9 - Anemia, unspecified (4) COPD (chronic obstructive pulmonary disease): Status: Chronic Category: Medical Code(s): J44.9 - Chronic obstructive pulmonary disease, unspecified Plan MEDICAL DECISION MAKING (MDM) SUMMARY This patient?s clinical deterioration, persistent hypoxia, and radiographic progression despite completing outpatient antibiotics necessitate inpatient care. She is immunocompromised both from metastatic colon cancer and ongoing immunotherapy (dostarlimab). The differential includes refractory bacterial pneumonia, atypical infection, immune-mediated pneumonitis, or progression of metastatic disease. Given her low oxygen saturation, leukocytosis, and persistent fever, she requires close monitoring, expanded diagnostic workup (including cultures and possibly bronchoscopy), and broad-spectrum IV antibiotics. Admission is indicated to stabilize her respiratory status, further investigate the cause of her worsening pulmonary findings, and manage her comorbid conditions. Worsening Multifocal Pneumonia vs. Progression of Metastatic Disease * Continue broad-spectrum IV antibiotics: * Cefepime 2 g IV every 8 hours * Azithromycin 500 mg IV daily * Obtain sputum cultures, blood cultures, and consider fungal or mycobacterial tests if indicated. * Consult Pulmonology for possible bronchoscopy if no improvement. * Repeat or high-resolution chest imaging if respiratory status does not improve. * Promethazine codeine cough syrup due to severe cough fits with desaturation Hypoxia (84% on Room Air) * Initiate supplemental oxygento maintain SpO2 above 92%. * Escalate to high-flow nasal cannula or non-invasive ventilation if oxygenation or work of breathing worsens. * Monitor oxygen requirements and consider periodic ABGs or VBGs. Leukocytosis (WBC 12.2) * Likely reflects active infection. * Monitor WBC trends daily to assess response to antibiotic therapy. Mild Anemia (Hgb 11.3) * Likely chronic disease anemia secondary to malignancy and/or recent infection. * No current indication for transfusion given hemodynamic stability. Thrombocytosis (Platelets 512) * Could be reactive to infection or malignancy. * Continue to monitor; no immediate specific intervention necessary. Elevated Alkaline Phosphatase (200) * Possible hepatic involvement by metastatic disease or cholestasis. * Review prior LFT trends and imaging for comparison. * Continue to monitor; no acute intervention indicated. Elevated D-Dimer (1.19) * Could be due to malignancy or infection. * Evaluate clinically for possible PE or VTE. * Initiate prophylactic anticoagulation unless contraindicated. Metastatic Colon Cancer (Stage IV) on Dostarlimab * Obtain records from [facility] coordinate with Oncology regarding immunotherapy schedule and potential immune-mediated pneumonitis. * Consider holding or modifying dose based on current clinical status and infection severity. * Continue home pain medication regimen Inpatient Admission & Supportive Care * Admit to stepdown under Hospital Medicine. * IV fluids: If hypotension or poor oral intake, use 500?1000 mL normal saline boluses as needed based on clinical status. * Antipyretics for fever; analgesia as needed for pain control. * Nutritional support (dietary consult) and daily I/Os. * VTE prophylaxis and daily labs to follow trends in WBC, renal function, and LFTs. Rounded on patient after nurse practitioner. Personally examined and interviewed patient. Agree with exam findings and care plan as documented.
[2024-03-30] MEDS: CEFEPIME HCL 2 GM in 0.9 % SODIUM CHLORIDE 100 ML IV ×3 (05:01→20:10)
[2024-03-30] MEDS: ACETAMINOPHEN 325MG TAB 650 MG PO (05:01)
[2024-03-30] MEDS: OXYCODONE 5MG IMMEDIATE RELEASE TABLET 10 MG PO ×3 (05:43→20:07)
[2024-03-30 07:33] LABS: C-Reactive Protein 141.3 mg/L (0-4)
[2024-03-30] MEDS: SENNA 8.6MG TABLET 8.6 MG PO (08:00)
[2024-03-30] MEDS: AZITHROMYCIN 500 MG in 0.9 % SODIUM CHLORIDE 250 ML 250 MG IV (08:00)
[2024-03-30 08:15] LABS: Lactate Dehydrogenase 216 U/L (313-618)
--- NOTE | 2024-03-30 09:21 | EXP.ACUTE.PN ---
Subjective *Date: 03/30/24 *Time: 16:57 Interval history: Patient appeared comfortable but somewhat short of breath on exam this morning. Afebrile. No nausea or denies any chest pain. Planning for pulmonology consult today with possible bronchoscopy. Medical Exam Vital signs and Labs for Last 24 Hours: Vital Signs Temp Pulse Pulse Resp BP BP Pulse Ox 03/30/24 08:54 03/30/24 08:00 69 03/30/24 08:00 92 L 03/30/24 08:00 69 16 95/57 L 92 L 03/30/24 06:47 03/30/24 06:37 94 H 03/30/24 06:37 96 H 03/30/24 06:37 03/30/24 06:00 118/62 03/30/24 06:00 77 22 97 03/30/24 05:00 03/30/24 04:00 100.3 F H 77 20 94 L 03/30/24 04:00 107/49 L 03/30/24 04:00 80 03/30/24 03:00 88 21 98 03/30/24 03:00 03/30/24 02:00 78 96 03/30/24 02:00 135/65 03/30/24 02:00 96 H 33 H 93 L 03/30/24 01:45 77 03/30/24 01:45 79 03/30/24 01:00 03/30/24 00:01 133/66 03/30/24 00:00 90 03/30/24 00:00 101 H 24 92 L 03/30/24 00:00 92 L 03/29/24 23:00 03/29/24 22:57 84 20 03/29/24 22:57 84 03/29/24 22:57 80 03/29/24 22:57 94 L 03/29/24 22:00 115/71 03/29/24 22:00 79 23 91 L 03/29/24 21:00 03/29/24 20:00 85 96 03/29/24 20:00 133/73 03/29/24 20:00 98.3 F 81 17 97 03/29/24 20:00 80 03/29/24 19:00 03/29/24 18:42 86 03/29/24 18:15 03/29/24 18:11 91 H 18 111/61 99 03/29/24 17:45 85 20 97 03/29/24 17:30 98.5 F 85 22 122/75 03/29/24 17:00 85 16 134/99 H 99 03/29/24 16:34 77 13 139/75 97 03/29/24 16:01 80 15 119/67 90 L 03/29/24 15:23 97.7 F 101 H 26 H 123/78 84 L O2 Del Method O2 Flow Rate 03/30/24 08:54 Nasal Cannula 5 03/30/24 08:00 03/30/24 08:00 Nasal Cannula 6 03/30/24 08:00 Nasal Cannula 6 03/30/24 06:47 Nasal Cannula 5 03/30/24 06:37 03/30/24 06:37 03/30/24 06:37 Nasal Cannula 5 03/30/24 06:00 03/30/24 06:00 Nasal Cannula 4 03/30/24 05:00 Nasal Cannula 4 03/30/24 04:00 Nasal Cannula 4 03/30/24 04:00 03/30/24 04:00 03/30/24 03:00 03/30/24 03:00 Nasal Cannula 4 03/30/24 02:00 Nasal Cannula 6 03/30/24 02:00 03/30/24 02:00 Nasal Cannula 6 03/30/24 01:45 03/30/24 01:45 03/30/24 01:00 Nasal Cannula 3 03/30/24 00:01 03/30/24 00:00 03/30/24 00:00 Nasal Cannula 3 03/30/24 00:00 Nasal Cannula 2 03/29/24 23:00 Nasal Cannula 2 03/29/24 22:57 03/29/24 22:57 03/29/24 22:57 03/29/24 22:57 Nasal Cannula 2 03/29/24 22:00 03/29/24 22:00 03/29/24 21:00 Nasal Cannula 3 03/29/24 20:00 Nasal Cannula 3 03/29/24 20:00 03/29/24 20:00 03/29/24 20:00 03/29/24 19:00 Nasal Cannula 4 03/29/24 18:42 03/29/24 18:15 Nasal Cannula 4 03/29/24 18:11 Nasal Cannula 4 03/29/24 17:45 Nasal Cannula 5 03/29/24 17:30 Nasal Cannula 5 03/29/24 17:00 Nasal Cannula 03/29/24 16:34 Nasal Cannula 03/29/24 16:01 Nasal Cannula 03/29/24 15:23 Room Air Intake and Output 03/29/24 03/30/24 03/30/24 23:59 07:59 15:59 Intake Total Output Total 0 / Balance -335 / -335 Intake: Intake, Total IV Amount Cefepime HCl 2 gm In 0.9 % Sodium Chloride 100 ml @ 200 mls/hr IV Q12H [facility] Rx#:[id number] Output: Output, Urine Amount / Other: Number of Voids 1 Number of Unmeasured Voids 1 1 Weight 66.905 kg Patient Weight 03/30/24 23:59 Weight 66.905 kg Laboratory Results - last 24 hr 03/29/24 15:30: SARS-CoV-2 (PCR) Not detected, Influenza A Untype (PCR) Not detected, Influenza Type B (PCR) Not detected 03/29/24 15:37: VBG pH 7.41, VBG pCO2 39.2, VBG pO2 36.9, VBG HCO3 24.5, VBG Total CO2 25.7, VBG O2 Saturation 69.3, VBG Base Excess -0.1, VBG Lactic Acid 1.2 03/29/24 15:54: WBC 12.2 H, RBC 4.89, Hgb 11.3 L, Hct 35.8 L, MCV 73.2 L, MCH 23.1 L, MCHC 31.6 L, RDW 15.6, Plt Count 512 H, MPV 9.3, Neut % (Auto) 73.7, Lymph % (Auto) 11.3, [place] % (Auto) 10.0 H, Eos % (Auto) 3.8, Baso % (Auto) 0.6, Neut # (Auto) 9.0 H, Lymph # (Auto) 1.4, [place] # (Auto) 1.2 H, Eos # (Auto) 0.5 H, Baso # (Auto) 0.1, D-Dimer 1.19 H, Sodium 133 L, Potassium 4.3, Chloride 96 L, Carbon Dioxide 27, Anion Gap 14.3, BUN 12, Creatinine 0.80, Estimated Creat Clear 79, Estimated GFR 74, Est GFR ( Amer) 89, Glucose 98, Calcium 9.3, Total Bilirubin 0.4, AST 26, ALT 17, Alkaline Phosphatase 200 H, Troponin I < 0.01, NT-Pro-B Natriuret Pep 90.0, Total Protein 7.3, Albumin 3.9, Globulin 3.4 H, Albumin/Globulin Ratio 1.1, HCV Ab LU w/Rflx PCR Qn Negative, HIV Ag/Ab Combo Qual Negative 03/29/24 18:44: Troponin I < 0.01 03/29/24 22:04: Troponin I < 0.01 03/30/24 05:27: Lactate Dehydrogenase 216 L, C-Reactive Protein 141.3 H I & O for Labs for Last 24 Hours: Intake & Output 03/27/24 03/28/24 03/29/24 03/30/24 23:59 23:59 23:59 23:59 Intake Total 90 / Output Total 0 / 0 425 / 425 Balance 0 -335 / -335 Weight 65.317 kg 66.905 kg Constitutional: Present no acute distress, chronically ill appearing and cooperative Head: Present atraumatic and normocephalic ENT: Present normal exam Neck: Present normal inspection Respiratory: Present rhonchi, crackles and normal respiratory effort; Absent wheezes Cardiac: Present Reg Rate and Rhythm GI: Present soft and normal bowel sounds; Absent distention or tenderness Rectal (female): Present deferred Extremities: Present normal inspection and full ROM Skin: Present intact; Absent erythema Neuro: Present Grossly Intact, alert, awake, oriented x 3 and moves all extremities Assessment and Plan *Assessment and plan (1) Multifocal pneumonia: Status: Acute Category: Medical Code(s): J18.9 - Pneumonia, unspecified organism (2) Acute hypoxic respiratory failure: Status: Acute Category: Medical Code(s): J96.01 - Acute respiratory failure with hypoxia (3) Anemia: Status: Acute Category: Medical Code(s): D64.9 - Anemia, unspecified (4) COPD (chronic obstructive pulmonary disease): Status: Chronic Category: Medical Code(s): J44.9 - Chronic obstructive pulmonary disease, unspecified (5) Immunosuppression: Status: Acute Category: Medical Code(s): D84.9 - Immunodeficiency, unspecified (6) Severe sepsis: Status: Acute Category: Medical Code(s): A41.9 - Sepsis, unspecified organism; R65.20 - Severe sepsis without septic shock (7) Colon cancer: Status: Chronic Category: Medical Code(s): C18.9 - Malignant neoplasm of colon, unspecified Plan This patient?s clinical deterioration, persistent hypoxia, and radiographic progression despite completing outpatient antibiotics necessitate inpatient care. She is immunocompromised both from metastatic colon cancer and ongoing immunotherapy (dostarlimab). The differential includes refractory bacterial pneumonia, atypical infection, immune-mediated pneumonitis, or progression of metastatic disease. Given her low oxygen saturation, leukocytosis, and persistent fever, she requires close monitoring, expanded diagnostic workup (including cultures and possibly bronchoscopy), and broad-spectrum IV antibiotics. Admission is indicated to stabilize her respiratory status, further investigate the cause of her worsening pulmonary findings, and manage her comorbid conditions. Continue to require inpatient management in the ICU. Condition serious with guarded prognosis. Problems addressed as follows: Worsening Multifocal Pneumonia vs. Progression of Metastatic Disease - Discussed case with pulmonology today, patient taken for bronchoscopy with BAL along with transbronchial biopsy. Recommend continuing vancomycin and cefepime pending culture results. - Continue supplemental oxygen as needed for goal sats greater 90%. On nonrebreather after bronc, weaned to Ventimask. - Chest x-ray today per my review showing dense bilateral airspace disease. Concern for acute pneumonia versus metastatic lesions. -Sputum and blood cultures pending. -Inflammatory markers elevated with CRP of 141, LDH normal at 216 - Promethazine codeine cough syrup due to severe cough fits with desaturation -White count elevated at 12 on admission. Repeat CBC, CMP, magnesium ordered for the morning. -Labs as needed every 6 hours Mild Anemia (Hgb 11.3) - likely chronic disease anemia secondary to malignancy and/or recent infection. -Transfusion threshold hemoglobin less than 7. Repeat CBC ordered for the morning. No active signs of bleeding. Elevated Alkaline Phosphatase (200) - Possible hepatic involvement by metastatic disease or cholestasis. Repeat CMP ordered for the morning. Metastatic Colon Cancer (Stage IV) on Dostarlimab -Working on obtaining records from [facility] oncology. Continue oxycodone 10 mg every 6 hours as needed for severe pain. Monitor for toxicity DNI Regular diet
[2024-03-30] MEDS: ONDANSETRON 4MG/2ML VIAL 4 MG IV (09:42)
--- NOTE | 2024-03-30 09:59 | EXP.PULM.CON ---
History of Present Illness History of present illness: Ms. Hilario is a 58-year-old female no significant smoking history no prior respiratory complaints currently following with [facility] for colon cancer with ovarian/pelvic mets presented to ER with worsening respiratory distress and subjective fevers. Patient admits subjective fevers intermittently since end of January 2024. Diagnosed with urinary tract infection status post treatment with levofloxacin around February 23, 2024. Presented to ER around August 09, 2021 with worsening respiratory distress, CT scan showed multifocal pneumonia discharged home on cefuroxime and azithromycin for 5 days. Patient admits minimal improvement in symptoms and then started worsening. Admits cough with no significant productive phlegm. [facility] Disclaimer: The information contained in this section may have been updated after the patient was seen, as this information can be updated by other users. 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[employer] current occupational exposures/hazards: No caffeine: Yes Have you lived/traveled outside [place] in past 30 days?: No Contact w/someone who lives/traveled outside US past 30 days?: No Exposure to someone with infectious disease in past 14 days?: No Do you have a fever (greater than 100.4 F or 38 C)?: No Have you tested positive for COVID-19: No Exposed to someone with COVID-19 in past 14 days?: No Do you have a sore throat?: No Do you have a cough?: No Do you have any weakness?: No Are you experiencing any nausea/vomitting?: No Do you have any diarrhea?: No Are you experiencing any unusual bleeding?: No Do you have any muscle aches/pain?: No Do you have any abdominal pain?: No Are you experiencing loss of taste or smell?: No Review of Systems Constitutional Constitutional: Reports anorexia, Reports body ache(s), Reports fatigue, Reports fever(s), Reports poor appetite, Reports lethargy and Reports night sweats Eyes Eyes: Denies eye discharge, Denies dry eyes, Denies irritation and Denies itchy eyes ENT Ears, Nose, Mouth, and Throat: Denies epistaxis, Denies facial pain, Denies lip swelling and Denies throat swelling *Cardiovascular Cardiovascular: Reports dyspnea and Reports dyspnea on exertion *Respiratory Respiratory: Denies change in phlegm color, Reports chest congestion, Reports cough, Reports dyspnea, Reports dyspnea on exertion, Denies excessive phlegm production, Denies hemoptysis, Denies pain on inspiration, Denies pain with cough and Denies wheezing *Gastrointestinal Gastrointestinal: Denies abdominal pain, Denies belching and Denies cramping *Musculoskeletal Musculoskeletal: Reports back pain, Reports myalgias and Reports other (No small joint swelling or Pain) Psychiatric Psychiatric: Denies homicidal ideation and Denies suicidal ideation Endocrine Endocrine: Reports fatigue and Denies heat intolerance Hematologic/Lymphatic Hematologic/Lymphatic: Denies easy bleeding and Denies lymphadenopathy Allergic/Immunologic Allergic/Immunologic: Denies itchy eyes, Denies lip swelling, Denies throat swelling and Denies wheezing Pulmonology Exam Inpatient Vital signs and Labs for Last 24 Hours: Temp Pulse Resp BP Pulse Ox O2 Del Method O2 Flow Rate 100.3 F H 69 16 95/57 L 92 L Nasal Cannula 5 03/30/24 04:00 03/30/24 08:00 03/30/24 08:00 03/30/24 08:00 03/30/24 08:00 03/30/24 08:54 03/30/24 08:54 Laboratory Results - last 24 hr 03/29/24 15:30: SARS-CoV-2 (PCR) Not detected, Influenza A Untype (PCR) Not detected, Influenza Type B (PCR) Not detected 03/29/24 15:37: VBG pH 7.41, VBG pCO2 39.2, VBG pO2 36.9, VBG HCO3 24.5, VBG Total CO2 25.7, VBG O2 Saturation 69.3, VBG Base Excess -0.1, VBG Lactic Acid 1.2 03/29/24 15:54: WBC 12.2 H, RBC 4.89, Hgb 11.3 L, Hct 35.8 L, MCV 73.2 L, MCH 23.1 L, MCHC 31.6 L, RDW 15.6, Plt Count 512 H, MPV 9.3, Neut % (Auto) 73.7, Lymph % (Auto) 11.3, Thomas % (Auto) 10.0 H, Eos % (Auto) 3.8, Baso % (Auto) 0.6, Neut # (Auto) 9.0 H, Lymph # (Auto) 1.4, Thomas # (Auto) 1.2 H, Eos # (Auto) 0.5 H, Baso # (Auto) 0.1, D-Dimer 1.19 H, Sodium 133 L, Potassium 4.3, Chloride 96 L, Carbon Dioxide 27, Anion Gap 14.3, BUN 12, Creatinine 0.80, Estimated Creat Clear 79, Estimated GFR 74, Est GFR ( Amer) 89, Glucose 98, Calcium 9.3, Total Bilirubin 0.4, AST 26, ALT 17, Alkaline Phosphatase 200 H, Troponin I < 0.01, NT-Pro-B Natriuret Pep 90.0, Total Protein 7.3, Albumin 3.9, Globulin 3.4 H, Albumin/Globulin Ratio 1.1, HCV Ab LU w/Rflx PCR Qn Negative, HIV Ag/Ab Combo Qual Negative 03/29/24 18:44: Troponin I < 0.01 03/29/24 22:04: Troponin I < 0.01 03/30/24 05:27: Lactate Dehydrogenase 216 L, C-Reactive Protein 141.3 H I & O for Labs for Last 24 Hours: Intake & Output 03/27/24 03/28/24 03/29/24 03/30/24 23:59 23:59 23:59 23:59 Intake Total Output Total 0 0 425 / 425 Balance -335 / -335 Weight 144 lb 147 lb 8 oz Constitutional: Present severe distress Head: Present normocephalic and atraumatic ENT: Present normal exam, normal oropharynx and mucous membranes moist Neck: Present normal inspection and full ROM Respiratory: Present respiratory distress, rhonchi, diminished air movement and able to speak in complete sentences; Absent wheezes Cardiac: Present S1/S2, Tachycardia and radial pulses present GI: Present soft and distention; Absent tenderness or guarding Rectal (female): Present deferred (female): Present deferred Skin: Present intact; Absent cyanosis or jaundice Neuro: Present alert, awake and oriented x 3 Extremities: Present normal inspection; Absent clubbing or cyanosis Psychiatric: Present normal affect and cooperative Meds Home Medications and Allergies Home Medications ?Medication ?Instructions ?Recorded ?Confirmed ?Type albuterol sulfate 90 mcg/actuation 1 inh inhalation QID PRN shortness 11/12/19 03/29/24 Rx aerosol inhaler of breath or wheezing #6.7 grams oxycodone 10 mg tablet 10 mg PO QID 03/29/24 03/29/24 History prochlorperazine maleate 10 mg 10 mg PO DAILYP PRN Nausea 03/29/24 03/29/24 History tablet sennosides 8.6 mg tablet (senna) 8.6 mg PO DAILY 03/29/24 03/29/24 History New Prescriptions to Start Prescriptions: Allergies Allergy/AdvReac Type Severity Reaction Status Date / Time Penicillins Allergy Hives Verified 03/29/24 16:42 Results Laboratory Findings 03/29/24 15:54 03/29/24 15:54 PT/INR, D-dimer D-Dimer 1.19 ug/mL (0.0-0.5) H 03/29/24 15:54 Abnormal lab findings: Abnormal Labs 03/29/24 03/30/24 15:54 05:27 WBC 12.2 H Hgb 11.3 L Hct 35.8 L MCV 73.2 L MCH 23.1 L MCHC 31.6 L Plt Count 512 H Thomas % (Auto) 10.0 H Neut # (Auto) 9.0 H Thomas # (Auto) 1.2 H Eos # (Auto) 0.5 H D-Dimer 1.19 H Sodium 133 L Chloride 96 L Alkaline Phosphatase 200 H Lactate Dehydrogenase 216 L C-Reactive Protein 141.3 H Globulin 3.4 H Assessment and Plan *Assessment and plan (1) Multifocal pneumonia: Status: Acute Category: Medical Code(s): J18.9 - Pneumonia, unspecified organism (2) Immunosuppression: Status: Acute Category: Medical Code(s): D84.9 - Immunodeficiency, unspecified (3) Acute hypoxic respiratory failure: Status: Acute Category: Medical Code(s): J96.01 - Acute respiratory failure with hypoxia (4) Severe sepsis: Status: Acute Category: Medical Code(s): A41.9 - Sepsis, unspecified organism; R65.20 - Severe sepsis without septic shock Plan Ms. Hilario is a 58-year-old female no significant smoking history no prior respiratory complaints currently following with oncology for colon cancer with ovarian/pelvic mets presented to ER with worsening respiratory distress and subjective fevers. Patient admits subjective fevers intermittently since end of January 2024. Diagnosed with urinary tract infection status post treatment with levofloxacin around February 23, 2024. Presented to ER around August 09, 2021 with worsening respiratory distress, CT scan showed multifocal pneumonia discharged home on cefuroxime and azithromycin for 5 days. Patient admits minimal improvement in symptoms and then started worsening. Admits cough with no significant productive phlegm. CT chest from [facility] compared to her CT from this hospital admission, bilateral airspace disease significantly worsened from prior. CRP elevated at 141. LDH 216, within normal limit Febrile with a Tmax of 100.3. Neutrophilic predominant. Eosinophilia noted CTA upon admission no evidence of pulm embolism. Extensive bilateral dense patchy consolidative changes. Plan: -Bronchoscopy BAL transbronchial biopsy. -Continue vancomycin and cefepime pending culture results -Continue oxygen supplementation to maintain O2 saturation goal of 90% and above. Currently on 4 L saturating 94%. Risks and benefit of the bronchoscopy procedure explained in detail including but nit limited to sore throat, difficult breathing, airway injury, vocal cord injury, respiratory failure, lung collapse, infections, abnormal heart rate, medication reactions and . Alternative plan of care options i were also explained to the patient along with possible risks and benefits associated. Patient expressed his complete understanding of the procedure and agreed to proceed with bronchoscopy procedure.
--- NOTE | 2024-03-30 11:57 | PC.NURSE ---
pt going down to surgery for procedure at this time. pt's daughter, Aye, has been notified per patients request.
--- NOTE | 2024-03-30 12:56 | XR_ITS ---
FINAL REPORT CLINICAL HISTORY: BRONCH FINDINGS: A single fluoroscopic spot image was obtained for bronchoscopy. 0.42 mGy and less than 1 minute of fluoroscopy time. IMPRESSION: Fluoroscopy for bronchoscopy. Reviewed, Interpreted and Dictated by Baljit Strong MD Transcribed by Yazmin Sanchez Authenticated and [facility]
--- NOTE | 2024-03-30 13:04 | P.PNANES_ITS ---
[facility] Disclaimer: The information contained in this section may have been updated after the patient was seen, as this information can be updated by other users. 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[employer] current occupational exposures/hazards: No caffeine: Yes Have you lived/traveled outside [place] in past 30 days?: No Contact w/someone who lives/traveled outside US past 30 days?: No Exposure to someone with infectious disease in past 14 days?: No Do you have a fever (greater than 100.4 F or 38 C)?: No Have you tested positive for COVID-19: No Exposed to someone with COVID-19 in past 14 days?: No Do you have a sore throat?: No Do you have a cough?: No Do you have any weakness?: No Are you experiencing any nausea/vomitting?: No Do you have any diarrhea?: No Are you experiencing any unusual bleeding?: No Do you have any muscle aches/pain?: No Do you have any abdominal pain?: No Are you experiencing loss of taste or smell?: No [facility] Anesthesia Checklist Patient Identification Patient Identification: Arm Band and Verbal (Name & ) Structural Data Admitted From: Inpatient Planned Operative Procedure/s: broch Consent for Planned Operative Procedure(s) Verified: Yes Verified Documents: Surgical Consent NPO Status Verified Time NPO: 00:00 Additional verifications Patient : No Anesthesia Reactions: No Hx Blood Transfusions: No Blood Transfusion Reaction: No Cardiovascular Assessment Heart Sounds: S1 & S2 Pulse Strength: Baseline Peripheral Edema: No Airway Assessment Mallampati Score:: Class II C-Spine Mobility Assessed: Yes TMJ Mobility Assessed: Yes Dentition: Good Dentition Neurological Assessment Level of Consciousness: Awake and Alert Hx Seizures: No Numbness or tingling in extremities: No Anesthesia Plan Anesthesia Type: General
--- NOTE | 2024-03-30 13:05 | XR_ITS ---
FINAL REPORT TECHNIQUE: Single view chest CLINICAL HISTORY: post bronch coughing..soa COMPARISON: 03/29/2024 FINDINGS: A single view of the chest was obtained. There is a chest port with the tip in the SVC. The heart and mediastinum are within normal limits. Dense bilateral airspace infiltrates are seen, right greater than left with coarse interstitial opacity. Findings may be related to acute pneumonia. there is no pneumothorax. IMPRESSION: Dense bilateral airspace opacities which may be due to acute pneumonia. No pneumothorax. Reviewed, Interpreted and Dictated by Baljit Strong MD Transcribed by Yazmin Sanchez Authenticated and [facility]
--- NOTE | 2024-03-30 13:06 | P.PNANES_ITS ---
[facility] Anesthesia Record Part I Anesthesia Record I Intake, IV Amount: 250 Hydration: Adequate Estimated blood loss (mL): 0 Urine output (mL): 0 Blood Products used (#): none Blood Pressure: 119/66 SaO2: 92 Pulse Rate: 101 Airway Patency: Patent Respiratory Rate: 20 Temperature: 97.8 F Patient is:: Awake Stable to PACU at:: 13:00
--- NOTE | 2024-03-30 13:50 | PC.NURSE ---
pt returned from surgery at this time. pt on simple mask at 15L sats 88%, switched to 15L nonrebreather sats 94%. pt alert and oriented.
--- NOTE | 2024-03-30 15:03 | PC.NURSE ---
RT attempted to wean pt to venti mask, sats dropped to 80's. placed back on nonrebreather.
--- NOTE | 2024-03-30 19:56 | PC.NURSE ---
pt weaned to 4L NC by Norbert CAI
--- NOTE | 2024-03-30 19:57 | PC.NURSE ---
notified Luis TIPTON that labs were not ordered today
--- NOTE | 2024-03-30 23:05 | PC.NURSE ---
pt up to bedside commode at this time. pt tolerated well, no SOA. O2 sat decreased to 89%, but quickly came back up to 96%. 200ml clear/yellow urine output. Pt is now on 3.5L NC, O2 sat 95%. Call light in reach. fresh ice water provided.
[2024-03-31] VITALS (21 sets, daily range): BP systolic 99–139; BP diastolic 48–85; PULSE 71–99; RESP 11–30; TEMP 36.6–36.8; O2SAT 89–97; BMI 25.1
[2024-03-31] MEDS: ONDANSETRON 4MG/2ML VIAL 4 MG IV (00:16)
--- NOTE | 2024-03-31 01:16 | PC.NURSE ---
pt weaned to 3L NC at this time. O2 sat 95%.
--- NOTE | 2024-03-31 01:45 | PC.NURSE ---
pt weaned to 2.5L NC at this time O2 sat 96%
[2024-03-31] MEDS: OXYCODONE 5MG IMMEDIATE RELEASE TABLET 10 MG PO ×3 (02:21→20:13)
--- NOTE | 2024-03-31 02:31 | PC.NURSE ---
pt to bedside commode at this time. 200ml clear/yellow urine emptied. O2 increased to 6L NC before getting up. Pts O2 sat decreased to 84%. Pt back to bed, and O2 sat increased to 95%. Pt placed back on 2.5L NC O2 sat 92%. Pt has no complaints, does not appear SOA. Assessment unchanged. Call light in reach
[2024-03-31] MEDS: CEFEPIME HCL 2 GM in 0.9 % SODIUM CHLORIDE 100 ML IV (05:14)
[2024-03-31 06:17] LABS: Basophils % 0.3 % (0.1-2.0); Eosinophils % 0.2 % (0.1-12.0); Hematocrit 29.3 % (37.0-47.0); Hemoglobin 9.2 g/dL (12.2-16.2); Lymphocytes # 1.1 K/mm3 (0.7-4.5); Lymphocytes % 8.8 % (10-50); Mean Corpuscular HGB Conc 31.4 g/dL (31.8-35.4); Mean Corpuscular Hemoglobin 23.3 pg (27.0-31.2); Mean Corpuscular Volume 74.2 fl (81-99); Mean Platelet Volume 9.5 fl (7.4-10.4); Monocytes % 7.5 % (1.7-9.3); Neutrophils # 10.5 K/mm3 (1.8-7.8); Neutrophils % 82.7 % (37.0-80.0); Platelet Count 488 K/mm3 (142-424); Red Blood Count 3.95 M/mm3 (4.20-5.40); Red Cell Distribution Width 15.5 % (11.5-17.5); White Blood Count 12.7 K/mm3 (4.8-10.8)
[2024-03-31] MEDS: IPRATROPIUM/ALBUTEROL 3 ML NEB IH ×4 (06:19→23:02)
[2024-03-31 06:28] LABS: Albumin Level 3.3 g/dl (3.5-5.0); Chloride 101 mmol/L (98-107); Potassium 4.4 mmoL/L (3.5-5.1); Sodium 135 mmol/L (136-145)
[2024-03-31 06:30] LABS: Alanine Aminotransferase 16 U/L (12-78); Aspartate Amino Transferase 24 U/L (14-36); Blood Urea Nitrogen 10 mg/dl (7-17); Creatinine Clearance Estimated 92 mL/min (50-200); Estimated Glomerular Filt Rate 86 ml/min (>60); GFR (African American) 104 ML/MIN (>60)
[2024-03-31 06:31] LABS: Albumin/Globulin Ratio 1.1 (1.1-1.8); Alkaline Phosphatase 166 U/L (38-126); Anion Gap 11.4 mEq/L (5-15); Bilirubin,Total 0.2 mg/dl (0.2-1.3); Calcium 8.8 mg/dl (8.4-10.2); Carbon Dioxide 27 mmol/L (22.0-30.0); Globulin 2.9 g/dL (1.3-3.2); Glucose 113 mg/dl (74-100); Magnesium 2.1 mg/dl (1.6-2.3); Total Protein,Serum 6.2 g/dl (6.3-8.2)
--- NOTE | 2024-03-31 07:06 | PC.NURSE ---
pt up to bedside commode at this time. Pt O2 sats decreased 71%. Pt placed on NRB. O2 sats increased to 94%. Pt placed back on 2.5L NC. O2 sats back down to 84%. O2 increased to 5L NC. O2 sat now 88%. Pt has no complaints. Denies SOA.
[2024-03-31] MEDS: SENNA 8.6MG TABLET 8.6 MG PO (08:27)
[2024-03-31] MEDS: AZITHROMYCIN 500 MG in 0.9 % SODIUM CHLORIDE 250 ML 250 MG IV (08:28)
[2024-03-31] MEDS: PROMETHAZINE HCL 25MG/ML 1ML VIAL 25 MG IV (09:11)
[2024-03-31] MEDS: SODIUM CHLORIDE 0.9% 25ML BAG 25 ML IV (09:11)
--- NOTE | 2024-03-31 09:11 | P.PN_ITS ---
Subjective *Date: 03/31/24 *Time: 11:34 Interval history: Patient complaining of abdominal pain today. Has not had a bowel movement since admission. Denies any vomiting but is having some mild nausea. Still having cough. Weaned to 2 L nasal cannula oxygen. Afebrile overnight. Has not slept very well, tearful today. Medical Exam Vital signs and Labs for Last 24 Hours: Vital Signs Temp Pulse Pulse Resp BP BP Pulse Ox 03/31/24 07:00 03/31/24 06:00 80 18 113/48 L 93 L 03/31/24 05:00 03/31/24 04:00 73 03/31/24 04:00 97.9 F 73 21 106/53 L 95 03/31/24 03:00 03/31/24 02:00 96 03/31/24 02:00 99/48 L 03/31/24 02:00 82 21 96 03/31/24 01:15 99 H 30 H 89 L 03/31/24 01:00 93 H 17 99/78 L 96 03/31/24 01:00 03/31/24 00:00 98.0 F 03/31/24 00:00 90 20 115/61 96 03/31/24 00:00 87 03/30/24 23:19 87 03/30/24 23:19 91 H 03/30/24 23:19 92 L 03/30/24 23:03 74 17 114/77 96 03/30/24 23:00 03/30/24 22:00 91 H 15 137/79 92 L 03/30/24 21:00 03/30/24 20:35 93 H 18 114/59 L 94 L 03/30/24 20:00 114/59 L 03/30/24 20:00 94 H 03/30/24 19:58 94 L 03/30/24 19:36 90 20 93 L 03/30/24 19:36 125/67 03/30/24 19:35 97.8 F 92 H 17 125/67 92 L 03/30/24 19:00 126/64 03/30/24 19:00 105 H 24 94 L 03/30/24 18:52 81 03/30/24 18:52 84 03/30/24 18:49 03/30/24 18:35 89 19 110/52 L 87 L 03/30/24 18:19 110/52 L 03/30/24 18:19 86 21 89 L 03/30/24 18:00 83 20 96 03/30/24 17:35 79 23 135/70 96 03/30/24 17:01 135/70 03/30/24 17:01 82 21 95 03/30/24 17:00 90 22 91 L 03/30/24 16:35 90 19 91 L 03/30/24 16:05 85 16 107/61 L 94 L 03/30/24 16:00 107/61 L 03/30/24 16:00 84 21 94 L 03/30/24 16:00 80 03/30/24 15:59 94 L 03/30/24 15:57 92 L 03/30/24 15:36 96/52 L 03/30/24 15:36 74 17 99 03/30/24 15:35 87 16 96/52 L 99 03/30/24 15:05 78 16 112/53 L 100 03/30/24 15:05 78 16 112/53 L 100 03/30/24 15:00 112/53 L 03/30/24 15:00 79 21 100 03/30/24 14:50 03/30/24 14:43 94 L 03/30/24 14:42 112/60 03/30/24 14:42 88 19 90 L 03/30/24 14:39 98 03/30/24 14:35 82 16 112/60 89 L 03/30/24 14:35 82 16 112/60 98 03/30/24 14:32 84 03/30/24 14:32 83 03/30/24 14:20 83 116/60 94 L 03/30/24 14:20 98.4 F 83 18 116/60 94 L 03/30/24 14:05 89 18 120/69 99 03/30/24 14:05 89 18 120/69 99 03/30/24 14:00 116/60 03/30/24 14:00 80 16 97 03/30/24 14:00 98 03/30/24 13:52 92 H 15 96 03/30/24 13:52 120/69 03/30/24 13:50 94 H 18 107/54 L 98 03/30/24 13:50 98.4 F 94 H 18 107/54 L 98 03/30/24 13:49 90 86 L 03/30/24 13:49 107/54 L 03/30/24 13:48 89 88 L 03/30/24 13:30 87 21 113/85 92 L 03/30/24 13:20 88 21 115/66 92 L 03/30/24 13:10 97.8 F 101 H 20 119/66 03/30/24 13:10 94 H 22 119/66 87 L 03/30/24 13:00 97.8 F 90 83 H 135/66 03/30/24 11:54 75 03/30/24 11:54 77 03/30/24 11:37 98.0 F 73 16 107/67 L 94 L 03/30/24 11:33 69 17 94 L 03/30/24 11:33 107/67 L 03/30/24 11:00 80 18 95 03/30/24 11:00 98/49 L 03/30/24 10:47 03/30/24 10:00 113/65 03/30/24 10:00 69 22 90 L 03/30/24 10:00 65 18 113/65 91 L O2 Del Method O2 Flow Rate FiO2 03/31/24 07:00 Non-Rebreather 03/31/24 06:00 Nasal Cannula 2.5 03/31/24 05:00 Nasal Cannula 2.5 03/31/24 04:00 03/31/24 04:00 Nasal Cannula 2 03/31/24 03:00 Nasal Cannula 2.5 03/31/24 02:00 Nasal Cannula 3.5 03/31/24 02:00 03/31/24 02:00 03/31/24 01:15 03/31/24 01:00 Nasal Cannula 2.5 03/31/24 01:00 Nasal Cannula 3.5 03/31/24 00:00 03/31/24 00:00 Nasal Cannula 3 03/31/24 00:00 03/30/24 23:19 03/30/24 23:19 03/30/24 23:19 Nasal Cannula 3.5 03/30/24 23:03 Nasal Cannula 3.5 03/30/24 23:00 Nasal Cannula 3.5 03/30/24 22:00 Nasal Cannula 4 03/30/24 21:00 Nasal Cannula 4 03/30/24 20:35 Nasal Cannula 4 03/30/24 20:00 03/30/24 20:00 03/30/24 19:58 Nasal Cannula 4 03/30/24 19:36 03/30/24 19:36 03/30/24 19:35 Nasal Cannula 4 03/30/24 19:00 03/30/24 19:00 03/30/24 18:52 03/30/24 18:52 03/30/24 18:49 Venturi Mask 10 03/30/24 18:35 Venturi Mask 15 50 03/30/24 18:19 03/30/24 18:19 03/30/24 18:00 03/30/24 17:35 Venturi Mask 15 50 03/30/24 17:01 03/30/24 17:01 03/30/24 17:00 03/30/24 16:35 Venturi Mask 15 50 03/30/24 16:05 Venturi Mask 15 50 03/30/24 16:00 03/30/24 16:00 03/30/24 16:00 03/30/24 15:59 Venturi Mask 15 50 03/30/24 15:57 Venturi Mask 15 50 03/30/24 15:36 03/30/24 15:36 03/30/24 15:35 Non-Rebreather 15 03/30/24 15:05 Venturi Mask 15 50 03/30/24 15:05 Non-Rebreather 15 03/30/24 15:00 03/30/24 15:00 03/30/24 14:50 Non-Rebreather 15 03/30/24 14:43 Non-Rebreather 15 100 03/30/24 14:42 03/30/24 14:42 03/30/24 14:39 Venturi Mask 15 50 03/30/24 14:35 Venturi Mask 15 50 03/30/24 14:35 Non-Rebreather 15 03/30/24 14:32 03/30/24 14:32 03/30/24 14:20 Non-Rebreather 15 03/30/24 14:20 Non-Rebreather 15 03/30/24 14:05 Non-Rebreather 15 03/30/24 14:05 Non-Rebreather 15 03/30/24 14:00 03/30/24 14:00 03/30/24 14:00 Non-Rebreather 15 03/30/24 13:52 03/30/24 13:52 03/30/24 13:50 Non-Rebreather 15 03/30/24 13:50 Non-Rebreather 15 03/30/24 13:49 03/30/24 13:49 03/30/24 13:48 03/30/24 13:30 Simple Mask 15 03/30/24 13:20 Simple Mask 15 03/30/24 13:10 03/30/24 13:10 Nasal Cannula 6 03/30/24 13:00 Nasal Cannula 6 03/30/24 11:54 03/30/24 11:54 03/30/24 11:37 Nasal Cannula 4 03/30/24 11:33 03/30/24 11:33 03/30/24 11:00 03/30/24 11:00 03/30/24 10:47 Nasal Cannula 4 03/30/24 10:00 03/30/24 10:00 03/30/24 10:00 Nasal Cannula 4 Intake and Output 03/30/24 03/31/24 03/31/24 23:59 07:59 15:59 Intake Total 360 / 800 Output Total 200 / 1125 350 / 350 Balance 160 / -325 -350 / -350 Intake: Intake, Oral Amount 360 / 360 Output: Output, Urine Amount 200 / 1125 350 / 350 Other: Number of Unmeasured Voids 0 Weight 66.769 kg Patient Weight 03/31/24 23:59 Weight 66.769 kg Laboratory Results - last 24 hr 03/31/24 05:20: WBC 12.7 H, RBC 3.95 L, Hgb 9.2 L, Hct 29.3 L, MCV 74.2 L, MCH 23.3 L, MCHC 31.4 L, RDW 15.5, Plt Count 488 H, MPV 9.5, Neut % (Auto) 82.7 H, Lymph % (Auto) 8.8 L, [place] % (Auto) 7.5, Eos % (Auto) 0.2, Baso % (Auto) 0.3, Neut # (Auto) 10.5 H, Lymph # (Auto) 1.1, [place] # (Auto) 1.0, Eos # (Auto) 0.0, Baso # (Auto) 0.0, Sodium 135 L, Potassium 4.4, Chloride 101, Carbon Dioxide 27, Anion Gap 11.4, BUN 10, Creatinine 0.70, Estimated Creat Clear 92, Estimated GFR 86, Est GFR ( Amer) 104, Glucose 113 H, Calcium 8.8, Magnesium 2.1, Total Bilirubin 0.2, AST 24, ALT 16, Alkaline Phosphatase 166 H, Total Protein 6.2 L, Albumin 3.3 L, Globulin 2.9, Albumin/Globulin Ratio 1.1 I & O for Labs for Last 24 Hours: Intake & Output 03/28/24 03/29/24 03/30/24 03/31/24 23:59 23:59 23:59 23:59 Intake Total 800 / 800 Output Total 0 / 0 1125 / 1125 350 / 350 Balance 0 90 -325 / -325 -350 / -350 Weight 65.317 kg 66.9 kg 66.769 kg Microbiology Reports for the Last 24 Hours: Microbiology 03/30/24 12:42 Bronchial Washings - Left Upper Lobe Gram Stain - Final 03/30/24 12:43 Transbronchial Biopsy - Right Middle Lobe Gram Stain - Final 03/30/24 12:43 Bronchial Washings - Right Middle Lobe Gram Stain - Final 03/29/24 15:54 Blood Blood Culture - Preliminary NO GROWTH AFTER 24 HOURS 03/29/24 15:54 Blood Blood Culture - Preliminary NO GROWTH AFTER 24 HOURS Constitutional: Present no acute distress, chronically ill appearing and cooperative Head: Present atraumatic and normocephalic ENT: Present normal exam Neck: Present normal inspection Respiratory: Present rhonchi, crackles and normal respiratory effort; Absent wheezes Cardiac: Present Reg Rate and Rhythm GI: Present soft and normal bowel sounds; Absent distention or tenderness Rectal (female): Present deferred Extremities: Present normal inspection and full ROM Skin: Present intact; Absent erythema Neuro: Present Grossly Intact, alert, awake, oriented x 3 and moves all extremities Comment:: Tearful, depressed Assessment and Plan *Assessment and plan (1) Multifocal pneumonia: Status: Acute Category: Medical Code(s): J18.9 - Pneumonia, unspecified organism (2) Acute hypoxic respiratory failure: Status: Acute Category: Medical Code(s): J96.01 - Acute respiratory failure with hypoxia (3) Anemia: Status: Acute Category: Medical Code(s): D64.9 - Anemia, unspecified (4) COPD (chronic obstructive pulmonary disease): Status: Chronic Category: Medical Code(s): J44.9 - Chronic obstructive pulmonary disease, unspecified (5) Immunosuppression: Status: Acute Category: Medical Code(s): D84.9 - Immunodeficiency, unspecified (6) Severe sepsis: Status: Acute Category: Medical Code(s): A41.9 - Sepsis, unspecified organism; R65.20 - Severe sepsis without septic shock (7) Colon cancer: Status: Chronic Category: Medical Code(s): C18.9 - Malignant neoplasm of colon, unspecified Plan This patient?s clinical deterioration, persistent hypoxia, and radiographic progression despite completing outpatient antibiotics necessitate inpatient care. She is immunocompromised both from metastatic colon cancer and ongoing immunotherapy (dostarlimab). The differential includes refractory bacterial pneumonia, atypical infection, immune-mediated pneumonitis, or progression of metastatic disease. Given her low oxygen saturation, leukocytosis, and persistent fever, she requires close monitoring, expanded diagnostic workup (including cultures and possibly bronchoscopy), and broad-spectrum IV antibiotics. Admission is indicated to stabilize her respiratory status, further investigate the cause of her worsening pulmonary findings, and manage her comorbid conditions. Showing improvement. Weaning oxygen. Continues to require inpatient management. De-escalate care to [facility]. Problems addressed as follows: Worsening Multifocal Pneumonia vs. Progression of Metastatic Disease - Discussed case with pulmonology, recommend continuing vancomycin and cefepime. Awaiting culture results and BAL results. Continue supplemental oxygen as needed, currently on 2 L nasal cannula for sats greater 90%. - Sputum and blood cultures pending. - Will repeat CBC, CMP, magnesium and CRP in the morning to evaluate for response to antibiotics. - Promethazine codeine cough syrup due to severe cough fits with desaturation -White count remains elevated at 12.7. -DuoNebs as needed every 6 hours Mild Anemia - likely chronic disease anemia secondary to malignancy and/or recent infection. - Hgb 9.2. No active signs of bleeding. -Transfusion threshold hemoglobin less than 7. Repeat CBC ordered for the morning. No active signs of bleeding. Elevated Alkaline Phosphatase (200) - Possible hepatic involvement by metastatic disease or cholestasis. Alk phos 166. Remainder of liver enzymes normal with bilirubin 0.2, AST and ALT 24 and 16 respectively. Metastatic Colon Cancer (Stage IV) on Dostarlimab -Awaiting records from [facility]. Complicates all aspects of her care Acute on chronic pain related to metastatic cancer. Constipation -Initiate bowel regimen with MiraLAX every 6 hours for 3 doses today. Continue senna daily. -Continuing home regimen with oxycodone 10 mg every 6 hours for severe pain. Will initiate Dilaudid 1 mg every 4 hours for severe breakthrough. Monitoring for toxicity DNI Regular diet
--- NOTE | 2024-03-31 09:47 | EXP.BRONCH.N ---
Procedure: Date: 03/30/24 Patient Date of :: 1965 Procedure Performed:: Bronchoscopy airway examination bronchoalveolar lavage and transbronchial lung biopsy Indications:: Nonresolving pneumonia Immunocompromise state Performing Provider:: Kate Gutierrez MD Referring Provider:: Dr. Domingo Sedation:: General anesthesia Procedure:: Bronchoscopy airway examination, bronchoalveolar lavage and transbronchial lung biopsy: A clean DIAGNOSTIC bronchoscopy was advanced through the ET tube and airways were examined up to subsegmental bronchi. Airways appeared grossly normal, no evidence of mucoid secretions, mucous plugging active bleeding/old blood clots noted. Bronchoalveolar lavage was performed in the RIGHT MIDDLE LOBE with instillation of 60 cc normal saline with return of 30 cc of clear fluid back. Bronchoalveolar lavage was also performed in the LEFT LINGULA with instillation of 60 cc of normal saline with return of 25 cc clear fluid back. BAL fluid from both the right middle lobe and left lingula were sent separately for cell count and differential along with bacterial fungal and AFB stain and cultures. Transbronchial biopsy was performed in the RIGHT MIDDLE LOBE with a total of 7 biopsies performed, 5 biopsy specimens were sent in formalin for cytopathologic examination. The other 2 biopsy samples, were sent one each in two separate normal saline specimen cups for bacterial fungal and AFB stain cultures. Special request was also made for the pathologist to evaluate for AFB and fungal organisms on the cytopathologic examination. Patient tolerated the procedure with no immediate acute complications. We will follow the patient in pulmonary clinic in 7 to 10 days. Findings:: Please see the procedure note Recommendations:: Postoperative bronchoscopy instructions Please follow further recommendations as mentioned in inpatient notes Complications:: No acute immediate complication Estimated blood obtained (mL): 2
--- NOTE | 2024-03-31 09:49 | P.PN_ITS ---
Subjective *Date: 03/31/24 *Time: 12:07 Interval history: No acute respiratory vents overnight. Patient admits improving respiratory symptoms Pulmonology Exam Inpatient Vital signs and Labs for Last 24 Hours: Temp Pulse Resp BP Pulse Ox O2 Del Method O2 Flow Rate 97.9 F 80 18 113/48 L 93 L Non-Rebreather 2.5 03/31/24 04:00 03/31/24 06:00 03/31/24 06:00 03/31/24 06:00 03/31/24 06:00 03/31/24 07:00 03/31/24 06:00 FiO2 50 03/30/24 18:35 Laboratory Results - last 24 hr 03/31/24 05:20: WBC 12.7 H, RBC 3.95 L, Hgb 9.2 L, Hct 29.3 L, MCV 74.2 L, MCH 23.3 L, MCHC 31.4 L, RDW 15.5, Plt Count 488 H, MPV 9.5, Neut % (Auto) 82.7 H, Lymph % (Auto) 8.8 L, [place] % (Auto) 7.5, Eos % (Auto) 0.2, Baso % (Auto) 0.3, Neut # (Auto) 10.5 H, Lymph # (Auto) 1.1, [place] # (Auto) 1.0, Eos # (Auto) 0.0, Baso # (Auto) 0.0, Sodium 135 L, Potassium 4.4, Chloride 101, Carbon Dioxide 27, Anion Gap 11.4, BUN 10, Creatinine 0.70, Estimated Creat Clear 92, Estimated GFR 86, Est GFR ( Amer) 104, Glucose 113 H, Calcium 8.8, Magnesium 2.1, Total Bilirubin 0.2, AST 24, ALT 16, Alkaline Phosphatase 166 H, Total Protein 6.2 L, Albumin 3.3 L, Globulin 2.9, Albumin/Globulin Ratio 1.1 Temp Pulse Resp BP Pulse Ox O2 Del Method O2 Flow Rate 100.3 F H 69 16 95/57 L 92 L Nasal Cannula 5 03/30/24 04:00 03/30/24 08:00 03/30/24 08:00 03/30/24 08:00 03/30/24 08:00 03/30/24 08:54 03/30/24 08:54 Laboratory Results - last 24 hr 03/29/24 15:30: SARS-CoV-2 (PCR) Not detected, Influenza A Untype (PCR) Not detected, Influenza Type B (PCR) Not detected 03/29/24 15:37: VBG pH 7.41, VBG pCO2 39.2, VBG pO2 36.9, VBG HCO3 24.5, VBG Total CO2 25.7, VBG O2 Saturation 69.3, VBG Base Excess -0.1, VBG Lactic Acid 1.2 03/29/24 15:54: WBC 12.2 H, RBC 4.89, Hgb 11.3 L, Hct 35.8 L, MCV 73.2 L, MCH 23.1 L, MCHC 31.6 L, RDW 15.6, Plt Count 512 H, MPV 9.3, Neut % (Auto) 73.7, Lymph % (Auto) 11.3, [place] % (Auto) 10.0 H, Eos % (Auto) 3.8, Baso % (Auto) 0.6, Neut # (Auto) 9.0 H, Lymph # (Auto) 1.4, [place] # (Auto) 1.2 H, Eos # (Auto) 0.5 H , Baso # (Auto) 0.1, D-Dimer 1.19 H, Sodium 133 L, Potassium 4.3, Chloride 96 L, Carbon Dioxide 27, Anion Gap 14.3, BUN 12, Creatinine 0.80, Estimated Creat Clear 79, Estimated GFR 74, Est GFR ( Amer) 89, Glucose 98, Calcium 9.3, Total Bilirubin 0.4, AST 26, ALT 17, Alkaline Phosphatase 200 H, Troponin I < 0.01, NT-Pro-B Natriuret Pep 90.0, Total Protein 7.3, Albumin 3.9, Globulin 3.4 H, Albumin/Globulin Ratio 1.1, HCV Ab LU w/Rflx PCR Qn Negative, HIV Ag/Ab Combo Qual Negative 03/29/24 18:44: Troponin I < 0.01 03/29/24 22:04: Troponin I < 0.01 03/30/24 05:27: Lactate Dehydrogenase 216 L, C-Reactive Protein 141.3 H I & O for Labs for Last 24 Hours: Intake & Output 02/0203/29/24 03/30/24 03/31/24 23:59 23:59 23:59 23:59 Intake Total 800 / 800 Output Total 0 / 0 1125 / 1125 350 / 350 Balance 0 90 -325 / -325 -350 / -350 Weight 144 lb 147 lb 7.828 oz 147 lb 3.2 oz Intake & Output 03/27/24 03/28/24 03/29/24 03/30/24 23:59 23:59 23:59 23:59 Intake Total 90 / 90 Output Total 0 / 0 425 / 425 Balance 0 -335 / -335 Weight 144 lb 147 lb 8 oz Microbiology Reports for the Last 24 Hours: Microbiology 03/30/24 12:42 Bronchial Washings - Left Upper Lobe Gram Stain - Final 03/30/24 12:43 Transbronchial Biopsy - Right Middle Lobe Gram Stain - Final 03/30/24 12:43 Bronchial Washings - Right Middle Lobe Gram Stain - Final 03/29/24 15:54 Blood Blood Culture - Preliminary NO GROWTH AFTER 24 HOURS 03/29/24 15:54 Blood Blood Culture - Preliminary NO GROWTH AFTER 24 HOURS Constitutional: Present severe distress Head: Present normocephalic and atraumatic ENT: Present normal exam, normal oropharynx and mucous membranes moist Neck: Present normal inspection and full ROM Respiratory: Present respiratory distress, rhonchi, diminished air movement and able to speak in complete sentences; Absent wheezes Cardiac: Present S1/S2, Tachycardia and radial pulses present GI: Present soft and distention; Absent tenderness or guarding Rectal (female): Present deferred (female): Present deferred Skin: Present intact; Absent cyanosis or jaundice Neuro: Present alert, awake and oriented x 3 Extremities: Present normal inspection; Absent clubbing or cyanosis Psychiatric: Present normal affect and cooperative Assessment and Plan *Assessment and plan (1) Multifocal pneumonia: Status: Acute Category: Medical Code(s): J18.9 - Pneumonia, unspecified organism (2) Immunosuppression: Status: Acute Category: Medical Code(s): D84.9 - Immunodeficiency, unspecified (3) Acute hypoxic respiratory failure: Status: Acute Category: Medical Code(s): J96.01 - Acute respiratory failure with hypoxia (4) Severe sepsis: Status: Acute Category: Medical Code(s): A41.9 - Sepsis, unspecified organism; R65.20 - Severe sepsis without septic shock Plan Ms. Hilario is a 58-year-old female no significant smoking history no prior respiratory complaints currently following with oncology for colon cancer with ovarian/pelvic mets presented to ER with worsening respiratory distress and subjective fevers. Patient admits subjective fevers intermittently since end of January 2024. Diagnosed with urinary tract infection status post treatment with levofloxacin around February 23, 2024. Presented to ER around August 09, 2021 with worsening respiratory distress, CT scan showed multifocal pneumonia discharged home on cefuroxime and azithromycin for 5 days. Patient admits minimal improvement in symptoms and then started worsening. Admits cough with no significant productive phlegm. CT [facility] from [facility] compared to her CT from this hospital admission, bilateral airspace disease significantly worsened from prior. CRP elevated at 141. LDH 216, within normal limit Febrile with a Tmax of 100.3. Neutrophilic predominant. Eosinophilia noted CTA upon admission no evidence of pulm embolism. Extensive bilateral dense patchy consolidative changes. Interval update: Status post bronchoscopy. BAL fluid negative for malignant cells. Pending biopsy. Continue to receive vancomycin and cefepime. Stable leukocytosis. No acute respiratory events overnight. Improving oxygen prominence, weaned to 2 L nasal oxygen supplementation but continued to have significant desaturations with exertion. Blood cultures no growth 24 hours Plan: -Follow with final bronchoscopy culture result -Continue vancomycin and cefepime pending culture results -Continue oxygen supplementation to maintain O2 saturation goal of 90% and above. Currently on 4 L saturating 98%, weaned to 2 L -DuoNebs 4 times daily as needed
--- NOTE | 2024-03-31 12:44 | EXP.ANES.II ---
[facility] Anesthesia Record Part II Anesthesia Record Part II Discharge Time: 13:30 Destination: Intensive Care Unit PACU nurse assessment reviewed?: Yes Patient Condition:: Good Anesthesia Complications:: None Swallowing reflex intact?: Yes Airway Patency: Patent Cyanosis?: No Blood Pressure: 113/85 SaO2: 92 Respiratory Rate: 21 Pulse Rate: 87 Temperature: 97.8 F Mental Status: Alert & Oriented Pain level:: 0 Nausea and/or vomitting:: None Intake, IV Amount: 0 Hydration: Adequate
[2024-03-31] MEDS: POLYETHYLENE GLYCOL 3350 17 GM PACKET PO ×3 (13:03→20:30)
[2024-03-31] MEDS: levoFLOXacin 750 MG TABLET PO (14:15)
[2024-03-31] MEDS: HYDROMORPHONE 2MG/ML SYRINGE 1 MG IV (14:33)
--- NOTE | 2024-03-31 15:08 | PC.NURSE ---
pt room tidied, full bed change performed and a new gown provided at this time. no other needs reported
--- NOTE | 2024-03-31 17:01 | PC.NURSE ---
pt continues to have a low O2 sat of 88% on 5L NC while talking with her daughter and is not improving as quickly in her respiratory effort as she did previously. Hospitalist called and notified of this increase in oxygen requirement. Labs reviewed and order for BID lovenox added to regimen for the risk of a potential clot. Tanya in Respiratory also notified of increase in work of breathing and oxygen requirement and reported she would come and do the pts breathing treatment earlier.
--- NOTE | 2024-03-31 17:42 | PC.NURSE ---
RT and MD at bedside for evaluation. RT placed pt on venti mask with settings of 15/50% and MD elevated the pt back to step- down status due to increase in O2 requirement. pt remains alert and oriented with no other complaints at this time
[2024-03-31] MEDS: ENOXAPARIN 100MG/ML SYRINGE 65 MG SUBCUT (17:51)
[2024-03-31] MEDS: ALPRAZolam 0.5MG TABLET 0.25 MG PO (20:21)
[2024-04-01] VITALS (27 sets, daily range): BP systolic 106–140; BP diastolic 51–77; PULSE 80–110; RESP 18–32; TEMP 36.8–39.2; O2SAT 85–98; BMI 24.6
[2024-04-01] MEDS: SODIUM CHLORIDE 0.9% 25ML BAG 25 ML IV ×2 (00:08→16:18)
[2024-04-01] MEDS: ACETAMINOPHEN 325MG TAB 650 MG PO ×2 (00:08→08:04)
[2024-04-01] MEDS: PROMETHAZINE HCL 25MG/ML 1ML VIAL 25 MG IV ×2 (00:08→16:18)
[2024-04-01] MEDS: HYDROMORPHONE 2MG/ML SYRINGE 1 MG IV ×3 (04:02→13:15)
[2024-04-01] MEDS: ENOXAPARIN 100MG/ML SYRINGE 65 MG SUBCUT (04:08)
[2024-04-01 06:14] LABS: Basophils # 0.1 K/mm3 (0-0.2); Basophils % 0.5 % (0.1-2.0); Eosinophils # 0.5 K/mm3 (0.0-0.4); Eosinophils % 3.9 % (0.1-12.0); Hematocrit 29.1 % (37.0-47.0); Hemoglobin 9.1 g/dL (12.2-16.2); Lymphocytes # 1.8 K/mm3 (0.7-4.5); Lymphocytes % 13.8 % (10-50); Mean Corpuscular HGB Conc 31.3 g/dL (31.8-35.4); Mean Corpuscular Hemoglobin 23.2 pg (27.0-31.2); Mean Corpuscular Volume 74.2 fl (81-99); Mean Platelet Volume 9.5 fl (7.4-10.4); Monocytes # 0.9 K/mm3 (0.1-1.0); Monocytes % 6.9 % (1.7-9.3); Neutrophils # 9.6 K/mm3 (1.8-7.8); Neutrophils % 74.4 % (37.0-80.0); Platelet Count 474 K/mm3 (142-424); Red Blood Count 3.92 M/mm3 (4.20-5.40); Red Cell Distribution Width 15.9 % (11.5-17.5); White Blood Count 12.9 K/mm3 (4.8-10.8)
[2024-04-01 06:20] LABS: Albumin Level 2.9 g/dl (3.5-5.0); Chloride 98 mmol/L (98-107); Potassium 3.8 mmoL/L (3.5-5.1); Sodium 133 mmol/L (136-145)
[2024-04-01 06:23] LABS: Alanine Aminotransferase 17 U/L (12-78); Alkaline Phosphatase 153 U/L (38-126); Anion Gap 10.8 mEq/L (5-15); Aspartate Amino Transferase 25 U/L (14-36); Blood Urea Nitrogen 12 mg/dl (7-17); Calcium 8.4 mg/dl (8.4-10.2); Carbon Dioxide 28 mmol/L (22.0-30.0); Creatinine Clearance Estimated 79 mL/min (50-200); Estimated Glomerular Filt Rate 74 ml/min (>60); GFR (African American) 89 ML/MIN (>60); Globulin 2.8 g/dL (1.3-3.2); Glucose 141 mg/dl (74-100); Total Protein,Serum 5.7 g/dl (6.3-8.2)
[2024-04-01] MEDS: IPRATROPIUM/ALBUTEROL 3 ML NEB IH ×3 (06:37→18:01)
[2024-04-01 06:55] LABS: Bilirubin,Total 0.1 mg/dl (0.2-1.3)
[2024-04-01 07:03] LABS: Magnesium 1.7 mg/dl (1.6-2.3)
[2024-04-01 07:08] LABS: C-Reactive Protein 83.8 mg/L (0-4)
--- NOTE | 2024-04-01 07:58 | EXP.ACUTE.PN ---
Subjective *Date: 04/01/24 *Time: 11:56 Interval history: Patient had a fever this morning to 102.5. Necessitated increased oxygen overnight to 50% Venti. Still having abdominal pain, it is her chronic pain with occasional breakthrough. No increase in cough or productivity. Denies any nausea or vomiting. Had a bowel movement yesterday. Medical Exam Vital signs and Labs for Last 24 Hours: Vital Signs Temp Pulse Pulse Resp BP BP Pulse Ox 04/01/24 06:40 91 H 04/01/24 06:40 92 H 04/01/24 06:40 90 L 04/01/24 06:03 04/01/24 06:00 82 26 H 91 L 04/01/24 05:00 87 25 H 93 L 04/01/24 05:00 04/01/24 04:00 98.8 F 99 H 23 109/56 L 92 L 04/01/24 03:00 04/01/24 02:00 90 29 H 132/67 92 L 04/01/24 02:00 04/01/24 01:00 04/01/24 00:00 101.1 F H 88 22 132/67 96 04/01/24 00:00 90 03/31/24 23:02 94 H 03/31/24 23:02 99 H 03/31/24 23:00 03/31/24 22:06 81 20 139/73 96 03/31/24 21:00 03/31/24 20:00 84 03/31/24 20:00 98.2 F 86 23 100/50 L 92 L 03/31/24 19:00 03/31/24 17:50 94 L 03/31/24 17:15 82 03/31/24 17:15 86 03/31/24 17:15 92 L 03/31/24 17:00 03/31/24 16:00 89 20 129/69 90 L 03/31/24 16:00 87 17 125/69 90 L 03/31/24 16:00 87 03/31/24 16:00 97.9 F 86 17 129/69 89 L 03/31/24 15:00 03/31/24 13:00 03/31/24 12:48 21 03/31/24 12:00 75 19 101/57 L 94 L 03/31/24 12:00 75 16 92 L 03/31/24 12:00 81 03/31/24 11:00 71 17 92 L 03/31/24 11:00 03/31/24 10:00 79 22 96 03/31/24 09:00 130/68 03/31/24 09:00 94 H 20 95 03/31/24 09:00 03/31/24 08:00 81 21 97 03/31/24 08:00 105/53 L 03/31/24 08:00 77 93 L 03/31/24 08:00 98.0 F 77 18 105/53 L 92 L 03/31/24 08:00 77 O2 Del Method O2 Flow Rate FiO2 04/01/24 06:40 04/01/24 06:40 04/01/24 06:40 Venturi Mask 15 50 04/01/24 06:03 Nasal Cannula 4 04/01/24 06:00 04/01/24 05:00 04/01/24 05:00 Nasal Cannula 4 04/01/24 04:00 Nasal Cannula 4 04/01/24 03:00 Venturi Mask 04/01/24 02:00 Venturi Mask 15 04/01/24 02:00 Venturi Mask 04/01/24 01:00 Nasal Cannula 3 04/01/24 00:00 04/01/24 00:00 03/31/24 23:02 03/31/24 23:02 03/31/24 23:00 Nasal Cannula 3 03/31/24 22:06 Nasal Cannula 3 03/31/24 21:00 Simple Mask 03/31/24 20:00 03/31/24 20:00 Venturi Mask 15 03/31/24 19:00 Venturi Mask 15 03/31/24 17:50 Venturi Mask 15 50 03/31/24 17:15 03/31/24 17:15 03/31/24 17:15 Nasal Cannula 4 03/31/24 17:00 Simple Mask 15 03/31/24 16:00 Nasal Cannula 5 03/31/24 16:00 Nasal Cannula 4 03/31/24 16:00 03/31/24 16:00 Nasal Cannula 4 03/31/24 15:00 Nasal Cannula 2 03/31/24 13:00 Nasal Cannula 2 03/31/24 12:48 03/31/24 12:00 03/31/24 12:00 03/31/24 12:00 03/31/24 11:00 03/31/24 11:00 Nasal Cannula 1 03/31/24 10:00 03/31/24 09:00 03/31/24 09:00 03/31/24 09:00 Nasal Cannula 2.5 03/31/24 08:00 03/31/24 08:00 03/31/24 08:00 Nasal Cannula 2.5 03/31/24 08:00 Nasal Cannula 2.5 03/31/24 08:00 Intake and Output 03/31/24 03/31/24 04/01/24 15:59 23:59 07:59 Intake Total 891 / 1951 560 / 1951 525 / 525 Output Total 500 / 850 0 / 850 0 / 0 Balance 391 / 1101 560 / 1101 525 / 525 Intake: Intake, Oral Amount 650 / 1710 560 / 1710 500 / 500 Intake, Other Amount Intake, Total IV Amount 241 / 241 Azithromycin 500 mg In 0.9 % 241 / 241 Sodium Chloride 250 ml @ 250 mls/hr IV Q24H [facility] Rx#:[id number] Output: Output, Urine Amount 500 / 850 0 / 850 0 / 0 Other: Intake, Other Source Saline Solution Number of Unmeasured Voids 1 0 Number of Bowel Movements 1 Weight 65.549 kg Patient Weight 04/01/24 23:59 Weight 65.549 kg Laboratory Results - last 24 hr 04/01/24 05:21: WBC 12.9 H, RBC 3.92 L, Hgb 9.1 L, Hct 29.1 L, MCV 74.2 L, MCH 23.2 L, MCHC 31.3 L, RDW 15.9, Plt Count 474 H, MPV 9.5, Neut % (Auto) 74.4, Lymph % (Auto) 13.8, [place] % (Auto) 6.9, Eos % (Auto) 3.9, Baso % (Auto) 0.5, Neut # (Auto) 9.6 H, Lymph # (Auto) 1.8, [place] # (Auto) 0.9, Eos # (Auto) 0.5 H, Baso # (Auto) 0.1, Sodium 133 L, Potassium 3.8, Chloride 98, Carbon Dioxide 28, Anion Gap 10.8, BUN 12, Creatinine 0.80, Estimated Creat Clear 79, Estimated GFR 74, Est GFR ( Amer) 89, Glucose 141 H, Calcium 8.4, Magnesium 1.7 D, Total Bilirubin 0.1 L, AST 25, ALT 17, Alkaline Phosphatase 153 H, C-Reactive Protein 83.8 H D, Total Protein 5.7 L, Albumin 2.9 L D, Globulin 2.8, Albumin/Globulin Ratio 1.0 L I & O for Labs for Last 24 Hours: Intake & Output 03/29/24 03/30/24 03/31/24 04/01/24 23:59 23:59 23:59 23:59 Intake Total 800 / 800 1451 / 1951 525 / 525 Output Total 0 / 0 1125 / 1125 850 / 850 0 / 0 Balance 0 / 90 -325 / -325 601 / 1101 525 / 525 Weight 65.317 kg 66.9 kg 66.769 kg 65.549 kg Microbiology Reports for the Last 24 Hours: Microbiology 03/29/24 15:54 Blood Blood Culture - Preliminary NO GROWTH AFTER 48 HOURS 03/29/24 15:54 Blood Blood Culture - Preliminary NO GROWTH AFTER 48 HOURS 03/30/24 12:43 Transbronchial Biopsy - Right Middle Lobe Gram Stain - Final 03/30/24 12:43 Transbronchial Biopsy - Right Middle Lobe Surgical Biopsy Culture - Preliminary NO GROWTH AFTER 24 HOURS Constitutional: Present mild distress, chronically ill appearing and cooperative Head: Present atraumatic and normocephalic ENT: Present normal exam Neck: Present normal inspection Respiratory: Present rhonchi, crackles and normal respiratory effort; Absent wheezes Cardiac: Present Reg Rate and Rhythm GI: Present soft, tenderness (non-focal) and normal bowel sounds; Absent distention Rectal (female): Present deferred Extremities: Present normal inspection and full ROM Skin: Present intact; Absent erythema Neuro: Present Grossly Intact, alert, awake, oriented x 3 and moves all extremities Comment:: Tearful, depressed Assessment and Plan *Assessment and plan (1) Multifocal pneumonia: Status: Acute Category: Medical Code(s): J18.9 - Pneumonia, unspecified organism (2) Acute hypoxic respiratory failure: Status: Acute Category: Medical Code(s): J96.01 - Acute respiratory failure with hypoxia (3) Anemia: Status: Acute Category: Medical Code(s): D64.9 - Anemia, unspecified (4) COPD (chronic obstructive pulmonary disease): Status: Chronic Category: Medical Code(s): J44.9 - Chronic obstructive pulmonary disease, unspecified (5) Immunosuppression: Status: Acute Category: Medical Code(s): D84.9 - Immunodeficiency, unspecified (6) Severe sepsis: Status: Acute Category: Medical Code(s): A41.9 - Sepsis, unspecified organism; R65.20 - Severe sepsis without septic shock (7) Colon cancer: Status: Chronic Category: Medical Code(s): C18.9 - Malignant neoplasm of colon, unspecified Plan This patient?s clinical deterioration, persistent hypoxia, and radiographic progression despite completing outpatient antibiotics necessitate inpatient care. She is immunocompromised both from metastatic colon cancer and ongoing immunotherapy (dostarlimab). The differential includes refractory bacterial pneumonia, atypical infection, immune-mediated pneumonitis, or progression of metastatic disease. Given her low oxygen saturation, leukocytosis, and persistent fever, she requires close monitoring, expanded diagnostic workup (including cultures and possibly bronchoscopy), and broad-spectrum IV antibiotics. Admission is indicated to stabilize her respiratory status, further investigate the cause of her worsening pulmonary findings, and manage her comorbid conditions. Showing improvement. Weaning oxygen. Continues to require inpatient management. Advance back to stepdown level of care. Slow to progress. Problems addressed as follows: Worsening Multifocal Pneumonia - Discussed case with pulmonology, will de-escalate vancomycin today. Transition to Levaquin for simplicity of dosing to complete 7 to 10 days of antibiotics. Still awaiting culture results and BAL results. Continue supplemental oxygen as needed. On 4 L nasal cannula at this time. -Goal sats greater 90%. - Sputum and blood cultures pending. -White count still elevated at 12.9, CRP 83.8. Will repeat CBC, CMP, magnesium and CRP in the morning to evaluate for response to antibiotics. - Promethazine codeine cough syrup due to severe cough fits with desaturation -Febrile today. Continue Tylenol for fever. Evaluate for other source of infection such as her abdomen with CT of the abdomen and pelvis -DuoNebs as needed every 6 hours Mild Anemia - likely chronic disease anemia secondary to malignancy and/or recent infection. - Hgb 9.1. No active signs of bleeding. -Transfusion threshold hemoglobin less than 7. Repeat CBC ordered for the morning. No active signs of bleeding. Elevated Alkaline Phosphatase (200) - Possible hepatic involvement by metastatic disease or cholestasis. Liver enzymes stable at this time Metastatic Colon Cancer (Stage IV) on Dostarlimab Acute on chronic pain related to metastatic cancer. Constipation -Initiate bowel regimen with MiraLAX every 6 hours for 3 doses today. Continue senna daily. Had 1 bowel movement overnight. Still has significant stool burden on CT of abdomen pelvis per my review - awaiting formal read on CT abdomen pelvis to evaluate for other source of infection such as intra-abdominal abscess -Continuing home regimen with oxycodone 10 mg every 6 hours for severe pain. Dilaudid 1 mg every 4 hours for severe breakthrough. Monitoring for toxicity DNI Regular diet
[2024-04-01] MEDS: SENNA 8.6MG TABLET 8.6 MG PO (08:00)
[2024-04-01] MEDS: AZITHROMYCIN 500 MG in 0.9 % SODIUM CHLORIDE 250 ML 250 MG IV (08:04)
--- NOTE | 2024-04-01 09:45 | P.PN_ITS ---
Subjective *Date: 04/01/24 *Time: 09:45 Medical Exam Vital signs and Labs for Last 24 Hours: Vital Signs Temp Pulse Pulse Resp BP BP Pulse Ox 04/01/24 09:07 91 L 04/01/24 08:00 80 04/01/24 08:00 102.5 F H 89 32 H 95 04/01/24 07:40 98 04/01/24 07:00 91 H 31 H 98 04/01/24 06:40 91 H 04/01/24 06:40 92 H 04/01/24 06:40 90 L 04/01/24 06:03 04/01/24 06:00 82 26 H 91 L 04/01/24 05:00 87 25 H 93 L 04/01/24 05:00 04/01/24 04:00 98.8 F 99 H 23 109/56 L 92 L 04/01/24 03:00 04/01/24 02:00 90 29 H 132/67 92 L 04/01/24 02:00 04/01/24 01:00 04/01/24 00:00 101.1 F H 88 22 132/67 96 04/01/24 00:00 90 03/31/24 23:02 94 H 03/31/24 23:02 99 H 03/31/24 23:00 03/31/24 22:06 81 20 139/73 96 03/31/24 21:00 03/31/24 20:00 84 03/31/24 20:00 98.2 F 86 23 100/50 L 92 L 03/31/24 19:00 03/31/24 17:50 94 L 03/31/24 17:15 82 03/31/24 17:15 86 03/31/24 17:15 92 L 03/31/24 17:00 03/31/24 16:00 89 20 129/69 90 L 03/31/24 16:00 87 17 125/69 90 L 03/31/24 16:00 87 03/31/24 16:00 97.9 F 86 17 129/69 89 L 03/31/24 15:00 03/31/24 13:00 03/31/24 12:48 21 03/31/24 12:00 75 19 101/57 L 94 L 03/31/24 12:00 75 16 92 L 03/31/24 12:00 81 02/05/25 11:00 71 17 92 L 03/31/24 11:00 03/31/24 10:00 79 22 96 O2 Del Method O2 Flow Rate FiO2 04/01/24 09:07 Venturi Mask 50 04/01/24 08:00 04/01/24 08:00 04/01/24 07:40 Venturi Mask 50 04/01/24 07:00 04/01/24 06:40 04/01/24 06:40 04/01/24 06:40 Venturi Mask 15 50 04/01/24 06:03 Nasal Cannula 4 04/01/24 06:00 04/01/24 05:00 04/01/24 05:00 Nasal Cannula 4 04/01/24 04:00 Nasal Cannula 4 04/01/24 03:00 Venturi Mask 04/01/24 02:00 Venturi Mask 15 04/01/24 02:00 Venturi Mask 04/01/24 01:00 Nasal Cannula 3 04/01/24 00:00 04/01/24 00:00 03/31/24 23:02 03/31/24 23:02 03/31/24 23:00 Nasal Cannula 3 03/31/24 22:06 Nasal Cannula 3 03/31/24 21:00 Simple Mask 03/31/24 20:00 03/31/24 20:00 Venturi Mask 15 03/31/24 19:00 Venturi Mask 15 03/31/24 17:50 Venturi Mask 15 50 03/31/24 17:15 03/31/24 17:15 03/31/24 17:15 Nasal Cannula 4 03/31/24 17:00 Simple Mask 15 03/31/24 16:00 Nasal Cannula 5 03/31/24 16:00 Nasal Cannula 4 03/31/24 16:00 03/31/24 16:00 Nasal Cannula 4 03/31/24 15:00 Nasal Cannula 2 03/31/24 13:00 Nasal Cannula 2 03/31/24 12:48 03/31/24 12:00 03/31/24 12:00 03/31/24 12:00 03/31/24 11:00 03/31/24 11:00 Nasal Cannula 1 03/31/24 10:00 Intake and Output 03/31/24 04/01/24 04/01/24 23:59 07:59 15:59 Intake Total 560 / 1951 525 / 525 Output Total 0 / 850 0 / 0 0 / 0 Balance 560 / 1101 525 / 525 0 / 525 Intake: Intake, Oral Amount 560 / 1710 500 / 500 Intake, Other Amount Output: Output, Urine Amount 0 / 850 0 / 0 0 / 0 Other: Intake, Other Source Saline Solution Number of Unmeasured Voids 1 0 1 Number of Bowel Movements 1 Weight 65.549 kg Patient Weight 04/01/24 23:59 Weight 65.549 kg Laboratory Results - last 24 hr 04/01/24 05:21: WBC 12.9 H, RBC 3.92 L, Hgb 9.1 L, Hct 29.1 L, MCV 74.2 L, MCH 2 3.2 L, MCHC 31.3 L, RDW 15.9, Plt Count 474 H, MPV 9.5, Neut % (Auto) 74.4, Lymph % (Auto) 13.8, [place] % (Auto) 6.9, Eos % (Auto) 3.9, Baso % (Auto) 0.5, Neut # (Auto) 9.6 H, Lymph # (Auto) 1.8, [place] # (Auto) 0.9, Eos # (Auto) 0.5 H, Baso # (Auto) 0.1, Sodium 133 L, Potassium 3.8, Chloride 98, Carbon Dioxide 28, Anion Gap 10.8, BUN 12, Creatinine 0.80, Estimated Creat Clear 79, Estimated GFR 74, Est GFR ( Amer) 89, Glucose 141 H, Calcium 8.4, Magnesium 1.7 D, Total Bilirubin 0.1 L, AST 25, ALT 17, Alkaline Phosphatase 153 H, C-Reactive Protein 83.8 H D, Total Protein 5.7 L, Albumin 2.9 L D, Globulin 2.8, Albumin/Globulin Ratio 1.0 L I & O for Labs for Last 24 Hours: Intake & Output 03/29/24 03/30/24 03/31/24 04/01/24 23:59 23:59 23:59 23:59 Intake Total 800 / 800 1451 / 1951 525 / 525 Output Total 0 / 0 1125 / 1125 850 / 850 0 / 0 Balance 0 -325 / -325 601 / 1101 525 / 525 Weight 65.317 kg 66.9 kg 66.769 kg 65.549 kg Microbiology Reports for the Last 24 Hours: Microbiology 03/29/24 15:54 Blood Blood Culture - Preliminary NO GROWTH AFTER 48 HOURS 03/29/24 15:54 Blood Blood Culture - Preliminary NO GROWTH AFTER 48 HOURS 03/30/24 12:43 Transbronchial Biopsy - Right Middle Lobe Gram Stain - Final 03/30/24 12:43 Transbronchial Biopsy - Right Middle Lobe Surgical Biopsy Culture - Preliminary NO GROWTH AFTER 24 HOURS The patient's infection will respond to the chosen ABx?: Yes Is the patient receiving the right drug, dose, and route?: Yes Could a more targeted ABx be ordered?: No (FEBRILE OVERNIGHT, WBC ELEVATED. CONTINUE CURRENT ABX.)
--- NOTE | 2024-04-01 09:48 | EXP.PULM.PN ---
Subjective *Date: 04/01/24 *Time: 16:20 Interval history: Increasing oxygen requirements overnight. Pulmonology Exam Inpatient Vital signs and Labs for Last 24 Hours: Temp Pulse Resp BP Pulse Ox O2 Del Method O2 Flow Rate 102.5 F H 80 32 H 109/56 L 91 L Venturi Mask 15 04/01/24 08:00 04/01/24 08:00 04/01/24 08:00 04/01/24 04:00 04/01/24 09:07 04/01/24 09:07 04/01/24 06:40 FiO2 50 04/01/24 09:07 Laboratory Results - last 24 hr 04/01/24 05:21: WBC 12.9 H, RBC 3.92 L, Hgb 9.1 L, Hct 29.1 L, MCV 74.2 L, MCH 23.2 L, MCHC 31.3 L, RDW 15.9, Plt Count 474 H, MPV 9.5, Neut % (Auto) 74.4, Lymph % (Auto) 13.8, [place] % (Auto) 6.9, Eos % (Auto) 3.9, Baso % (Auto) 0.5, Neut # (Auto) 9.6 H, Lymph # (Auto) 1.8, [place] # (Auto) 0.9, Eos # (Auto) 0.5 H, Baso # (Auto) 0.1, Sodium 133 L, Potassium 3.8, Chloride 98, Carbon Dioxide 28, Anion Gap 10.8, BUN 12, Creatinine 0.80, Estimated Creat Clear 79, Estimated GFR 74, Est GFR ( Amer) 89, Glucose 141 H, Calcium 8.4, Magnesium 1.7 D, Total Bilirubin 0.1 L, AST 25, ALT 17, Alkaline Phosphatase 153 H, C-Reactive Protein 83.8 H D, Total Protein 5.7 L, Albumin 2.9 L D, Globulin 2.8, Albumin/Globulin Ratio 1.0 L Temp Pulse Resp BP Pulse Ox O2 Del Method O2 Flow Rate 100.3 F H 69 16 95/57 L 92 L Nasal Cannula 5 03/30/24 04:00 03/30/24 08:00 03/30/24 08:00 03/30/24 08:00 03/30/24 08:00 03/30/24 08:54 03/30/24 08:54 Laboratory Results - last 24 hr 03/29/24 15:30: SARS-CoV-2 (PCR) Not detected, Influenza A Untype (PCR) Not detected, Influenza Type B (PCR) Not detected 03/29/24 15:37: VBG pH 7.41, VBG pCO2 39.2, VBG pO2 36.9, VBG HCO3 24.5, VBG Total CO2 25.7, VBG O2 Saturation 69.3, VBG Base Excess -0.1, VBG Lactic Acid 1.2 03/29/24 15:54: WBC 12.2 H, RBC 4.89, Hgb 11.3 L, Hct 35.8 L, MCV 73.2 L, MCH 23.1 L, MCHC 31.6 L, RDW 15.6, Plt Count 512 H, MPV 9.3, Neut % (Auto) 73.7, Lymph % (Auto) 11.3, [place] % (Auto) 10.0 H, Eos % (Auto) 3.8, Baso % (Auto) 0.6, Neut # (Auto) 9.0 H, Lymph # (Auto) 1.4, [place] # (Auto) 1.2 H, Eos # (Auto) 0.5 H, Baso # (Auto) 0.1, D-Dimer 1.19 H, Sodium 133 L, Potassium 4.3, Chloride 96 L, Carbon Dioxide 27, Anion Gap 14.3, BUN 12, Creatinine 0.80, Estimated Creat Clear 79, Estimated GFR 74, Est GFR ( Amer) 89, Glucose 98, Calcium 9.3, Total Bilirubin 0.4, AST 26, ALT 17, Alkaline Phosphatase 200 H, Troponin I < 0.01, NT-Pro-B Natriuret Pep 90.0, Total Protein 7.3, Albumin 3.9, Globulin 3.4 H, Albumin/Globulin Ratio 1.1, HCV Ab LU w/Rflx PCR Qn Negative, HIV Ag/Ab Combo Qual Negative 03/29/24 18:44: Troponin I < 0.01 03/29/24 22:04: Troponin I < 0.01 03/30/24 05:27: Lactate Dehydrogenase 216 L, C-Reactive Protein 141.3 H I & O for Labs for Last 24 Hours: Intake & Output 03/29/24 03/30/24 03/31/24 04/01/24 23:59 23:59 23:59 23:59 Intake Total 800 / 800 1451 / 1951 525 / 525 Output Total 0 / 0 1125 / 1125 850 / 850 0 / 0 Balance 0 90 -325 / -325 601 / 1101 525 / 525 Weight 144 lb 147 lb 7.828 oz 147 lb 3.2 oz 144 lb 8.173 oz Intake & Output 03/27/24 03/28/24 03/29/24 03/30/24 23:59 23:59 23:59 23:59 Intake Total 90 / 90 Output Total 0 / 0 425 / 425 Balance -335 / -335 Weight 144 lb 147 lb 8 oz Microbiology Reports for the Last 24 Hours: Microbiology 03/29/24 15:54 Blood Blood Culture - Preliminary NO GROWTH AFTER 48 HOURS 03/29/24 15:54 Blood Blood Culture - Preliminary NO GROWTH AFTER 48 HOURS 03/30/24 12:43 Transbronchial Biopsy - Right Middle Lobe Gram Stain - Final 03/30/24 12:43 Transbronchial Biopsy - Right Middle Lobe Surgical Biopsy Culture - Preliminary NO GROWTH AFTER 24 HOURS Constitutional: Present severe distress Head: Present normocephalic and atraumatic ENT: Present normal exam, normal oropharynx and mucous membranes moist Neck: Present normal inspection and full ROM Respiratory: Present respiratory distress, rhonchi, diminished air movement and able to speak in complete sentences; Absent wheezes Cardiac: Present S1/S2, Tachycardia and radial pulses present GI: Present soft and distention; Absent tenderness or guarding Rectal (female): Present deferred (female): Present deferred Skin: Present intact; Absent cyanosis or jaundice Neuro: Present alert, awake and oriented x 3 Extremities: Present normal inspection; Absent clubbing or cyanosis Psychiatric: Present normal affect and cooperative Assessment and Plan *Assessment and plan (1) Multifocal pneumonia: Status: Acute Category: Medical Code(s): J18.9 - Pneumonia, unspecified organism (2) Immunosuppression: Status: Acute Category: Medical Code(s): D84.9 - Immunodeficiency, unspecified (3) Acute hypoxic respiratory failure: Status: Acute Category: Medical Code(s): J96.01 - Acute respiratory failure with hypoxia (4) Severe sepsis: Status: Acute Category: Medical Code(s): A41.9 - Sepsis, unspecified organism; R65.20 - Severe sepsis without septic shock Plan Ms. Hilario is a 58-year-old female no significant smoking history no prior respiratory complaints currently following with oncology for colon cancer with ovarian/pelvic mets presented to ER with worsening respiratory distress and subjective fevers. Patient admits subjective fevers intermittently since end of January 2024. Diagnosed with urinary tract infection status post treatment with levofloxacin around February 23, 2024. Presented to ER around August 09, 2021 with worsening respiratory distress, CT scan showed multifocal pneumonia discharged home on cefuroxime and azithromycin for 5 days. Patient admits minimal improvement in symptoms and then started worsening. Admits cough with no significant productive phlegm. CT chest from [facility] compared to her CT from this hospital admission, bilateral airspace disease significantly worsened from prior. CRP elevated at 141. LDH 216, within normal limit Febrile with a Tmax of 100.3. Neutrophilic predominant. Eosinophilia noted CTA upon admission no evidence of pulm embolism. Extensive bilateral dense patchy consolidative changes. Interval update: Improving leukocytosis. Worsening oxygen requirements. Significant desaturations noted with minimal exertion. CT abdomen showed worsening lower lobe infiltrates. Antibiotics weaned from cefepime to levofloxacin yesterday. BAL and biopsy cultures negative for infectious workup. Biopsy negative for infectious/malignancy. Concerning for organizing pneumonia Plan: -Follow with final bronchoscopy culture result Continue levofloxacin pending final culture results Initiate prednisone 40 mg daily Follow-up with CRP and chest x-ray -Continue oxygen supplementation to maintain O2 saturation goal of 90% and above. Currently on 6 L nasal cannula oxygen supplementation -DuoNebs 4 times daily as needed
--- NOTE | 2024-04-01 10:25 | CT_ITS ---
FINAL REPORT TECHNIQUE: Axial images through the abdomen and pelvis were performed without contrast. This study was performed with techniques to keep radiation doses as low as reasonably achievable, (ALARA). Individualized dose reduction techniques using automated exposure control or adjustment of mA and/or kV according to the patient's size were employed. CLINICAL HISTORY: eval fro abdominal pathology, known colon ca COMPARISON: 10/11/2023 FINDINGS: Abdomen: There are new, dense bibasilar airspace infiltrates with associated atelectasis. The liver parenchyma is homogeneous. The gallbladder is present. The spleen, pancreas, adrenals and kidneys are unremarkable. There are postoperative changes from prior right hemicolectomy. Pelvis: The urinary bladder is incompletely distended. There is a large amount of stool within the transverse and left colon. The appendix is not visualized. There is no pelvic mass or inflammation. IMPRESSION: New bibasilar airspace infiltrates consistent with acute pneumonia. Constipation of the left colon. Reviewed, Interpreted and Dictated by Baljit Strong MD Transcribed by Magdalena Parnell Authenticated and [facility]
[2024-04-01] MEDS: predniSONE 20MG TAB 40 MG PO (10:35)
[2024-04-01] MEDS: levoFLOXacin 750 MG TABLET PO (10:35)
--- NOTE | 2024-04-01 12:04 | PC.NURSE ---
1135 upon return to unit recliner was placed in pt room. pt was offered assistance to get up to the chair at that time. pt declined and stated that she wanted to take a nap. will offer again when trays arrive.
[2024-04-01] MEDS: POLYETHYLENE GLYCOL 3350 17 GM PACKET PO ×2 (12:41→18:41)
--- NOTE | 2024-04-01 13:00 | XR_ITS ---
FINAL REPORT CLINICAL HISTORY: HypoxiA COMPARISON: 03/30/2024 FINDINGS: The heart size is mildly enlarged. Chest port is present with the tip in the SVC. The mediastinum is normal. There are dense patchy bilateral airspace infiltrates, [id number], which probably represent acute pneumonia but are stable compared to the prior study. There are no pleural effusions. There is no pneumothorax. There is no osseous abnormality. IMPRESSION: Stable acute pneumonia. Reviewed, Interpreted and Dictated by Baljit Strong MD Transcribed by Traci Ayers Authenticated and [facility]
--- NOTE | 2024-04-01 13:38 | PC.NURSE ---
Voiced to pt that it would be best to get up in the chair to eat lunch. Pt refused and stated she would rather stay in bed.
--- NOTE | 2024-04-01 14:10 | PC.NURSE ---
pt c/o increased and anxety and feeling like she cannot breath. pt lung sounds are unchanged since am admission. o2 sats are 90-93
--- NOTE | 2024-04-01 14:19 | HMH.PTEV ---
Physical Therapy Evaluation Rehab PT IP Evaluation Start: 04/01/24 11:06 Freq: ONCE Status: Active Protocol: Document 04/01/24 14:13 DESTINEE (Rec: 04/01/24 14:19 DESTINEE [id number]) Subjective/History History History Pt is a pleasant 58-year-old female with stage IV metastatic colon cancer ( status post right hemicolectomy, ovarian metastases, and bilateral salpingo-oophorectomy), currently on dostarlimab therapy. She presents with a two-week history of progressive fever and shortness of breath after being diagnosed with multifocal pneumonia at the [facility] emergency department. Subjective Subjective Pt reports she lives with her in a single-story home with 0 VANI. Pt still drives. Pt normally IND with all mobility without AD use. Denies any falls in past month . New diagnosis of cancer in past 12 No months? Rehab PT IP Eval Objective Appearance Patient Behavior Appropriate,Cooperative Patient Orientation Person,Place Difficulty following instructions none Speech Pattern Clear Ambulation Patient Able to Ambulate Yes Ambulation Observation IP General Gait Pattern Observation No Deviations/Normal Ambulation Distance (feet) 15 Ambulation Assistive Device None Ambulation Ability Independent,Supervision/Stand by Balance Ability to Arise Able, uses arms to help Sitting Balance Steady, safe Standing Balance Narrow stance w/o support Dynamic Sitting Balance Ability Normal Dynamic Standing Balance Ability Good Transfers Bed Transfer Ability Independent Sit to Stand Bed Transfer Ability Independent Rehab PT IP prob,goals,plan Problems Date of Evaluation: 04/01/24 Rehab Potential Rehab Potential Innapropriate for Skilled Therapy Discharge Plan PT Discharge Plan Pt not appropriate for skilled acute care PT at this time d/ t pt?s mobility being at baseline/IND. Pt safe to d/c home when deemed medically necessary d/t current level of mobility, home set-up, and family support. Eval Complexity Eval Charge Codes 51103 - Moderate Complexity PHYSICIAN CERTIFICATION: I certify the specified therapy services for Gena Green are required, authorized, and reviewed every 30 days.
[2024-04-01] MEDS: OXYCODONE 5MG IMMEDIATE RELEASE TABLET 10 MG PO ×2 (15:35→21:48)
--- NOTE | 2024-04-01 16:38 | PC.NURSE ---
Addendum entered by Mariola Frost RN 04/01/24 17:13: pt o2 sats noted to drop to the mid 80's with movement to the bsc as well as when eating. pt o2 sats noted to recover within 5 mins Original Note: pt was up to the chair from approx 1530 and was able to remain up for about an hour. pt has taken naps throughout the shift. nad noted. pt lung sounds contain fine crackles throughout bilaterally. bowel sounds are active. pt has not had a bm this shift. pt is able to void clear yellow urine via bsc. pt is independent when ambulating to and from bs. pt is currently on 6lpm/nc. pt had a bath and bedchange this shift and was able to have her hair washed.
--- NOTE | 2024-04-01 16:57 | PC.NURSE ---
1615 pt stated she cj nauseous. zofran pulled to be admin, after med had been drawn up into syringe pt stated that she didn't feel like zofran helped with her nausea and would rather receive phenergan. zofran not admin
[2024-04-01] MEDS: ALPRAZolam 0.5MG TABLET 0.25 MG PO (21:48)
[2024-04-01] MEDS: ENOXAPARIN 80MG/0.8ML SYRINGE 65 MG SUBCUT (21:55)
[2024-04-02] VITALS (25 sets, daily range): BP systolic 109–139; BP diastolic 51–79; PULSE 70–109; RESP 17–25; TEMP 36.4–37.5; O2SAT 89–97; BMI 24.7
[2024-04-02] MEDS: IPRATROPIUM/ALBUTEROL 3 ML NEB IH ×4 (00:12→18:16)
[2024-04-02] MEDS: POLYETHYLENE GLYCOL 3350 17 GM PACKET PO ×2 (00:16→20:23)
[2024-04-02] MEDS: PROMETHAZINE HCL 25MG/ML 1ML VIAL 25 MG IV ×2 (00:18→08:06)
[2024-04-02] MEDS: SODIUM CHLORIDE 0.9% 25ML BAG 25 ML IV ×2 (00:18→08:06)
[2024-04-02 01:25] LABS: POC Glucose,Bedside 136 (70-110)
[2024-04-02] MEDS: HYDROMORPHONE 2MG/ML SYRINGE 1 MG IV ×3 (05:36→18:54)
[2024-04-02 05:40] LABS: Basophils # 0.1 K/mm3 (0-0.2); Basophils % 0.3 % (0.1-2.0); Eosinophils % 0.1 % (0.1-12.0); Hematocrit 32.3 % (37.0-47.0); Hemoglobin 9.8 g/dL (12.2-16.2); Lymphocytes # 1.6 K/mm3 (0.7-4.5); Lymphocytes % 9.7 % (10-50); Mean Corpuscular HGB Conc 30.3 g/dL (31.8-35.4); Mean Corpuscular Hemoglobin 22.6 pg (27.0-31.2); Mean Corpuscular Volume 74.6 fl (81-99); Mean Platelet Volume 9.3 fl (7.4-10.4); Monocytes # 1.1 K/mm3 (0.1-1.0); Monocytes % 6.5 % (1.7-9.3); Neutrophils # 13.7 K/mm3 (1.8-7.8); Neutrophils % 82.7 % (37.0-80.0); Platelet Count 530 K/mm3 (142-424); Red Blood Count 4.33 M/mm3 (4.20-5.40); Red Cell Distribution Width 15.5 % (11.5-17.5); White Blood Count 16.5 K/mm3 (4.8-10.8)
[2024-04-02 05:48] LABS: MANUAL DIFFERENTIAL MANUAL DIFFERENTIAL (MANUAL DIFF)
[2024-04-02 05:51] LABS: Magnesium 2.1 mg/dl (1.6-2.3)
[2024-04-02 05:55] LABS: C-Reactive Protein 169.9 mg/L (0-4)
--- NOTE | 2024-04-02 06:00 | XR_ITS ---
PROCEDURE INFORMATION: Exam: XR Chest Exam date and time: 04/02/2024 5:58 AM Age: 58 years old Clinical indication: Other: Pnm TECHNIQUE: Imaging protocol: Radiologic exam of the chest. Views: 1 view. COMPARISON: CR XR CHEST PORTABLE 04/01/2024 1:05 PM FINDINGS: Tubes, catheters and devices: Central venous catheter in good position. Lungs: Diffuse patchy bilateral right greater than left airspace opacities are not significantly changed from prior. Pleural spaces: Unremarkable. No pleural effusion. No pneumothorax. Heart/Mediastinum: Unremarkable. No cardiomegaly. Bones/joints: Unremarkable. IMPRESSION: Central venous catheter in good position. Diffuse patchy bilateral right greater than left airspace opacities are not significantly changed from prior.
[2024-04-02 07:00] LABS: Albumin Level 3.2 g/dl (3.5-5.0); Chloride 99 mmol/L (98-107); Potassium 4.4 mmoL/L (3.5-5.1); Sodium 137 mmol/L (136-145)
[2024-04-02 07:02] LABS: Blood Urea Nitrogen 13 mg/dl (7-17); Creatinine Clearance Estimated 106 mL/min (50-200); Estimated Glomerular Filt Rate 103 ml/min (>60); GFR (African American) 124 ML/MIN (>60)
[2024-04-02 07:03] LABS: Alanine Aminotransferase 21 U/L (12-78); Albumin/Globulin Ratio 1.1 (1.1-1.8); Alkaline Phosphatase 182 U/L (38-126); Anion Gap 11.4 mEq/L (5-15); Aspartate Amino Transferase 26 U/L (14-36); Bilirubin,Total 0.2 mg/dl (0.2-1.3); Calcium 9.3 mg/dl (8.4-10.2); Carbon Dioxide 31 mmol/L (22.0-30.0); Globulin 2.8 g/dL (1.3-3.2); Glucose 110 mg/dl (74-100)
[2024-04-02 07:53] LABS: Lymphocytes % 5 % (10-50); Monocytes % 3 % (2-9); Neutrophils % 92 % (42-76); Total Cells Counted 100
[2024-04-02 07:54] LABS: Hypochromasia 1+; Platelet Estimate Slight Increase
[2024-04-02] MEDS: OXYCODONE 5MG IMMEDIATE RELEASE TABLET 10 MG PO ×2 (08:48→15:36)
[2024-04-02] MEDS: AZITHROMYCIN 500 MG in 0.9 % SODIUM CHLORIDE 250 ML 250 MG IV (08:48)
[2024-04-02] MEDS: SENNA 8.6MG TABLET 8.6 MG PO ×2 (08:48→20:23)
[2024-04-02] MEDS: predniSONE 20MG TAB 40 MG PO (08:48)
[2024-04-02] MEDS: ALPRAZolam 0.5MG TABLET 0.25 MG PO ×2 (08:53→21:13)
[2024-04-02] MEDS: ENOXAPARIN 80MG/0.8ML SYRINGE 65 MG SUBCUT (08:54)
--- NOTE | 2024-04-02 09:41 | P.PN_ITS ---
Subjective *Date: 04/02/24 *Time: 13:47 Interval history: No acute respiratory vents overnight. Patient denies any new/worsening respiratory symptoms. Pulmonology Exam Inpatient Vital signs and Labs for Last 24 Hours: Temp Pulse Resp BP Pulse Ox O2 Del Method O2 Flow Rate 97.9 F 97 H 21 111/55 L 92 L Nasal Cannula 5 04/02/24 05:00 04/02/24 08:18 04/02/24 08:18 04/02/24 08:18 04/02/24 08:18 04/02/24 09:00 04/02/24 09:00 FiO2 50 04/01/24 09:07 Laboratory Results - last 24 hr 03/30/24 12:42: BAL Total Cell Count See comment 03/30/24 12:43: BAL Total Cell Count See comment 04/02/24 01:17: POC Glucose 136 H 04/02/24 05:26: WBC 16.5 H D, RBC 4.33, Hgb 9.8 L, Hct 32.3 L, MCV 74.6 L, MCH 22.6 L, MCHC 30.3 L, RDW 15.5, Plt Count 530 H, MPV 9.3, Neut % (Auto) 82.7 H, Lymph % (Auto) 9.7 L, Alexander % (Auto) 6.5, Eos % (Auto) 0.1, Baso % (Auto) 0.3, Neut # (Auto) 13.7 H, Lymph # (Auto) 1.6, Alexander # (Auto) 1.1 H, Eos # (Auto) 0.0, Baso # (Auto) 0.1, Total Counted 100, Neutrophils % (Manual) 92 H, Lymphocytes % (Manual) 5 L, Monocytes % (Manual) 3, Platelet Estimate Slight increase, Hypochromasia 1+, Sodium 137, Potassium 4.4, Chloride 99, Carbon Dioxide 31 H, Anion Gap 11.4, BUN 13, Creatinine 0.60 D, Estimated Creat Clear 106, Estimated GFR 103, Est GFR ( Amer) 124 D, Glucose 110 H, Calcium 9.3, Magnesium 2.1 D, Total Bilirubin 0.2, AST 26, ALT 21, Alkaline Phosphatase 182 H, C- Reactive Protein 169.9 H, Total Protein 6.0 L, Albumin 3.2 L D, Globulin 2.8, Albumin/Globulin Ratio 1.1 Temp Pulse Resp BP Pulse Ox O2 Del Method O2 Flow Rate 100.3 F H 69 16 95/57 L 92 L Nasal Cannula 5 03/30/24 04:00 03/30/24 08:00 03/30/24 08:00 03/30/24 08:00 03/30/24 08:00 03/30/24 08:54 03/30/24 08:54 Laboratory Results - last 24 hr 03/29/24 15:30: SARS-CoV-2 (PCR) Not detected, Influenza A Untype (PCR) Not detected, Influenza Type B (PCR) Not detected 03/29/24 15:37: VBG pH 7.41, VBG pCO2 39.2, VBG pO2 36.9, VBG HCO3 24.5, VBG Total CO2 25.7, VBG O2 Saturation 69.3, VBG Base Excess -0.1, VBG Lactic Acid 1.2 03/29/24 15:54: WBC 12.2 H, RBC 4.89, Hgb 11.3 L, Hct 35.8 L, MCV 73.2 L, MCH 23.1 L, MCHC 31.6 L, RDW 15.6, Plt Count 512 H, MPV 9.3, Neut % (Auto) 73.7, Lymph % (Auto) 11.3, Alexander % (Auto) 10.0 H, Eos % (Auto) 3.8, Baso % (Auto) 0.6, Neut # (Auto) 9.0 H, Lymph # (Auto) 1.4, Alexander # (Auto) 1.2 H, Eos # (Auto) 0.5 H , Baso # (Auto) 0.1, D-Dimer 1.19 H, Sodium 133 L, Potassium 4.3, Chloride 96 L, Carbon Dioxide 27, Anion Gap 14.3, BUN 12, Creatinine 0.80, Estimated Creat Clear 79, Estimated GFR 74, Est GFR ( Amer) 89, Glucose 98, Calcium 9.3, Total Bilirubin 0.4, AST 26, ALT 17, Alkaline Phosphatase 200 H, Troponin I < 0.01, NT-Pro-B Natriuret Pep 90.0, Total Protein 7.3, Albumin 3.9, Globulin 3.4 H, Albumin/Globulin Ratio 1.1, HCV Ab LU w/Rflx PCR Qn Negative, HIV Ag/Ab Combo Qual Negative 03/29/24 18:44: Troponin I < 0.01 03/29/24 22:04: Troponin I < 0.01 03/30/24 05:27: Lactate Dehydrogenase 216 L, C-Reactive Protein 141.3 H I & O for Labs for Last 24 Hours: Intake & Output 03/30/24 03/31/24 04/01/24 04/02/24 23:59 23:59 23:59 23:59 Intake Total 800 / 800 1451 / 1951 1460 / 1580 455 / 455 Output Total 1125 / 1125 850 / 850 200 / 200 0 / 0 Balance -325 / -325 601 / 1101 1260 / 1380 455 / 455 Weight 147 lb 7.828 oz 147 lb 3.2 oz 144 lb 8.173 oz 144 lb 9.972 oz Intake & Output 03/27/24 03/28/24 03/29/24 03/30/24 23:59 23:59 23:59 23:59 Intake Total 90 / 90 Output Total 0 / 0 425 / 425 Balance 0 / 90 -335 / -335 Weight 144 lb 147 lb 8 oz Microbiology Reports for the Last 24 Hours: Microbiology 03/30/24 12:43 Bronchial Washings - Right Middle Lobe - Final 03/30/24 12:43 Bronchial Washings - Right Middle Lobe Acid Fast Bacilli Smear - Final 03/30/24 12:42 Bronchial Washings - Left Upper Lobe - Final 03/30/24 12:42 Bronchial Washings - Left Upper Lobe Acid Fast Bacilli Smear - Final 03/30/24 12:43 Transbronchial Biopsy - Right Middle Lobe Gram Stain - Final 03/30/24 12:43 Transbronchial Biopsy - Right Middle Lobe Surgical Biopsy Culture - Preliminary NO GROWTH AFTER 48 HOURS Constitutional: Present severe distress Head: Present normocephalic and atraumatic ENT: Present normal exam, normal oropharynx and mucous membranes moist Neck: Present normal inspection and full ROM Respiratory: Present respiratory distress, rhonchi, diminished air movement and able to speak in complete sentences; Absent wheezes Cardiac: Present S1/S2, Tachycardia and radial pulses present GI: Present soft and distention; Absent tenderness or guarding Rectal (female): Present deferred (female): Present deferred Skin: Present intact; Absent cyanosis or jaundice Neuro: Present alert, awake and oriented x 3 Extremities: Present normal inspection; Absent clubbing or cyanosis Psychiatric: Present normal affect and cooperative Assessment and Plan *Assessment and plan (1) Multifocal pneumonia: Status: Acute Category: Medical Code(s): J18.9 - Pneumonia, unspecified organism (2) Immunosuppression: Status: Acute Category: Medical Code(s): D84.9 - Immunodeficiency, unspecified (3) Acute hypoxic respiratory failure: Status: Acute Category: Medical Code(s): J96.01 - Acute respiratory failure with hypoxia (4) Severe sepsis: Status: Acute Category: Medical Code(s): A41.9 - Sepsis, unspecified organism; R65.20 - Severe sepsis without septic shock Plan Ms. Hilario is a 58-year-old female no significant smoking history no prior respiratory complaints currently following with oncology for colon cancer with ovarian/pelvic mets presented to ER with worsening respiratory distress and subjective fevers. Patient admits subjective fevers intermittently since end of January 2024. Diagnosed with urinary tract infection status post treatment with levofloxacin around February 23, 2024. Presented to ER around August 09, 2021 with worsening respiratory distress, CT scan showed multifocal pneumonia discharged home on cefuroxime and azithromycin for 5 days. Patient admits minimal i mprovement in symptoms and then started worsening. Admits cough with no significant productive phlegm. CT chest from [facility] compared to her CT from this hospital admission, bilateral airspace disease significantly worsened from prior. CRP elevated at 141. LDH 216, within normal limit Neutrophilic predominant. Eosinophilia noted CTA upon admission no evidence of pulm embolism. Extensive bilateral dense patchy consolidative changes. Currently receiving levofloxacin and steroids Interval update: Worsening leukocytosis, white count at 16. Improvement in peripheral eosinophilia now at 0 from 500 on admission. CXR fairly stable. CRP worsened now with 170. CT abdomen no concerning evidence of infectious origin. Transbronchial biopsy cultures no growth so far. Blood cultures no growth. Plan: -Continue levofloxacin x 14 days -Continue prednisone 40 mg daily -Follow-up with CRP and chest x-ray -Continue oxygen supplementation to maintain O2 saturation goal of 90% and above. -DuoNebs 4 times daily as needed
--- NOTE | 2024-04-02 10:48 | EXP.PHA.PN ---
Subjective *Date: 04/02/24 *Time: 10:48 Medical Exam Vital signs and Labs for Last 24 Hours: Vital Signs Temp Pulse Pulse Resp BP Pulse Ox O2 Del Method 04/02/24 10:01 91 H 17 118/68 92 L Nasal Cannula 04/02/24 09:00 Nasal Cannula 04/02/24 08:18 97 H 21 111/55 L 92 L Nasal Cannula 04/02/24 08:00 109 H 04/02/24 07:00 85 23 127/64 92 L Nasal Cannula 04/02/24 06:15 Nasal Cannula 04/02/24 05:00 97.9 F 73 20 114/67 97 Nasal Cannula 04/02/24 05:00 114/67 04/02/24 04:39 Nasal Cannula 04/02/24 04:00 72 04/02/24 03:00 73 18 113/62 94 L Nasal Cannula 04/02/24 03:00 Nasal Cannula 04/02/24 01:48 Nasal Cannula 04/02/24 01:00 91 H 19 109/54 L 92 L 04/02/24 00:26 Nasal Cannula 04/02/24 00:12 92 H 04/02/24 00:12 90 04/02/24 00:00 99.5 F 82 24 121/51 L 93 L Nasal Cannula 04/02/24 00:00 84 04/01/24 22:50 Nasal Cannula, Non-Rebreather 04/01/24 22:00 90 24 126/62 95 Non-Rebreather 04/01/24 21:00 Nasal Cannula, Non-Rebreather 04/01/24 20:00 Nasal Cannula, Non-Rebreather 04/01/24 20:00 84 04/01/24 20:00 99.5 F 94 H 22 113/63 93 L Nasal Cannula 04/01/24 18:49 Nasal Cannula 04/01/24 18:02 87 04/01/24 18:02 82 04/01/24 18:02 97 Nasal Cannula 04/01/24 18:00 98.4 F 82 22 119/56 L 98 Nasal Cannula 04/01/24 17:00 Nasal Cannula 04/01/24 16:37 96 Nasal Cannula 04/01/24 16:00 80 04/01/24 16:00 98.2 F 84 23 121/65 96 04/01/24 15:30 Nasal Cannula 04/01/24 15:11 19 04/01/24 14:00 24 121/69 93 L Nasal Cannula 04/01/24 14:00 86 93 L Nasal Cannula 04/01/24 13:27 Nasal Cannula 04/01/24 13:05 84 04/01/24 13:05 110 H 04/01/24 13:05 96 Nasal Cannula 04/01/24 13:00 86 20 111/53 L 96 Nasal Cannula 04/01/24 12:09 98.6 F 102 H 22 108/61 L 85 L 04/01/24 12:00 90 04/01/24 11:00 Nasal Cannula 04/01/24 11:00 85 29 H 106/51 L 98 O2 Flow Rate 04/02/24 10:01 5 04/02/24 09:00 5 04/02/24 08:18 5 04/02/24 08:00 04/02/24 07:00 5 04/02/24 06:15 5 04/02/24 05:00 5 04/02/24 05:00 04/02/24 04:39 5 04/02/24 04:00 04/02/24 03:00 5 04/02/24 03:00 5 04/02/24 01:48 5 04/02/24 01:00 04/02/24 00:26 6 04/02/24 00:12 04/02/24 00:12 04/02/24 00:00 5 04/02/24 00:00 04/01/24 22:50 04/01/24 22:00 15 04/01/24 21:00 5 04/01/24 20:00 5 04/01/24 20:00 04/01/24 20:00 5 04/01/24 18:49 6 04/01/24 18:02 04/01/24 18:02 04/01/24 18:02 6 04/01/24 18:00 5 04/01/24 17:00 6 04/01/24 16:37 6 04/01/24 16:00 04/01/24 16:00 04/01/24 15:30 6 04/01/24 15:11 04/01/24 14:00 6 04/01/24 14:00 6 04/01/24 13:27 6 04/01/24 13:05 04/01/24 13:05 04/01/24 13:05 6 04/01/24 13:00 6 04/01/24 12:09 04/01/24 12:00 04/01/24 11:00 6 04/01/24 11:00 Intake and Output 04/01/24 04/02/24 04/02/24 23:59 07:59 15:59 Intake Total 85 / 1580 120 / 730 610 / 730 Output Total 0 / 200 0 / 0 Balance 85 / 1380 120 / 730 610 / 730 Intake: Intake, Oral Amount 60 / 1280 120 / 455 335 / 455 Intake, Other Amount 25 / 50 25 / 25 Intake, Total IV Amount 250 / 250 Azithromycin 500 mg In 0.9 % 250 / 250 Sodium Chloride 250 ml @ 250 mls/hr IV Q24H [facility] Rx#:[id number] Output: Output, Urine Amount 0 / 200 0 / 0 Other: Intake, Other Source Saline Solution Number of Unmeasured Voids 2 1 Weight 65.6 kg Patient Weight 04/02/24 23:59 Weight 65.6 kg Laboratory Results - last 24 hr 03/30/24 12:42: BAL Total Cell Count See comment 03/30/24 12:43: BAL Total Cell Count See comment 04/02/24 01:17: POC Glucose 136 H 04/02/24 05:26: WBC 16.5 H D, RBC 4.33, Hgb 9.8 L, Hct 32.3 L, MCV 74.6 L, MCH 22.6 L, MCHC 30.3 L, RDW 15.5, Plt Count 530 H, MPV 9.3, Neut % (Auto) 82.7 H, Lymph % (Auto) 9.7 L, Kings % (Auto) 6.5, Eos % (Auto) 0.1, Baso % (Auto) 0.3, Neut # (Auto) 13.7 H, Lymph # (Auto) 1.6, Kings # (Auto) 1.1 H, Eos # (Auto) 0.0, Baso # (Auto) 0.1, Total Counted 100, Neutrophils % (Manual) 92 H, Lymphocytes % (Manual) 5 L, Monocytes % (Manual) 3, Platelet Estimate Slight increase, Hypochromasia 1+, Sodium 137, Potassium 4.4, Chloride 99, Carbon Dioxide 31 H, Anion Gap 11.4, BUN 13, Creatinine 0.60 D, Estimated Creat Clear 106, Estimated GFR 103, Est GFR ( Amer) 124 D, Glucose 110 H, Calcium 9.3, Magnesium 2.1 D, Total Bilirubin 0.2, AST 26, ALT 21, Alkaline Phosphatase 182 H, C-Reactive Protein 169.9 H, Total Protein 6.0 L, Albumin 3.2 L D, Globulin 2.8, Albumin/Globulin Ratio 1.1 I & O for Labs for Last 24 Hours: Intake & Output 03/30/24 03/31/24 04/01/24 04/02/24 23:59 23:59 23:59 23:59 Intake Total 800 / 800 1451 / 1951 1460 / 1580 730 / 730 Output Total 1125 / 1125 850 / 850 200 / 200 0 / 0 Balance -325 / -325 601 / 1101 1260 / 1380 730 / 730 Weight 66.9 kg 66.769 kg 65.549 kg 65.6 kg Microbiology Reports for the Last 24 Hours: Microbiology 03/30/24 12:43 Bronchial Washings - Right Middle Lobe - Final 03/30/24 12:43 Bronchial Washings - Right Middle Lobe Acid Fast Bacilli Smear - Final 03/30/24 12:42 Bronchial Washings - Left Upper Lobe - Final 03/30/24 12:42 Bronchial Washings - Left Upper Lobe Acid Fast Bacilli Smear - Final 03/30/24 12:43 Transbronchial Biopsy - Right Middle Lobe Gram Stain - Final 03/30/24 12:43 Transbronchial Biopsy - Right Middle Lobe Surgical Biopsy Culture - Preliminary NO GROWTH AFTER 48 HOURS The patient's infection will respond to the chosen ABx?: Yes Is the patient receiving the right drug, dose, and route?: Yes Could a more targeted ABx be ordered?: No (AFEBRILE, WBC STILL ELEVATED BUT ON STEROIDS WELL, CONTINUE CURRENT ABX.)
--- NOTE | 2024-04-02 10:55 | HMH.OTEV ---
OT Inpatient Evaluation Rehab OT IP Evaluation Start: 04/01/24 11:05 Freq: ONCE Status: Active Protocol: Document 04/02/24 10:52 [facility] (Rec: 04/02/24 10:55 [facility] [id number]) Rehab OT IP Assessment Subjective History Pt oriented x 4 on arrival. Pt agreeable to engage in therapy evaluation. Pt admitted 03/30/24 due to hypoxia and PNA. History and physical: The patient is a 58-year-old female with stage IV metastatic colon cancer ( status post right hemicolectomy, ovarian metastases, and bilateral salpingo-oophorectomy), currently on dostarlimab therapy. She presents with a two-week history of progressive fever and shortness of breath after being diagnosed with multifocal pneumonia at the [facility] emergency department. She completed outpatient antibiotics (cefuroxime and azithromycin) but has experienced worsening respiratory symptoms. She reports no chronic oxygen use. On arrival, her oxygen saturation was 84% on room air . Her recent labs show a white blood cell count of 12.2 (with neutrophil predominance), mild anemia (hemoglobin 11.3), thrombocytosis (platelets 512 ), and elevated alkaline phosphatase at 200. D-dimer is also elevated (1.19). Venous blood gas reveals a pH of 7.41 , pCO2 of 39.2, and low oxygen saturation of 69.3%. Lactic acid is normal at 1.2. Review of outside records notes a concerning CT scan for multifocal bilateral subpleural peripheral consolidative opacities, possibly representing an atypical infection or organizing pneumonia versus metastatic disease. A chest x- ray today confirms worsening changes compared to prior imaging. She has been started on empiric broad-spectrum antibiotics (vancomycin, cefepime, and azithromycin) given her immunocompromised status and concern for resistant or atypical pathogens. Pulmonology was contacted, and Hospital Medicine has agreed to admit her for further evaluation and management. Plan for bronchoscopy in a.m. Subjective Prior to being in the hospital , pt lived at home with her . Pt claims she is normally independent with all ADLs and IADLs. Pt also still drives. Pt does not require any type of AE during functional transfers. Objective Patient Orientation Person,Place,Birthday,Year Right Upper Extremity Gross ROM WNL Left Upper Extremity Gross ROM WNL Bed Mobility bed mobility-scooting,bed mobility - supine/sit Assist Level Supervision/Stand by Transfer Training Sit/Stand Transfer Assist Level Supervision/Stand by Chair Transfer Ability Supervision/Stand by Chair Transfer Technique Sit to/from Ambulatory Lower Body Dressing Ability Standby Assistance Rehab OT IP prob,goals,plan Problems Date of Evaluation: 04/02/24 Rehab Potential Rehab Potential Innapropriate for Skilled Therapy Discharge Plan OT Discharge Plan Pt appears to be at her baseline with functional transfers and ADL independence . Pt can return home with once she is medically stable per physician. Eval Complexity Eval Charge Codes 31768 - Low Complexity PHYSICIAN CERTIFICATION: I certify the specified therapy services for Gena Green are required, authorized, and reviewed every 30 days.
[2024-04-02] MEDS: levoFLOXacin 750 MG TABLET PO (11:28)
--- NOTE | 2024-04-02 12:08 | EXP.ACUTE.PN ---
Subjective *Date: 04/02/24 *Time: 15:27 Interval history: Patient anxious this morning. Still requiring 5 L. Worried that she will leave the hospital. No nausea or vomiting. Denies chest pain. Dyspneic with minimal exertion. Afebrile Medical Exam Vital signs and Labs for Last 24 Hours: Vital Signs Temp Pulse Pulse Resp BP Pulse Ox O2 Del Method 04/02/24 11:51 97.7 F 96 H 20 130/66 91 L Nasal Cannula 04/02/24 11:00 Nasal Cannula 04/02/24 10:01 91 H 17 118/68 92 L Nasal Cannula 04/02/24 09:00 Nasal Cannula 04/02/24 08:18 97 H 21 111/55 L 92 L Nasal Cannula 04/02/24 08:00 109 H 04/02/24 07:00 85 23 127/64 92 L Nasal Cannula 04/02/24 06:15 Nasal Cannula 04/02/24 05:00 97.9 F 73 20 114/67 97 Nasal Cannula 04/02/24 05:00 114/67 04/02/24 04:39 Nasal Cannula 04/02/24 04:00 72 04/02/24 03:00 73 18 113/62 94 L Nasal Cannula 04/02/24 03:00 Nasal Cannula 04/02/24 01:48 Nasal Cannula 04/02/24 01:00 91 H 19 109/54 L 92 L 04/02/24 00:26 Nasal Cannula 04/02/24 00:12 92 H 04/02/24 00:12 90 04/02/24 00:00 99.5 F 82 24 121/51 L 93 L Nasal Cannula 04/02/24 00:00 84 04/01/24 22:50 Nasal Cannula, Non-Rebreather 04/01/24 22:00 90 24 126/62 95 Non-Rebreather 04/01/24 21:00 Nasal Cannula, Non-Rebreather 04/01/24 20:00 Nasal Cannula, Non-Rebreather 04/01/24 20:00 84 04/01/24 20:00 99.5 F 94 H 22 113/63 93 L Nasal Cannula 04/01/24 18:49 Nasal Cannula 04/01/24 18:02 87 04/01/24 18:02 82 04/01/24 18:02 97 Nasal Cannula 04/01/24 18:00 98.4 F 82 22 119/56 L 98 Nasal Cannula 04/01/24 17:00 Nasal Cannula 04/01/24 16:37 96 Nasal Cannula 04/01/24 16:00 80 04/01/24 16:00 98.2 F 84 23 121/65 96 04/01/24 15:30 Nasal Cannula 04/01/24 15:11 19 04/01/24 14:00 24 121/69 93 L Nasal Cannula 04/01/24 14:00 86 93 L Nasal Cannula 04/01/24 13:27 Nasal Cannula 04/01/24 13:05 84 04/01/24 13:05 110 H 04/01/24 13:05 96 Nasal Cannula 04/01/24 13:00 86 20 111/53 L 96 Nasal Cannula 04/01/24 12:09 98.6 F 102 H 22 108/61 L 85 L O2 Flow Rate 04/02/24 11:51 5 04/02/24 11:00 5 04/02/24 10:01 5 04/02/24 09:00 5 04/02/24 08:18 5 04/02/24 08:00 04/02/24 07:00 5 04/02/24 06:15 5 04/02/24 05:00 5 04/02/24 05:00 04/02/24 04:39 5 04/02/24 04:00 04/02/24 03:00 5 04/02/24 03:00 5 04/02/24 01:48 5 04/02/24 01:00 04/02/24 00:26 6 04/02/24 00:12 04/02/24 00:12 04/02/24 00:00 5 04/02/24 00:00 04/01/24 22:50 04/01/24 22:00 15 04/01/24 21:00 5 04/01/24 20:00 5 04/01/24 20:00 04/01/24 20:00 5 04/01/24 18:49 6 04/01/24 18:02 04/01/24 18:02 04/01/24 18:02 6 04/01/24 18:00 5 04/01/24 17:00 6 04/01/24 16:37 6 04/01/24 16:00 04/01/24 16:00 04/01/24 15:30 6 04/01/24 15:11 04/01/24 14:00 6 04/01/24 14:00 6 04/01/24 13:27 6 04/01/24 13:05 04/01/24 13:05 04/01/24 13:05 6 04/01/24 13:00 6 04/01/24 12:09 Intake and Output 04/01/24 04/02/24 04/02/24 23:59 07:59 15:59 Intake Total 85 / 1580 120 / 730 610 / 730 Output Total 0 / 200 0 / 0 Balance 85 / 1380 120 / 730 610 / 730 Intake: Intake, Oral Amount 60 / 1280 120 / 455 335 / 455 Intake, Other Amount 25 / 50 Intake, Total IV Amount 250 / 250 Azithromycin 500 mg In 0.9 % 250 / 250 Sodium Chloride 250 ml @ 250 mls/hr IV Q24H [facility] Rx#:[id number] Output: Output, Urine Amount 0 / 200 0 / 0 Other: Intake, Other Source Saline Solution Number of Unmeasured Voids 2 1 Weight 65.6 kg Patient Weight 04/02/24 23:59 Weight 65.6 kg Laboratory Results - last 24 hr 03/30/24 12:42: BAL Total Cell Count See comment 03/30/24 12:43: BAL Total Cell Count See comment 04/02/24 01:17: POC Glucose 136 H 04/02/24 05:26: WBC 16.5 H D, RBC 4.33, Hgb 9.8 L, Hct 32.3 L, MCV 74.6 L, MCH 22.6 L, MCHC 30.3 L, RDW 15.5, Plt Count 530 H, MPV 9.3, Neut % (Auto) 82.7 H, Lymph % (Auto) 9.7 L, [place] % (Auto) 6.5, Eos % (Auto) 0.1, Baso % (Auto) 0.3, Neut # (Auto) 13.7 H, Lymph # (Auto) 1.6, [place] # (Auto) 1.1 H, Eos # (Auto) 0.0, Baso # (Auto) 0.1, Total Counted 100, Neutrophils % (Manual) 92 H, Lymphocytes % (Manual) 5 L, Monocytes % (Manual) 3, Platelet Estimate Slight increase, Hypochromasia 1+, Sodium 137, Potassium 4.4, Chloride 99, Carbon Dioxide 31 H, Anion Gap 11.4, BUN 13, Creatinine 0.60 D, Estimated Creat Clear 106, Estimated GFR 103, Est GFR ( Amer) 124 D, Glucose 110 H, Calcium 9.3, Magnesium 2.1 D, Total Bilirubin 0.2, AST 26, ALT 21, Alkaline Phosphatase 182 H, C-Reactive Protein 169.9 H, Total Protein 6.0 L, Albumin 3.2 L D, Globulin 2.8, Albumin/Globulin Ratio 1.1 I & O for Labs for Last 24 Hours: Intake & Output 03/30/24 03/31/24 04/01/24 04/02/24 23:59 23:59 23:59 23:59 Intake Total 800 / 800 1451 / 1951 1460 / 1580 730 / 730 Output Total 1125 / 1125 850 / 850 200 / 200 0 / 0 Balance -325 / -325 601 / 1101 1260 / 1380 730 / 730 Weight 66.9 kg 66.769 kg 65.549 kg 65.6 kg Microbiology Reports for the Last 24 Hours: Microbiology 03/30/24 12:43 Bronchial Washings - Right Middle Lobe Gram Stain - Final 03/30/24 12:43 Bronchial Washings - Right Middle Lobe Bronchoalveolar Lavage Culture - Final NO GROWTH AFTER 48 HOURS 03/30/24 12:42 Bronchial Washings - Left Upper Lobe Gram Stain - Final 03/30/24 12:42 Bronchial Washings - Left Upper Lobe Bronchoalveolar Lavage Culture - Final NO GROWTH AFTER 48 HOURS 03/30/24 12:43 Bronchial Washings - Right Middle Lobe - Final 03/30/24 12:43 Bronchial Washings - Right Middle Lobe Acid Fast Bacilli Smear - Final 03/30/24 12:42 Bronchial Washings - Left Upper Lobe - Final 03/30/24 12:42 Bronchial Washings - Left Upper Lobe Acid Fast Bacilli Smear - Final 03/30/24 12:43 Transbronchial Biopsy - Right Middle Lobe Gram Stain - Final 03/30/24 12:43 Transbronchial Biopsy - Right Middle Lobe Surgical Biopsy Culture - Preliminary NO GROWTH AFTER 48 HOURS Constitutional: Present no acute distress, chronically ill appearing and cooperative Head: Present atraumatic and normocephalic ENT: Present normal exam Neck: Present normal inspection Respiratory: Present rhonchi, crackles and normal respiratory effort; Absent wheezes Cardiac: Present Reg Rate and Rhythm GI: Present soft, tenderness (non-focal) and normal bowel sounds; Absent distention Rectal (female): Present deferred Extremities: Present normal inspection and full ROM Skin: Present intact; Absent erythema Neuro: Present Grossly Intact, alert, awake, oriented x 3 and moves all extremities Comment:: Tearful, depressed Assessment and Plan *Assessment and plan (1) Multifocal pneumonia: Status: Acute Category: Medical Code(s): J18.9 - Pneumonia, unspecified organism (2) Acute hypoxic respiratory failure: Status: Acute Category: Medical Code(s): J96.01 - Acute respiratory failure with hypoxia (3) Anemia: Status: Acute Category: Medical Code(s): D64.9 - Anemia, unspecified (4) COPD (chronic obstructive pulmonary disease): Status: Chronic Category: Medical Code(s): J44.9 - Chronic obstructive pulmonary disease, unspecified (5) Immunosuppression: Status: Acute Category: Medical Code(s): D84.9 - Immunodeficiency, unspecified (6) Severe sepsis: Status: Acute Category: Medical Code(s): A41.9 - Sepsis, unspecified organism; R65.20 - Severe sepsis without septic shock (7) Colon cancer: Status: Chronic Category: Medical Code(s): C18.9 - Malignant neoplasm of colon, unspecified Plan This patient?s clinical deterioration, persistent hypoxia, and radiographic progression despite completing outpatient antibiotics necessitate inpatient care. She is immunocompromised both from metastatic colon cancer and ongoing immunotherapy (dostarlimab). The differential includes refractory bacterial pneumonia, atypical infection, immune-mediated pneumonitis, or progression of metastatic disease. Given her low oxygen saturation, leukocytosis, and persistent fever, she requires close monitoring, expanded diagnostic workup (including cultures and possibly bronchoscopy), and broad-spectrum IV antibiotics. Admission is indicated to stabilize her respiratory status, further investigate the cause of her worsening pulmonary findings, and manage her comorbid conditions. Showing improvement. Weaning oxygen. Continues to require inpatient management. Advance back to stepdown level of care. Slow to progress. Problems addressed as follows: Worsening Multifocal Pneumonia - Discussed case with pulmonology, recommend continue Levaquin for 14 days. Will continue prednisone 40 mg daily. Follow-up CRP and chest x-ray daily. -Continue supplemental oxygen for goal sats greater 90%, currently on 5 L -Sputum and blood cultures remain negative -White count bumped to 16.5, hemoglobin stable at 9.8. Platelets 530. Repeat CBC, CMP, magnesium ordered for the morning. -CRP on the fourth was 141, dropped to 83 on the sixth, up to 169 today. Remains afebrile. Will hold on broadening antibiotics pending CRP tomorrow and white count change. -Chest x-ray per my review shows persistent diffuse patchy airspace disease. Worse on the right. No significant change from previous x-rays. - Promethazine codeine cough syrup due to severe cough fits with desaturation -DuoNebs as needed every 6 hours Mild Anemia - likely chronic disease anemia secondary to malignancy and/or recent infection. - Hgb 9.8. No active signs of bleeding. -Transfusion threshold hemoglobin less than 7. Repeat CBC ordered for the morning. No active signs of bleeding. Elevated Alkaline Phosphatase (200) - Possible hepatic involvement by metastatic disease or cholestasis. Liver enzymes stable at this time Metastatic Colon Cancer (Stage IV) on Dostarlimab Acute on chronic pain related to metastatic cancer. Constipation -Continue bowel regimen with MiraLAX and senna twice daily scheduled -Continuing home regimen with oxycodone 10 mg every 6 hours for severe pain. Dilaudid 1 mg every 4 hours for severe breakthrough. Monitoring for toxicity DNI Regular diet Lovenox 40 mg subcu daily
--- NOTE | 2024-04-02 15:23 | PC.NURSE ---
Patient remained on 5LNC, VS stable. NSR to sinus tach on monitor. Pain controlled with prn pain medications. Patient able to walk with physical therapy as well as to bedside commode. Patient anxious during shift whenever feeling short of breathe, prn xanax given. Lung sounds diminished.
--- NOTE | 2024-04-02 17:22 | PC.NURSE ---
Patient able to walk from room to toilet with non rebreather
--- NOTE | 2024-04-02 20:46 | PC.NURSE ---
Pt sitting in bed, eating snack at this time. Pt voices no needs or complaints. Pt is on 6L NC. O2 sat currently 94%, intermittently drops to 80's, but quickly comes back up to 90's. Call light in reach.
--- NOTE | 2024-04-02 21:18 | PC.NURSE ---
Pt ambulated to bathroom and tolerated well. Reported feeling slightly SOA. O2 sat remained 89-91% on NRB. Pt walked an additional approx 75 feet. When pt climbed back in bed her O2 sat decreased to 70's and pt reported feeling more SOA. Pt remained on NRB. Pt reported feeling anxious, stating she knows that she is going to soon, and leave her daughter. Pt requested anxiety medicine. PRN xanax given per APR. Pt is back on 6L NC now and sat is 91%.
[2024-04-03] VITALS (21 sets, daily range): BP systolic 120–152; BP diastolic 56–83; PULSE 72–104; RESP 15–27; TEMP 36.7–36.9; O2SAT 88–95; BMI 27.5
[2024-04-03] MEDS: OXYCODONE 5MG IMMEDIATE RELEASE TABLET 10 MG PO ×4 (00:03→20:48)
[2024-04-03] MEDS: IPRATROPIUM/ALBUTEROL 3 ML NEB IH ×5 (00:34→23:06)
[2024-04-03] MEDS: SODIUM CHLORIDE 0.9% 25ML BAG 25 ML IV ×2 (01:52→08:30)
[2024-04-03] MEDS: PROMETHAZINE HCL 25MG/ML 1ML VIAL 25 MG IV ×3 (01:52→22:25)
--- NOTE | 2024-04-03 02:01 | PC.NURSE ---
Pt up to BSC at this time. NRB placed on pt, O2 sat decreased to 75%. Pt denied SOA. After getting back in bed, pt reported nausea and stated she felt like she might need to eat something. offered pt snack. Pt refused. Asked pt if shed like to try to sit up for a few mins with the fan on her. Pt refused, and stated she wanted medicine, but not Zofran. Phenergan administered per MAR. 200ml clear/yellow urine emptied from BSC. Pt is back on 6L NC. O2 sat 93% at this time.
--- NOTE | 2024-04-03 06:00 | XR_ITS ---
PROCEDURE INFORMATION: Exam: XR Chest Exam date and time: 04/03/2024 5:50 AM Age: 58 years old Clinical indication: Other: Pnm TECHNIQUE: Imaging protocol: Radiologic exam of the chest. Views: 1 view. COMPARISON: CR XR CHEST PORTABLE 04/02/2024 5:58 AM FINDINGS: Tubes, catheters and devices: Tip of the left chest wall port projects over the mid SVC. Lungs: Diffuse heterogeneous opacities in the bilateral lungs with mild peripheral preponderance are unchanged. Pleural spaces: No pneumothorax or pleural effusion. Heart/Mediastinum: Cardiomediastinal silhouette is unchanged. Bones/joints: Unremarkable. IMPRESSION: Diffuse heterogeneous opacities in the bilateral lungs with mild peripheral preponderance are unchanged.
[2024-04-03 07:14] LABS: Basophils # 0.1 K/mm3 (0-0.2); Basophils % 0.5 % (0.1-2.0); Eosinophils # 0.1 K/mm3 (0.0-0.4); Eosinophils % 0.4 % (0.1-12.0); Hematocrit 30.3 % (37.0-47.0); Hemoglobin 9.4 g/dL (12.2-16.2); Lymphocytes # 2.4 K/mm3 (0.7-4.5); Lymphocytes % 12.3 % (10-50); Mean Corpuscular Hemoglobin 22.9 pg (27.0-31.2); Mean Corpuscular Volume 73.7 fl (81-99); Mean Platelet Volume 9.1 fl (7.4-10.4); Monocytes # 1.3 K/mm3 (0.1-1.0); Monocytes % 6.6 % (1.7-9.3); Neutrophils # 15.5 K/mm3 (1.8-7.8); Neutrophils % 79.5 % (37.0-80.0); Platelet Count 482 K/mm3 (142-424); Red Blood Count 4.11 M/mm3 (4.20-5.40); Red Cell Distribution Width 15.9 % (11.5-17.5); White Blood Count 19.4 K/mm3 (4.8-10.8)
[2024-04-03 07:16] LABS: MANUAL DIFFERENTIAL MANUAL DIFFERENTIAL (MANUAL DIFF)
--- NOTE | 2024-04-03 07:17 | PC.NURSE ---
Pt up to BSC at this time. O2 sat decreased to 79%, NRB in place. Pt now back in bed, O2 sat now increased to 96% on NRB. Pt has no complaints at this time. Call light in reach.
[2024-04-03 07:33] LABS: Alanine Aminotransferase 21 U/L (12-78); Albumin Level 3.1 g/dl (3.5-5.0); Alkaline Phosphatase 152 U/L (38-126); Anion Gap 13.4 mEq/L (5-15); Aspartate Amino Transferase 24 U/L (14-36); Blood Urea Nitrogen 14 mg/dl (7-17); Calcium 9.4 mg/dl (8.4-10.2); Carbon Dioxide 30 mmol/L (22.0-30.0); Chloride 97 mmol/L (98-107); Creatinine Clearance Estimated 101 mL/min (50-200); Estimated Glomerular Filt Rate 86 ml/min (>60); GFR (African American) 104 ML/MIN (>60); Glucose 93 mg/dl (74-100); Magnesium 1.9 mg/dl (1.6-2.3); Potassium 4.4 mmoL/L (3.5-5.1); Sodium 136 mmol/L (136-145); Total Protein,Serum 6.1 g/dl (6.3-8.2)
[2024-04-03 07:39] LABS: C-Reactive Protein 72.2 mg/L (0-4)
[2024-04-03 07:43] LABS: Bilirubin,Total < 0.1 mg/dl (0.2-1.3)
[2024-04-03 07:49] LABS: Procalcitonin 0.059 ng/mL (0.0-2.0)
--- NOTE | 2024-04-03 08:25 | P.PN_ITS ---
Subjective *Date: 04/03/24 *Time: 08:27 Interval history: No acute events overnight. Ambulating to bathroom without significant desaturation. Encouraged to get out of bed to the chair today. Will de- escalate to MedSurg. Stable on 5 L oxygen. No nausea or vomiting. Tolerating p.o. intake. Medical Exam Vital signs and Labs for Last 24 Hours: Vital Signs Temp Pulse Pulse Resp BP BP Pulse Ox 04/03/24 08:00 98.5 F 104 H 27 H 120/56 L 88 L 04/03/24 07:00 04/03/24 06:44 76 04/03/24 06:44 78 04/03/24 06:44 90 L 04/03/24 06:00 87 16 91 L 04/03/24 06:00 139/83 04/03/24 05:00 73 19 139/83 92 L 04/03/24 04:57 04/03/24 04:07 88 04/03/24 04:06 101 H 19 94 L 04/03/24 04:06 143/80 H 04/03/24 04:00 82 21 92 L 04/03/24 03:00 98.1 F 80 15 143/80 H 95 04/03/24 03:00 04/03/24 02:00 04/03/24 02:00 86 19 92 L 04/03/24 02:00 127/58 L 04/03/24 01:00 89 19 127/58 L 92 L 04/03/24 01:00 04/03/24 00:35 83 04/03/24 00:35 83 04/03/24 00:00 82 04/03/24 00:00 83 18 93 L 04/03/24 00:00 135/79 04/03/24 00:00 98.1 F 82 20 135/79 95 04/02/24 23:55 96 04/02/24 23:00 04/02/24 23:00 84 21 135/79 96 04/02/24 22:00 129/77 04/02/24 22:00 93 H 25 H 129/77 95 04/02/24 21:00 04/02/24 20:00 91 H 04/02/24 20:00 92 H 24 96 04/02/24 19:51 86 17 90 L 04/02/24 19:51 122/64 02/07/25 19:00 97.7 F 99 H 21 122/64 95 04/02/24 18:31 04/02/24 18:16 70 04/02/24 18:16 72 04/02/24 18:00 85 19 93 L 04/02/24 17:41 90 20 139/75 89 L 04/02/24 17:00 04/02/24 16:00 77 04/02/24 15:56 97.6 F 80 22 134/76 94 L 04/02/24 15:00 04/02/24 14:10 97 H 20 127/75 95 04/02/24 14:00 04/02/24 13:15 97 H 04/02/24 13:15 97 H 04/02/24 13:00 04/02/24 12:00 93 H 04/02/24 11:51 97.7 F 96 H 20 130/66 91 L 04/02/24 11:00 04/02/24 10:01 91 H 17 118/68 92 L 04/02/24 09:00 O2 Del Method O2 Flow Rate 04/03/24 08:00 04/03/24 07:00 Nasal Cannula, Non-Rebreather 6 04/03/24 06:44 04/03/24 06:44 04/03/24 06:44 Nasal Cannula 6 04/03/24 06:00 04/03/24 06:00 04/03/24 05:00 04/03/24 04:57 Nasal Cannula 6 04/03/24 04:07 04/03/24 04:06 Nasal Cannula 6 04/03/24 04:06 04/03/24 04:00 Nasal Cannula 6 04/03/24 03:00 Nasal Cannula 6 04/03/24 03:00 Nasal Cannula 6 04/03/24 02:00 Nasal Cannula 6 04/03/24 02:00 Nasal Cannula 6 04/03/24 02:00 04/03/24 01:00 6 04/03/24 01:00 Nasal Cannula 6 04/03/24 00:35 04/03/24 00:35 04/03/24 00:00 04/03/24 00:00 Nasal Cannula 6 04/03/24 00:00 04/03/24 00:00 Non-Rebreather 5 04/02/24 23:55 Nasal Cannula 5 04/02/24 23:00 Nasal Cannula, Non-Rebreather 6 04/02/24 23:00 Nasal Cannula 6 04/02/24 22:00 04/02/24 22:00 Nasal Cannula 6 04/02/24 21:00 Nasal Cannula 6 04/02/24 20:00 04/02/24 20:00 Non-Rebreather 6 04/02/24 19:51 Nasal Cannula 6 04/02/24 19:51 04/02/24 19:00 Non-Rebreather 5 04/02/24 18:31 Nasal Cannula 5 04/02/24 18:16 04/02/24 18:16 04/02/24 18:00 Nasal Cannula 5 04/02/24 17:41 Nasal Cannula 5 04/02/24 17:00 Nasal Cannula 5 04/02/24 16:00 04/02/24 15:56 Nasal Cannula 5 04/02/24 15:00 Nasal Cannula 5 04/02/24 14:10 Nasal Cannula 5 04/02/24 14:00 Nasal Cannula 5 04/02/24 13:15 04/02/24 13:15 04/02/24 13:00 Nasal Cannula 5 04/02/24 12:00 04/02/24 11:51 Nasal Cannula 5 04/02/24 11:00 Nasal Cannula 5 04/02/24 10:01 Nasal Cannula 5 04/02/24 09:00 Nasal Cannula 5 Intake and Output 04/02/24 04/03/24 04/03/24 23:59 07:59 15:59 Intake Total 335 / 1335 Output Total 0 / 0 200 / 200 Balance 335 / 1335 -200 / -200 Intake: Intake, Oral Amount 335 / 1060 Output: Output, Urine Amount 0 / 0 200 / 200 Other: Number of Unmeasured Voids 1 1 Number of Bowel Movements 1 Weight 73.119 kg Patient Weight 04/03/24 23:59 Weight 73.119 kg Laboratory Results - last 24 hr 04/03/24 07:03: WBC 19.4 H, RBC 4.11 L, Hgb 9.4 L, Hct 30.3 L, MCV 73.7 L, MCH 22.9 L, MCHC 31.0 L, RDW 15.9, Plt Count 482 H, MPV 9.1, Neut % (Auto) 79.5, Lymph % (Auto) 12.3, [place] % (Auto) 6.6, Eos % (Auto) 0.4, Baso % (Auto) 0.5, Neut # (Auto) 15.5 H, Lymph # (Auto) 2.4, [place] # (Auto) 1.3 H, Eos # (Auto) 0.1, Baso # (Auto) 0.1, Sodium 136, Potassium 4.4, Chloride 97 L, Carbon Dioxide 30, Anion Gap 13.4, BUN 14, Creatinine 0.70, Estimated Creat Clear 101, Estimated GFR 86, Est GFR ( Amer) 104, Glucose 93, Calcium 9.4, Magnesium 1.9, Total Bilirubin < 0.1 L, AST 24, ALT 21, Alkaline Phosphatase 152 H, C-Reactive Protein 72.2 H D, Total Protein 6.1 L, Albumin 3.1 L, Globulin 3.0, Albumin/Globulin Ratio 1.0 L, Procalcitonin 0.059 I & O for Labs for Last 24 Hours: Intake & Output 03/31/24 04/01/24 04/02/24 04/03/24 23:59 23:59 23:59 23:59 Intake Total 1451 / 1951 1460 / 1580 1335 / 1335 Output Total 850 / 850 200 / 200 0 / 0 200 / 200 Balance 601 / 1101 1260 / 1380 1335 / 1335 -200 / -200 Weight 66.769 kg 65.549 kg 65.6 kg 73.119 kg Microbiology Reports for the Last 24 Hours: Microbiology 03/29/24 15:54 Blood Blood Culture - Preliminary NO GROWTH AFTER 4 DAYS 03/29/24 15:54 Blood Blood Culture - Preliminary NO GROWTH AFTER 4 DAYS 03/30/24 12:43 Transbronchial Biopsy - Right Middle Lobe Gram Stain - Final 03/30/24 12:43 Transbronchial Biopsy - Right Middle Lobe Surgical Biopsy Culture - Preliminary NO GROWTH AFTER 72 HOURS 03/30/24 12:43 Bronchial Washings - Right Middle Lobe Gram Stain - Final 03/30/24 12:43 Bronchial Washings - Right Middle Lobe Bronchoalveolar Lavage Culture - Final NO GROWTH AFTER 48 HOURS 03/30/24 12:42 Bronchial Washings - Left Upper Lobe Gram Stain - Final 03/30/24 12:42 Bronchial Washings - Left Upper Lobe Bronchoalveolar Lavage Culture - Final NO GROWTH AFTER 48 HOURS Constitutional: Present no acute distress, chronically ill appearing and cooperative Head: Present atraumatic and normocephalic ENT: Present normal exam Neck: Present normal inspection Respiratory: Present rhonchi, crackles (Diffusely through right lung field) and normal respiratory effort; Absent wheezes Cardiac: Present Reg Rate and Rhythm GI: Present soft, tenderness (non-focal) and normal bowel sounds; Absent distention Rectal (female): Present deferred Extremities: Present normal inspection and full ROM Skin: Present intact; Absent erythema Neuro: Present Grossly Intact, alert, awake, oriented x 3 and moves all extremities Comment:: Less anxious and depressed today Assessment and Plan *Assessment and plan (1) Multifocal pneumonia: Status: Acute Category: Medical Code(s): J18.9 - Pneumonia, unspecified organism (2) Acute hypoxic respiratory failure: Status: Acute Category: Medical Code(s): J96.01 - Acute respiratory failure with hypoxia (3) Anemia: Status: Acute Category: Medical Code(s): D64.9 - Anemia, unspecified (4) COPD (chronic obstructive pulmonary disease): Status: Chronic Category: Medical Code(s): J44.9 - Chronic obstructive pulmonary disease, unspecified (5) Immunosuppression: Status: Acute Category: Medical Code(s): D84.9 - Immunodeficiency, unspecified (6) Severe sepsis: Status: Acute Category: Medical Code(s): A41.9 - Sepsis, unspecified organism; R65.20 - Severe sepsis without septic shock (7) Colon cancer: Status: Chronic Category: Medical Code(s): C18.9 - Malignant neoplasm of colon, unspecified Plan This patient?s clinical deterioration, persistent hypoxia, and radiographic progression despite completing outpatient antibiotics necessitate inpatient care. She is immunocompromised both from metastatic colon cancer and ongoing immunotherapy (dostarlimab). The differential includes refractory bacterial pneumonia, atypical infection, immune-mediated pneumonitis, or progression of metastatic disease. Given her low oxygen saturation, leukocytosis, and persistent fever, she requires close monitoring, expanded diagnostic workup (including cultures and possibly bronchoscopy), and broad-spectrum IV antibiotics. Admission is indicated to stabilize her respiratory status, further investigate the cause of her worsening pulmonary findings, and manage her comorbid conditions. Stable today. Tolerating 5 to 6 L oxygen. Will monitor overnight. Inflammatory markers coming down. If doing well tomorrow, consider discharging home with close follow-up as an outpatient with pulmonology. Problems addressed as follows: Multifocal Pneumonia Organizing pneumonia - Discussed case with pulmonology, recommend continue Levaquin for 14 days. Will continue prednisone 40 mg daily. CRP improved to 72. Chest x-ray per my review stable today. Pro-Asif 0.06. -No indication of worsening infection at this time. Repeat CRP, CBC, CMP, magnesium and x-ray ordered for the morning -Continue supplemental oxygen for goal sats greater 90%, currently on 5 L -Sputum and blood cultures remain negative -White count bumped to 19, hemoglobin stable at 9.4. Platelets 482 - Promethazine codeine cough syrup due to severe cough fits with desaturation -DuoNebs as needed every 6 hours Mild Anemia - likely chronic disease anemia secondary to malignancy and/or recent infection. - Hgb 9.4. No active signs of bleeding. -Transfusion threshold hemoglobin less than 7. Repeat CBC ordered for the morning. No active signs of bleeding. Elevated Alkaline Phosphatase (200) - Possible hepatic involvement by metastatic disease or cholestasis. Liver enzymes stable at this time Metastatic Colon Cancer (Stage IV) on Dostarlimab Acute on chronic pain related to metastatic cancer. Constipation -Continue bowel regimen with MiraLAX and senna twice daily scheduled -Continuing home regimen with oxycodone 10 mg every 6 hours for severe pain. Dilaudid 1 mg every 4 hours for severe breakthrough. Monitoring for toxicity DNI Regular diet Lovenox 40 mg subcu daily
[2024-04-03] MEDS: predniSONE 20MG TAB 40 MG PO (08:52)
[2024-04-03] MEDS: SENNA 8.6MG TABLET 8.6 MG PO (08:52)
[2024-04-03] MEDS: AZITHROMYCIN 250MG TABLET 500 MG PO (08:52)
[2024-04-03] MEDS: ENOXAPARIN 40MG/0.4ML SYRINGE 40 MG SUBCUT (08:53)
[2024-04-03] MEDS: POLYETHYLENE GLYCOL 3350 17 GM PACKET PO (08:53)
[2024-04-03 08:54] LABS: Eosinophils % 1 % (0-3); Hypochromasia 2+; Lymphocytes % 9 % (10-50); Microcytosis 1+; Monocytes % 2 % (2-9); Neutrophils % 88 % (42-76); Platelet Estimate Slight Increase; Total Cells Counted 100
[2024-04-03] MEDS: ONDANSETRON 4MG/2ML VIAL 4 MG IV (10:20)
[2024-04-03] MEDS: ALPRAZolam 0.5MG TABLET 0.25 MG PO ×2 (10:25→20:49)
[2024-04-03] MEDS: levoFLOXacin 750 MG TABLET PO (11:38)
--- NOTE | 2024-04-03 16:16 | PC.NURSE ---
Pt is resting in bed. Was taken out of Step Down and moved to Med Surg this morning due to improvement on O2 needs. She is currently on 5.5 L NC. She continues to desat with exertion, such as ambulating to BR. She has c/o nausea and pain since arrival to unit. Medicated per apr. Call light is within reach. Pt currently has visitors in room.
[2024-04-03] MEDS: HYDROMORPHONE 2MG/ML SYRINGE 1 MG IV (17:06)
[2024-04-04] VITALS: BP 127/61; PULSE 77; PULSE 90; RESP 23; TEMP 36.7; O2SAT 97
[2024-04-04 04:00] VITALS: BP 137/75; PULSE 70; PULSE 74; RESP 23; TEMP 36.8; O2SAT 94; BMI 26.0
[2024-04-04] MEDS: PROMETHAZINE HCL 25MG/ML 1ML VIAL 25 MG IV (04:58)
--- NOTE | 2024-04-04 05:22 | PC.NURSE ---
pt had c/o nausea , treated both times treated per mar with relief. able to wean on down to 3l nc, tolerating well at 93%
--- NOTE | 2024-04-04 06:00 | XR_ITS ---
PROCEDURE INFORMATION: Exam: XR Chest Exam date and time: 04/04/2024 5:47 AM Age: 58 years old Clinical indication: Other: Pnm TECHNIQUE: Imaging protocol: Radiologic exam of the chest. Views: 1 view. COMPARISON: CR XR CHEST PORTABLE 04/03/2024 5:50 AM FINDINGS: Tubes, catheters and devices: Central venous catheter remains in good position. Lungs: Patchy diffuse bilateral airspace opacity more prominent on the right than the left, not significantly changed from prior. Pleural spaces: Unremarkable. No pleural effusion. No pneumothorax. Heart/Mediastinum: Unremarkable. No cardiomegaly. Bones/joints: Unremarkable. IMPRESSION: Patchy diffuse bilateral airspace opacity more prominent on the right than the left, not significantly changed from prior. Central venous catheter remains in good position.
[2024-04-04] MEDS: IPRATROPIUM/ALBUTEROL 3 ML NEB IH (06:28)
[2024-04-04 06:29] VITALS: PULSE 69; PULSE 73; O2SAT 92
[2024-04-04] MEDS: CALCIUM CARBONATE 500MG CHEWTAB 500 MG PO (07:08)
[2024-04-04 08:00] VITALS: BP 137/69; PULSE 100; PULSE 90; RESP 16; TEMP 36.8; O2SAT 90
--- NOTE | 2024-04-04 08:08 | EXP.DC.SUM ---
General Admission date:: 03/29/24 Discharge date: 04/04/24 HPI HPI HPI: The patient is a 58-year-old female with stage IV metastatic colon cancer (status post right hemicolectomy, ovarian metastases, and bilateral salpingo-oophorectomy), currently on dostarlimab therapy. She presents with a two-week history of progressive fever and shortness of breath after being diagnosed with multifocal pneumonia at the [facility] emergency department. She completed outpatient antibiotics (cefuroxime and azithromycin) but has experienced worsening respiratory symptoms. She reports no chronic oxygen use. On arrival, her oxygen saturation was 84% on room air. Her recent labs show a white blood cell count of 12.2 (with neutrophil predominance), mild anemia (hemoglobin 11.3), thrombocytosis (platelets 512), and elevated alkaline phosphatase at 200. D-dimer is also elevated (1.19). Venous blood gas reveals a pH of 7.41, pCO2 of 39.2, and low oxygen saturation of 69.3%. Lactic acid is normal at 1.2. Review of outside records notes a concerning CT scan for multifocal bilateral subpleural peripheral consolidative opacities, possibly representing an atypical infection or organizing pneumonia versus metastatic disease. A chest x-ray today confirms worsening changes compared to prior imaging. She has been started on empiric broad-spectrum antibiotics (vancomycin, cefepime, and azithromycin) given her immunocompromised status and concern for resistant or atypical pathogens. Pulmonology was contacted, and Hospital Medicine has agreed to admit her for further evaluation and management. Plan for bronchoscopy in a.m. Hospital Course Hospital Course Hospital Course: This patient?s clinical deterioration, persistent hypoxia, and radiographic progression despite completing outpatient antibiotics necessitate inpatient care. She is immunocompromised both from metastatic colon cancer and ongoing immunotherapy (dostarlimab). The differential includes refractory bacterial pneumonia, atypical infection, immune-mediated pneumonitis, or progression of metastatic disease. Given her low oxygen saturation, leukocytosis, and persistent fever, she requires close monitoring, expanded diagnostic workup (including cultures and possibly bronchoscopy), and broad-spectrum IV antibiotics. Admission is indicated to stabilize her respiratory status, further investigate the cause of her worsening pulmonary findings, and manage her comorbid conditions. Initiated on broad-spectrum antibiotics. Pulmonology consulted. Patient showed gradual improvement in her respiratory distress. Bronchoscopy results did not show malignancy. Given her improvement, presentation likely multifocal pneumonia with organizing component. Will continue steroids at discharge. Initiated on empiric prophylactic antibiotics due to PCP risk. Follow-up with pulmonology in the coming weeks for reevaluation of resolution of symptoms. Stable to discharge home. Problems addressed as follows: Multifocal Pneumonia Organizing pneumonia -Patient presented with respiratory distress. Imaging found to have multifocal pneumonia. Concerning for pneumonia versus possible metastatic disease from her colon cancer. Pulmonology was consulted. Taken for bronchoscopy with BAL along with transbronchial biopsy. Initiated on vancomycin and cefepime. Required significant supplemental oxygen up to 50% Ventimask. Had slow gradual improvement in her respiratory distress. Sputum and blood cultures remained negative. Inflammatory markers were elevated with CRP 1 40-1 60. Showed gradual improvement after initiation of steroids. White count bumped to 18-20 after starting steroids but remained stable with improving inflammatory markers. After discussion with pulmonology, patient deemed appropriate to discharge home as her oxygen requirement weaned to 2 to 3 L. Completed 7 days of antibiotics during admission. Will continue steroids after discharge however. Continue prednisone 40 mg daily for a month. Due to prolonged steroids and immunosuppression, initiate Bactrim double strength twice daily for PCP prophylaxis. Pro-Asif normal stable for discharge. Continue DuoNebs as needed every 4-6 hours. -Patient's room air saturation at rest was 86%. Necessitating 2 L of oxygen via nasal cannula continuously Mild Anemia - likely chronic disease anemia secondary to malignancy and/or recent infection. Hgb 9-10 throughout admission. No active signs of bleeding. No need for transfusion. Would benefit from repeat CBC, CMP, magnesium in 1 to 2 weeks to monitor for stability. Elevated Alkaline Phosphatase (200): Stable during admission. Possible hepatic involvement by metastatic disease or cholestasis. Metastatic Colon Cancer (Stage IV) on Dostarlimab Acute on chronic pain related to metastatic cancer. Constipation -Continue bowel regimen with MiraLAX and senna twice to promote regular bowel movements daily. Continue home regimen for pain control including oxycodone 10 mg every 6 hours as needed for severe pain. Follow-up with oncologist per outpatient regimen Total time spent on discharge 36 minutes in counseling, documentation, chart review, and direct care with patient. Exam Data for Last 24 hours Vital signs and Labs for Last 24 Hours: Temp Pulse Resp BP Pulse Ox O2 Del Method O2 Flow Rate 98.2 F 73 23 137/75 92 L Nasal Cannula 3 04/04/24 04:00 04/04/24 06:29 04/04/24 04:00 04/04/24 04:00 04/04/24 06:29 04/04/24 06:29 04/04/24 06:29 FiO2 50 04/01/24 09:07 Laboratory Results - last 24 hr 04/03/24 07:03: Total Counted 100, Neutrophils % (Manual) 88 H, Lymphocytes % (Manual) 9 L, Monocytes % (Manual) 2, Eosinophils % (Manual) 1, Platelet Estimate Slight increase, Hypochromasia 2+, Microcytosis 1+ I & O for Last 24 hours: Intake & Output 04/01/24 04/02/24 04/03/24 04/04/24 23:59 23:59 23:59 23:59 Intake Total 1460 / 1580 1335 / 1335 620 / 620 Output Total 200 / 200 0 / 0 200 / 200 0 / 0 Balance 1260 / 1380 1335 / 1335 420 / 420 0 / 0 Weight 65.549 kg 65.6 kg 73.119 kg 69.264 kg Microbiology Reports for the Last 24 Hours: Microbiology 03/29/24 15:54 Blood Blood Culture - Final NO GROWTH AFTER 5 DAYS 03/29/24 15:54 Blood Blood Culture - Final NO GROWTH AFTER 5 DAYS 03/30/24 12:43 Transbronchial Biopsy - Right Middle Lobe Gram Stain - Final 03/30/24 12:43 Transbronchial Biopsy - Right Middle Lobe Surgical Biopsy Culture - Preliminary NO GROWTH AFTER 4 DAYS Constitutional Constitutional: no acute distress, average body habitus, chronically ill appearing and cooperative *Routine HEENT Exam Head: Present normocephalic Eye: Present EOMI and PERRL ENT: Present mucous membranes moist *Routine Neck Exam Neck: Present supple; Absent lymphadenopathy *Routine Respiratory Exam Respiratory: Present crackles and normal respiratory effort; Absent rhonchi or wheezes *Routine Cardiovascular Exam Cardiovascular: Present RRR *Routine Abdominal Exam Abdominal: Present soft, normoactive bowel sounds and tenderness (lower abdomen, baseline ); Absent distended or rebound *Routine Rectal Exam Patient deferred: visual exam *Routine Exam Patient deferred: external exam *Routine Extremities Exam Extremities: Absent cyanosis, clubbing or edema *Routine Skin Exam Skin: Present warm; Absent rash *Routine Neurological Exam Neurological: Present alert, oriented X3 and moving all extremities; Absent altered mental status Results Data Completed and Pending Labs on day of discharge: Labs from last 24 hours 04/03/24 07:03 Total Counted 100 Neutrophils % (Manual) 88 H Lymphocytes % (Manual) 9 L Monocytes % (Manual) 2 Eosinophils % (Manual) 1 Platelet Estimate Slight increase Hypochromasia 2+ Microcytosis 1+ Preliminary micro results at discharge 03/30/24 12:43 Surgical Biopsy Culture - Preliminary Transbronchial Biopsy - Right Middle Lobe NO GROWTH AFTER 4 DAYS DS: Diagnosis Discharge Diagnosis (1) Multifocal pneumonia: Status: Acute Code(s): J18.9 - Pneumonia, unspecified organism (2) Acute hypoxic respiratory failure: Status: Acute Code(s): J96.01 - Acute respiratory failure with hypoxia (3) Anemia: Status: Acute Code(s): D64.9 - Anemia, unspecified (4) COPD (chronic obstructive pulmonary disease): Status: Chronic Code(s): J44.9 - Chronic obstructive pulmonary disease, unspecified (5) Immunosuppression: Status: Acute Code(s): D84.9 - Immunodeficiency, unspecified (6) Severe sepsis: Status: Acute Code(s): A41.9 - Sepsis, unspecified organism; R65.20 - Severe sepsis without septic shock (7) Colon cancer: Status: Chronic Code(s): C18.9 - Malignant neoplasm of colon, unspecified Meds Home Medications and Allergies Home Medications ?Medication ?Instructions ?Recorded ?Confirmed ?Type albuterol sulfate 90 mcg/actuation 1 inh inhalation QID PRN shortness 11/12/19 03/29/24 Rx aerosol inhaler of breath or wheezing #6.7 grams oxycodone 10 mg tablet 10 mg PO QID 03/29/24 03/29/24 History prochlorperazine maleate 10 mg 10 mg PO DAILYP PRN Nausea 03/29/24 03/29/24 History tablet sennosides 8.6 mg tablet (senna) 8.6 mg PO DAILY 03/29/24 03/29/24 History alprazolam 0.5 mg tablet 0.25 mg (1/2 x 0.5 mg) PO BIDP PRN 04/04/24 Rx Anxiety 7 days #7 tabs ipratropium 0.5 mg-albuterol 3 mg 3 ml inhalation Q4HP PRN Shortness 04/04/24 Rx (2.5 mg base)/3 mL nebulization Of Breath 30 days #180 mL soln polyethylene glycol 3350 17 gram 17 g PO BID PRN constipation 7 04/04/24 Rx oral powder packet (HealthyLax) days #14 ea prednisone 20 mg tablet 40 mg (2 x 20 mg) PO DAILY 30 days 04/04/24 Rx #60 tabs sulfamethoxazole 800 1 tab PO BID PCP prophylaxis 30 04/04/24 Rx mg-trimethoprim 160 mg tablet days #60 tabs (Bactrim DS) New Prescriptions to Start Prescriptions: alprazolam Yaneli,Solitario ipratropium-albuterol Yaneli,Solitario polyethylene glycol 3350 [HealthyLax] Solitario Groves prednisone Solitario Groves sulfamethoxazole-trimethoprim [Bactrim DS] Solitario Groves Allergies Allergy/AdvReac Type Severity Reaction Status Date / Time Penicillins Allergy Hives Verified 03/29/24 16:42 Discharge Plan Disposition Patient Disposition: Home, Self-Care Condition: Fair Discharge Order Discharge Orders: Discharge Order (Routine); Ordered 04/04/24 Ordered By: Solitario Groves Follow up Plan Follow up with: Elizabeth Lockhart APRN [Primary Care Provider] - Enter time for follow up (Please call office Friday morning for follow up appointment.) Kate Gutierrez MD [Physician] - Enter time for follow up (Office should contact you Friday with follow up appointment. If no one has called you by Friday evening, please call office Friday morning.) Prescriptions/Medication Reconciliation: New polyethylene glycol 3350 [HealthyLax] 17 gram Powder In Packet 17 g PO BID PRN (Reason: constipation) 7 Days Qty: 14 0RF prednisone 20 mg tablet 40 mg PO DAILY 30 Days Qty: 60 0RF sulfamethoxazole-trimethoprim [Bactrim DS] 800-160 mg tablet 1 tab PO BID 30 Days Qty: 60 0RF ipratropium-albuterol 0.5 mg-3 mg(2.5 mg base)/3 mL Solution For Nebulization 3 ml inhalation Q4HP PRN (Reason: Shortness Of Breath) 30 Days Qty: 180 0RF alprazolam 0.5 mg Tablet 0.25 mg PO BIDP PRN (Reason: Anxiety) 7 Days Qty: 7 0RF Continued albuterol sulfate 90 mcg/actuation HFA aerosol inhaler 1 inh INHALATION QID PRN (Reason: shortness of breath or wheezing) Qty: 6.7 2RF sennosides [senna] 8.6 mg tablet 8.6 mg PO DAILY prochlorperazine maleate 10 mg tablet 10 mg PO DAILYP PRN (Reason: Nausea) oxycodone 10 mg tablet 10 mg PO QID Other Ambulatory Orders: Home Medical Equipment (Routine) Location: None Selected Ordered By: Solitario Groves Problem Reconciliation Problems Reviewed?: Yes Patient Discharge Instructions ACTIVITY: Continue current activity DIET: continue same diet Print Language: Sudanese Providers Primary Care Provider: Elizabeth Lockhart Admit Provider: Amadou Domingo Attending Provider: Amadou Domingo
--- NOTE | 2024-04-04 08:13 | PC.NURSE ---
Pt. is 86% on RA.
[2024-04-04] MEDS: POLYETHYLENE GLYCOL 3350 17 GM PACKET PO (08:24)
[2024-04-04] MEDS: OXYCODONE 5MG IMMEDIATE RELEASE TABLET 10 MG PO (08:24)
[2024-04-04] MEDS: SENNA 8.6MG TABLET 8.6 MG PO (08:25)
[2024-04-04] MEDS: predniSONE 20MG TAB 40 MG PO (08:25)
[2024-04-04] MEDS: ALPRAZolam 0.5MG TABLET 0.25 MG PO (08:25)
[2024-04-04] MEDS: AZITHROMYCIN 250MG TABLET 500 MG PO (08:25)
[2024-04-04] MEDS: ONDANSETRON 4MG/2ML VIAL 4 MG IV (08:25)
[2024-04-04] MEDS: ENOXAPARIN 40MG/0.4ML SYRINGE 40 MG SUBCUT (08:25)
[2024-04-04 08:48] LABS: Basophils # 0.1 K/mm3 (0-0.2); Basophils % 0.6 % (0.1-2.0); Eosinophils # 0.1 K/mm3 (0.0-0.4); Eosinophils % 0.5 % (0.1-12.0); Hematocrit 32.7 % (37.0-47.0); Hemoglobin 10.1 g/dL (12.2-16.2); Lymphocytes # 2.7 K/mm3 (0.7-4.5); Lymphocytes % 14.3 % (10-50); Mean Corpuscular HGB Conc 30.9 g/dL (31.8-35.4); Mean Corpuscular Hemoglobin 22.8 pg (27.0-31.2); Mean Corpuscular Volume 73.8 fl (81-99); Mean Platelet Volume 9.2 fl (7.4-10.4); Monocytes # 1.5 K/mm3 (0.1-1.0); Monocytes % 8.1 % (1.7-9.3); Neutrophils # 13.9 K/mm3 (1.8-7.8); Neutrophils % 74.6 % (37.0-80.0); Platelet Count 547 K/mm3 (142-424); Red Blood Count 4.43 M/mm3 (4.20-5.40); White Blood Count 18.6 K/mm3 (4.8-10.8)
[2024-04-04 08:59] LABS: Albumin Level 3.6 g/dl (3.5-5.0); Chloride 98 mmol/L (98-107); Potassium 3.7 mmoL/L (3.5-5.1); Sodium 137 mmol/L (136-145)
[2024-04-04 09:01] LABS: Blood Urea Nitrogen 16 mg/dl (7-17); Creatinine Clearance Estimated 96 mL/min (50-200); Estimated Glomerular Filt Rate 86 ml/min (>60); GFR (African American) 104 ML/MIN (>60)
[2024-04-04 09:02] LABS: Alanine Aminotransferase 23 U/L (12-78); Albumin/Globulin Ratio 1.2 (1.1-1.8); Alkaline Phosphatase 153 U/L (38-126); Anion Gap 11.7 mEq/L (5-15); Aspartate Amino Transferase 29 U/L (14-36); Calcium 9.7 mg/dl (8.4-10.2); Carbon Dioxide 31 mmol/L (22.0-30.0); Glucose 103 mg/dl (74-100); Total Protein,Serum 6.6 g/dl (6.3-8.2)
[2024-04-04 09:03] LABS: MANUAL DIFFERENTIAL MANUAL DIFFERENTIAL (MANUAL DIFF)
[2024-04-04 09:07] LABS: C-Reactive Protein 42.2 mg/L (0-4)
[2024-04-04 09:11] LABS: Bilirubin,Total 0.1 mg/dl (0.2-1.3)
--- NOTE | 2024-04-04 09:12 | PC.NURSE ---
Needle removed from left chest port.
[2024-04-04 10:12] LABS: PTT Heparin (inpatient only) 26.6 Seconds (50-75)
[2024-04-04 10:42] LABS: Hypochromasia 2+; Lymphocytes % 18 % (10-50); Monocytes % 4 % (2-9); Neutrophils % 78 % (42-76); Platelet Estimate Moderate Increase; Total Cells Counted 100
[2024-04-04 10:43] LABS: Microcytosis 1+
--- NOTE | 2024-04-06 10:36 | SW/DCPLANNER ---
Phoned patient x2. Patient's phone has calling restrictions and unable to leave message. Bassam Platt
== END 2024-04-04 10:41 | disposition home or self-care (01) | DRG 193 ==
LOC: ER 16:43 → ICU 21:11 → 2ND 03-30 17:21 → ICU 03-30 17:21 → 2ND 04-03 08:25
PROVIDERS: Internal Medicine Adolescent Medicine; Internal Medicine Pulmonary Disease; Nurse Practitioner Family; Admitting Provider Student in an Organized Health Care Education/Training Program; Emergency Provider Student in an Organized Health Care Education/Training Program; PCP Nurse Practitioner Family; Visit Provider Student in an Organized Health Care Education/Training Program
PROC: 0BB58ZX Excision of Right Middle Lobe Bronchus, Via Natural or Artificial Opening Endoscopic, Diagnostic (ICD-10-PCS; principal; 2024-03-30 12:15)
DX: J18.9 Pneumonia, unspecified organism (principal); A41.9 Sepsis, unspecified organism; J96.01 Acute respiratory failure with hypoxia; R65.20 Severe sepsis without septic shock; C18.9 Malignant neoplasm of colon, unspecified; C79.60 Secondary malignant neoplasm of unspecified ovary; J44.0 Chronic obstructive pulmonary disease with (acute) lower respiratory infection; G89.3 Neoplasm related pain (acute) (chronic); Z79.69 Long term (current) use of other immunomodulators and immunosuppressants; I10 Essential (primary) hypertension; D63.0 Anemia in neoplastic disease; K59.09 Other constipation
CPT/HCPCS: 36415; 71045; 71275; 74176; 76000; 80053; 82803; 82962; 83615; 83735; 83880; 84145; 84484; 85007; 85025; 85378; 85730; 86140; 86803; 87040; 87070; 87102; 87116; 87186; 87205; 87206; 87389; 87636; 89051; 93005; 94640; 94760; 94761; 97162; 97165; 99291; J3490; G0238; J0456; J1100; J1171; J1642; J1650; J2250; J2405; J2550; J3010; J3372; J7050; J7120; J7620; Q9967

== ENCOUNTER → 2024-04-27 15:19 | Outpatient (CLI) | payer OTHER, SELFPAY | LOC: SL 15:21 | PROVIDERS: PCP Nurse Practitioner Family; Visit Provider Internal Medicine Pulmonary Disease | DX: J18.9 Pneumonia, unspecified organism (principal); J84.89 Other specified interstitial pulmonary diseases ==

== ENCOUNTER 2024-05-05 13:54 | Outpatient (CLI) | payer OTHER, SELFPAY ==
--- NOTE | 2024-05-05 14:07 | XR_ITS ---
FINAL REPORT CLINICAL HISTORY: PNM COMPARISON: 04/04/2024 FINDINGS: 2 views of the chest were obtained . The heart is normal in size. There is a port with the tip in the SVC. The mediastinum is within normal limits. Patchy airspace opacities are seen at the lung bases which may be related to mild pneumonia. There is no pneumothorax. Osseous structures are unremarkable. IMPRESSION: G airspace opacities at the lung bases which may be related to mild pneumonia. Recommend follow-up. Reviewed, Interpreted and Dictated by Baljit Strong MD Transcribed by Yazmin Sanchez Authenticated and [facility]
[2024-05-05 14:18] LABS: Basophils # 0.1 K/mm3 (0-0.2); Basophils % 0.5 % (0.1-2.0); Eosinophils # 0.2 K/mm3 (0.0-0.4); Eosinophils % 1.2 % (0.1-12.0); Hematocrit 37.5 % (37.0-47.0); Hemoglobin 11.8 g/dL (12.2-16.2); Lymphocytes # 1.7 K/mm3 (0.7-4.5); Lymphocytes % 11.2 % (10-50); Mean Corpuscular HGB Conc 31.5 g/dL (31.8-35.4); Mean Corpuscular Volume 76.4 fl (81-99); Mean Platelet Volume 8.9 fl (7.4-10.4); Monocytes # 0.6 K/mm3 (0.1-1.0); Monocytes % 4.2 % (1.7-9.3); Neutrophils # 12.5 K/mm3 (1.8-7.8); Neutrophils % 81.9 % (37.0-80.0); Platelet Count 369 K/mm3 (142-424); Red Blood Count 4.91 M/mm3 (4.20-5.40); White Blood Count 15.2 K/mm3 (4.8-10.8)
[2024-05-05 14:20] LABS: MANUAL DIFFERENTIAL MANUAL DIFFERENTIAL (MANUAL DIFF)
[2024-05-05 14:43] LABS: Anisocytosis 1+; Lymphocytes % 14 % (10-50); Microcytosis 1+; Monocytes % 3 % (2-9); Neutrophils % 83 % (42-76); Total Cells Counted 100
[2024-05-05 14:44] LABS: Hypochromasia 1+; Ovalocytes 1+; Platelet Estimate Normal
[2024-05-05 15:08] LABS: C-Reactive Protein 12.7 mg/L (0-4)
== END 2024-05-05 23:59 | disposition home or self-care (01) ==
LOC: LAB 13:55
PROVIDERS: PCP Nurse Practitioner Family; Visit Provider Internal Medicine Pulmonary Disease
DX: R06.09 Other forms of dyspnea (principal); J45.909 Unspecified asthma, uncomplicated; R06.02 Shortness of breath
CPT/HCPCS: 36415; 71046; 85007; 85025; 85027; 86140; G0480

== ENCOUNTER 2024-07-06 15:10 | Outpatient (CLI) | payer OTHER, SELFPAY ==
--- NOTE | 2024-07-06 15:00 | CT_ITS ---
FINAL REPORT TECHNIQUE: Axial images were obtained through the chest without contrast. CLINICAL HISTORY: SOB COMPARISON: CTA 03/29/2024 FINDINGS: There is a left upper anterior chest port with the tip in the SVC. Several small mediastinal lymph nodes are noted. Right paratracheal nodes measure up to 1.5 cm. The heart size is normal. There is no pericardial or pleural effusion. Patchy airspace, ground-glass, and linear densities are noted throughout both lungs. Findings suggest improvement of dense patchy consolidation noted previously. Findings are consistent with resolving sequela from multifocal pneumonia. Limited images of the upper abdomen demonstrate surgical clips in the right upper quadrant. The gallbladder is present. IMPRESSION: Patchy airspace, ground-glass, and linear densities in both lungs suggesting sequela from resolving pneumonia. Findings are more evident than expected given the prior was in March of 2024. Atypical pneumonia could be a consideration. Continued follow-up recommended to document favorable progression. Reviewed, Interpreted and Dictated by Baljit Strong MD Transcribed by Traci Ayers Authenticated and [facility]
== END 2024-07-06 23:59 | disposition home or self-care (01) ==
LOC: RAD 15:11
PROVIDERS: PCP Nurse Practitioner Family; Visit Provider Internal Medicine Pulmonary Disease
DX: R91.8 Other nonspecific abnormal finding of lung field (principal); R06.02 Shortness of breath; R91.1 Solitary pulmonary nodule
CPT/HCPCS: 71250

== ENCOUNTER 2024-07-12 11:04 | Outpatient (CLI) | payer OTHER, SELFPAY ==
[2024-07-12 11:47] LABS: Basophils # 0.1 K/mm3 (0-0.2); Eosinophils # 0.5 Kmm3 (0.0-0.4); Hematocrit 40.5 % (37.0-47.0); Hemoglobin 12.4 g/dL (12.2-16.2); Immature Granulocytes # 0.04 10^3uL; Immature Granulocytes % 0.3 %; Lymphocytes # 1.3 K/mm3 (0.7-4.5); Lymphocytes % 10.8 % (10-50); Mean Corpuscular HGB Conc 30.6 g/dL (31.8-35.4); Mean Corpuscular Volume 78.3 fl (81-99); Mean Platelet Volume 9.6 fl (7.4-10.4); Monocytes # 1.1 K/mm3 (0.1-1.0); Monocytes % 8.8 % (1.7-9.3); Neutrophils % 75.1 % (37.0-80.0); Nucleated Red Blood Cells # 0 10^3/uL; Nucleated Red Blood Cells % 0 %; Platelet Count 341 K/mm3 (142-424); Red Blood Count 5.17 M/mm3 (4.20-5.40); Red Cell Distribution Width 17.7 % (11.5-17.5); Red Cell Distribution Width-SD 50.4 fL
[2024-07-12 12:13] LABS: Albumin Level 3.8 g/dl (3.5-5.0); Chloride 104 mmol/L (98-107); Potassium 3.9 mmoL/L (3.5-5.1); Sodium 137 mmol/L (136-145)
[2024-07-12 12:15] LABS: Blood Urea Nitrogen 20 mg/dl (7-17); Estimated Glomerular Filt Rate 51 ml/min (>60); GFR (African American) 62 ML/MIN (>60)
[2024-07-12 12:16] LABS: Alanine Aminotransferase 32 U/L (12-78); Albumin/Globulin Ratio 1.5 (1.1-1.8); Alkaline Phosphatase 136 U/L (38-126); Anion Gap 9.9 mEq/L (5-15); Aspartate Amino Transferase 28 U/L (14-36); Bilirubin,Total 0.2 mg/dl (0.2-1.3); Calcium 9.7 mg/dl (8.4-10.2); Carbon Dioxide 27 mmol/L (22.0-30.0); Globulin 2.6 g/dL (1.3-3.2); Glucose 119 mg/dl (74-100); Total Protein,Serum 6.4 g/dl (6.3-8.2)
[2024-07-12 12:22] LABS: C-Reactive Protein 17.9 mg/L (0-4)
[2024-07-12 12:47] LABS: Lactate Dehydrogenase 283 U/L (313-618)
== END 2024-07-12 23:59 | disposition home or self-care (01) ==
LOC: LAB 11:05
PROVIDERS: PCP Nurse Practitioner Family; Visit Provider Internal Medicine Pulmonary Disease
DX: J45.909 Unspecified asthma, uncomplicated (principal); R06.09 Other forms of dyspnea; J84.9 Interstitial pulmonary disease, unspecified; J90 Pleural effusion, not elsewhere classified
CPT/HCPCS: 36415; 80053; 83615; 85025; 86140

== ENCOUNTER 2024-08-02 08:51 | Outpatient (CLI) | payer OTHER, SELFPAY ==
--- OUTSIDE RECORDS SUMMARY | 2024-06-07 13:00 | XMS_ITS | Encounter Summary ---
Author Organization Healthcare Address [address] [place] [address] Care Team Providers Care Car Park Attendant Name Role Phone Taran Serrano MD Unavailable [phone] Elizabeth Lockhart APRN Primary Care Provider [phone] Jass Anderson MD Unavailable [phone] Reason for Visit * Reason Comments Follow-up Colon Cancer Encounter Details Date Type Department Care Team (Late st Contact Info) Description 06/07/2024 1:00 PM EDT Office Visit [facility] [address] [place] [address] Luisito Owen APRN [address] [facility] [address] [place] [address] 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 No 11/02/2023 Within the last year, have y ou been humiliated or emotionally abused in other ways by your partner or ex-partner? No Within the last year, have y ou been kicked, hit, slapped, or otherwise physically hurt by your partner or ex-partner? No 11/02/2023 Within the last year, have y ou been raped or forced to have any kind of sexual activity by your partner or ex-partner? No 11/02/2023 PHQ-2 Answer Date Recorded Patient Health Questionnaire-2 Score 0 06/07/2024 Hunger Vital Sign Answer Date Recorded Within the past 12 months, y ou worried that your food would run out before you got the money to buy more. Never true 11/02/19 24 Within the past 12 months, t he food you bought just didn't last and you didn't have money to get more. Never true 11/02/2023 PRAPARE - Transportation Answer Date Re corded In the past 12 months, has l ack of transportation kept you from medical appointments or from getting medications? No 09/2023 In the past 12 months, has l ack of transportation kept you from meetings, work, or from getting things needed for daily living? No 11/02/2023 Housing Stability Vital Sign Answer Brandon e Recorded In the last 12 months, was t here a time when you were not able to pay the mortgage or rent on time? No 11/02/2023 [address] of Places Lived in the Last Year Not on f ile 11/02/2023 In the last 12 months, was t here a time when you did not have a steady place to sleep or slept in a halfway (including now)? No 11/02/2023 PHQ-9 Answer Date Recorded Patient Health Questionnaire-9 Score 15 02/23/2024 Utilities Answer Date Recorded In the past 12 months has th e electric, gas, oil, or water company threatened to shut off services in your home? No 11/02/2023 Comments No Sex and Gender Information Value Date Recorded Sex Assigned at Female 10/31/2023 6:32 AM EDT Legal Sex Female 7:36 PM EDT Gender Identity Female 10/31/2023 6:32 AM EDT Sexual Orientation Not on file documented as of this encounter Last Filed Vital Signs Vital Sign Reading Time Taken Comments Blood Pressure 122/66 06/07/2024 1:14 PM EDT Pulse 111 06/07/2024 1:14 PM EDT Temperature 36.4 C (97.5 F) 06/07/2024 1:14 PM EDT Respiratory Rate 18 06/07/2024 1:14 PM EDT Oxygen Saturation 96% 06/07/2024 1:2 0 PM EDT On 3L of 02 Inhaled Oxygen Concentration - - Weight 67.6 kg (149 lb 0.5 oz) 06/08/19 25 1:14 PM EDT Height 162.6 cm (5' 4 ) 06/07/2024 1:14 PM EDT Body Mass Index 25.58 06/07/2024 1:14 PM EDT documented in this encounter Functional Status * Over the past 2 weeks, how often have you been bothered by any of the following problems? Question Answer Date of Assessment Author Little interest or pleasure in doing things Not at all 06/07/2024 1:19 PM EDT Alejandra Carnes Feeling down, depressed, or hopeless Not at all 06/07/2024 1:19 PM EDT Alejandra Carnes Patient Health Questionnaire -2 Score 0 06/07/2024 1:19 PM EDT Alejandra Carnes * Question Answer Date of Assessment Author Thoughts that you would be b feliciano off or hurting yourself in some way Not at all 06/07/2024 1:19 PM EDT Alejandra Carnes documented as of this encounter Miscellaneous Notes * Progress Notes - Luisito Owen, DANUTA - 06/07/2024 1:00 PM EDT MEDICAL ONCOLOGY FOLLOW-UP NOTE Patient Information Patient Name: Gena Green Date of : 1965 REFERRING PHYSICIAN: No referring provider defined for this encounter. 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 See Oncology History below. Oncology History: Oncology History Overview Note 2019: Patient has a history of right hemicolectomy for colon cancer . She had a vertical midline incision and received chemotherapy. Most recent colonoscopy was in 2020. She has had a prior hysterectomy but does not remember details. 10/11/23: CT abd/pelvis with on showing cystic right ovarian mass measuring 8.7 x 3.7 x 3.9 cm, increased in size since 2019, new solid and cystic mass in left adnexa measuring 10.2 x 9.2 x 9.1 cm, contiguous with gonadal vessels and containing calcifications. No evidence of metastatic disease. 10/31/23: bilateral salpingo-oophorectomy, radical dissection for tumor debulking, pathology metastatic colorectal adenocarcinoma involving ovary and adjacent soft tissues on left, right showed edematous fallopian tube with TOA, no evidence of malignancy, metastatic colorectal cancer in left pelvic sidewall. Findings: Solid friable mass involving left tube and ovary, adhere to left pelvic sidewall, bladder, and extending along iliac vessel and into inguinal space. Frozen section revealed adenocarcinoma possible met from prior colon cancer. Right ovary enlarge and more cystic, less adherent to surrounding tissue. Tumor debulking of left pelvis with complete ureterolysis to entry to bladder. Unavoidable cystotomy for dissection of pelvic tumor. Residual pelvic tumor >1cm extending under left inguinal ligament. 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 This is the current list of radiation treatment: No treatments are associated with the selected episodes (3D MORTGAGE COLLECTOR: Left Pelvis). Past Medical, Surgical, Family and Social History Reviewed in this encounter by me personally. Subjective The patient presents today for follow up and continuation of treatment. She is with her . She has fatigue, rest helps and nausea using phenergan. She was diagnosed with pneumonia and still on oxygen. She completed taking steroids at high doses and abx, feels like symptoms of SOA came back. Over the weekend and after stopping steroid, she is more SOA, on oxygen, fatigued, and felt warm to touch 1 day ago. She is using her albuterol inhaler/neb 4 times per day. She was last seen by [facility] on 05/05/24, he noted she was doing better and chest xray was done. She has pain in left lower abdomen and left lower back, using oxycodone. She decided not to start radiation of pelvis due to side effects. No other significant complications noted Review of Systems: 14 ROS was conducted and is otherwise negative unless noted in HPI. Objective Visit Vitals BP 122/66 Pulse (!) 111 Temp 36.4 ??C (97.5 ??F) Ht 1.626 m (5' 4 ) Wt 67.6 kg (149 lb 0.5 oz) SpO2 96% Comment: On 3L of BMI 25.58 kg/m?? Wt Readings from Last 2 Encounters: 06/07/24 68.3 kg (150 lb 9.2 oz) 06/07/24 67.6 kg (149 lb 0.5 oz) Visit Vitals BP 122/66 Pulse (!) 111 Temp 36.4 ??C (97.5 ??F) Resp 18 BSA: Estimated body surface area is 1.75 meters squared as calculated from the following: Height as of this encounter: 1.626 m (5' 4 ). Weight as of this encounter: 67.6 kg (149 lb 0.5 oz). Performance Status ECOG 1 EXAM General: No acute distress; sitting upright in a chair, speaking in full sentences Head: normocephalic, atraumatic EENT: sclera clear , no proptosis or lid lag; nose patent, posterior oropharynx without exudates orerythema, range of motion of neck intact Cardiac: no LE edema, RRR Lungs: no audible wheezing or cough , on 3liters NC, no retractions noted Abdomen: soft, NTND, weight stable Neuro: AAOx3, follows commands, speech intact , normal hearing Skin: no obvious rashes : deferred, no urinary compliants, no CVA tenderness per pt MSK: moving upper extremities well , ROM intact. facial muscles appear symmetrical Heme: no obvious bruising, no pallor Psych: appropriate mood & affect LABORATORIES AND STUDIES: reviewed by me personally Latest Reference Range & Units 06/07/24 15:30 WBC 3.70 - 10.30 10*3/uL 12.98 (H) RBC 3.90 - 5.20 10*6/uL 4.59 Hemoglobin 11.2 - 15.7 g/dL 11.0 (L) Hematocrit 34.0 - 45.0 % 34.4 Platelet Count 155 - 369 10*3/uL 415 (H) MCV 79 - 98 fL 75 (L) MCH 26.0 - 32.0 pg 24.0 (L) MCHC 30.7 - 35.5 g/dL 32.0 RDW 11.5 - 14.5 % 18.6 (H) MPV 8.8 - 12.5 fL 9.1 nRBC <=0.0 per 100 WBCs 0.0 Differential Type Automated Neutrophils % % 78 Lymphocytes % % 9 Monocytes % % 9 Eosinophils % % 2 Basophils % % 1 Immature Granulocytes % % 1 Neutrophils Absolute 1.60 - 6.10 10*3/uL 10.12 (H) Lymphocytes Absolute 1.20 - 3.90 10*3/uL 1.21 Monocytes Absolute 0.30 - 0.90 10*3/uL 1.20 (H) Eosinophils Absolute 0.00 - 0.50 10*3/uL 0.27 Basophils Absolute 0.00 - 0.10 10*3/uL 0.10 Immature Granulocyte Absolute 0.00 - 0.06 10*3/uL 0.08 (H) (H): Data is abnormally high (L): Data is abnormally low Ca ?? iCa ?? Mg ?? Phos ?? Lactate ?? CEA, Serum Date Value Ref Range Status 12/08/2023 5.2 (H) <4.0 ng/mL Final 10/23/2023 5.7 (H) <4.0 ng/mL Final CA 125 Date Value Ref Range Status 10/23/2023 21.20 <=38.00 U/mL Final I visualized the recent imaging and discussed the current radiology findings with the patient in detail and released the report gave copies of the reports to the patient and answered all questions. Assessment/Plan 1. Cancer management : Gena Green is a 57 y.o. female with colon cancer with metastasis to ovary and adjacent soft tissues s/p exploratory laparotomy, bilateral salpingo-oophorectomy, radical dissection for tumor debulking on 10/31/23 with residual pelvic tumor >1 cm extending under the left inguinal ligament. This represents a life threatening illness for which urgent cancer treatment is indicated. - CARIS: TMB-High (65) and high MSI - scans today with enlarging pelvic mass however due to delay in therapy start this is most likely natural progression over dostarlimab failure -regimen: dostarlimab PLAN: - C4 Dostarlimab Every 21 Days x 4 Cycles / Every 42 Days Thereafter. Okay to proceed with treatment today - C4 of dostarlimab was delay due to pneumonia, she will discuss with her pulmonary dr when she cancome off of her steroid taper. -refer to Dr. Anderson to discuss possible radiation options to pelvic mass, she is seeing today, delayed due to recent hospitalizations but is interested in continuing with this plan. She declined radiation due to side effects of radiation - RTC with C5 on 06/28/24 - scans after c4 Pneumonia , recovering -currently using oxygen PRN, came into clinic without oxygen O2 sats 82%, placed her on 3L - She is requiring oxygen daily and feeling worse since off of steroids - She will restart, e-scribed prednisone 10 mg daily - Advised her to rtn to see Pulm if symptoms do not improve Grade 1 Nausea - She is using phenergan for symptoms Constipation 2/2 opiod use -She is using senna daily - Advised to use miralax as well Depressed mood - PCP to Rx lexapro Social determinants of health -speak to social work team today about disability -eager to return to work but current therapy and oxygen limits her ability 40 minutes were spent with the patient of which 30 or more were counseling minutes regarding plan and coordination of care and follow up lab and/or scan review, scheduling, symptom management, and possible treatment side effects of anti-cancer therapy. Attending physician developed plan of care, which we both discussed with the patient. The patient verbalized understanding and agrees with plan. All questions answered to their satisfaction. Encouraged to call should other questions/concerns arise. I updated the plan of care. This treatment will require ongoing monitoring of toxicity by me, due to the risks of severe side effects from the therapy listed above. The selection, dosing and administration of anti-cancer agents and the management of associated toxicities requires complex medical decision making. Modifications of drug dose and schedule as well as the initiation of supportive care interventions are often necessary because of expected toxicities. This varies individually based on patient tolerability, prior treatments and comorbidities. The optimal delivery of anticancer agents requires a healthcare delivery team experienced in the use of anticancer agents and the management of associated toxicities in patients with cancer. DAN[facility]A [facility] [address] [place] [phone] * Progress Notes - Cuco Cotton, PharmD - 06/07/2024 1:00 PM EDT Pharmacy Hematology/Oncology Treatment Note Gena Green is a 58 y.o. female with mCRC. 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 [x] Follow-Up Clinical Review for Cycle 4 Patient History: 06/07/24: Treatment has been on hold due to pneumonia and she has an ongoing SOA and fatigue since stopping steroids so will restart pred at 10 and reassess in 3 weeks. Dosing Wt: 67.9 kg Dosing Ht: 162.6 cm DosingBSA: 1.73 m2 Recent Labs: Lab Results Component Value Date WBC 13.74 (H) 04/20/2024 NEUTROABS 10.21 (H) 04/20/2024 HGB 13.3 04/20/2024 PLT 378 (H) 04/20/2024 Lab Results Component Value Date GLUCOSE 106 (H) 04/20/2024 NA 136 04/20/2024 CL 98 04/20/2024 K 4.2 04/20/2024 MG 2.0 11/03/2023 BUN 20 04/20/2024 CREATININE 0.84 04/20/2024 Lab Results Component Value Date AST 37 (H) 04/20/2024 ALT 49 (H) 04/20/2024 ALKPHOS 130 04/20/2024 BILITOT 0.5 04/20/2024 Visit Vitals BP 122/66 Pulse (!) 111 Temp 36.4 ??C (97.5 ??F) Resp 18 Other Relevant Monitoring: Next Generation Sequencing (Caris) TMB: 65 MSI-H/dMMR NTRK1/2/3 fusion not detected RET fusion not detected KRAS G13D mutation PALB2 M296fs and F440fs mutations PIK3CA H1573S and R88Q mutations NRAS/BRAF wt KLAUDIA low Treatment/Therapy Plan: Dostarlimab 500 mg IV D1 Every 21 days x 4 then Every 42 Days. [x] No dose adjustments made Current Treatment Plan History: Dostarlimab Cycle 1: 02/02/24 Cycle 2: 02/23/24 Cycle 3: 03/22/24 Cycle 4: 06/07/24 (delayed for pneumonia) Prior Treatment History: Adjuvant chemotherapy 2019 (FOLFOX?) Plan: Patient will return to clinic in 3 weeks. Will follow-up at that time. 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) documented in this encounter Results * (ABNORMAL) CBC and differential (06/07/2024 3:30 PM EDT) WBC Count 12.98(H) 3.70 - 10.30 10*3/uL LAB HEMATOLOGY METHOD 06/07/2024 3:36 PM EDT [facility] RBC Count 4.59 3.90 - 5.20 10*6/uL LAB HEMATOLOGY METHOD 06/07/2024 3:36 PM EDT [facility] HGB 11.0(L) 11.2 - 15.7 g/dL LAB HEMATOLOGY METHOD 06/07/2024 3:36 PM EDT [facility] HCT 34.4 34.0 - 45.0 % LAB HEMATOLOGY METHOD 06/07/2024 3:36 PM EDT [facility] Platelet Count 415(H) 155 - 369 10*3/uL LAB HEMATOLOGY METHOD 06/07/2024 3:36 PM EDT [facility] MCV 75(L) 79 - 98 fL LAB HEMATOLOGY METHOD 06/07/2024 3:36 PM EDT [facility] MCH 24.0(L) 26.0 - 32.0 pg LAB HEMATOLOGY METHOD 06/07/2024 3:36 PM EDT [facility] MCHC 32.0 30.7 - 35.5 g/dL LAB HEMATOLOGY METHOD 06/07/2024 3:36 PM EDT [facility] RDW 18.6(H) 11.5 - 14.5 % LAB HEMATOLOGY METHOD 06/07/2024 3:36 PM EDT [facility] MPV 9.1 8.8 - 12.5 fL LAB HEMATOLOGY METHOD 06/07/2024 3:36 PM EDT [facility] nRBC 0.0 <=0.0 per 100 WBCs LAB HEMATOLOGY METHOD 06/07/2024 3:36 PM EDT [facility] Differential Type Automated LAB HEMATOLOGY METHOD 06/07/2024 3:36 PM EDT [facility] Neutrophils % 78 % LAB HEMATOLOGY METHOD 06/07/2024 3:36 PM EDT [facility] Lymphocytes % 9 % LAB HEMATOLOGY METHOD 06/07/2024 3:36 PM EDT [facility] Monocytes % 9 % LAB HEMATOLOGY METHOD 06/07/2024 3:36 PM EDT [facility] Eosinophils % 2 % LAB HEMATOLOGY METHOD 06/07/2024 3:36 PM EDT [facility] Basophils % 1 % LAB HEMATOLOGY METHOD 06/07/2024 3:36 PM EDT [facility] Immature Granulocytes % 1 % LAB HEMATOLOGY METHOD 06/07/2024 3:36 PM EDT [facility] Neutrophils Absolute 10.12(H) 1.60 - 6.10 10*3/uL LAB HEMATOLOGY METHOD 06/07/2024 3:36 PM EDT [facility] Lymphocytes Absolute 1.21 1.20 - 3.90 10*3/uL LAB HEMATOLOGY METHOD 06/07/2024 3:36 PM EDT [facility] Monocytes Absolute 1.20(H) 0.30 - 0.90 10*3/uL LAB HEMATOLOGY METHOD 06/07/2024 3:36 PM EDT [facility] Eosinophils Absolute 0.27 0.00 - 0.50 10*3/uL LAB HEMATOLOGY METHOD 06/07/2024 3:36 PM EDT [facility] Basophils Absolute 0.10 0.00 - 0.10 10*3/uL LAB HEMATOLOGY METHOD 06/07/2024 3:36 PM EDT [facility] Immature Granulocytes Absolute 0.08(H) 0.00 - 0.06 10*3/uL LAB HEMATOLOGY METHOD 06/07/2024 3:36 PM EDT [facility] Blood Venous blood specimen / Unknown Venipuncture / Unknown 06/07/2024 3:30 PM EDT 06/07/2024 3:32 PM EDT Narrative [facility] - 06/07/2024 3:36 PM EDT Therapeutic decision making should be based on absolute values, rather than percentages. us Luma Beltran MD LAB BLOOD ORDERABLES Final Resu lt [facility] [address] [place] [address] * (ABNORMAL) Comprehensive metabolic panel (06/07/2024 1:11 PM EDT) Glucose, Plasma 110(H) 74 - 99 mg/dL 06/07/2024 2:23 PM EDT [facility] BUN, Plasma 13 7 - 21 mg/dL 06/07/2024 2:23 PM EDT [facility] Creatinine, Plasma 0.90 0.60 - 1.10 mg/dL 06/07/2024 2:23 PM EDT [facility] BUN/Creatinine Ratio 14 06/07/2024 2:23 PM EDT [facility] Sodium, Plasma 135(L) 136 - 145 mmol/L 06/07/2024 2:23 PM EDT [facility] Potassium, Plasma 5.5(H) 3.6 - 4.9 mmol/L 06/07/2024 2:23 PM EDT [facility] Comment:Hemolyzed, result ma y be falsely increased. Chloride, Plasma 99 97 - 107 mmol/L 06/07/2024 2:23 PM EDT [facility] CO2, Plasma 25 22 - 29 mmol/L 06/07/2024 2:23 PM EDT [facility] Anion Gap 11 6 - 16 mmol/L 06/07/2024 2:23 PM EDT [facility] Total Calcium, Plasma 9.6 8.9 - 10.2 mg/dL 06/07/2024 2:23 PM EDT [facility] Total Protein 6.9 6.3 - 7.9 g/dL 06/07/2024 2:23 PM EDT [facility] Albumin, Plasma 3.3(L) 3.5 - 5.2 g/dL 06/07/2024 2:23 PM EDT [facility] AST, Plasma 86(H) 10 - 35 U/L 06/07/2024 2:23 PM EDT [facility] Comment:Hemolyzed, result ma y be falsely increased. ALT, Plasma 42(H) 10 - 35 U/L 06/07/2024 2:23 PM EDT [facility] Comment:Hemolyzed, result ma y be falsely increased or decreased. Alkaline Phosphatase, Plasma 185(H) 46 - 142 U/L 06/07/2024 2:23 PM EDT [facility] Comment:Hemolyzed, result ma y be falsely decreased. Total Bilirubin, Plasma 0.3 0.2 - 1.1 mg/dL 06/07/2024 2:23 PM EDT [facility] eGFRcr 74.3 mL/min/1.7 3m*2 06/07/2024 2:23 PM EDT [facility] Comment:Reported eGFRcr in m L/min/1.73m2 is based the CKD-EPI 2020 equation that does not use a race coefficient. Blood Venous blood specimen / Unknown Venipuncture / Unknown 06/07/2024 1:11 PM EDT 06/07/2024 1:42 PM EDT Luma Beltran MD LAB BLOOD ORDERABLES Final Resu lt Performing Organization Address City/[facility] Co de Phone Number [facility] [address] [place] [address] * TSH (06/07/2024 1:11 PM EDT) Thyroid Stimulating Hormone, Plasma 1.08 0.40 - 4.20 uIU/mL 06/07/2024 2:23 PM EDT [facility] Blood Venous blood specimen / Unknown Venipuncture / Unknown 06/07/2024 1:11 PM EDT 06/07/2024 1:42 PM EDT Luma Beltran MD LAB BLOOD ORDERABLES Final Resu lt Performing Organization Address City/[facility]/ZIP Co de Phone Number [facility] [address] [place] [address] documented in this encounter Visit Diagnoses Diagnosis 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) Drug-induced constipation Other constipation documented in this encounter Additional Health Concerns Assessment Noted Time PHQ-9 Depression Total Score: 15 024 10:05 AM EST A fall risk assessment has been complete d for the patient 06/07/2024 2:36 PM EDT A Body Mass Index follow-up plan has been documented for the patient 02/02/2024 3:06 PM EST documented as of this encounter Care Teams Car Park Attendant Relationship Specialty Start Date End Date Elizabeth Lockhart APRN [address] [place] [address] PCP - General 10/23/23 Taran Serrano MD [address] [facility] [address] [place] [address] Referring Physician 10/20/23 Jass Anderson MD [address] [facility] [id number] [place] [address] Consulting Physician Radiation Oncology 03/16/24 documented as of this encounter
--- OUTSIDE RECORDS SUMMARY | 2024-06-07 14:30 | XMS_ITS | Encounter Summary ---
Author Organization Healthcare Address [address] 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) Procedures Dostarlimab-gxly Every 21 Days x 4 Cycles / Every 42 Days Thereafter Luma Beltran MD [address] [facility] [address] [place] [address] Phone: tel: fax: [facility] [address] [place] [address] Phone: tel: fax: Referral ID Status Reason Start Date Expiration Date V isits Requested Visits Authorized [id number] Authorized 12/08/2023 02/23/2027 1 24 Encounter Details Date Type Department Care Team (Latest Contact Info) Description 06/07/2024 2:30 PM EDT - 06/07/2024 11:59 PM EDT Hospital Encounter [facility] [address] [place] [address] 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 No 11/02/2023 PHQ-9 Answer Date Recorded Patient Health Questionnaire-9 Score 15 02/23/2024 Utilities Answer Date Recorded In the past 12 months has e electric, gas, oil, or water company [...] Sign Reading Time Taken Comments Blood Pressure 122/72 06/07/2024 2:36 PM EDT Pulse 107 06/07/2024 2:36 PM EDT Temperature 36.6 C (97.8 F) 06/07/2024 2:36 PM EDT Respiratory Rate 18 06/07/2024 2:36 PM EDT Oxygen Saturation 94% 06/07/2024 2:36 PM EDT Inhaled Oxygen Concentration - - Weight 68.3 kg (150 lb 9.2 oz) 06/07/2024 2:36 P M EDT Height 162.6 cm (5' 4 ) 06/07/2024 2:36 PM EDT Body Mass Index 25.85 06/07/2024 2:36 PM EDT documented in this encounter Functional [...] Alejandra Carnes documented as of this encounter Medications at Time of Discharge acetaminophen (Tylenol) 500 MG tablet Take 2 tablets (1,000 mg) by mouth every 8 (eight) hours. 100 tablet 1 11/03/2023 albuterol 108 (90 Base) MCG/ACT inhaler Inhale 2 puffs if needed for wheezing. diphenhydrAMINE (Benadryl) 2 % cream Apply topically 3 (three) times a day if needed for itching. 56.8 g 2 02/23/2024 ibuprofen 600 MG tablet Take 1 tablet (600 mg) by mouth every 6 (six) hours. 60 tablet 1 11/03/2023 senna (Senokot) 8.6 MG tabletIndications: Drug-induced constipation Take 1 tablet by mouth 2 (two) times a day as needed for constipation. 30 tablet 1 06/07/2024 predniSONE (Deltasone) 5 MG tablet Take 2 tablets by mouth in the morning for 21 days. 42 tablet 06/07/2024 5 promethazine (Phenergan) 12.5 MG tablet Take 2 tablets by mouth every 6 hours as needed for nausea or vomiting. 60 tablet 06/07/2024 5 oxyCODONE (Roxicodone) 10 MG immediate release tablet Take 1 tablet by mouth every 4 (four) hours as needed for moderate pain. 180 tablet 06/03/2024 5 simethicone (Mylicon) 80 MG chewable tablet Chew 1 tablet (80 mg) every 6 (six) hours if needed for flatulence. 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) New Bag 06/07/2024 4:21 PM EDT 500 mg 280 mL/hr documented in this encounter Additional Health Concerns Assessment Noted Time PHQ-9 Depression Total Score: 15 024 10:05 AM EST A fall risk assessment has been complete d for the patient 06/07/2024 2:36 PM EDT A Body Mass Index follow-up plan has been documented for the patient 02/02/2024 3:06 PM EST documented as of this encounter Care Teams Clinical Training Coordinator Relationship Specialty Start Date End Date Elizabeth Lockhart, POST ACUTE CARE NURSE PRACTITIONER [address] [place] [address] PCP - General 10/23/23 Taran Serrano MD [address] [facility] [place] [address] [place] [address] Referring Physician 10/20/23 Jass Anderson MD [address] [facility] [address] [place] [address] Consulting Physician Radiation Oncology 03/16/24 documented as of this encounter
--- NOTE | 2024-08-02 08:45 | CA_ITS ---
APPROVED REPORT EXAM: Comprehensive 2D, Doppler, and color-flow Echocardiogram [employer] Representative: Miryam Tarango RVT Ht: 5 ft 4 in Wt: 150lbs BSA: 1.73 BP: 136/77 mmHg Indications: Shortness of Breath 2D Dimensions LA Volume 25.80 mL LA Volume Index 14.91 mL/m2 (M/F) 16-34 M-Mode Dimensions RVDd 3.11 cm (0.9-2.6) LA Diam 3.01 cm (1.9-4.0) LVDd 3.36 cm (3.5-5.7) LVDs 1.97 cm (3.5-5.7) IVSd 0.86 cm (0.6-1.1) PWd 0.61 cm (0.6-1.1) EF (Teich) 73.50% FS 41.40% EDV (Teich) 46.10 mL TAPSE 1.79 (<1.7) ESV (Teich) 12.20 mL LV Diastology E Decel Time 173 (160-240 msec) E/A Ratio 0.8 Aortic Valve GET Index 1.30 cm2/m2 AoV Peak Terrence. 161.0 (50-130 cm/s) AO Peak GR. 10.40 mmHg AO Mean GR. 4.50 (<5 mmHg) AO VTI 25.9 (18-25 cm) GET (VTI) 2.30 (2.5-4.5 cm2) Mitral Valve MV E Max Terrence. 91.0 (40-130 cm/s) MV A Velocity 118.0 (40-130 cm/s) E/A Ratio 0.77 MV PHT 51.0 ms Pulmonary Valve PV Peak Velocity 107.0 (50-150 cm/s) Tricuspid Valve TR P. Velocity 236.00 cm/s RAP Estimate 10.00 mmHg RVSP 32.40 mmHg Left Ventricle The left ventricle is normal size. The left ventricular systolic function is normal. The left ventricular ejection fraction is within the normal range. There is increased LV wall thickness. There is normal LV segmental wall motion. Transmitral Doppler flow pattern suggests impaired LV relaxation. LVEF is 55%. Right Ventricle The right ventricle is normal in size. The right ventricular systolic function is normal. Atria The left atrium size is normal. The right atrium size is normal. There is no Doppler evidence of interatrial shunt. Aortic Valve The aortic valve is mildly thickened. There is no aortic valvular stenosis. No aortic regurgitation is present. Mitral Valve The mitral valve is normal in structure. No evidence of mitral valve stenosis. Trace mitral regurgitation. Tricuspid Valve Tricuspid valve is grossly normal in structure and function. Trace tricuspid regurgitation. There is insufficient TR jet to estimate RVSP. Trace pulmonic regurgitation. Pulmonic Valve The pulmonary valve is normal in structure. Great Vessels The aortic root is normal in size. IVC is normal in size and collapses >50% with inspiration. Pericardium There is no pericardial effusion. Other Information Study Quality: Fair Conclusion Normal biventricular systolic function. No significant valvular stenosis or regurgitation. Electronically signed by : Sudha Peck MD 08/10/2024 13:31:37
--- OUTSIDE RECORDS SUMMARY | 2024-08-02 08:55 | XMS_ITS | Encounter Summary ---
Author Organization Healthcare Address [address] [place] [address] Care Team Providers Care Taker Off Drying Kiln Name Role Phone Taran Serrano MD Unavailable [phone] Elizabeth Lockhart APRN Primary Care Provider [phone] Jass Anderson MD Unavailable [phone] Reason for Visit * Reason Onset Date Comments Med Refill 07/01/2024 Encounter Details Date Type Department Care Team (Late st Contact Info) Description 07/01/2024 Refill [facility] [address] [place] [address] Luma Beltran MD [address] [phone] Social History Tobacco Use Types Packs/Day Years [...] place to sleep or slept in a penitentiary (including now)? No 11/02/2023 PHQ-9 Answer Date Recorded Patient Health Questionnaire-9 Score 15 02/23/2024 Utilities Answer Date Recorded In the past 12 months has th e [employer], gas, oil, or water [employer] threatened to shut off services in your home? No 11/02/2023 Comments No Sex and Gender Information Value Date Recorded Sex Assigned at Female 10/31/2023 6:32 AM EDT Legal Sex Female 7:36 PM EDT Gender Identity Female 10/31/2023 6:32 AM EDT Sexual Orientation Not on file documented as of this encounter Plan of Treatment Not on file documented as of this encounter Visit Diagnoses Not on filedocumented in this encounter Additional Health Concerns Assessment Noted Time PHQ-9 Depression Total Score: 15 024 10:05 AM EST A fall risk assessment has been complete d for the patient 06/07/2024 2:36 PM EDT A Body Mass Index follow-up plan has been documented for the patient 02/02/2024 3:06 PM EST documented as of this encounter Care Teams Taker Off Drying Kiln Relationship Specialty Start Date End Date Elizabeth Lockhart APRN [address] [place] [address] PCP - General 10/23/23 Taran Serrano MD [address] [address] Referring Physician 10/20/23 Jass Anderson MD [address] [facility] [address] [place] [address] Consulting Physician Radiation Oncology 03/16/24 documented as of this encounter
--- OUTSIDE RECORDS SUMMARY | 2024-08-02 08:55 | XMS_ITS ---
Author Organization [facility] Address [address] [place] [address] Care Team Providers Care Hull Builder Name Role Phone Taran Serrano MD Unavailable [phone] Elizabeth Lockhart APRN Primary Care Provider [phone] Jass Anderson MD Unavailable [phone] Active Problems Problem Noted Date Diagnosed Date Local recurrence of malignant neoplasm of colon 04/20/2024 Tobacco use disorder 12/08/2023 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 12/04/2023 Cancer Staging:Pathologic stage from 10/31/2023:Stage NBA(pM1a) - Signed by Luma Beltran MD on 12/04/2023 Asthma 11/13/2023 COPD (chronic obstructive pulmonary disease) Family history of blood clots 11/13/2023 Overview (11/13/2023): Father History of colon cancer 11/13/2023 Second hand smoke exposure 11/13/2023 Ovarian mass 10/31/2023 History of chemotherapy 02/24/2018 Current Treatment and Therapy Plans Dostarlimab-gxly Every 21 Days x 4 Cycles / Every 42 Days Thereafter* Plan Start Date:12/07/2023 Plan Provider:Luma Beltran MD Linked Problems 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 Past Treatment and Therapy Plans No past plan information found.
--- OUTSIDE RECORDS SUMMARY | 2024-08-02 08:55 | XMS_ITS | Encounter Summary ---
Author Organization Healthcare Address [address] [place] [address] Care Team Providers Care Brush Cutter Name Role Phone Tarna Serrano MD Unavailable [phone] Elizabeth Lockhart APRN Primary Care Provider [phone] Jass Anderson MD Unavailable [phone] Reason for Visit * Reason Onset Date Comments Med Refill 06/03/2024 Encounter Details Date Type Department Care Team (Late st Contact Info) Description 06/03/2024 Refill [facility] [address] [place] [address] Luma Beltran MD [address] [address] Social History Tobacco Use Types Packs/Day Years [...] Answer Date Recorded Patient Health Questionnaire-2 Score 2 02/23/2024 Hunger Vital Sign Answer Date Recorded Within [...] place to sleep or slept in a fdc (including now)? No 11/02/2023 PHQ-9 Answer Date Recorded Patient Health Questionnaire-9 Score 15 02/23/2024 Utilities Answer Date Recorded In the past 12 months has th e [employer], gas, oil, or water [employer] threatened to shut off services in your [...] Noted Time PHQ-9 Depression Total Score: 15 12/30/2 024 10:05 AM EST A fall risk assessment has been complete d for the patient 04/20/2024 11:27 AM EST A Body Mass Index follow-up plan has been documented for the patient 02/02/2024 3:06 PM EST documented as of this encounter Care Teams Brush Cutter Relationship Specialty Start Date End Date Elizabeth Lockhart APRN [address] [place] [address] PCP - General 10/23/23 Taran Serrano MD [address] [address] Referring Physician 10/20/23 Jass Anderson MD [address] [facility] [address] [place] [address] Consulting Physician Radiation Oncology 03/16/24 documented as of this encounter
--- OUTSIDE RECORDS SUMMARY | 2024-08-02 08:55 | XMS_ITS | Clinical Summary ---
Author Organization [facility] Address [address] [place] [address] Care Team Providers Care Tissue Specialist Name Role Phone Taran Serrano MD Unavailable [phone] Elizabeth Lockhart APRN Primary Care Provider [phone] Jass Anderson MD Unavailable [phone] Allergies Active Allergy Reactions Criticality Noted Date Comments Penicillins Hives Medium 12/14/2019 Medications albuterol 108 (90 Base) MCG/ACT inhaler Inhale 2 puffs if needed for wheezing. Active acetaminophen (Tylenol) 500 MG tablet Take 2 tablets (1,000 mg) by mouth every 8 (eight) hours. 100 tablet 1 4 Active ibuprofen 600 MG tablet Take 1 tablet (600 mg) by mouth every 6 (six) hours. 60 tablet 1 4 Active diphenhydrAMINE (Benadryl) 2 % cream Apply topically 3 (three) times a day if needed for itching. 56.8 g 2 4 Active senna (Senokot) 8.6 MG tabletIndication s:Drug-induced constipation Take 1 tablet by mouth 2 (two) times a day as needed for constipation. 30 tablet 1 5 Active oxyCODONE (Roxicodone) 10 MG immediate release tablet Take 1 tablet by mouth every 4 hours as needed for moderate pain. 180 tablet 5 025 Active promethazine (Phenergan) 12.5 MG tablet Take 2 tablets by mouth every 6 hours as needed for nausea or vomiting. 60 tablet 5 025 oxyCODONE (Roxicodone) 10 MG immediate release tablet Take 1 tablet by mouth every 4 hours as needed for moderate pain. 180 tablet 5 025 Discontinu ed(Reorder ) Active Problems Problem Noted Date Diagnosed Date [...] Ovarian mass 10/31/2023 History of chemotherapy 02/24/2018 Encounters Date Type Department Care Team Description 07/29/2024 Refill [facility]cology [facility] [address] [place] [phone] Luma Beltran MD 07/12/2024 Telephone [facility]cology Clinic [address] [place] [phone] Luma Beltran MD 07/01/2024 Refill [facility]cology Clinic [address] [place] [address] Luma Beltran MD 06/28/2024 Telephone [facility] Mult[facility] Oncology Clinic [address] [place] [phone] Luma Beltran MD 06/07/2024 2:30 PM EDT - 06/07/2024 11:59 PM EDT Hospital Encounter [facility] Infusion Clinic [address] [place] [address] 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) Discharge Disposition: Home or Self Care 06/07/2024 1:00 PM EDT Office Visit [facility] Multidisciplinary Oncology Clinic [address] [place] [phone] Lexie Diomarissa Wesley 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); Drug-induced constipation 06/07/2024 Travel 06/06/2024 Travel 06/03/2024 Refill [facility] [address] [place] [phone] Luma Beltran MD 05/05/2024 Refill [facility] [address] [place] [phone] Luma Beltran MD from Last 3 Months Family History Medical History Relation Name Comments Leukemia Maternal Grandmother Lung cancer Mother Leukemia Mother's Brother Leukemia Mother's Sister Anesthesia problems Neg Hx Malig Hyperthermia Neg Hx Relation Name Status Comments Maternal Grandmother Mother Mother's Brother Mother's Sister Social History Tobacco Use Types Packs/Day Years Used Date Smoking Tobacco: Former Cigarettes Passive Smoke Exposure: Past Smokeless Tobacco: Never Tobacco Cessation:Counseling Given: Not Answered Comments:1PPD for ~ 30 years quit 2019 [...] the money to buy more. Never true 09/08/20 24 Within the past 12 months, t [...] place to sleep or slept in a long term (including now)? No 11/02/2023 PHQ-9 Answer Date [...] AM EDT Sexual Orientation Not on file Last Filed Vital Signs Vital Sign Reading [...] Mass Index 25.85 06/07/2024 2:36 PM EDT Plan of Treatment Health Maintenance Due Date Last Done Comments [facility]-Infant/Child/Adol SDOH Screenings 1965 MHC-LDDFX-09 Vaccine (#1) 1970 [facility]-DTaP,Tdap,and Td Vaccine s (1 - Tdap) 1984 [facility]-Hepatitis B Vaccines (1 of 3 - 19+ 3-dose series) 1984 [facility]-Pneumococcal Vaccine: 50 + Years (1 of 2 - PCV) 1984 [facility]-Zoster Vaccines (1 of 2) 1984 [facility]-Breast Cancer Screening 12/16/2015 [facility]- SDOH Screenings 05/01/2024 [facility]-Adult SDOH Screenings 05/01/2024 11/02/2023 [facility]-Depression Screening 06/07/2025 025, 02/23/2024 [facility]-Influenza Vaccine Completed 11/20/2023 [facility]-Obesity Intervention Completed 024, 10/23/2023 [facility]-HIV Screening Completed 03/11/2024 [facility]-Hepatitis C Screening Completed 03/11/2024 HPV Vaccines Aged Out No longer eligi ble based on patient's age to complete this topic [facility]-HIB Vaccines Aged Out No longer e ligible based on patient's age to complete this topic [facility]-Hepatitis A Vaccines Aged Out No longer eligible based on patient's age to complete this topic [facility]-IPV Vaccines Aged Out No longer e ligible based on patient's age to complete this topic [facility]-Rotavirus Vaccines Aged Out No lo nger eligible based on patient's age to complete this topic Procedures Procedure Name Priority Date/Time Associated Diagnosis Comments CBC WITH AUTO DIFFERENTIAL Routine 06/07/2024 3:30 PM EDT 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) COMPREHENSIVE METABOLIC PANEL, PLASMA Routine 06/07/2024 1:11 PM EDT 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) TSH Routine 06/07/2024 1:11 PM EDT 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) HEPATITIS C ANTIBODY - ED W/REFLEX TO HCV QUANT PCR STAT 03/11/2024 6:53 PM EST ED HIV 1/2 ANTIBODY/ANTIGEN SCREEN WITH REFLEX TO HIV I/II DIFFERENTIATION STAT 03/11/2024 6:53 PM EST from Last 3 Months or Most Recently Relevant to Health Maintenance Results * (ABNORMAL) CBC and differential (06/07/2024 3:30 PM EDT) WBC Count 12.98(H) 3.70 - 10.30 10*3/uL LAB HEMATOLOGY METHOD 06/07/2024 3:36 PM EDT [facility] RBC Count 4.59 3.90 - 5.20 10*6/uL LAB HEMATOLOGY METHOD 06/07/2024 3:36 PM EDT [facility] HGB 11.0(L) 11.2 - 15.7 g/dL LAB HEMATOLOGY METHOD 06/07/2024 3:36 PM EDT [facility] HCT 34.4 34.0 - 45.0 % LAB HEMATOLOGY METHOD 06/07/2024 3:36 PM EDT [facility] Platelet Count 415(H) 155 - 369 10*3/uL LAB HEMATOLOGY METHOD 06/07/2024 3:36 PM EDT [facility] MCV 75(L) 79 - 98 fL LAB HEMATOLOGY METHOD 06/07/2024 3:36 PM EDT [facility] MCH 24.0(L) 26.0 - 32.0 pg LAB HEMATOLOGY METHOD 06/07/2024 3:36 PM EDT [facility] MCHC 32.0 30.7 - 35.5 g/dL LAB HEMATOLOGY METHOD 06/07/2024 3:36 PM EDT [facility] RDW 18.6(H) 11.5 - 14.5 % LAB HEMATOLOGY METHOD 06/07/2024 3:36 PM EDT [facility] MPV 9.1 8.8 - 12.5 fL LAB HEMATOLOGY METHOD 06/07/2024 3:36 PM EDT [facility] nRBC 0.0 <=0.0 per 100 WBCs LAB HEMATOLOGY METHOD 06/07/2024 3:36 PM EDT [facility] Differential Type Automated LAB HEMATOLOGY METHOD 06/07/2024 3:36 PM EDT [facility] Neutrophils % 78 % LAB HEMATOLOGY METHOD 06/07/2024 3:36 PM EDT [facility] Lymphocytes % 9 % LAB HEMATOLOGY METHOD 06/07/2024 3:36 PM EDT [facility] Monocytes % 9 % LAB HEMATOLOGY METHOD 06/07/2024 3:36 PM EDT [facility] Eosinophils % 2 % LAB HEMATOLOGY METHOD 06/07/2024 3:36 PM EDT [facility] Basophils % 1 % LAB HEMATOLOGY METHOD 06/07/2024 3:36 PM EDT [facility] Immature Granulocytes % 1 % LAB HEMATOLOGY METHOD 06/07/2024 3:36 PM EDT [facility] Neutrophils Absolute 10.12(H) 1.60 - 6.10 10*3/uL LAB HEMATOLOGY METHOD 06/07/2024 3:36 PM EDT [facility] Lymphocytes Absolute 1.21 1.20 - 3.90 10*3/uL LAB HEMATOLOGY METHOD 06/07/2024 3:36 PM EDT [facility] Monocytes Absolute 1.20(H) 0.30 - 0.90 10*3/uL LAB HEMATOLOGY METHOD 06/07/2024 3:36 PM EDT [facility] Eosinophils Absolute 0.27 0.00 - 0.50 10*3/uL LAB HEMATOLOGY METHOD 06/07/2024 3:36 PM EDT [facility] Basophils Absolute 0.10 0.00 - 0.10 10*3/uL LAB HEMATOLOGY METHOD 06/07/2024 3:36 PM EDT [facility] Immature Granulocytes Absolute 0.08(H) 0.00 - 0.06 10*3/uL LAB HEMATOLOGY METHOD 06/07/2024 3:36 PM EDT [facility] Blood Venous blood specimen / Unknown Venipuncture / Unknown 06/07/2024 3:30 PM EDT 06/07/2024 3:32 PM EDT [facility] - 06/07/2024 3:36 PM EDT Therapeutic decision making should be based on absolute values, rather than percentages. us Luma Beltran MD LAB BLOOD ORDERABLES Final Resu lt [facility] [address] [place] [address] * TSH (06/07/2024 1:11 PM EDT) Thyroid Stimulating Hormone, Plasma 1.08 0.40 - 4.20 uIU/mL 06/07/2024 2:23 PM EDT [facility] Blood Venous blood specimen / Unknown Venipuncture / Unknown 06/07/2024 1:11 PM EDT 06/07/2024 1:42 PM EDT us Luma Beltran MD LAB BLOOD ORDERABLES Final Resu lt [facility] [address] [place] [address] * (ABNORMAL) Comprehensive metabolic panel (06/07/2024 1:11 PM EDT) Glucose, Plasma 110(H) 74 - 99 mg/dL 06/07/2024 2:23 PM EDT [facility] BUN, Plasma 13 7 - 21 mg/dL 06/07/2024 2:23 PM EDT [facility] Creatinine, Plasma 0.90 0.60 - 1.10 mg/dL 06/07/2024 2:23 PM EDT [facility] BUN/Creatinine Ratio 14 06/07/2024 2:23 PM EDT [facility] Sodium, Plasma 135(L) 136 - 145 mmol/L 06/07/2024 2:23 PM EDT [facility] Potassium, Plasma 5.5(H) 3.6 - 4.9 mmol/L 06/07/2024 2:23 PM EDT [facility] Comment:Hemolyzed, result ma y be falsely increased. Chloride, Plasma 99 97 - 107 mmol/L 06/07/2024 2:23 PM EDT [facility] CO2, Plasma 25 22 - 29 mmol/L 06/07/2024 2:23 PM EDT [facility] Anion Gap 11 6 - 16 mmol/L 06/07/2024 2:23 PM EDT [facility] Total Calcium, Plasma 9.6 8.9 - 10.2 mg/dL 06/07/2024 2:23 PM EDT [facility] Total Protein 6.9 6.3 - 7.9 g/dL 06/07/2024 2:23 PM EDT [facility] Albumin, Plasma 3.3(L) 3.5 - 5.2 g/dL 06/07/2024 2:23 PM EDT [facility] AST, Plasma 86(H) 10 - 35 U/L 06/07/2024 2:23 PM EDT [facility] Comment:Hemolyzed, result ma y be falsely increased. ALT, Plasma 42(H) 10 - 35 U/L 06/07/2024 2:23 PM EDT [facility] Comment:Hemolyzed, result ma y be falsely increased or decreased. Alkaline Phosphatase, Plasma 185(H) 46 - 142 U/L 06/07/2024 2:23 PM EDT [facility] Comment:Hemolyzed, result ma y be falsely decreased. Total Bilirubin, Plasma 0.3 0.2 - 1.1 mg/dL 06/07/2024 2:23 PM EDT [facility] eGFRcr 74.3 mL/min/1.7 3m*2 06/07/2024 2:23 PM EDT [facility] Comment:Reported eGFRcr in m L/min/1.73m2 is based the CKD-EPI 2020 equation that does not use a race coefficient. Blood Venous blood specimen / Unknown Venipuncture / Unknown 06/07/2024 1:11 PM EDT 06/07/2024 1:42 PM EDT us Luma Beltran MD LAB BLOOD ORDERABLES Final Resu lt [facility] [address] [place] [address] * ED HIV 1/2 Antibody/Antigen Screen w/Reflex to HIV 1/2 Differentiation (03/11/2024 6:53 PM EST) HIV 1 & 2 Antibody/Antigen Screen Non Reactive Non Reactive 03/11/2024 8:04 PM EST [facility] Comment:Screening for HIV 1 & 2 antibodies, and P24 antigen is NONREACTIVE. No confirmatory testing is required. Blood Venous blood specimen / Unknown Venipuncture / Unknown 03/11/2024 6:53 PM EST 03/11/2024 7:22 PM EST Julien Matias MD LAB BLOOD ORDERABLES Final Res ult [facility] [address] [place] [address] * Hepatitis C Antibody - ED (03/11/2024 6:53 PM EST) Hepatitis C Antibody Negative Negative 03/11/2024 8:07 PM EST [facility] Blood Venous blood specimen / Unknown Venipuncture / Unknown 03/11/2024 6:53 PM EST 03/11/2024 7:23 PM EST Julien Matias MD LAB BLOOD ORDERABLES Final Res ult Performing Organization Address City/[facility]/ZIP Co de Phone Number [facility] [address] [place] [address] from Last 3 Months or Most Recently Relevant to Health Maintenance Insurance MEDICAID Advance Directives * Full Code (Latest Code Status on File) Date Activated Date Inactivated Comments 10/31/2023 11:10 AM 11/03/2023 2:48 PM Question Answer Comments Patient has decision-making capacity? Yes Care Teams Tissue Specialist Relationship Specialty Start Date End Date Elizabeth Lockhart APRN [address] [place] [address] PCP - General 10/23/23 Taran Serrano MD [address] [place] [address] Referring Physician 10/20/23 Jass Anderson MD [address] [facility] [address] [place] [address] Consulting Physician Radiation Oncology 03/16/24
--- OUTSIDE RECORDS SUMMARY | 2024-08-02 08:55 | XMS_ITS | Encounter Summary ---
Author Organization Healthcare Address [address] [place] [address] Care Team Providers Care Mortgage Loan Counselor Name Role Phone Taran Serrano MD Unavailable [phone] Elizabeth Lockhart APRN Primary Care Provider [phone] Jass Anderson MD Unavailable [phone] Encounter Details Date Type Department Care Team (Late st Contact Info) Description 06/28/2024 Telephone [facility] [address] [place] [address] Luma Beltran MD [address] [address] Social History Tobacco Use Types Packs/Day Years [...] place to sleep or slept in a correction (including now)? No 11/02/2023 PHQ-9 Answer Date Recorded Patient Health Questionnaire-9 Score 15 02/23/2024 Utilities Answer Date Recorded In the past 12 months has e [employer], [employer], oil, or water [employer] threatened to shut off services in your home? No 11/02/2023 Comments No Sex and Gender Information Value Date Recorded Sex Assigned at Female 10/31/2023 6:32 AM EDT Legal Sex Female 7:36 PM EDT Gender Identity Female 10/31/2023 6:32 AM EDT Sexual Orientation Not on file documented as of this encounter Miscellaneous Notes * Telephone Encounter - Glory Chand RN - 06/30/2024 10:49 AM EDT Rescheduled to Friday at 3pm. * Telephone Encounter - Thao Vidal - 06/28/2024 9:06 AM EDT Patient Phone Message Reason for Call: Tiago calling to reschedule appointment with Fiordaliza Beltran and infusion today as she broke a tooth last night and has to go to a dentist,, Best contact number and optimal time of day to reach caller: [phone] Note: Please do not reply to this message. Follow-up communication and further actions as a result of this message need to be communicated with the patient directly, if the patient is not active onMyChart. If the patient is active on MyChart, they will receive notification of the communication/outcome via [employer]. documented in this encounter Plan of Treatment [...] documented as of this encounter Care Teams Mortgage Loan Counselor Relationship Specialty Start Date End Date Elizabeth Lockhart APRN [address] [place] [address] PCP - General 10/23/23 Taran Serrano MD [address] [place] [address] Referring Physician 10/20/23 Jass Anderson MD [address] [place] [facility] [address] [place] [address] Consulting Physician Radiation Oncology 03/16/24 documented as of this encounter
--- OUTSIDE RECORDS SUMMARY | 2024-08-02 08:55 | XMS_ITS | Encounter Summary ---
Author Organization Healthcare Address [address] [place] [address] Care Team Providers Care Filter Tank Tender Helper Head Name Role Phone Taran Serrano MD Unavailable [phone] Elizabeth Lockhart APRN Primary Care Provider [phone] Jass Anderson MD Unavailable [phone] Encounter Details Date Type Department Care Team (Latest Contact Info) Description 06/06/2024 Travel Social History Tobacco Use Types Packs/Day Years [...] place to sleep or slept in a custodial (including now)? No 11/02/2023 PHQ-9 Answer Date [...] documented as of this encounter Care Teams Filter Tank Tender Helper Head Relationship Specialty Start Date End Date Elizabeth Lockhart APRN [address] [place] [address] PCP - General 10/23/23 Taran Serrano MD [address] [place] [address] Referring Physician 10/20/23 Jass Anderson MD 800 [facility] [address] [place] [address] Consulting Physician Radiation Oncology 03/16/24 documented as of this encounter
--- OUTSIDE RECORDS SUMMARY | 2024-08-02 08:55 | XMS_ITS | Encounter Summary ---
Author Organization Healthcare Address [address] [place] [address] Care Team Providers Care Advertising Agency Manager Name Role Phone Taran Serrano MD Unavailable [phone] Elizabeth Lockhart APRN Primary Care Provider [phone] Jass Anderson MD Unavailable [phone] Reason for Visit * Reason Onset Date Comments Med Refill 07/29/2024 Encounter Details Date Type Department Care Team (Late st Contact Info) Description 07/29/2024 Refill [facility] [address] [place] [address] Luma Beltran MD [address] [phone] Social History Tobacco Use Types Packs/Day Years [...] place to sleep or slept in a fpc (including now)? No 11/02/2023 PHQ-9 Answer Date Recorded Patient Health Questionnaire-9 Score 15 02/23/2024 Utilities Answer Date Recorded In the past 12 months has th e [employer], gas, oil, or water [employer] threatened to shut off services in your [...] documented as of this encounter Care Teams Advertising Agency Manager Relationship Specialty Start Date End Date Elizabeth Lockhart APRN [address] [place] [address] PCP - General 10/23/23 Taran Serrano MD [address] [address] Referring Physician 10/20/23 Jass Anderson MD 800 [facility] [address] [place] [address] Consulting Physician Radiation Oncology 03/16/24 documented as of this encounter
--- OUTSIDE RECORDS SUMMARY | 2024-08-02 08:55 | XMS_ITS | Encounter Summary ---
Author Organization Healthcare Address [address] [place] [address] Care Team Providers Care Tax Intern Name Role Phone Taran Serrano MD Unavailable [phone] Elizabeth Lockhart APRN Primary Care Provider [phone] Jass Anderson MD Unavailable [phone] Encounter Details Date Type Department Care Team (Late st Contact Info) Description 07/12/2024 Telephone [facility] [address] [place] [address] Luma Beltran MD [address] [address] Social History Tobacco Use Types Packs/Day Years [...] place to sleep or slept in a senior living (including now)? No 11/02/2023 PHQ-9 Answer Date Recorded Patient Health Questionnaire-9 Score 15 02/23/2024 Utilities Answer Date Recorded In the past 12 months has e [employer], [employer], oil, or water [employer] threatened to shut off services in your home? No 11/02/2023 Comments No Sex and Gender Information Value Date Recorded Sex Assigned at Female 10/31/2023 6:32 AM EDT Legal Sex Female 7:36 PM EDT Gender Identity Female 10/31/2023 6:32 AM EDT Sexual Orientation Not on file documented as of this encounter Miscellaneous Notes * Telephone Encounter - More Aquino - 07/12/2024 1:48 PM EDT Letter faxed to [facility] * Telephone Encounter - Valarie Bowers - 07/12/2024 8:09 AM EDT Patient Phone Message Reason for Call: Ms. Green is calling on her behalf she is needing a written statement to [facility] stating a 30 day medical extension for her utility bill there fax [phone] ATTN: TRA [place] contact number and optimal time of day to reach caller: [phone] Note: Please do not reply to this message. Follow-up communication and further actions as a result of this message need to be communicated with the patient directly, if the patient is not active onMyChart. If the patient is active on MyChart, they will receive notification of the communication/outcome via [employer]. documented in this encounter Plan of Treatment [...] documented as of this encounter Care Teams Tax Intern Relationship Specialty Start Date End Date Elizabeth Lockhart APRN [address] [place] [address] PCP - General 10/23/23 Taran Serrano MD [address] [place] [address] Referring Physician 10/20/23 Jass Anderson MD 800 [place] [facility] [address] [place] [phone] Consulting Physician Radiation Oncology 03/16/24 documented as of this encounter
--- OUTSIDE RECORDS SUMMARY | 2024-08-02 08:55 | XMS_ITS | Encounter Summary ---
Author Organization Healthcare Address [address] [place] [address] Care Team Providers Care Pharmacy Intern Name Role Phone Taran Serrano MD Unavailable [phone] Elizabeth Lockhart APRN Primary Care Provider [phone] Jass Anderson MD Unavailable [phone] Encounter Details Date Type Department Care Team (Latest Contact Info) Description 06/07/2024 Travel Social History Tobacco Use Types Packs/Day [...] place to sleep or slept in a residential (including now)? No 11/02/2023 PHQ-9 Answer Date [...] on file documented as of this encounter Functional Status * Over the [...] Alejandra Carnes documented as of this encounter Plan of [...] documented as of this encounter Care Teams Pharmacy Intern Relationship Specialty Start Date End Date Elizabeth Lockhart APRN [address] [place] [address] PCP - General 10/23/23 Taran Serrano MD [address] [address] Referring Physician 10/20/23 Jass Anderson MD 800 [facility] [address] [place] [address] Consulting Physician Radiation Oncology 03/16/24 documented as of this encounter
== END 2024-08-02 23:59 | disposition home or self-care (01) ==
LOC: RT 08:51
PROVIDERS: PCP Nurse Practitioner Family; Visit Provider Internal Medicine Pulmonary Disease
DX: R06.01 Orthopnea (principal); R06.09 Other forms of dyspnea; R06.02 Shortness of breath
CPT/HCPCS: 93306; 94618

== ENCOUNTER 2024-10-13 11:25 | Outpatient (CLI) | payer OTHER, SELFPAY ==
--- OUTSIDE RECORDS SUMMARY | 2024-08-24 10:30 | XMS_ITS | Encounter Summary ---
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) Procedures CT Abdomen Pelvis w IV Contrast Luma Beltran MD [address] [address] Phone: tel: fax: Referral ID Status Reason Start Date Expiration Date Visits Re quested Visits Authorized [id number] Closed 08/25/2024 02/24/2026 1 1 * Imaging (Urgent) - Closed Specialty Diagnoses / Procedures Referred By Contac t Referred To Contact Radiology Diagnoses 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) Procedures CT Chest w IV Contrast Luma Beltran MD [address] [address] Phone: tel: fax: Referral ID Status Reason Start Date Expiration Date Visits Re quested Visits Authorized [id number] Closed 08/25/2024 02/24/2026 1 1 Encounter Details Date Type Department Care Team (Late st Contact Info) Description 08/24/2024 10:30 AM EDT Office Visit [facility] [address] [place] [address] Luma Beltran MD [address] [facility] [address] [place] [address] 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 No 11/02/2023 PHQ-9 Answer Date [...] Sign Reading Time Taken Comments Blood Pressure 147/81 08/24/2024 11:10 AM EDT Pulse 91 08/24/2024 11:10 AM EDT Temperature - - Respiratory Rate 18 08/24/2024 11:10 AM EDT Oxygen Saturation 93% 08/24/2024 11:10 AM EDT Inhaled Oxygen Concentration - - Weight 69.4 kg (153 lb) 08/24/2024 11:10 AM EDT Height 162.6 cm (5' 4 ) 08/24/2024 11:10 AM EDT Body Mass Index 26.26 08/24/2024 11:10 AM EDT documented in this encounter Functional Status * Over the past 2 weeks, how often have you been bothered by any of the following problems? Question Answer Date of Assessment Author Little interest or pleasure in doing things More than half the days 08/24/2024 11:13 AM EDT Alejandra Carnes Feeling down, depressed, or hopeless More than half the days 08/24/2024 11:13 AM EDT Alejandra Carnes Patient Health Questionnaire-2 Score 4 08/24/2024 11:13 AM EDT Jessica Carnes * Question Answer Date of Assessment Author Thoughts that you would be better off or hurting yourself in some way Not at all 08/24/2024 11:13 AM EDT Alejandra Carnes documented as of this encounter Miscellaneous Notes * Addendum Note - Glory Chand RN - 08/24/2024 10:30 AM EDTAddended by: GLORY CHAND on: 08/25/2024 02:31 PM Modules accepted: Orders * Progress Notes - Luma Beltran MD - 08/24/2024 10:30 AM EDT MEDICAL ONCOLOGY FOLLOW-UP NOTE Patient Information Patient Name: Gena Green Date of : 1965 REFERRING PHYSICIAN: No referring provider defined for this encounter. Encounter Date: 08/24/2024 Treatment Diagnosis: Cancer Staging Colon cancer metastasized [...] prior hysterectomy but does not remember details. djuvant chemotherapy 2019 (FOLFOX?) had allergic reaction oxaliplatin 10/11/23: CT abd/pelvis with on showing cystic [...] recurrence of malignant neoplasm of colon (CMS/HCC) (Resolved) 04/20/2024 Initial Diagnosis Local recurrence of malignant neoplasm of colon (CMS/HCC) 04/20/2024 - 06/22/2024 Radiation Therapy The patient saw Jass Anderson MD for radiation treatment. 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 Past Medical, Surgical, Family and Social History Reviewed in this encounter by me personally. Subjective Presents with SO today. Steroids for another 2.5 weeks. Repeat scans after that, Still 3L NC. Feels some better with oxygen, she is not sitting still but does rest if needed. Ok with restaging scans. Sees him in [address] Gutierrez ([phone]) Pain in back and hip for last couple of weeks, despite oxycodone. Easy bruising . Review of Systems: 14 ROS was conducted and is otherwise negative unless noted in HPI. Objective Visit Vitals BP (!) 147/81 Pulse 91 Ht 1.626 m (5' 4 ) Wt 69.4 kg (153 lb) SpO2 93% BMI 26.26 kg/m?? Wt Readings from Last 2 Encounters: 08/24/24 69.4 kg (153 lb) 06/07/24 68.3 kg (150 lb 9.2 oz) Visit Vitals BP (!) 147/81 Pulse 91 Resp 18 BSA: Estimated body surface area is 1.77 meters squared as calculated from the following: Height as of this encounter: 1.626 m (5' 4 ). Weight as of this encounter: 69.4 kg (153 lb). Performance Status ECOG 1 EXAM General: No acute distress; sitting upright in a chair, speaking in full sentences Head: normocephalic, atraumatic EENT: sclera clear , no proptosis or lid lag Cardiac: no LE edema, RRR Lungs: no [...] LABORATORIES AND STUDIES: reviewed by me personally WBC 16.38 (H) Hgb 13.2 PLT 353 HCT 41.8 PTT 25 INR 0.9 antiXa ?? Na 137 Cl 102 BUN 19 Gluc 101 (H) K 4.0 Co2 22 Creat 1.04 Tot Prot 6.9 AST 27 Tot bili 0.3 Alkphos 100 Alb ?? ALT 21 Dir bili ?? Ca 9.4 iCa ?? Mg ?? Phos ?? Lactate ?? No results found for: PREALBUMIN CEA, Serum Date Value Ref Range Status 08/24/2024 7.4 (H) <4.0 ng/mL Final 12/08/2023 5.2 (H) <4.0 ng/mL Final 10/23/2023 5.7 (H) <4.0 ng/mL Final CA 125 Date Value Ref Range Status 10/23/2023 21.20 <=38.00 U/mL Final Ca 9.4 iCa ?? Mg ?? Phos ?? Lactate ?? CEA, Serum Date Value Ref Range Status 08/24/2024 7.4 (H) <4.0 ng/mL Final 12/08/2023 5.2 (H) <4.0 ng/mL Final 10/23/2023 [...] progression over dostarlimab failure -regimen: dostarlimab PLAN: -Last dostarlimab in Feb 2024 , will continue to HOLD at this time - -RTC with scan Pneumonia , recovering/per patient felt to be related to drug -currently using oxygen PRN, came into clinic without oxygen O2 sats 82%, placed her on 3L -unable to wean off steriods however has not had bronchoscopy to diagnosis or sample for cause. -will obtain notes from pulmonary dr and scans as well. -establishing pneumonitis is imperative as this will give us guidance for future therapies. Grade 1 Nausea - She is using phenergan for symptoms Constipation 2/2 opiod use -She is using senna daily - Advised to use miralax as well Depressed mood - PCP to Rx lexapro Social determinants of health -speak to social work team today about disability -eager to return to work but current therapy and oxygen limits her ability 35 minutes were spent with the patient of which 23 or more were counseling minutes regarding plan and coordination of care and follow up scheduling, symptom management, and possible treatment side effects. I updated the plan of care. This [...] of associated toxicities in patients with cancer. 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) CBC WITH AUTO DIFFERENTIAL Routine 08/24/2024 12:08 PM EDT 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 Unchanged prominent mediastinal lymph nodes. No enlarging thoracic lymph nodes. Abdomen/Pelvis: Interval reduced size of the left pelvic mass, central pelvic deposit, and abdominopelvic lymph nodes, compatible with treatment response. Postoperative change associated with prior right hemicolectomy with no evidence of complication at the anastomosis. CRITICAL RESULT: No. COMMUNICATION: Per this written report. Drafted by Tricia Dailey MD on 09/02/2024 7:47 AM Final report signed by Tricia Dailey MD on 09/02/2024 8:10 AM Narrative 09/02/2024 8:10 AM EDT CLINICAL INDICATION: colon cancer TECHNIQUE: Multiple axial CT images were obtained from thoracic inlet through pubic symphysis following administration of IV contrast, Omnipaque 300, 100 mL. Reformatted images in the coronal and sagittal planes were generated from the axial data set to facilitate diagnostic accuracy. Total DLP (Dose-Length Product): 496.56 mGy.cm (accession [id number]), 496.56 mGy.cm (accession [id number]) Please note: The reported value represents the total of one or more individual components during the CT acquisition on this date and at this time, and as such, the same value may appear in more than one CT report depending on the interpreting/reporting physicians. COMPARISON: CT chest from 03/11/2024 CT chest/abdomen/pelvis from 02/08/2024 FINDINGS: Chest: Lymph Nodes and Mediastinum: Prominent mediastinal lymph nodes are stable. For example a right paratracheal lymph node measures 1.0 cm, unchanged (series 4 image 143). A subcarinal lymph node measures 1.1 cm, also unchanged and series 4 image 170). No enlarging thoracic lymph nodes. No suspicious thyroid findings. Cardiovascular: The heart is normal in caliber. Thoracic great vessels are patent. A left approach port terminates in the superior vena cava. Lungs and Pleura: Central airways are patent. Bilateral nodular opacities within both lungs with surrounding groundglass at decreased in the nodular and consolidative components, although diffuse groundglass opacities are slightly more prominent. No pleural effusions or suspicious thickening. Musculoskeletal and Body Wall: No clearly aggressive bone lesions. No suspicious body wall findings. Abdomen/Pelvis: Solid Abdominal Organs: Hepatic parenchyma is homogeneous. Geographic low attenuation adjacent to the falciform ligament may represent focal fatty deposition. No suspicious hepatic mass. Gallbladder is unremarkable. No intrahepatic or extrahepatic biliary ductal dilatation. Adrenal glands are unremarkable. No suspicious renal mass. No hydronephrosis. Pancreatic parenchyma is homogeneous. No pancreatic ductal dilatation. The spleen is nonenlarged. GI Tract/Mesentery/Peritoneum: Stomach is unremarkable. Postoperative change associated with prior right hemicolectomy, ileocolic anastomosis in the right lower quadrant and no evidence of anastomotic complication. No bowel obstruction. Reduced size of the necrotic mass within the left pelvis, now measuring approximately 3.6 x 3.0 cm (previously 7.8 x 6.6 cm, series 3 image 225). Similar reduced size of the central pelvic deposit, now measuring 1.4 x 0.9 cm (previously 3.0 x 2.6 cm, series 3 image 20). The left pelvic mass abuts and is inseparable from the surface of the proximal sigmoid colon, with tethering of the left anterior bladder dome. There is improved fat plane between the mass and the left external iliac vasculature. Similarly, there is improved fat plane between the central pelvic deposit and the sigmoid colon although there is likely residual tethering of the colon at this location. Pelvic Viscera: Tethering of the urinary bladder associated with left pelvic mass, as above. Prior hysterectomy. Lymph Nodes/Vasculature: Previously noted mildly enlarged left iliac lymph nodes are now subcentimeter and difficult to measure. Reduced size of a mesenteric lymph node, now measuring 0.8 cm (previously 1.0 cm, series 3 image 174). No enlarging abdominopelvic lymph nodes. Aortoiliac vasculature maintains normal caliber and contour. The portosplenic confluence is patent. Free Fluid: No ascites. Musculoskeletal and Body Wall: Postoperative change in the anterior abdominal wall. No clearly aggressive osseous lesions. Procedure Note Tricia Dailey MD - 09/02/2024 CLINICAL INDICATION: colon cancer TECHNIQUE: Multiple axial CT images were obtained from thoracic inlet through pubicsymphysis following administration of IV contrast, Omnipaque 300, 100 mL.Reformatted images in the coronal and sagittal planes were generated fromthe axial data set to facilitate diagnostic accuracy. Total DLP (Dose-Length Product): 496.56 mGy.cm (accession [id number]),496.56 mGy.cm (accession [id number]) Please note: The reported valuerepresents the total of one or more individual components during the CTacquisition on this date and at this time, and as such, the same value mayappear in more than one CT report depending on the interpreting/reportingphysicians. COMPARISON: CT chest from 03/11/2024 CT chest/abdomen/pelvis from 02/08/2024 FINDINGS: Chest: Lymph Nodes and Mediastinum: Prominent mediastinal lymph nodes are stable.For example a right paratracheal lymph node measures 1.0 cm, unchanged(series 4 image 143). A subcarinal lymph node measures 1.1 cm, alsounchanged and series 4 image 170). No enlarging thoracic lymph nodes. Nosuspicious thyroid findings. Cardiovascular: The heart is normal in caliber. Thoracic great vessels arepatent. A left approach port terminates in the superior vena cava. Lungs and Pleura: Central airways are patent. Bilateral nodular opacitieswithin both lungs with surrounding groundglass at decreased in the nodularand consolidative components, although diffuse groundglass opacities areslightly more prominent. No pleural effusions or suspicious thickening. Musculoskeletal and Body Wall: No clearly aggressive bone lesions. Nosuspicious body wall findings. Abdomen/Pelvis: Solid Abdominal Organs: Hepatic parenchyma is homogeneous. Geographic lowattenuation adjacent to the falciform ligament may represent focal fattydeposition. No suspicious hepatic mass. Gallbladder is unremarkable. Nointrahepatic or extrahepatic biliary ductal dilatation. Adrenal glands areunremarkable. No suspicious renal mass. No hydronephrosis. Pancreaticparenchyma is homogeneous. No pancreatic ductal dilatation. The spleen isnonenlarged. GI Tract/Mesentery/Peritoneum: Stomach is unremarkable. Postoperativechange associated with prior right hemicolectomy, ileocolic anastomosis inthe right lower quadrant and no evidence of anastomotic complication. Nobowel obstruction. Reduced size of the necrotic mass within the left pelvis, now measuringapproximately 3.6 x 3.0 cm (previously 7.8 x 6.6 cm, series 3 image 225).Similar reduced size of the central pelvic deposit, now measuring 1.4 x0.9 cm (previously 3.0 x 2.6 cm, series 3 image 20). The left pelvic massabuts and is inseparable from the surface of the proximal sigmoid colon,with tethering of the left anterior bladder dome. There is improved fatplane between the mass and the left external iliac vasculature. Similarly,there is improved fat plane between the central pelvic deposit and thesigmoid colon although there is likely residual tethering of the colon atthis location. Pelvic Viscera: Tethering of the urinary bladder associated with leftpelvic mass, as above. Prior hysterectomy. Lymph Nodes/Vasculature: Previously noted mildly enlarged left iliac lymphnodes are now subcentimeter and difficult to measure. Reduced size of amesenteric lymph node, now measuring 0.8 cm (previously 1.0 cm, series 3image 174). No enlarging abdominopelvic lymph nodes. Aortoiliacvasculature maintains normal caliber and contour. The portosplenicconfluence is patent. Free Fluid: No ascites. Musculoskeletal and Body Wall: Postoperative change in the anteriorabdominal wall. No clearly aggressive osseous lesions. IMPRESSION: Chest: Groundglass opacities throughout both lungs, with reduced conspicuity ofthe nodular and consolidative components. Unchanged prominent mediastinal lymph nodes. No enlarging thoracic lymphnodes. Abdomen/Pelvis: Interval reduced size of the left pelvic mass, central pelvic deposit, andabdominopelvic lymph nodes, compatible with treatment response. Postoperative change associated with prior right hemicolectomy with noevidence of complication at the anastomosis. CRITICAL RESULT: No. COMMUNICATION: Per this written report. Drafted by Tricia Dailey MD on 09/02/2024 7:47 AM Final report signed by Tricia Dailey MD on 09/02/2024 8:10 AM us Luma Beltran MD IMG CT PROCEDURES Final Result * CT Chest w IV Contrast (09/01/2024 4:51 PM EDT) Anatomical Region Laterality Modality Chest Computed Tomogra phy Impressions 09/02/2024 8:10 AM EDT Chest: Groundglass opacities throughout both lungs, with reduced conspicuity of the nodular and consolidative components. Unchanged prominent mediastinal lymph nodes. No enlarging thoracic lymph nodes. Abdomen/Pelvis: Interval reduced size of the left pelvic mass, central pelvic deposit, and abdominopelvic lymph nodes, compatible with treatment response. Postoperative change associated with prior right hemicolectomy with no evidence of complication at the anastomosis. CRITICAL RESULT: No. COMMUNICATION: Per this written report. Drafted by Tricia Dailey MD on 09/02/2024 7:47 AM Final report signed by Tricia Dailey MD on 09/02/2024 8:10 AM Narrative 09/02/2024 8:10 AM EDT CLINICAL INDICATION: colon cancer TECHNIQUE: Multiple axial CT images were obtained from thoracic inlet through pubic symphysis following administration of IV contrast, Omnipaque 300, 100 mL. Reformatted images in the coronal and sagittal planes were generated from the axial data set to facilitate diagnostic accuracy. Total DLP (Dose-Length Product): 496.56 mGy.cm (accession [id number]), 496.56 mGy.cm (accession [id number]) Please note: The reported value represents the total of one or more individual components during the CT acquisition on this date and at this time, and as such, the same value may appear in more than one CT report depending on the interpreting/reporting physicians. COMPARISON: CT chest from 03/11/2024 CT chest/abdomen/pelvis from 02/08/2024 FINDINGS: Chest: Lymph Nodes and Mediastinum: Prominent mediastinal lymph nodes are stable. For example a right paratracheal lymph node measures 1.0 cm, unchanged (series 4 image 143). A subcarinal lymph node measures 1.1 cm, also unchanged and series 4 image 170). No enlarging thoracic lymph nodes. No suspicious thyroid findings. Cardiovascular: The heart is normal in caliber. Thoracic great vessels are patent. A left approach port terminates in the superior vena cava. Lungs and Pleura: Central airways are patent. Bilateral nodular opacities within both lungs with surrounding groundglass at decreased in the nodular and consolidative components, although diffuse groundglass opacities are slightly more prominent. No pleural effusions or suspicious thickening. Musculoskeletal and Body Wall: No clearly aggressive bone lesions. No suspicious body wall findings. Abdomen/Pelvis: Solid Abdominal Organs: Hepatic parenchyma is homogeneous. Geographic low attenuation adjacent to the falciform ligament may represent focal fatty deposition. No suspicious hepatic mass. Gallbladder is unremarkable. No intrahepatic or extrahepatic biliary ductal dilatation. Adrenal glands are unremarkable. No suspicious renal mass. No hydronephrosis. Pancreatic parenchyma is homogeneous. No pancreatic ductal dilatation. The spleen is nonenlarged. GI Tract/Mesentery/Peritoneum: Stomach is unremarkable. Postoperative change associated with prior right hemicolectomy, ileocolic anastomosis in the right lower quadrant and no evidence of anastomotic complication. No bowel obstruction. Reduced size of the necrotic mass within the left pelvis, now measuring approximately 3.6 x 3.0 cm (previously 7.8 x 6.6 cm, series 3 image 225). Similar reduced size of the central pelvic deposit, now measuring 1.4 x 0.9 cm (previously 3.0 x 2.6 cm, series 3 image 20). The left pelvic mass abuts and is inseparable from the surface of the proximal sigmoid colon, with tethering of the left anterior bladder dome. There is improved fat plane between the mass and the left external iliac vasculature. Similarly, there is improved fat plane between the central pelvic deposit and the sigmoid colon although there is likely residual tethering of the colon at this location. Pelvic Viscera: Tethering of the urinary bladder associated with left pelvic mass, as above. Prior hysterectomy. Lymph Nodes/Vasculature: Previously noted mildly enlarged left iliac lymph nodes are now subcentimeter and difficult to measure. Reduced size of a mesenteric lymph node, now measuring 0.8 cm (previously 1.0 cm, series 3 image 174). No enlarging abdominopelvic lymph nodes. Aortoiliac vasculature maintains normal caliber and contour. The portosplenic confluence is patent. Free Fluid: No ascites. Musculoskeletal and Body Wall: Postoperative change in the anterior abdominal wall. No clearly aggressive osseous lesions. Procedure Note Tricia Dailey MD - 09/02/2024 CLINICAL INDICATION: colon cancer TECHNIQUE: Multiple axial CT images were obtained from thoracic inlet through pubicsymphysis following administration of IV contrast, Omnipaque 300, 100 mL.Reformatted images in the coronal and sagittal planes were generated fromthe axial data set to facilitate diagnostic accuracy. Total DLP (Dose-Length Product): 496.56 mGy.cm (accession [id number]),496.56 mGy.cm (accession [id number]) Please note: The reported valuerepresents the total of one or more individual components during the CTacquisition on this date and at this time, and as such, the same value mayappear in more than one CT report depending on the interpreting/reportingphysicians. COMPARISON: CT chest from 03/11/2024 CT chest/abdomen/pelvis from 02/08/2024 FINDINGS: Chest: Lymph Nodes and Mediastinum: Prominent mediastinal lymph nodes are stable.For example a right paratracheal lymph node measures 1.0 cm, unchanged(series 4 image 143). A subcarinal lymph node measures 1.1 cm, alsounchanged and series 4 image 170). No enlarging thoracic lymph nodes. Nosuspicious thyroid findings. Cardiovascular: The heart is normal in caliber. Thoracic great vessels arepatent. A left approach port terminates in the superior vena cava. Lungs and Pleura: Central airways are patent. Bilateral nodular opacitieswithin both lungs with surrounding groundglass at decreased in the nodularand consolidative components, although diffuse groundglass opacities areslightly more prominent. No pleural effusions or suspicious thickening. Musculoskeletal and Body Wall: No clearly aggressive bone lesions. Nosuspicious body wall findings. Abdomen/Pelvis: Solid Abdominal Organs: Hepatic parenchyma is homogeneous. Geographic lowattenuation adjacent to the falciform ligament may represent focal fattydeposition. No suspicious hepatic mass. Gallbladder is unremarkable. Nointrahepatic or extrahepatic biliary ductal dilatation. Adrenal glands areunremarkable. No suspicious renal mass. No hydronephrosis. Pancreaticparenchyma is homogeneous. No pancreatic ductal dilatation. The spleen isnonenlarged. GI Tract/Mesentery/Peritoneum: Stomach is unremarkable. Postoperativechange associated with prior right hemicolectomy, ileocolic anastomosis inthe right lower quadrant and no evidence of anastomotic complication. Nobowel obstruction. Reduced size of the necrotic mass within the left pelvis, now measuringapproximately 3.6 x 3.0 cm (previously 7.8 x 6.6 cm, series 3 image 225).Similar reduced size of the central pelvic deposit, now measuring 1.4 x0.9 cm (previously 3.0 x 2.6 cm, series 3 image 20). The left pelvic massabuts and is inseparable from the surface of the proximal sigmoid colon,with tethering of the left anterior bladder dome. There is improved fatplane between the mass and the left external iliac vasculature. Similarly,there is improved fat plane between the central pelvic deposit and thesigmoid colon although there is likely residual tethering of the colon atthis location. Pelvic Viscera: Tethering of the urinary bladder associated with leftpelvic mass, as above. Prior hysterectomy. Lymph Nodes/Vasculature: Previously noted mildly enlarged left iliac lymphnodes are now subcentimeter and difficult to measure. Reduced size of amesenteric lymph node, now measuring 0.8 cm (previously 1.0 cm, series 3image [id number]). No enlarging abdominopelvic lymph nodes. Aortoiliacvasculature maintains normal caliber and contour. The portosplenicconfluence is patent. Free Fluid: No ascites. Musculoskeletal and Body Wall: Postoperative change in the anteriorabdominal wall. No clearly aggressive osseous lesions. IMPRESSION: Chest: Groundglass opacities throughout both lungs, with reduced conspicuity ofthe nodular and consolidative components. Unchanged prominent mediastinal lymph nodes. No enlarging thoracic lymphnodes. Abdomen/Pelvis: Interval reduced size of the left pelvic mass, central pelvic deposit, andabdominopelvic lymph nodes, compatible with treatment response. Postoperative change associated with prior right hemicolectomy with noevidence of complication at the anastomosis. CRITICAL RESULT: No. COMMUNICATION: Per this written report. Drafted by Tricia Dailey MD on 09/02/2024 7:47 AM Final report signed by Tricia Dailey MD on 09/02/2024 8:10 AM Luma Beltran MD IM CT PROCEDURES Final Result * APTT (08/24/2024 12:08 PM EDT) aPTT 25 25 - 35 sec LAB COAGULATION METHOD 08/24/2024 12:58 PM EDT [facility] Blood Venous blood specimen / Unknown Venipuncture / Unknown 08/24/2024 12:08 PM EDT 08/24/2024 12:35 PM EDT Luma Beltran MD LAB BLOOD ORDERABLES Final Resu lt Performing Organization Address City/[facility]/ZIP Co de Phone Number [facility] [address] [place] [address] * Protime-INR (08/24/2024 12:08 PM EDT) Prothrombin Time 12.2 12.0 - 14.3 sec LAB COAGULATION METHOD 08/24/2024 12:58 PM EDT [facility] INR 0.9 0.9 - 1.1 LAB COAGULATION METHOD 08/24/2024 12:58 PM EDT [facility] Blood Venous blood specimen / Unknown Venipuncture / Unknown 08/24/2024 12:08 PM EDT 08/24/2024 12:35 PM EDT Narrative [facility] - 08/24/2024 12:58 PM EDT OPTIMAL INR RANGES FOR PATIENT ON ORAL ANTICOAGULANT THERAPY Prevention of venous thromboembolism INR 2.0 to 3.0 In patients with heart disease: Atrial fibrillation INR 2.0 to 3.0 Valvular heart disease INR 2.0 to 3.0 Tissue heart valves INR 2.0 to 3.0 Mechanical prosthetic valves INR 2.5 to 3.5 Prevention of recurrent WI INR 2.5 to 3.5 Luma Beltran MD LAB BLOOD ORDERABLES Final Resu lt Performing Organization Address [facility] Co de Phone Number [facility] [address] [place] [address] * (ABNORMAL) Signatera Only Single Draw (08/24/2024 12:08 PM EDT) SIGNATERA TEST RESULT POSITIVE (A) 09/15/2024 9:31 AM EDT [facility] SIGNATERA MTM READOUT 3.86(A) MTM/ml 9:31 AM EDT [facility] Comment: Please see the attached PDF for more information. Limitations Signatera is a personalized, tumor-informed test for the longitudinal detection of circulating tumor DNA (ctDNA). Interval testing is recommended for all patients. Studies have demonstrated that when ctDNA is detected (Signatera Positive) following surgery or definitive treatment, the risk for disease relapse is high without further treatment. Conversely, when ctDNA is not detected, the patient may be considered at lower risk for relapse. For those with multiple timepoints, upward trending ctDNA levels are suggestive of increasing tumor burden (1,2). For a single time point in isolation, the absolute MTM/mL value has no known clinical significance and should not be compared across patients. Test results should be interpreted in context of other clinicopathological features. ctDNA detection sensitivity may be limited due to blood collection within two weeks of surgery and while the patient is on therapy. Signatera is a quantitative test and reports in units of mean tumor molecules per ml (MTM/mL), which is comprised of three measured components (plasma volume, cell free DNA (cfDNA) concentration, and Variant Allele Frequency (VAF)). The MTM/mL number will be qualified if any measured component falls outside the analytical measurement range for that component. The analytical sensitivity is 95% at the limit of detection (0.3 MTM/mL). Results obtained are specific to the assessed time point. A negative test result does not definitively indicate the absence of cancer. This test is not designed to detect or report germline variation, nor does it infer hereditary cancer risk for the patient. Each Signatera assay is designed to a single tumor for a given patient. At this time, multiple personalized Signatera assays cannot be developed for the same patient. This test is designed to detect ctDNA from the assayed tumor only; new primary tumors will not be detected. There is a low risk that a new primary may share a variant that could interfere with the Signatera test. Testing cannot be performed in patients who are , have a history of bone marrow transplant, or history of blood transfusion within three months. This test is expected to have limited sensitivity in cancer types such as GIST, renal cell carcinomas, primary brain tumors, and lymphoma due to limited ctDNA shed. 1 Nadege SV, Alex PHILLIPSC, Hermelinda CARBAJAL, et al. Personalized circulating tumor DNA analysis as a predictive biomarker in solid tumor patients treated with pembrolizumab. Nature Cancer. 2020;1(9):873-881. 2 Josephine TV, Bryan N, et al., Circulating Tumor DNA in Stage III Colorectal Cancer, beyond Minimal Residual Disease Detection, toward Assessment of Adjuvant Therapy Efficacy and Clinical Behavior of Recurrences. Clin Cancer Res. 2020; 28(3):507-517. Methodology FFPE samples are reviewed by a pathologist to assess tumor content and percent tumor nuclei. Tumor DNA is extracted using [employer] Mag-Bind FFPE DNA/RNA kit. Whole genomic DNA is isolated from peripheral blood using [employer] DNA Blood MiniKit to provide DNA for germline sequencing. Circulating tumor DNA (ctDNA) is extracted from plasma derived from whole blood samples collected in cell-free DNA blood tubes ([employer]out) using the [employer] automated or manual extraction method (Qiagen). Whole-exome sequencing is performed on tumor and peripheral blood DNA using the [employer] whole-exome sequencing assay. Using a proprietary algorithm, putative, clonal variants present in the tumor but absent in the germline DNA are identified to design the customized multiplex PCR assay. The customized PCR assays are run to detect presence or absence of these variants within circulating plasma. A patient's plasma sample is considered ctDNA positive when at least two individual-specific tumor variants are detected. When fewer than two individual-specific tumor variants are observed, a negative result is issued. Pathology services and whole exome sequencing is performed at [facility]. (CLIA ID# [id number]), [facility] [address] . [address] Disclaimer The extraction, library preparation, and sequencing for this test were performed by [facility] [address] [place] [address] A [facility] [address] [address] (CLIA ID [id number]). The data analysis and reporting for this test were performed by [facility] [address] [place] [address] (CLIA ID [id number]). This test was developed and its performance characteristics determined by [facility]. The test has not been cleared or approved by the U.S. Food and Drug Administration (FDA). CAP accredited, ISO 16959 certified, and CLIA certified. Pathology services and whole exome sequencing for this test were performed by [facility] [address] [address] (CLIA ID [id number]). 2020 [employer]. All Rights Reserved. Blood Venous blood specimen / Unknown Venipuncture / Unknown 08/24/2024 12:08 PM EDT 08/24/2024 12:09 PM EDT us Luma SALINAS BLOOD ORDERABLES Final R esult [facility] [address] [place] [address], [place] * (ABNORMAL) CEA, Serum (08/24/2024 12:08 PM EDT) CEA, Serum 7.4(H) <4.0 ng/mL 08/24/2024 1:40 PM EDT [facility] Blood Venous blood specimen / Unknown Venipuncture / Unknown 08/24/2024 12:08 PM EDT 08/24/2024 1:00 PM EDT Narrative [facility] - 08/24/2024 1:40 PM EDT Normal range for smokers: < 5.5 ng/ml Normal range for non-smokers: <=4.0 ng/ml Performed by Jack electrochemiluminescent immunoassay. Results obtained with different test methods or kits cannot be used interchangeably. Luma Beltran MD LAB BLOOD ORDERABLES Final Resu lt Performing Organization Address [facility] Co de Phone Number [facility] [address] [place] [address] * (ABNORMAL) Comprehensive Metabolic Panel, Plasma (08/24/2024 12:08 PM EDT) Glucose, Plasma 101(H) 74 - 99 mg/dL 08/24/2024 1:07 PM EDT [facility] BUN, Plasma 19 7 - 21 mg/dL 08/24/2024 1:07 PM EDT [facility] Creatinine, Plasma 1.04 0.60 - 1.10 mg/dL 08/24/2024 1:07 PM EDT [facility] BUN/Creatinine Ratio 18 08/24/2024 1:07 PM EDT [facility] Sodium, Plasma 137 136 - 145 mmol/L 08/24/2024 1:07 PM EDT [facility] Potassium, Plasma 4.0 3.6 - 4.9 mmol/L 08/24/2024 1:07 PM EDT [facility] Chloride, Plasma 102 97 - 107 mmol/L 08/24/2024 1:07 PM EDT [facility] CO2, Plasma 22 22 - 29 mmol/L 08/24/2024 1:07 PM EDT [facility] Anion Gap 13 6 - 16 mmol/L 08/24/2024 1:07 PM EDT [facility] Total Calcium, Plasma 9.4 8.9 - 10.2 mg/dL 08/24/2024 1:07 PM EDT [facility] Total Protein 6.9 6.3 - 7.9 g/dL 08/24/2024 1:07 PM EDT [facility] Albumin, Plasma 4.0 3.5 - 5.2 g/dL 08/24/2024 1:07 PM EDT [facility] AST, Plasma 27 10 - 35 U/L 08/24/2024 1:07 PM EDT [facility] Comment:Hemolyzed, result ma y be falsely increased. ALT, Plasma 21 10 - 35 U/L 08/24/2024 1:07 PM EDT [facility] Alkaline Phosphatase, Plasma 100 46 - 142 U/L 08/24/2024 1:07 PM EDT [facility] Total Bilirubin, Plasma 0.3 0.2 - 1.1 mg/dL 08/24/2024 1:07 PM EDT [facility] eGFRcr 62.4 mL/min/1.7 3m*2 08/24/2024 1:07 PM EDT [facility] Comment:Reported eGFRcr in m L/min/1.73m2 is based the CKD-EPI 2020 equation that does not use a race coefficient. Blood Venous blood specimen / Unknown Venipuncture / Unknown 08/24/2024 12:08 PM EDT 08/24/2024 12:35 PM EDT us Luma Beltran MD LAB BLOOD ORDERABLES Final Resu lt [facility] [address] [place] [address] * (ABNORMAL) CBC and Differential (08/24/2024 12:08 PM EDT) [facility] Signature WBC Count 16.38(H) 3.70 - 10.30 10*3/uL LAB HEMATOLOGY METHOD 08/24/2024 12:47 PM EDT [facility] RBC Count 5.41(H) 3.90 - 5.20 10*6/uL LAB HEMATOLOGY METHOD 08/24/2024 12:47 PM EDT [facility] HGB 13.2 11.2 - 15.7 g/dL LAB HEMATOLOGY METHOD 08/24/2024 12:47 PM EDT [facility] HCT 41.8 34.0 - 45.0 % LAB HEMATOLOGY METHOD 08/24/2024 12:47 PM EDT [facility] Platelet Count 353 155 - 369 10*3/uL LAB HEMATOLOGY METHOD 08/24/2024 12:47 PM EDT [facility] MCV 77(L) 79 - 98 fL LAB HEMATOLOGY METHOD 08/24/2024 12:47 PM EDT [facility] MCH 24.4(L) 26.0 - 32.0 pg LAB HEMATOLOGY METHOD 08/24/2024 12:47 PM EDT [facility] MCHC 31.6 30.7 - 35.5 g/dL LAB HEMATOLOGY METHOD 08/24/2024 12:47 PM EDT [facility] RDW 17.2(H) 11.5 - 14.5 % LAB HEMATOLOGY METHOD 08/24/2024 12:47 PM EDT [facility] MPV 9.8 8.8 - 12.5 fL LAB HEMATOLOGY METHOD 08/24/2024 12:47 PM EDT [facility] nRBC 0.0 <=0.0 per 100 WBCs LAB HEMATOLOGY METHOD 08/24/2024 12:47 PM EDT [facility] Differential Type Automated LAB HEMATOLOGY METHOD 08/24/2024 12:47 PM EDT [facility] Neutrophils % 80 % LAB HEMATOLOGY METHOD 08/24/2024 12:47 PM EDT [facility] Lymphocytes % 10 % LAB HEMATOLOGY METHOD 08/24/2024 12:47 PM EDT [facility] Monocytes % 7 % LAB HEMATOLOGY METHOD 08/24/2024 12:47 PM EDT [facility] Eosinophils % 1 % LAB HEMATOLOGY METHOD 08/24/2024 12:47 PM EDT [facility] Basophils % 1 % LAB HEMATOLOGY METHOD 08/24/2024 12:47 PM EDT [facility] Immature Granulocytes % 1 % LAB HEMATOLOGY METHOD 08/24/2024 12:47 PM EDT [facility] Neutrophils Absolute 13.41(H) 1.60 - 6.10 10*3/uL LAB HEMATOLOGY METHOD 08/24/2024 12:47 PM EDT [facility] Lymphocytes Absolute 1.55 1.20 - 3.90 10*3/uL LAB HEMATOLOGY METHOD 08/24/2024 12:47 PM EDT [facility] Monocytes Absolute 1.12(H) 0.30 - 0.90 10*3/uL LAB HEMATOLOGY METHOD 08/24/2024 12:47 PM EDT [facility] Eosinophils Absolute 0.10 0.00 - 0.50 10*3/uL LAB HEMATOLOGY METHOD 08/24/2024 12:47 PM EDT [facility] Basophils Absolute 0.10 0.00 - 0.10 10*3/uL LAB HEMATOLOGY METHOD 08/24/2024 12:47 PM EDT [facility] Immature Granulocytes Absolute 0.10(H) 0.00 - 0.06 10*3/uL LAB HEMATOLOGY METHOD 08/24/2024 12:47 PM EDT [facility] Blood Venous blood specimen / Unknown Venipuncture / Unknown 08/24/2024 12:08 PM EDT 08/24/2024 12:34 PM EDT Narrative [facility] - 08/24/2024 12:47 PM EDT Therapeutic decision making should be based on absolute values, rather than percentages. 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) documented in this encounter Additional Health Concerns Assessment Noted Time PHQ-9 Depression Total Score: 15 024 10:05 AM EST A fall risk assessment has been complete d for the patient 08/24/2024 11:13 AM EDT A Body Mass Index follow-up plan has been documented for the patient 02/02/2024 3:06 PM EST documented as of this encounter Care Teams Pharmaceutical Sales Specialist Relationship Specialty Start Date End Date Elizabeth Lockhart APRN [address] [place] [address] PCP - General 10/23/23 Taran Serrano MD [address] [place] [address] Referring Physician 10/20/23 Jass Anderson MD [address] [place] [id number] Consulting Physician Radiation Oncology 03/16/24 documented as of this encounter
--- OUTSIDE RECORDS SUMMARY | 2024-09-01 15:50 | XMS_ITS | Encounter Summary ---
Author Organization 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) Procedures CT Abdomen Pelvis w IV Contrast Luma Beltran MD [address] [address] Phone: tel: fax: Referral ID Status Reason Start Date Expiration Date Visits Re quested Visits Authorized [id number] Closed 08/25/2024 02/24/2026 1 1 * Imaging (Urgent) - Closed Specialty Diagnoses / Procedures Referred By Contac t Referred To Contact Radiology Diagnoses 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) Procedures CT Chest w IV Contrast Luma Beltran MD [address] [address] Phone: tel: fax: Referral ID Status Reason Start Date Expiration Date Visits Re quested Visits Authorized [id number] Closed 08/25/2024 02/24/2026 1 1 Reason for Visit * Imaging (Urgent) - Closed Specialty Diagnoses / Procedures Referred By Contac t Referred To Contact Radiology Diagnoses 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) Procedures CT Abdomen Pelvis w IV Contrast Luma Beltran MD [address] [facility] [address] [place] [address] Phone: tel: fax: Referral ID Status Reason Start Date Expiration Date Visits Re quested Visits Authorized [id number] Closed 08/25/2024 02/24/2026 1 1 Encounter Details Date Type Department Care Team (Latest Contact Info) Description 09/01/2024 3:50 PM EDT - 09/01/2024 11:59 PM EDT Hospital Encounter [facility] Radiology [address] [place] [address] 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 No 11/02/2023 PHQ-9 Answer Date [...] on file documented as of this encounter Medications at [...] 6 (six) hours. 60 tablet 1 11/03/2023 ipratropium-albute rol (Duo-Neb) 0.5-2.5 mg/3 mL nebulizer solution Inhale 3 mL every 6 hours. multivitamin (Theragran) tablet Take 1 tablet by mouth daily. predniSONE (Deltasone) 20 MG tablet TAKE 1 TABLET BY MOUTH ONCE A DAY FOR 14 DAYS THEN 1/2 TABLET ONCE A DAY FOR 14 DAYS THEN STOP TAKING PREDNISONE promethazine (Phenergan) 12.5 MG tablet Take every 8 hours as needed for nausea senna (Senokot) 8.6 MG tabletIndications: Drug-induced constipation Take 1 tablet by mouth 2 (two) times a day as needed for constipation. 30 tablet 1 06/07/2024 oxyCODONE (Roxicodone) 10 MG immediate release tablet Take 1 tablet by mouth every 4 hours as needed for moderate pain. 180 tablet 08/25/2024 documented as of this encounter Miscellaneous Notes * Nany Amaya R - 09/01/2024 3:54 PM EDT Images from the original note were not included. [id number] Caring for Yourself after Contrast Imaging If you had ORAL contrast: ?? You can go back to your normal diet and activities as tolerated. ?? Drink plenty of fluids, unless told otherwise. If you had IV contrast: ?? You can go back to your normal diet and activities as tolerated. ?? Drink plenty of fluids, unless told otherwise. ?? Leave a bandage on the site for 30 minutes (where the IV was inserted or blood was drawn). If you had Intravesical (bladder) contrast: ?? Return to normal diet and activity. What you need to know about delayed reaction to IV contrast What is IV Contrast? ?? Contrast is a dye that is put into your body through an IV. ?? It is used for imaging scans such as CT scans and MRIs. ?? The contrast makes blood vessels, organs and other parts of your body show up better on the scan. What do I need to do after IV contrast? ?? Drink lots of fluids. This will help flush the contrast out of your system. ?? Drink 2-3 extra glasses or bottles of water within 4 hours of your scan. What is a contrast reaction? ?? A contrast reaction is a bad side effect from the contrast dye. ?? It is rare but it does happen. ?? They can be mild - such as sneezing, itching, or hives. ?? They can be severe - such as trouble breathing, throat swelling, and irregular heart beat. When do these reactions happen? ?? They often happen right after the contrast is injected. ?? Some happen hours after going home. Go to the nearest Emergency Department right away if you have any of these symptoms after you leavethe clinic or hospital. ?? Sneezing ?? Itching in your mouth, throat, eyes, ears, or skin ?? Rash or hives ?? Throwing up or stomach sickness ?? High heart rate or ?racing? of your heart ?? Feeling dizzy or woozy ?? Feeling short of breath or like you can?t take a deep breath ?? Feeling very anxious for no other reason It is very important that these reactions be treated. Tell the doctor or nurse that you are having a reaction to IV contrast dye. Do not ignore any sign of a reaction! All reactions must be assessed by a doctor. Call 911 if you are alone and your reaction is more than mild sneezing or itching. If you have a mild reaction, call to speak with a Radiologist, explain that you havehad a contrast reaction, as this needs to be added to your medical record. 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) CT CHEST W IV CONTRAST STAT 09/01/2024 4:51 PM EDT 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 [...] Total DLP (Dose-Length Product): 496.56 mGy.cm (accession [id number]), 496.56 mGy.cm (accession [id number]) Please note: The reported value represents the [...] Total DLP (Dose-Length Product): 496.56 mGy.cm (accession [id number]),496.56 mGy.cm (accession [id number]) Please note: The reported valuerepresents the total [...] on 09/02/2024 8:10 AM Luma Beltran MD IMG CT PROCEDURES Final [...] Total DLP (Dose-Length Product): 496.56 mGy.cm (accession [id number]), 496.56 mGy.cm (accession [id number]) Please note: The reported value represents the [...] Total DLP (Dose-Length Product): 496.56 mGy.cm (accession [id number]),496.56 mGy.cm (accession [id number]) Please note: The reported valuerepresents the total [...] on 09/02/2024 8:10 AM Luma Beltran MD IMG CT PROCEDURES Final Result documented in this encounter Visit Diagnoses Diagnosis 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) documented in this encounter Administered Medications Inactive Administered Medications - up to 3 most recent administrations Medication Order MAR Action Action Date Dose Rate Site iohexol (OMNIPaque) 300 MG/ML injection 100 mL 100 mL, Intravenous, Once in imaging, 1 dose, Starting on Fri09/01/24 at 1553, Until Fri09/01/24 at 1645, Routine, Imaging Protocol Orders Given 09/01/2024 4:45 PM EDT 100 mL iohexol (OMNIPaque) 9 MG/ML oral contrast 500 mL 500 mL, Oral, Once in imaging, 1 dose, Starting on Fri09/01/24 at 1553, Until 09/01/24 at 1645, Routine, Imaging Protocol Orders Given 09/01/2024 4:45 PM EDT 500 mL documented in this encounter Additional Health Concerns Assessment Noted Time PHQ-9 Depression Total Score: 15 024 10:05 AM EST A fall risk assessment has been complete d for the patient 08/24/2024 11:13 AM EDT A Body Mass Index follow-up plan has been documented for the patient 02/02/2024 3:06 PM EST documented as of this encounter Care Teams Director Of Design Relationship Specialty Start Date End Date Elizabeth Lockhart APRN [address] [place] [address] PCP - General 10/23/23 Taran Serrano MD [address] [place] [address] Referring Physician 10/20/23 Jass Anderson MD [address] [facility] [address] [place] [address] Consulting Physician Radiation Oncology 03/16/24 documented as of this encounter
--- NOTE | 2024-10-13 11:27 | XR_ITS ---
FINAL REPORT CLINICAL HISTORY: SOB COMPARISON: 05/05/2024 FINDINGS: CHEST 2 VIEWS PA AND LATERAL The heart is normal in size. The mediastinum is unremarkable. Left chest port tip is in the SVC. There is patchy airspace opacity in the left midlung and left base. There is mild airspace opacity in the right perihilar region. Findings are consistent with acute pneumonia, new since previous. There is no pneumothorax. IMPRESSION: Acute pneumonia. Recommend continued follow-up. Reviewed, Interpreted and Dictated by Baljit Strong MD Transcribed by Magdalena Parnell Authenticated and [facility]
--- OUTSIDE RECORDS SUMMARY | 2024-10-13 11:28 | XMS_ITS | Clinical Summary ---
Author Organization [facility] Address [address] [place] [address] Care Team Providers Care Envelope Stamping Machine Operator Name Role Phone Taran Serrano MD Unavailable [phone] Elizabeth Lockhart APRN Primary Care Provider [phone] Jass Anderson MD Unavailable [phone] Allergies Active Allergy Reactions Criticality Noted [...] for constipation. 30 tablet 1 5 Active ipratropium-albu terol (Duo-Neb) 0.5-2.5 mg/3 mL nebulizer solution Inhale 3 mL every 6 hours. Active predniSONE (Deltasone) 20 MG tablet TAKE 1 TABLET BY MOUTH ONCE A DAY FOR 14 DAYS THEN 1/2 TABLET ONCE A DAY FOR 14 DAYS THEN STOP TAKING PREDNISONE Active promethazine (Phenergan) 12.5 MG tablet Take every 8 hours as needed for nausea Active multivitamin (Theragran) tablet Take 1 tablet by mouth daily. Active oxyCODONE (Roxicodone) 10 MG immediate release tablet Take 1 tablet by mouth every 4 hours as needed for moderate pain. 180 tablet 5 025 Active oxyCODONE (Roxicodone) 10 MG immediate release tablet Take 1 tablet by mouth every 4 hours as needed for moderate pain. 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 Cancer Staging:Pathologic stage from 10/31/2023:Stage NBA(pM1a) - Signed by Luma Beltran MD on 12/04/2023 Asthma 11/13/2023 COPD (chronic obstructive pulmonary disease) Family history of blood clots 11/13/2023 Overview (11/13/2023): Father History of colon cancer 11/13/2023 Second hand smoke exposure 11/13/2023 Ovarian mass 10/31/2023 History of chemotherapy 02/24/2018 Resolved Problems Problem Noted Date Diagnosed Date Resolved Date Local recurrence of malignan t neoplasm of colon 04/20/2024 08/15/2024 Encounters Date Type Department Care Team Description 09/27/2024 Telephone [facility] [address] [place] [address] Luma Beltran MD 09/23/2024 Telephone [facility] [address] [place] [address] Luma Beltran MD 09/22/2024 Refill [facility] [address] [place] [address] Luma Beltran MD 09/03/2024 Telephone [facility] [address] [place] [address] Luma Beltran MD 09/02/2024 Social Work [facility] [address] [place] [address] BhatRaffaele III 09/01/2024 3:50 PM EDT - 09/01/2024 11:59 PM EDT Hospital Encounter [facility] [address] [place] [address] 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) Discharge Disposition: Home or Self Care 09/01/2024 Travel 08/26/2024 Lab Requisition [facility] [address] [place] [phone] Luma Beltran MD Malignant neoplasm of colon, unspecified (CMS/HCC) 08/25/2024 Telephone [facility] [address] [place] [address] Luma Beltran MD 08/25/2024 Refill [facility] [address] [place] [address] Aye Aldridge MD 08/24/2024 10:30 AM EDT Office Visit [facility] Multidisciplinary Oncology Clinic [address] [place] [address] Luma Beltran MD 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 No 11/02/2023 PHQ-9 Answer Date Recorded Patient Health Questionnaire-9 Score 15 02/23/2024 Utilities Answer Date Recorded In the past 12 months has th e [employer], gas, oil, or water company threatened to [...] Pulse 91 08/24/2024 11:10 AM EDT Temperature 36.6 C (97.8 F) 06/07/2024 2:36 PM EDT Respiratory Rate 18 08/24/2024 11:10 AM EDT Oxygen Saturation 93% 08/24/2024 11:10 AM EDT Inhaled Oxygen Concentration - - Weight 69.4 kg (153 lb) 08/24/2024 11:10 AM EDT Height 162.6 cm (5' 4 ) 08/24/2024 11:10 AM EDT Body Mass Index 26.26 08/24/2024 11:10 AM EDT Plan of Treatment Health Maintenance Due Date Last Done Comments [facility]-/Child/Adol SDOH Screenings 1965 BYS-OHAMQ-64 Vaccine (#1) 1970 [facility]-DTaP,Tdap,and Td Vaccine s (1 - Tdap) 1984 [facility]-Hepatitis B Vaccines (1 of 3 - 19+ 3-dose series) 1984 [facility]-Pneumococcal Vaccine: 50 + Years (1 of 2 - PCV) 1984 [facility]-Zoster Vaccines (1 of 2) 1984 [facility]-Breast Cancer Screening 12/16/2015 [facility]- SDOH Screenings 05/01/2024 [facility]-Adult SDOH Screenings 05/01/2024 11/02/2023 [facility]-Influenza Vaccine (#1) 2024 11/20/2023 [facility]-Depression Screening 08/24/2025 025, 02/23/2024 [facility]-Obesity Intervention Completed 024, 10/23/2023 [facility]-HIV Screening [...] (CMS/HCC) CT CHEST W IV CONTRAST STAT 4:51 PM EDT 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) AP MISCELLANEOUS LAB TEST (SO) Routine 08/26/2024 1:08 PM EDT Malignant neoplasm of colon, unspecified (CMS/HCC) SIGN[facility] ONLY Routine 08/24/2024 12:08 PM EDT [...] Recently Relevant to Health Maintenance Results * CT Abdomen Pelvis w IV [...] Total DLP (Dose-Length Product): 496.56 mGy.cm (accession [id number]), 496.56 mGy.cm (accession [id number]) Please note: The reported value represents the [...] Total DLP (Dose-Length Product): 496.56 mGy.cm (accession [id number]),496.56 mGy.cm (accession [id number]) Please note: The reported valuerepresents the total [...] Total DLP (Dose-Length Product): 496.56 mGy.cm (accession [id number]), 496.56 mGy.cm (accession [id number]) Please note: The reported value represents the [...] Total DLP (Dose-Length Product): 496.56 mGy.cm (accession [id number]),496.56 mGy.cm (accession [id number]) Please note: The reported valuerepresents the total [...] MD IMG CT PROCEDURES Final Result * - AP Miscellaneous Test (08/26/2024 1:08 PM EDT) Test name Jose Alberto Cotter 09/15/2024 9:33 AM EDT [facility] Comment:[id number], A3 Test Result see scan 09/15/2024 9:33 AM EDT [facility] See Scanned Result 09/15/2024 9:33 AM EDT [facility] Tissue 08/26/2024 1:08 PM EDT 08/26/2024 1:08 PM EDT us Luma Beltran MD LAB REF LAB BLOOD AND FLUID ORD Final Result [facility] [address] [place] [address] * (ABNORMAL) [facility] Only Single Draw (08/24/2024 12:08 PM EDT) [facility] TEST RESULT POSITIVE (A) 09/15/2024 9:31 AM EDT [facility] SIGN[facility]A MTM READOUT 3.86(A) MTM/ml 9:31 AM EDT [facility] Comment: Please see the attached PDF [...] Nature Cancer. 2020;1(9):873-881. 2 Josephine TV, Bryan Lopez, et al., Circulating Tumor DNA in Stage III Colorectal Cancer, beyond Minimal Residual Disease Detection, toward Assessment of Adjuvant Therapy Efficacy and Clinical Behavior of Recurrences. Clin Cancer Res. 202; 28(3):507-517. Methodology FFPE samples are reviewed by a pathologist to assess tumor content and percent tumor nuclei. Tumor DNA is extracted using [employer] Mag-Bind FFPE DNA/RNA kit. Whole genomic DNA is isolated from peripheral blood using QIAamp DNA Blood MiniKit to provide DNA for germline sequencing. Circulating tumor DNA (ctDNA) is extracted from plasma derived from whole blood samples collected in cell-free DNA blood tubes (Dimple Dough) using the QIAsymphony automated or manual extraction method (Qiagen). Whole-exome sequencing is performed on tumor and peripheral blood DNA using the [employer] whole-exome sequencing assay. Using a proprietary algorithm, [...] and whole exome sequencing is performed at [facility]. (CLIA ID# [id number]), [address] [place] [address]. [address] Disclaimer The extraction, library preparation, and sequencing for this test were performed by [facility] [address] [place] [address] [place] [address] (CLIA ID [id number]). The data analysis and reporting for this test were performed by [facility]., [address] [place] [address] (CLIA ID [id number]). This test was developed and its performance characteristics determined by [facility]. The test has not been cleared or approved by the U.S. Food and Drug Administration (FDA). CAP accredited, ISO 38108 certified, and CLIA certified. Pathology services and whole exome sequencing for this test were performed by [facility] [address], [place] [address] (CLIA ID [id number]). 2020 [employer]. All Rights Reserved. Blood Venous blood specimen / Unknown Venipuncture / Unknown 08/24/2024 12:08 PM EDT 08/24/2024 12:09 PM EDT Luma Beltran MD [facility] BLOOD ORDERABLES Final R esult [facility] [address] [place] [address], * APTT (08/24/2024 12:08 PM EDT) aPTT 25 25 - 35 sec LAB COAGULATION METHOD 08/24/2024 12:58 PM EDT [facility] Blood Venous blood specimen / Unknown Venipuncture / Unknown 08/24/2024 12:08 PM EDT 08/24/2024 12:35 PM EDT us Luma Beltran MD LAB BLOOD ORDERABLES Final Resu lt Performing Organization Address City/[facility]/ZIP Co de Phone Number [facility] [address] [place] [address] * Protime-INR (08/24/2024 12:08 PM EDT) Prothrombin Time 12.2 12.0 - 14.3 sec LAB COAGULATION METHOD 08/24/2024 12:58 PM EDT [facility] INR 0.9 0.9 - 1.1 LAB COAGULATION METHOD 08/24/2024 12:58 PM EDT [facility] Blood Venous blood specimen / Unknown Venipuncture / Unknown 08/24/2024 12:08 PM EDT 08/24/2024 12:35 PM EDT Narrative [facility] - 08/24/2024 12:58 PM EDT OPTIMAL INR RANGES FOR PATIENT ON ORAL ANTICOAGULANT THERAPY Prevention of venous thromboembolism INR 2.0 to 3.0 In patients with heart disease: Atrial fibrillation INR 2.0 to 3.0 Valvular heart disease INR 2.0 to 3.0 Tissue heart valves INR 2.0 to 3.0 Mechanical prosthetic valves INR 2.5 to 3.5 Prevention of recurrent NE INR 2.5 to 3.5 us Luma Beltran MD LAB BLOOD ORDERABLES Final Resu lt Performing Organization Address City/[facility]/ZIP Co de Phone Number [facility] [address] [place] [address] * (ABNORMAL) CBC and Differential (08/24/2024 12:08 PM EDT) WBC Count 16.38(H) 3.70 - 10.30 10*3/uL LAB HEMATOLOGY METHOD 08/24/2024 12:47 PM EDT [facility] RBC Count 5.41(H) 3.90 - 5.20 10*6/uL LAB HEMATOLOGY METHOD 08/24/2024 12:47 PM EDT [facility] HGB 13.2 11.2 - 15.7 g/dL LAB HEMATOLOGY METHOD 08/24/2024 12:47 PM EDT [facility] HCT 41.8 34.0 - 45.0 % LAB HEMATOLOGY METHOD 08/24/2024 12:47 PM EDT [facility] Platelet Count 353 155 - 369 10*3/uL LAB HEMATOLOGY METHOD 08/24/2024 12:47 PM EDT [facility] MCV 77(L) 79 - 98 fL LAB HEMATOLOGY METHOD 08/24/2024 12:47 PM EDT [facility] MCH 24.4(L) 26.0 - 32.0 pg LAB HEMATOLOGY METHOD 08/24/2024 12:47 PM EDT [facility] MCHC 31.6 30.7 - 35.5 g/dL LAB HEMATOLOGY METHOD 08/24/2024 12:47 PM EDT [facility] RDW 17.2(H) 11.5 - 14.5 % LAB HEMATOLOGY METHOD 08/24/2024 12:47 PM EDT [facility] MPV 9.8 8.8 - 12.5 fL LAB HEMATOLOGY METHOD 08/24/2024 12:47 PM EDT [facility] nRBC 0.0 <=0.0 per 100 WBCs LAB HEMATOLOGY METHOD 08/24/2024 12:47 PM EDT [facility] Differential Type Automated LAB HEMATOLOGY METHOD 08/24/2024 12:47 PM EDT [facility] Neutrophils % 80 % LAB HEMATOLOGY METHOD 08/24/2024 12:47 PM EDT [facility] Lymphocytes % 10 % LAB HEMATOLOGY METHOD 08/24/2024 12:47 PM EDT [facility] Monocytes % 7 % LAB HEMATOLOGY METHOD 08/24/2024 12:47 PM EDT [facility] Eosinophils % 1 % LAB HEMATOLOGY METHOD 08/24/2024 12:47 PM EDT [facility] Basophils % 1 % LAB HEMATOLOGY METHOD 08/24/2024 12:47 PM EDT [facility] Immature Granulocytes % 1 % LAB HEMATOLOGY METHOD 08/24/2024 12:47 PM EDT [facility] Neutrophils Absolute 13.41(H) 1.60 - 6.10 10*3/uL LAB HEMATOLOGY METHOD 08/24/2024 12:47 PM EDT [facility] Lymphocytes Absolute 1.55 1.20 - 3.90 10*3/uL LAB HEMATOLOGY METHOD 08/24/2024 12:47 PM EDT [facility] Monocytes Absolute 1.12(H) 0.30 - 0.90 10*3/uL LAB HEMATOLOGY METHOD 08/24/2024 12:47 PM EDT [facility] Eosinophils Absolute 0.10 0.00 - 0.50 10*3/uL LAB HEMATOLOGY METHOD 08/24/2024 12:47 PM EDT [facility] Basophils Absolute 0.10 0.00 - 0.10 10*3/uL LAB HEMATOLOGY METHOD 08/24/2024 12:47 PM EDT [facility] Immature Granulocytes Absolute 0.10(H) 0.00 - 0.06 10*3/uL LAB HEMATOLOGY METHOD 08/24/2024 12:47 PM EDT [facility] Blood Venous blood specimen / Unknown Venipuncture / Unknown 08/24/2024 12:08 PM EDT 08/24/2024 12:34 PM EDT Narrative [facility] - 08/24/2024 12:47 PM EDT Therapeutic decision making should be based on absolute values, rather than percentages. us Luma Beltran MD LAB BLOOD ORDERABLES Final Resu lt [facility] [address] [place] [address] * (ABNORMAL) CEA, Serum (08/24/2024 12:08 PM EDT) CEA, Serum 7.4(H) <4.0 ng/mL 08/24/2024 1:40 PM EDT [facility] Blood Venous blood specimen / Unknown Venipuncture / Unknown 08/24/2024 12:08 PM EDT 08/24/2024 1:00 PM EDT Narrative [facility] - 08/24/2024 1:40 PM EDT Normal range for smokers: < 5.5 ng/ml Normal range for non-smokers: <=4.0 ng/ml Performed by Jack electrochemiluminescent immunoassay. Results obtained with different test methods or kits cannot be used interchangeably. us Luma Beltran MD LAB BLOOD ORDERABLES Final Resu lt [facility] [address] [place] [address] * (ABNORMAL) Comprehensive Metabolic Panel, Plasma (08/24/2024 12:08 PM EDT) Glucose, Plasma 101(H) 74 - 99 mg/dL 08/24/2024 1:07 PM EDT [facility] BUN, Plasma 19 7 - 21 mg/dL 08/24/2024 1:07 PM EDT [facility] Creatinine, Plasma 1.04 0.60 - 1.10 mg/dL 08/24/2024 1:07 PM EDT [facility] BUN/Creatinine Ratio 18 08/24/2024 1:07 PM EDT [facility] Sodium, Plasma 137 136 - 145 mmol/L 08/24/2024 1:07 PM EDT [facility] Potassium, Plasma 4.0 3.6 - 4.9 mmol/L 08/24/2024 1:07 PM EDT [facility] Chloride, Plasma 102 97 - 107 mmol/L 08/24/2024 1:07 PM EDT [facility] CO2, Plasma 22 22 - 29 mmol/L 08/24/2024 1:07 PM EDT [facility] Anion Gap 13 6 - 16 mmol/L 08/24/2024 1:07 PM EDT [facility] Total Calcium, Plasma 9.4 8.9 - 10.2 mg/dL 08/24/2024 1:07 PM EDT [facility] Total Protein 6.9 6.3 - 7.9 g/dL 08/24/2024 1:07 PM EDT [facility] Albumin, Plasma 4.0 3.5 - 5.2 g/dL 08/24/2024 1:07 PM EDT [facility] AST, Plasma 27 10 - 35 U/L 08/24/2024 1:07 PM EDT [facility] Comment:Hemolyzed, result ma y be falsely increased. ALT, Plasma 21 10 - 35 U/L 08/24/2024 1:07 PM EDT [facility] Alkaline Phosphatase, Plasma 100 46 - 142 U/L 08/24/2024 1:07 PM EDT [facility] Total Bilirubin, Plasma 0.3 0.2 - 1.1 mg/dL 08/24/2024 1:07 PM EDT [facility] eGFRcr 62.4 mL/min/1.7 3m*2 08/24/2024 1:07 PM EDT [facility] Comment:Reported eGFRcr in m L/min/1.73m2 is based the CKD-EPI 2020 equation that does not use a race coefficient. Blood Venous blood specimen / Unknown Venipuncture / Unknown 08/24/2024 12:08 PM EDT 08/24/2024 12:35 PM EDT us Luma Beltran MD LAB BLOOD ORDERABLES Final Resu lt Performing Organization Address [facility] Co de Phone Number [facility] [address] [place] [address] * ED HIV 1/2 Antibody/Antigen Screen w/Reflex to HIV 1/2 Differentiation (03/11/2024 6:53 PM EST) Pathologist [facility] HIV 1 & 2 Antibody/Antigen Screen Non Reactive Non Reactive 03/11/2024 8:04 PM EST [facility] Comment:Screening for HIV 1 & 2 antibodies, and P24 antigen is NONREACTIVE. No confirmatory testing is required. Blood Venous blood specimen / Unknown Venipuncture / Unknown 03/11/2024 6:53 PM EST 03/11/2024 7:22 PM EST us Julien Matias MD LAB BLOOD ORDERABLES Final Res ult Performing Organization Address City/[facility]/ZIP Co de Phone Number [facility] [address] [place] [address] * Hepatitis C Antibody - ED (03/11/2024 6:53 PM EST) Hepatitis C Antibody Negative Negative 03/11/2024 8:07 PM EST [facility] Blood Venous blood specimen / Unknown Venipuncture / Unknown 03/11/2024 6:53 PM EST 03/11/2024 7:23 PM EST us Julien Matias MD LAB BLOOD ORDERABLES Final Res ult [facility] [address] [place] [address] from Last 3 Months or Most Recently Relevant to Health Maintenance Insurance [facility] MEDICAID Advance Directives * Full Code (Latest Code Status on File) Date Activated Date Inactivated Comments 10/31/2023 11:10 AM 11/03/2023 2:48 PM Question Answer Comments Patient has decision-making capacity? Yes Care Teams Envelope Stamping Machine Operator Relationship Specialty Start Date End Date Elizabeth Lockhart APRN [address] [place] [address] PCP - General 10/23/23 Taran Serrano MD [address] [address] Referring Physician 10/20/23 Jass Anderson MD [address] [facility] [address] [place] [address] Consulting Physician Radiation Oncology 03/16/24
--- OUTSIDE RECORDS SUMMARY | 2024-10-13 11:28 | XMS_ITS | Encounter Summary ---
Author Organization Healthcare Address [address] [place] [address] Care Team Providers Care Physician Advisor Name Role Phone Taran Serrano MD Unavailable [phone] Elizabeth Lockhart APRN Primary Care Provider [phone] Jass Anderson MD Unavailable [phone] Encounter Details Date Type Department Care Team (Late st Contact Info) Description 08/24/2024 Telephone [facility] [address] [place] [phone] Luma Beltran MD 800 [facility] [address] [place] [address] Social History Tobacco Use Types Packs/Day Years [...] place to sleep or slept in a long-term (including now)? No 11/02/2023 PHQ-9 Answer Date Recorded Patient Health Questionnaire-9 Score 15 02/23/2024 Utilities Answer Date Recorded In the past 12 months has e [employer], [employer], oil, or water [employer] threatened to shut off services in your [...] encounter Miscellaneous Notes * Telephone Encounter - Martha Holloway - 08/24/2024 12:27 PM EDT Patient Phone Message Reason for Call: Patient is needing another extension note for [employer] for another month. Best contact number and optimal time of day to reach caller: [phone] Note: Please do not reply to this message. Follow-up communication and further actions as a result of this message need to be communicated with the patient directly, if the patient is not active onMyChart. If the patient is active on MyChart, they will receive notification of the communication/outcome via [employer]. documented in this encounter Plan of Treatment Not on file documented as of this encounter Visit Diagnoses Not on filedocumented in this encounter Additional Health Concerns Assessment Noted Time PHQ-9 Depression Total Score: 15 02/22/ 024 10:05 AM EST A fall risk assessment has been complete d for the patient 08/24/2024 11:13 AM EDT A Body Mass Index follow-up plan has been documented for the patient 02/02/2024 3:06 PM EST documented as of this encounter Care Teams Physician Advisor Relationship Specialty Start Date End Date Elizabeth Lockhart APRN [address] [place] [address] PCP - General 10/23/23 Taran Serrano MD [address] [place] [address] Referring Physician 10/20/23 Jass Anderson MD [address] [phone] Consulting Physician Radiation Oncology 03/16/24 documented as of this encounter
--- OUTSIDE RECORDS SUMMARY | 2024-10-13 11:28 | XMS_ITS | Encounter Summary ---
Author Organization [facility] Address [address] [place] [address] Care Team Providers Care Supervisor [employer] Name Role Phone Taran Serrano MD Unavailable [phone] Elizabeth Lockhart APRN Primary Care Provider [phone] Jass Anderson MD Unavailable [phone] Encounter Details Date Type Department Care Team (Latest Contact Info) Description 09/01/2024 Travel Social History Tobacco Use Types Packs/Day [...] place to sleep or slept in a chcf (including now)? No 11/02/2023 PHQ-9 Answer Date [...] documented as of this encounter Care Teams Supervisor [employer] Relationship Specialty Start Date End Date Elizabeth Lockhart APRN [address] [place] [address] PCP - General 10/23/23 Taran Serrano MD [address] [address] Referring Physician 10/20/23 Jass Anderson MD [address] [facility] [address] [place] [address] Consulting Physician Radiation Oncology 03/16/24 documented as of this encounter
--- OUTSIDE RECORDS SUMMARY | 2024-10-13 11:28 | XMS_ITS | Encounter Summary ---
Author Organization Healthcare Address [address] [place] [address] Care Team Providers Care Product Support Analyst Name Role Phone Taran Serrano MD Unavailable [phone] Elziabeth Lockhart APRN Primary Care Provider [phone] Jass Anderson MD Unavailable [phone] Encounter Details Date Type Department Care Team (Late st Contact Info) Description 09/27/2024 Telephone [facility] [address] [place] [phone] Luma Bletran MD 800 [facility] [address] [place] [address] Social History Tobacco Use Types Packs/Day Years [...] to sleep or slept in a senior care (including now)? No 11/02/2023 PHQ-9 Answer Date Recorded Patient Health Questionnaire-9 Score 15 02/23/2024 Utilities Answer Date Recorded In the past 12 months has e [employer], gas, oil, or water [employer] threatened to shut off services in your home? No 11/02/2023 Comments No Sex and Gender Information Value Date Recorded Sex Assigned at Female 10/31/2023 6:32 AM EDT Legal Sex Female 7:36 PM EDT Gender Identity Female 10/31/2023 6:32 AM EDT Sexual Orientation Not on file documented as of this encounter Miscellaneous Notes * Telephone Encounter - Thao Vidal - 09/27/2024 8:07 AM EDT Patient Phone Message Reason for Call: Tiago calling to request extension on electric ([employer]) through Friday, ATTN: Erica. Best contact number and optimal time of day to reach caller: [phone] Note: Please do not reply to this message. Follow-up communication and further actions as a result of this message need to be communicated with the patient directly, if the patient is not active onMyChart. If the patient is active on MyChart, they will receive notification of the communication/outcome via [employer]. documented in this encounter Plan of Treatment [...] documented as of this encounter Care Teams Product Support Analyst Relationship Specialty Start Date End Date Elizabeth Lockhart APRN [address] [place] [address] PCP - General 10/23/23 Taran Serrano MD [address] [place] [address] Referring Physician 10/20/23 Jass Anderson MD [address] [facility] [address] [place] [address] Consulting Physician Radiation Oncology 03/16/24 documented as of this encounter
--- OUTSIDE RECORDS SUMMARY | 2024-10-13 11:28 | XMS_ITS | Encounter Summary ---
Author Organization Healthcare Address [address] [place] [address] Care Team Providers Care Outside Parts Salesman Name Role Phone Taran Serrano MD Unavailable [phone] Elizabeth Lockhart APRN Primary Care Provider [phone] Jass Anderson MD Unavailable [phone] Encounter Details Date Type Department Care Team (Late st Contact Info) Description 09/23/2024 Telephone [facility] [address] [place] [address] Luma Beltran MD 800 [facility] [address] [place] [address] Social History Tobacco Use Types Packs/Day Years [...] In the past 12 months has e [employer], [employer] oil, or water [employer] threatened to shut off services in your home? No 11/02/2023 Comments No Sex and Gender Information Value Date Recorded Sex Assigned at Female 10/31/2023 6:32 AM EDT Legal Sex Female 7:36 PM EDT Gender Identity Female 10/31/2023 6:32 AM EDT Sexual Orientation Not on file documented as of this encounter Miscellaneous Notes * Telephone Encounter - Glory Chand RN - 09/23/2024 9:44 AM EDT Called pharmacy and gave approval for day early refill documented in this encounter Plan of Treatment [...] documented as of this encounter Care Teams Outside Parts Salesman Relationship Specialty Start Date End Date Elizabeth Lockhart APRN [address] [place] [address] PCP - General 10/23/23 Taran Serrano MD [address] [address] Referring Physician 10/20/23 Jass Anderson MD 800 [facility] [address] [place] [address] Consulting Physician Radiation Oncology 03/16/24 documented as of this encounter
--- OUTSIDE RECORDS SUMMARY | 2024-10-13 11:28 | XMS_ITS | Encounter Summary ---
Author Organization Healthcare Address [address] [place] [address] Care Team Providers Care Personal Counselor Name Role Phone Taran Serrano MD Unavailable [phone] Elizabeth Lockhart APRN Primary Care Provider [phone] Jass Anderson MD Unavailable [phone] Encounter Details Date Type Department Care Team (Late st Contact Info) Description 09/03/2024 Telephone [facility] [address] [place] [id number] Luma Beltran MD 800 [facility] [address] [place] [address] Social History Tobacco Use Types Packs/Day Years [...] place to sleep or slept in a mcc (including now)? No 11/02/2023 PHQ-9 Answer Date Recorded Patient Health Questionnaire-9 Score 15 02/23/2024 Utilities Answer Date Recorded In the past 12 months has e [employer], gas, oil, or water [employer] threatened to shut off services in your home? No 11/02/2023 Comments No Sex and Gender Information Value Date Recorded Sex Assigned at Female 10/31/2023 6:32 AM EDT Legal Sex Female 7:36 PM EDT Gender Identity Female 10/31/2023 6:32 AM EDT Sexual Orientation Not on file documented as of this encounter Miscellaneous Notes * Telephone Encounter - Aquino, More Toussaint - 09/08/2024 11:43 AM EDT Called and spoke with Traci, let her know provider recommended bronchoscopy with washing +/_ biopsy to check for immune infilrate. Bronch done Mar this year, she is sending over notes and op note/pathology. Will forward to provider once records received. * Telephone Encounter - Martha Holloway - 09/08/2024 11:40 AM EDT Patient Phone Message Reason for Call: Traci is calling about patients plan of care. She is sending over notes from their office. She wants to speak with Dr. Broussard nurse if possible about some questions. Best contact number and optimal time of day to reach caller: [phone] Note: Please do not reply to this message. Follow-up communication and further actions as a result of this message need to be communicated with the patient directly, if the patient is not active onMyChart. If the patient is active on MyChart, they will receive notification of the communication/outcome via [employer]. * Telephone Encounter - Valarie Bowers - 09/03/2024 9:50 AM EDT Patient Phone Message Reason for Call: Ms. Green is calling to let Luma know that she understands everything and she will get back with her after she gets back with her pulmonologists Best contact number and optimal time of day to reach caller: [phone] Note: Please do not reply to this message. Follow-up communication and further actions as a result of this message need to be communicated with the patient directly, if the patient is not active onMyChart. If the patient is active on MyChart, they will receive notification of the communication/outcome via [employer]. documented in this encounter Plan of Treatment Not on file documented as of this encounter Visit Diagnoses Not on filedocumented in this encounter Additional Health Concerns Assessment Noted Time PHQ-9 Depression Total Score: 15 02/22/2 024 10:05 AM EST A fall risk assessment has been complete d for the patient 08/24/2024 11:13 AM EDT A Body Mass Index follow-up plan has been documented for the patient 02/02/2024 3:06 PM EST documented as of this encounter Care Teams Personal Counselor Relationship Specialty Start Date End Date Elizabeth Lockhart APRN [address] [place] [address] PCP - General 10/23/23 Taran Serrano MD [address] [facility] [address] [place] [address] Referring Physician 10/20/23 Jass Anderson MD 800 [facility] [address] [place] [address] Consulting Physician Radiation Oncology 03/16/24 documented as of this encounter
--- OUTSIDE RECORDS SUMMARY | 2024-10-13 11:28 | XMS_ITS | Encounter Summary ---
Author Organization Healthcare Address [address] [place] [address] Care Team Providers Care Saw Grinder Name Role Phone Taran Serrano MD Unavailable [phone] Elizabeth Lockhart APRN Primary Care Provider [phone] Jass Anderson MD Unavailable [phone] Reason for Visit * Reason Onset Date Comments Med Refill 09/22/2024 Encounter Details Date Type Department Care Team (Late st Contact Info) Description 09/22/2024 Refill [facility] [address] [place] [address] Luma Beltran MD [address] [address] Social History Tobacco Use Types Packs/Day Years [...] place to sleep or slept in a prison (including now)? No 11/02/2023 PHQ-9 Answer Date Recorded Patient Health Questionnaire-9 Score 15 02/23/2024 Utilities Answer Date Recorded In the past 12 months has th e [employer], gas, oil, or water [employer] threatened to shut off services in your [...] documented as of this encounter Care Teams Saw Grinder Relationship Specialty Start Date End Date Elizabeth Lockhart APRN [address] [place] [address] PCP - General 10/23/23 Taran Serrano MD [address] [facility] [address] [place] [address] Referring Physician 10/20/23 Jass Anderson MD 800 [facility] [address] [place] [address] Consulting Physician Radiation Oncology 03/16/24 documented as of this encounter
--- OUTSIDE RECORDS SUMMARY | 2024-10-13 11:28 | XMS_ITS | Encounter Summary ---
Author Organization Healthcare Address [address] [place] [address] Care Team Providers Care Plant Tour Guide Name Role Phone Taran Serrano MD Unavailable [phone] Elizabeth Lockhart APRN Primary Care Provider [phone] Jass Anderson MD Unavailable [phone] Encounter Details Date Type Department Care Team (Late st Contact Info) Description 08/26/2024 Lab Requisition [facility] H Lab [address] [place] [address] Luma Beltran MD 800 [facility] [address] [place] [address] Malignant neoplasm of colon, unspecified (CMS/HCC) Social History Tobacco Use Types Packs/Day Years [...] the past 12 months has th e [employer], gas, oil, or water [employer] threatened to shut off services in your [...] Procedure Name Priority Date/Time Associated Diagnosis Comments AP MISCELLANEOUS LAB TEST (SO) Routine 08/26/2024 1:08 PM EDT Malignant neoplasm of colon, unspecified (CMS/HCC) documented in this encounter Results * - AP Miscellaneous Test (08/26/2024 1:08 PM EDT) Test name Jose Alberto Cotter 09/15/2024 9:33 AM EDT [facility] Comment:[id number], A3 Test Result see scan 09/15/2024 9:33 AM EDT [facility] See Scanned Result 09/15/2024 9:33 AM EDT [facility] Tissue 08/26/2024 1:08 PM EDT 08/26/2024 1:08 PM EDT us Luma Beltran MD LAB REF LAB BLOOD AND FLUID ORD Final Result [facility] [address] [place] [address] documented in this encounter Visit Diagnoses Diagnosis Malignant neoplasm of colon, unspecified (CMS/HCC) documented in this encounter Additional Health Concerns Assessment Noted Time PHQ-9 Depression Total Score: 15 02/22/ 024 10:05 AM EST A fall risk assessment has been complete d for the patient 08/24/2024 11:13 AM EDT A Body Mass Index follow-up plan has been documented for the patient 02/02/2024 3:06 PM EST documented as of this encounter Care Teams Plant Tour Guide Relationship Specialty Start Date End Date Elizabeth Lockhart APRN [address] [place] [address] PCP - General 10/23/23 Taran Serrano MD [address] [address] Referring Physician 10/20/23 Jass Anderson MD [address] [address] Consulting Physician Radiation Oncology 03/16/24 documented as of this encounter
--- OUTSIDE RECORDS SUMMARY | 2024-10-13 11:28 | XMS_ITS ---
Author Organization [facility] Address [address] [place] [address] Care Team Providers Care Neon Pumper Name Role Phone Taran Serrano MD Unavailable [phone] Elizabeth Lockhart APRN Primary Care Provider [phone] Jass Anderson MD Unavailable [phone] Active Problems Problem Noted Date Diagnosed [...] Therapy Plans No past plan information found. Resolved Problems Problem Noted Date Diagnosed Date Resolved Date Local recurrence of malignan t neoplasm of colon 04/20/2024 08/15/2024
--- OUTSIDE RECORDS SUMMARY | 2024-10-13 11:28 | XMS_ITS | Encounter Summary ---
Author Organization Healthcare Address [address] [place] [address] Care Team Providers Care Inventory Control Associate Name Role Phone Taran Serrano MD Unavailable [phone] Elizabeth Lockhart APRN Primary Care Provider [phone] Jass Anderson MD Unavailable [phone] Encounter Details Date Type Department Care Team (Late st Contact Info) Description 08/25/2024 Telephone [facility] [address] [place] [phone] Luma Beltran MD 800 [facility] [address] [place] [address] Social History Tobacco Use Types Packs/Day Years [...] place to sleep or slept in a usp (including now)? No 11/02/2023 PHQ-9 Answer Date Recorded Patient Health Questionnaire-9 Score 15 02/23/2024 Utilities Answer Date Recorded In the past 12 months has e [employer], gas, oil, or water [employer] threatened to shut off services in your home? No 11/02/2023 Comments No Sex and Gender Information Value Date Recorded Sex Assigned at Female 10/31/2023 6:32 AM EDT Legal Sex Female 7:36 PM EDT Gender Identity Female 10/31/2023 6:32 AM EDT Sexual Orientation Not on file documented as of this encounter Miscellaneous Notes * Telephone Encounter - Vaalrie Bowers Aravind - 08/25/2024 4:09 PM EDT Patient Phone Message Reason for Call: Mr. Green calling on behalf of his about there electric bill , he said therepower is about to get caught off and is wanting to know if Luma was able to send the letter over to to the [employer] Best contact number and optimal time of day to reach caller: [phone] Note: Please do not reply to this message. Follow-up communication and further actions as a result of this message need to be communicated with the patient directly, if the patient is not active onMyChart. If the patient is active on MyChart, they will receive notification of the communication/outcome via [employer]. documented in this encounter Plan of Treatment [...] documented as of this encounter Care Teams Inventory Control Associate Relationship Specialty Start Date End Date Elizabeth Lockhart APRN [address] [place] [address] PCP - General 10/23/23 Taran Serrano MD [address] [place] [address] Referring Physician 10/20/23 Jass Anderson MD [address] [facility] [address] [place] [address] Consulting Physician Radiation Oncology 03/16/24 documented as of this encounter
--- OUTSIDE RECORDS SUMMARY | 2024-10-13 11:28 | XMS_ITS | Encounter Summary ---
Author Organization Healthcare Address [address] [place] [address] Care Team Providers Care Child Nutrition Director Name Role Phone Taran Serrano MD Unavailable [phone] Elizabeth Lockhart APRN Primary Care Provider [phone] Jass Anderson MD Unavailable [phone] Reason for Visit * Reason Comments Social Work/navigation Follow-up Encounter Details Date Type Department Care Team (Late st Contact Info) Description 09/02/2024 Social Work [facility] [address] [place] [address] Raffaele Bhat III Social History Tobacco Use Types Packs/Day Years [...] encounter Miscellaneous Notes * Progress Notes - Raffaele Bhat III - 09/02/2024 1:14 PM EDT Encounter Type: Distress Follow Up - Phone Call Disease Status: Initial Psych Onc Contact Clinic Location: [facility] Disease Type: Colon & Rectum Services Provided: Resource Navigation Education Provided: Psych-Onc Services Intervention Level: 1 Units (1 unit = 15 minutes): 1 Narrative: PN called pt to discuss DT screening, but there was no answer. PN received an automated message stating that pt's phone had restrictions that was not letting the call to go through. Unableto leave vm message as well. Raffaele Bhat III, Patient Navigator [facility] Psych-Oncology Services documented in this encounter Plan of Treatment [...] documented as of this encounter Care Teams Child Nutrition Director Relationship Specialty Start Date End Date Elizabeth Lockhart APRN [address] [place] [address] PCP - General 10/23/23 Taran Serrano MD [address] [address] Referring Physician 10/20/23 Jass Anderson MD 800 [facility] [address] [place] [address] Consulting Physician Radiation Oncology 03/16/24 documented as of this encounter
--- OUTSIDE RECORDS SUMMARY | 2024-10-13 11:28 | XMS_ITS | Encounter Summary ---
Author Organization Healthcare Address [address] [place] [address] Care Team Providers Care X Ray Technician Name Role Phone Taran Serrano MD Unavailable [phone] Elizabeth Lockhart APRN Primary Care Provider [phone] Jass Anderson MD Unavailable [phone] Reason for Visit * Reason Onset Date Comments Med Refill 08/25/2024 Encounter Details Date Type Department Care Team (Late st Contact Info) Description 08/25/2024 Refill [facility] [address] [place] [address] Aye Aldridge MD [address] [address] Social History Tobacco Use Types Packs/Day Years [...] place to sleep or slept in a longterm (including now)? No 11/02/2023 PHQ-9 Answer Date Recorded Patient Health Questionnaire-9 Score 15 02/23/2024 Utilities Answer Date Recorded In the past 12 months has th e [employer], gas, oil, or water [employer] threatened to shut off services in your [...] documented as of this encounter Care Teams X Ray Technician Relationship Specialty Start Date End Date Elizabeth Lockhart APRN [address] [place] [address] PCP - General 10/23/23 Taran Serrano MD [address] [facility] [address] [place] [address] Referring Physician 10/20/23 Jass Anderson MD 800 [place] [facility] [address] [place] [address] Consulting Physician Radiation Oncology 03/16/24 documented as of this encounter
--- OUTSIDE RECORDS SUMMARY | 2024-10-13 11:28 | XMS_ITS | Encounter Summary ---
Author Organization [facility] Address [address] [place] [address] Care Team Providers Care Boiler Tender Name Role Phone Taran Serrano MD Unavailable [phone] Elizabeth Lockhart APRN Primary Care Provider [phone] Jass Anderson MD Unavailable [phone] Encounter Details Date Type Department Care Team (Latest Contact Info) Description 08/24/2024 Travel Social History Tobacco Use Types Packs/Day [...] than half the days 08/24/2024 11:13 AM Alejandra Aj Feeling down, depressed, or hopeless More than half the days 08/24/2024 11:13 AM Alejandra Aj Patient Health Questionnaire-2 Score 4 08/24/2024 11:13 AM EDT Deyvi, Samanth a M * Question Answer Date of Assessment Author [...] documented as of this encounter Care Teams Boiler Tender Relationship Specialty Start Date End Date Elizabeth Lockhart APRN [address] [place] [address] PCP - General 10/23/23 Taran Serrano MD [address] [address] Referring Physician 10/20/23 Jass Anderson MD 800 [facility] [address] [place] [address] Consulting Physician Radiation Oncology 03/16/24 documented as of this encounter
== END 2024-10-13 23:59 | disposition home or self-care (01) ==
LOC: RAD 11:26
PROVIDERS: PCP Nurse Practitioner Family; Visit Provider Internal Medicine Pulmonary Disease
DX: J18.8 Other pneumonia, unspecified organism (principal)
CPT/HCPCS: 71046

== ENCOUNTER 2024-10-15 12:15 | Day surgery (SDC) | payer OTHER, SELFPAY ==
[2024-10-14 14:07] VITALS: BMI 26.6
[2024-10-15] VITALS (10 sets, daily range): BP systolic 105–121; BP diastolic 51–71; PULSE 73–95; RESP 16–26; TEMP 36.2–36.4; O2SAT 93–99
--- NOTE | 2024-10-15 12:34 | ECG_ITS ---
APPROVED REPORT Exam: Resting ECG HR:91 bpm ECG Measurements Heart Rate 91 AXES TN 151 P 59 QRSd 81 QRS 45 QT 328 T 50 QTc 377 Conclusion SINUS RHYTHM NORMAL ECG UNCONFIRMED REPORT Electronically signed by : Efra Workman MD 10/16/2024 08:41:07
[2024-10-15 12:56] LABS: Hematocrit 37.9 % (37.0-47.0); Hemoglobin 11.9 g/dL (12.2-16.2); Immature Granulocytes % 0.4 %; Mean Corpuscular HGB Conc 31.4 g/dL (31.8-35.4); Mean Corpuscular Hemoglobin 23.9 pg (27.0-31.2); Mean Corpuscular Volume 76.3 fl (81-99); Nucleated Red Blood Cells % 0 %; Platelet Count 354 K/mm3 (142-424); Red Blood Count 4.97 M/mm3 (4.20-5.40); Red Cell Distribution Width-SD 44.5 fL; White Blood Count 10.7 K/mm3 (4.8-10.8)
[2024-10-15] MEDS: LACTATED RINGERS 1000ML 1,000 ML 25 ML IV (12:56)
[2024-10-15 13:01] LABS: Chloride 107 mmol/L (98-107); Potassium 4.1 mmoL/L (3.5-5.1); Sodium 138 mmol/L (136-145)
[2024-10-15 13:04] LABS: Anion Gap 10.1 mEq/L (5-15); Blood Urea Nitrogen 16 mg/dl (7-17); Calcium 9.6 mg/dl (8.4-10.2); Carbon Dioxide 25 mmol/L (22.0-30.0); Creatinine Clearance Estimated 76 mL/min (50-200); Creatinine,Serum 0.90 mg/dl (0.52-1.04); Estimated Glomerular Filt Rate 64 ml/min (>60); GFR (African American) 78 ML/MIN (>60); Glucose 102 mg/dl (74-100)
--- NOTE | 2024-10-15 13:06 | EXP.ANES.CKL ---
[facility] Disclaimer: The information contained in this section may have been updated after the patient was seen, as this information can be updated by other users. Medical History Orthopnea Acute dyspnea Organizing pneumonia Chemotherapy adverse reaction Left ovarian cyst Colon cancer Surgical History H/O total hysterectomy History of appendectomy History of partial surgical removal of colon History of partial hysterectomy Family History Mother Cancer lung Other Coronary artery disease Hypertension Kidney disease Social History (Updated 10/15/24 @ 12:38 by Annika Medel RN) Smoking Status: Former smoker tobacco type: e-cigarettes second hand exposure: No alcohol intake: never substance use type: painkillers current occupational status: unemployed Travel in the last 8 weeks?: None household members: spouse and family housing: house 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 [employer] current occupational exposures/hazards: No caffeine: Yes Have you lived/traveled outside US in past 30 days?: No Contact w/someone who lives/traveled outside US past 30 days?: No Exposure to someone with infectious disease in past 14 days?: No Do you have a fever (greater than 100.4 F or 38 C)?: No Have you tested positive for COVID-19?: No Exposed to someone with COVID-19 in past 14 days?: No Do you have a sore throat?: No Do you have a cough?: No Do you have any weakness?: No Are you experiencing any nausea/vomitting?: No Do you have any diarrhea?: No Are you experiencing any unusual bleeding?: No Do you have any muscle aches/pain?: No Do you have any abdominal pain?: No Are you experiencing loss of taste or smell?: No [facility] Anesthesia Checklist Patient Identification Patient Identification: Arm Band Structural Data Admitted From: Home Planned Operative Procedure/s: Bronchoscopy Consent for Planned Operative Procedure(s) Verified: Yes Verified Documents: Surgical Consent and History and Physical NPO Status Verified Time NPO: 00:00 Additional verifications Anesthesia Reactions: No Hx Blood Transfusions: No Blood Transfusion Reaction: No Airway Assessment Mallampati Score:: Class II C-Spine Mobility Assessed: Yes TMJ Mobility Assessed: Yes Dentition: Good Dentition Neurological Assessment Level of Consciousness: Awake, Alert and Appropriate Anesthesia Plan Anesthesia Risk discussed: Yes Anesthesia Plan: Verified ASA Class: III Anesthesia Type: General
--- NOTE | 2024-10-15 14:25 | EXP.BRONCH.N ---
Procedure: Date: 10/15/24 Patient Date of :: 1965 Procedure Performed:: Bronchoscopy airway examination, bronchoalveolar lavage and transbronchial lung biopsy Indications:: Nonresolving pneumonia Performing Provider:: Kate Gutierrez MD Referring Provider:: Dr. Luma Beltran Sedation:: General anesthesia Procedure:: Bronchoscopy airway examination, bronchoalveolar lavage and transbronchial lung biopsy: A clean diagnostic bronchoscopy was advanced through the ET tube and airways were examined up to subsegmental bronchi. Airways appeared grossly normal, no evidence of mucoid secretions, mucous plugging active bleeding/old blood clots noted. Bronchoalveolar lavage was performed in the left lingula with instillation of 60 cc normal saline with return of 20cc clear fluid back. BAL fluid was sent for cell count and differential along with bacterial fungal and AFB stain and cultures. Transbronchial forceps lung biopsy was performed in the left lingula with a total of 7 biopsies performed, 5 biopsy specimens were sent in formalin for cytopathologic examination. The other 2 biopsy samples, were sent one each in two separate normal saline specimen cups for bacterial fungal and AFB stain cultures. Transbronchial forceps lung biopsy was also performed in the left lower lobe with a total of 5 biopsies performed and were sent in formalin for cytopathologic examination. Special request was also made for the pathologist to evaluate for AFB and fungal organisms on the cytopathologic examination. Patient tolerated the procedure with no immediate acute complications. We will follow the patient in pulmonary clinic in 7 to 10 days. Findings:: Please see the procedure note Recommendations:: Postoperative bronchoscopy instructions Follow in pulmonary clinic in 5-7 days Complications:: No acute immediate complications Estimated blood obtained (mL): 5
--- NOTE | 2024-10-15 14:29 | XR_ITS ---
FINAL REPORT CLINICAL HISTORY: BRONCH WITH BIOPSY 66.02 MGY 2.49 MIN FLUORO TIME FINDINGS: A single fluoroscopic spot film was obtained for bronchoscopy. 2.49 minutes of fluoroscopy time reported, 66.02 mGy. IMPRESSION: 2.49 minutes of fluoroscopy time, 66.02 mGy. Reviewed, Interpreted and Dictated by Baljit Strong MD Transcribed by Yazmin Sanchez Authenticated and [facility]
--- NOTE | 2024-10-15 14:38 | EXP.ANES.I ---
[facility] Anesthesia Record Part I Anesthesia Record I Intake, IV Amount: 1,200 Hydration: Adequate Estimated blood loss (mL): 0 Urine output (mL): 0 Blood Products used (#): none Blood Pressure: 121/69 SaO2: 93 Pulse Rate: 91 Airway Patency: Patent Respiratory Rate: 26 Temperature: 97.4 F Patient is:: Drowsy and Stable Stable to PACU at:: 14:25
--- NOTE | 2024-10-15 14:39 | XR_ITS ---
FINAL REPORT TECHNIQUE: Single view chest CLINICAL HISTORY: md order following bronch COMPARISON: 10/13/2024 FINDINGS: A single view of the chest was obtained. The heart is mildly enlarged. There is a left-sided port with the tip in the SVC. There are patchy bilateral airspace infiltrates, left greater than right, likely due to acute pneumonia. There is no pneumothorax. IMPRESSION: Patchy bilateral airspace infiltrates, left greater than right likely due to acute pneumonia. Reviewed, Interpreted and Dictated by Baljit Strong MD Transcribed by Yazmin Sanchez Authenticated and [facility]
[2024-10-15 16:34] LABS: C-Reactive Protein 20.2 mg/L (0-4)
--- NOTE | 2024-10-15 16:38 | EXP.ANES.II ---
[facility] Anesthesia Record Part II Anesthesia Record Part II Discharge Time: 14:47 Destination: Surgical Day Care (OP Surgery) PACU nurse assessment reviewed?: Yes Patient Condition:: Good Anesthesia Complications:: None Swallowing reflex intact?: Yes Airway Patency: Patent Cyanosis?: No Blood Pressure: 109/61 SaO2: 98 Respiratory Rate: 16 Pulse Rate: 86 Temperature: 97.6 F Mental Status: Alert & Oriented Pain level:: 0 Nausea and/or vomitting:: None Intake, IV Amount: 0 Hydration: Adequate
[2024-10-18 08:20] LABS: Antinuclear Antibodies (ANA) Negative (Negative)
[2024-10-20 17:12] LABS: Clinical Relevance Notes (.); Fungitell Value < 31.25 pg/mL (.); Interpretation Notes (.)
[2024-10-21 16:12] LABS: Histoplasma Antibody Quant Negative (Neg:<1:1)
[2024-10-31 11:39] LABS: Cell Count + Differential, BAL SCANNED IMAGE
== END 2024-10-15 15:30 | disposition home or self-care (01) ==
PROVIDERS: PCP Nurse Practitioner Family; Visit Provider Internal Medicine Pulmonary Disease
PROC: (CPT 31624; principal; 2024-10-15 12:45)
DX: J84.89 Other specified interstitial pulmonary diseases (principal); J90 Pleural effusion, not elsewhere classified; D72.10 Eosinophilia, unspecified; R06.09 Other forms of dyspnea; J84.10 Pulmonary fibrosis, unspecified; F17.290 Nicotine dependence, other tobacco product, uncomplicated
CPT/HCPCS: 31624; 31628; 31632; 36415; 71045; 76000; 80048; 83615; 85025; 86038; 86140; 86606; 86612; 86682; 86698; 87070; 87101; 87116; 87186; 87205; 87449; 89051; 93005; J1100; J2003; J2250; J2405; J2704; J3010; J7120

== ENCOUNTER 2025-01-13 13:01 | Outpatient (CLI) | payer OTHER, SELFPAY ==
[2025-01-13 13:40] VITALS: PULSE 84; PULSE 86
[2025-01-13] MEDS: ALBUTEROL 0.083% 2.5 MG/3 ML NEB IH (13:40)
[2025-01-13 15:45] LABS: Hematocrit 40.6 % (37.0-47.0); Hemoglobin 12.6 g/dL (12.2-16.2); Immature Granulocytes % 0.9 %; Mean Corpuscular HGB Conc 31.0 g/dL (31.8-35.4); Mean Corpuscular Hemoglobin 25.2 pg (27.0-31.2); Mean Corpuscular Volume 81.2 fl (81-99); Nucleated Red Blood Cells % 0 %; Platelet Count 382 K/mm3 (142-424); Red Blood Count 5.00 M/mm3 (4.20-5.40); Red Cell Distribution Width-SD 53.2 fL; White Blood Count 22.3 K/mm3 (4.8-10.8)
[2025-01-13 16:15] LABS: Alanine Aminotransferase 37 U/L (12-78); Albumin Level 4.4 g/dl (3.5-5.0); Albumin/Globulin Ratio 1.9 (1.1-1.8); Alkaline Phosphatase 91 U/L (38-126); Anion Gap 9.1 mEq/L (5-15); Aspartate Amino Transferase 26 U/L (14-36); Bilirubin,Total 0.4 mg/dl (0.2-1.3); Blood Urea Nitrogen 21 mg/dl (7-17); Calcium 10.3 mg/dl (8.4-10.2); Carbon Dioxide 29 mmol/L (22.0-30.0); Chloride 98 mmol/L (98-107); Creatinine,Serum 0.90 mg/dl (0.52-1.04); Estimated Glomerular Filt Rate 64 ml/min (>60); GFR (African American) 78 ML/MIN (>60); Globulin 2.3 g/dL (1.3-3.2); Glucose 103 mg/dl (74-100); Potassium 4.1 mmoL/L (3.5-5.1); Sodium 132 mmol/L (136-145); Total Protein,Serum 6.7 g/dl (6.3-8.2)
[2025-01-13 16:20] LABS: C-Reactive Protein 3.5 mg/L (0-4)
[2025-01-13 16:24] LABS: Anisocytosis 1+; Macrocytosis 1+; Ovalocytes 1+; Poikilocytosis 1+; Target Cells 1+; Tear Drop Cells 1+; Total Cells Counted 100
[2025-01-13 16:25] LABS: Microcytosis 1+; Polychromasia 1+
== END 2025-01-13 23:59 | disposition home or self-care (01) ==
LOC: RT 13:02
PROVIDERS: PCP Nurse Practitioner Family; Visit Provider Internal Medicine Pulmonary Disease
DX: J45.909 Unspecified asthma, uncomplicated (principal); J84.9 Interstitial pulmonary disease, unspecified; R94.2 Abnormal results of pulmonary function studies
CPT/HCPCS: 36415; 80053; 85007; 85025; 86140; 94010; 94618; 94640